=== PATIENT | female | born 1955 | race Caucasian/White ===

== ENCOUNTER 2020-07-03 09:51 | Outpatient (REF) | payer BC, SELFPAY ==
--- NOTE | 2020-07-03 | XR_ITS ---
EXAMINATION: XR BILATERAL HIPS WITH AP PELVIS CLINICAL INFORMATION: Bilateral hip pain and swelling. COMPARISON: None TECHNIQUE: AP view of the pelvis and single views of each hip were obtained. FINDINGS: Minimal bilateral hip degenerative joint changes are seen. There is no acute fracture or dislocation. The bony pelvis is intact. The soft tissues are unremarkable. IMPRESSION: Minimal bilateral hip degenerative joint changes. No acute abnormality.
== END 2020-07-03 09:52 | disposition home or self-care (01) ==
LOC: HO.XRAY 09:51
DX: M25.552 Pain in left hip (principal); M25.551 Pain in right hip; M25.452 Effusion, left hip; M25.451 Effusion, right hip
CPT/HCPCS: 73521

== ENCOUNTER 2020-12-27 08:10 | Outpatient (REF) | payer BC, SELFPAY ==
--- NOTE | ~2020-12-27 | MM_ITS ---
EXAMINATION: BONE DENSITOMETRY CLINICAL INDICATION: Osteopenia. COMPARISON: Baseline BD dated 09/10/2013. TECHNIQUE: Using a [employer] DXA System (software version: 13.1) manufactured by [employer], dual-energy x-ray absorptiometry was performed of the lumbar spine and left hip. The images are of good technical quality. Summary results are attached. FINDINGS: AP SPINE L1-L4: Current: BMD 0.938 g/cm2, Z-score -0.7, T-score -2.0, osteopenia, 2.4% increase from baseline (<5% change is not significant). Baseline: BMD 0.916 g/cm2. LEFT FEMUR, NECK: Current: BMD 0.625 g/cm2, Z-score -1.7, T-score -3.0, osteoporosis. Baseline: BMD 0.718 g/cm2. LEFT FEMUR, TOTAL: Current: BMD 0.810 g/cm2, Z-score -0.6, T-score -1.6, osteopenia, 1.6% decrease from baseline (<5% change is not significant). Baseline: BMD 0.823 g/cm2. IDENTIFIED RISK FACTORS: Early menopause, tobacco use (current smoker). HISTORY OF FRACTURE: None listed. MEDICATIONS: Vitamin D. MM/XR DEXA axial skeleton IMPRESSION: 1. DIAGNOSIS: Osteoporosis based on the lowest T-score value of -3.0 in the femoral neck applying World Health Organization criteria. 2. 10-YEAR FRACTURE RISK PREDICTION, FRAX: According to the guidelines, FRAX calculation should only be performed on patients in the osteopenia bone density category. Therefore, FRAX was not performed on this patient. 3. Treatment Recommendations: NOF guidelines recommend consideration for treatment in postmenopausal women and men age 50 and older presenting with the following: -A hip or vertebral (clinical or morphometric) fracture. -T-score less than or equal to -2.5 at the femoral neck or spine after appropriate evaluation to exclude secondary causes. -Low bone mass at the hip or spine and a 10-year fracture probability by FRAX of greater than or equal to 3% for hip fracture or greater than or equal to 20% for major osteoporotic fracture based on the [place] adapted WHO algorithm. 4. Other Recommendations: All treatment decisions require clinical judgment and consideration of individual patient factors, including patient preferences, comorbidities, previous drug use, risk factors not captured in the FRAX model (e.g. frailty, falls, vitamin D deficiency, increased bone turnover, interval significant decline in bone density) and possible under or overestimation of fracture risk by FRAX. Additional medical evaluation for secondary cause of low bone mineral density may be appropriate. FUTURE SCAN RECOMMENDATION: People with diagnosed cases of osteoporosis or at high risk for fracture should have regular bone mineral density tests. For patients eligible for Medicare, routine testing is allowed once every 2 years. The testing frequency can be increased to one year for patients who have rapidly progressing disease, those who are receiving or discontinuing medical therapy to restore bone mass, or have additional risk factors.
== END 2020-12-27 08:11 | disposition home or self-care (01) ==
LOC: HO.MAMMO 08:10
PROVIDERS: Visit Provider Internal Medicine
DX: Z13.820 Encounter for screening for osteoporosis (principal); Z78.0 Asymptomatic menopausal state; M85.80 Other specified disorders of bone density and structure, unspecified site; F17.200 Nicotine dependence, unspecified, uncomplicated; Z79.899 Other long term (current) drug therapy
CPT/HCPCS: 77080

== ENCOUNTER 2021-03-15 07:40 | Outpatient (REF) | payer BC, SELFPAY ==
--- NOTE | ~2021-03-15 | XR_ITS ---
EXAMINATION: XR LUMBOSACRAL SPINE CLINICAL INFORMATION: Low back pain COMPARISON: None TECHNIQUE: Three views of the lumbosacral spine. FINDINGS: Bone alignment is normal. No fracture or dislocation is seen. Disc spaces are normal. There is lower lumbar spine facet arthritis. There is evidence of atherosclerotic. XR/XR lumbar spine 2-3V IMPRESSION: Facet arthritis. Otherwise unremarkable exam.
[2021-03-15 08:55] LABS: Glucose Urine UA NEG (NEG); Leukocyte Esterase Urine 1+ (NEG); Nitrite Urine NEG (NEG); Specific Gravity - Urine 1.025 (1.005-1.025); UACC Culture Trigger YES; Urine Blood NEG (NEG); Urine Ketones NEG (NEG); Urine Protein NEG (NEG-TRACE)
[2021-03-15 09:06] LABS: Appearance Urine CLEAR; Color Urine YELLOW
[2021-03-15 09:16] LABS: Amorphous Sediment Urine 1+ /LPF; Mucus Urine 1+ /LPF; RBC Urine 0-2 /HPF (0); Squamous Epithelial Cell Urine 1+ /LPF
[2021-03-15 09:21] LABS: MANUAL DIFF FLAG NO
[2021-03-15 09:25] LABS: Basophils Absolute Auto 0.1 X10*3/uL (0.0-0.2); Basophils Percent Auto 0.7 % (0-2); Eosinophils Absolute Auto 0.4 X10*3/uL (0.0-0.4); Eosinophils Percent Auto 4.2 % (0-4); Hematocrit 47.1 % (37-47); Hemoglobin 15.4 g/dl (12.0-16.0); Imm Gran Abs Auto 0.03 X10*3/uL (0.00-0.03); Imm Gran Pct Auto 0.3 % (0.0-0.4); Lymphocytes Absolute Auto 2.8 X10*3/uL (1.2-4.9); Lymphocytes Percent Auto 30.4 % (20-40); Mean Corpuscular HGB Conc 32.7 g/dl (31.0-35.0); Mean Corpuscular Hemoglobin 30.3 pg (27.0-33.0); Mean Corpuscular Volume 92.7 fL (80-98); Mean Platelet Volume 10.2 fL (9.4-12.3); Monocytes Absolute Auto 0.5 X10*3/uL (0.1-1.2); Monocytes Percent Auto 5.9 % (2-11); Neutrophils Absolute Auto 5.4 X10*3/uL (2.0-8.3); Neutrophils Percent Auto 58.5 % (45-73); Platelet Count 359 X10*3/uL (160-400); Red Blood Count 5.08 X10*6/uL (4.20-5.50); Red Cell Distribution Width 12.4 % (11.0-16.0); White Blood Count 9.2 X10*3/uL (4.8-10.8)
[2021-03-15 09:52] LABS: Alanine Aminotransferase 19 U/L (0-31); Albumin Level 4.5 g/dL (3.5-5.0); Alkaline Phosphatase 107 U/L (39-117); Anion Gap 13 (12-20); Aspartate Amino Transferase 18 U/L (5-31); Bilirubin Total 0.4 mg/dL (0.0-1.0); Blood Urea Nitrogen 14 mg/dL (9-16); Calcium 9.8 mg/dL (8.4-10.2); Carbon Dioxide 27 mmol/L (22-29); Chloride 106 mmol/L (96-108); Cholesterol 161 mg/dL; Estimated Glomerular Filt Rate > 60; Glucose Fasting 92 mg/dL (60-99); HDL Cholesterol 50 mg/dL; LDL Cholesterol Calculated 78 mg/dl; Magnesium 2.1 mg/dL (1.6-2.6); Potassium 4.9 mmol/L (3.3-5.1); Sodium 141 mmol/L (135-145); Total Protein 6.6 g/dL (6.5-8.0); Triglycerides 166 mg/dL
[2021-03-15 09:59] LABS: TSH reflex Free T4 2.01 uIU/mL (0.32-4.0); Vitamin D 25-OH Total 51.2 ng/mL (>30)
== END 2021-03-15 07:41 | disposition home or self-care (01) ==
LOC: HO.LAB 07:40
PROVIDERS: PCP Internal Medicine; Visit Provider Internal Medicine
DX: M54.5 Low back pain (principal); M54.10 Radiculopathy, site unspecified; E78.00 Pure hypercholesterolemia, unspecified; I10 Essential (primary) hypertension; E66.9 Obesity, unspecified; E55.9 Vitamin D deficiency, unspecified
CPT/HCPCS: 36415; 72100; 80053; 80061; 81001; 81003; 82306; 83735; 84443; 85025; 87086

== ENCOUNTER 2021-08-21 11:25 | Outpatient (REF) | payer BC, SELFPAY ==
--- NOTE | ~2021-08-21 | XR_ITS ---
EXAMINATION: XR CHEST CLINICAL INFORMATION: Cough COMPARISON: None TECHNIQUE: 2 views of the chest were obtained. FINDINGS: Subtle patchy radiopacity in the left lung base may represent evolving infectious/inflammatory etiology versus atelectasis. Correlation with symptomatology. No pneumothorax. Trachea is midline. Cardiomediastinal silhouette is not enlarged. Aorta demonstrates atherosclerotic calcifications. No large pleural effusion. Degenerative changes of the thoracolumbar spine. Soft tissues are unremarkable XR/XR chest 2V IMPRESSION: Subtle patchy radiopacity in the left lung base may represent evolving infectious/inflammatory etiology versus atelectasis. Correlation with symptomatology.
== END 2021-08-21 11:26 | disposition home or self-care (01) ==
LOC: HO.XRAY 11:25
PROVIDERS: PCP Internal Medicine; Visit Provider Internal Medicine
DX: R05.8 Other specified cough (principal)
CPT/HCPCS: 71046

== ENCOUNTER → 2021-09-26 08:00 | Outpatient (BNVA) | payer BC, SELFPAY | PROVIDERS: PCP Internal Medicine; Visit Provider Internal Medicine ==

== ENCOUNTER 2021-11-15 08:02 | Outpatient (REF) | payer BC, SELFPAY ==
[2021-11-15 09:37] LABS: Alanine Aminotransferase 20 U/L (0-31); Albumin Level 4.3 g/dL (3.5-5.0); Alkaline Phosphatase 91 U/L (39-117); Anion Gap 12 (12-20); Aspartate Amino Transferase 19 U/L (5-31); Bilirubin Total 0.2 mg/dL (0.0-1.0); Blood Urea Nitrogen 17 mg/dL (9-16); Calcium 10.1 mg/dL (8.4-10.2); Carbon Dioxide 28 mmol/L (22-29); Chloride 105 mmol/L (96-108); Estimated Glomerular Filt Rate 55; Glucose Random 66 mg/dL (60-115); Phosphorus 3.1 mg/dL (2.7-4.5); Potassium 4.8 mmol/L (3.3-5.1); Sodium 140 mmol/L (135-145); Total Protein 6.6 g/dL (6.5-8.0)
[2021-11-15 09:51] LABS: Thyroid Stimulating Hormone 2.81 uIU/mL (0.32-4.0); Vitamin D 25-OH Total 30.5 ng/mL (>30)
[2021-11-16 12:47] LABS: PTHI 36 pg/mL (14-64)
[2021-11-19 10:58] LABS: Alkaline Phosphatase Bone 12.1 mcg/L (5.6-29.0)
[2021-11-20 15:16] LABS: N-Telopeptide 12 (see note); NTXCreaRU 38 mg/dL (20-275)
[2021-11-21 06:26] LABS: Prot Elec - Albumin 4.3 g/dL (3.8-4.8); Prot Elec - Alpha1 0.3 g/dL (0.2-0.3); Prot Elec - Alpha2 0.9 g/dL (0.5-0.9); Prot Elec - Beta 1 0.4 g/dL (0.4-0.6); Prot Elec - Beta 2 0.3 g/dL (0.2-0.5); Prot Elec - Gamma 0.6 g/dL (0.8-1.7); Prot Elec - Total Protein 6.8 g/dL (6.1-8.1)
== END 2021-11-15 08:03 | disposition home or self-care (01) ==
LOC: HO.LAB 08:02
PROVIDERS: PCP Internal Medicine; Visit Provider Internal Medicine
DX: M81.0 Age-related osteoporosis without current pathological fracture (principal); E55.9 Vitamin D deficiency, unspecified
CPT/HCPCS: 36415; 80053; 82306; 82330; 82523; 83970; 84075; 84100; 84165; 84439; 84443

== ENCOUNTER 2021-11-16 08:00 | Outpatient (REF) | payer BC, SELFPAY ==
[2021-11-17 12:59] LABS: Creatinine, mg/dL 33.64
[2021-11-17 14:07] LABS: Total Volume 24 Hour Urine 2850 mL
[2021-11-19 16:52] LABS: Calcium, 24 Hr Urine 120 mg/24 h; Calcium/Creatinine Ratio 120 mg/g creat (30-275)
== END 2021-11-16 08:01 | disposition home or self-care (01) ==
LOC: HO.LNP 08:00
PROVIDERS: Visit Provider Internal Medicine
DX: M81.0 Age-related osteoporosis without current pathological fracture (principal)
CPT/HCPCS: 82340; 82570

== ENCOUNTER → 2021-11-21 10:12 | Outpatient (BNVA) | payer BC, SELFPAY | PROVIDERS: PCP Internal Medicine; Visit Provider Internal Medicine ==

== ENCOUNTER 2021-11-30 08:53 | Outpatient (REF) | payer BC, SELFPAY ==
[2021-11-30 10:18] LABS: Alanine Aminotransferase 20 U/L (0-31); Albumin Level 4.3 g/dL (3.5-5.0); Alkaline Phosphatase 96 U/L (39-117); Anion Gap 12 (12-20); Aspartate Amino Transferase 19 U/L (5-31); Bilirubin Total 0.3 mg/dL (0.0-1.0); Blood Urea Nitrogen 20 mg/dL (9-16); Calcium 10.4 mg/dL (8.4-10.2); Carbon Dioxide 28 mmol/L (22-29); Chloride 103 mmol/L (96-108); Estimated Glomerular Filt Rate 56; Glucose Random 87 mg/dL (60-115); Phosphorus 3.6 mg/dL (2.7-4.5); Potassium 5.2 mmol/L (3.3-5.1); Sodium 138 mmol/L (135-145); Total Protein 6.7 g/dL (6.5-8.0)
[2021-11-30 10:41] LABS: TSH reflex Free T4 1.71 uIU/mL (0.32-4.0)
== END 2021-11-30 08:54 | disposition home or self-care (01) ==
LOC: HO.LAB 08:53
PROVIDERS: PCP Internal Medicine; Visit Provider Internal Medicine
DX: M81.0 Age-related osteoporosis without current pathological fracture (principal); E78.00 Pure hypercholesterolemia, unspecified; E66.9 Obesity, unspecified
CPT/HCPCS: 36415; 80053; 84100; 84443

== ENCOUNTER 2021-12-07 08:04 | Outpatient (REF) | payer BC, SELFPAY ==
[2021-12-07 09:06] LABS: Anion Gap 10 (12-20); Blood Urea Nitrogen 14 mg/dL (9-16); Calcium 10.3 mg/dL (8.4-10.2); Carbon Dioxide 29 mmol/L (22-29); Chloride 106 mmol/L (96-108); Estimated Glomerular Filt Rate 55; Glucose Random 88 mg/dL (60-115); Potassium 5.1 mmol/L (3.3-5.1); Sodium 140 mmol/L (135-145)
[2021-12-07 09:30] LABS: Vitamin D 25-OH Total 29.3 ng/mL (>30)
[2021-12-10 16:41] LABS: Calcium (PTHI) 10.4 mg/dL (8.6-10.4); PTHI 21 pg/mL (14-64)
== END 2021-12-07 08:05 | disposition home or self-care (01) ==
LOC: HO.LAB 08:04
PROVIDERS: PCP Internal Medicine; Visit Provider Internal Medicine
DX: M81.0 Age-related osteoporosis without current pathological fracture (principal); E55.9 Vitamin D deficiency, unspecified
CPT/HCPCS: 36415; 80048; 82306; 83970

== ENCOUNTER → 2022-02-27 15:14 | Outpatient (BNVA) | payer BC, SELFPAY | PROVIDERS: PCP Internal Medicine; Visit Provider Internal Medicine | DX: Z13.89 Encounter for screening for other disorder (principal) ==

== ENCOUNTER 2022-03-29 08:38 | Outpatient (REF) | payer BC, SELFPAY ==
[2022-03-29 09:00] LABS: MANUAL DIFF FLAG NO
[2022-03-29 09:46] LABS: Basophils Absolute Auto 0.1 X10*3/uL (0.0-0.2); Basophils Percent Auto 0.5 % (0-2); Eosinophils Absolute Auto 0.4 X10*3/uL (0.0-0.4); Eosinophils Percent Auto 4.1 % (0-4); Hematocrit 44.4 % (37.0-47.0); Imm Gran Abs Auto 0.03 X10*3/uL (0.00-0.03); Imm Gran Pct Auto 0.3 % (0.0-0.4); Lymphocytes Absolute Auto 2.8 X10*3/uL (1.2-4.9); Lymphocytes Percent Auto 30.1 % (20-40); Mean Corpuscular HGB Conc 33.8 g/dl (31.0-35.0); Mean Corpuscular Hemoglobin 30.8 pg (27.0-33.0); Mean Corpuscular Volume 91.2 fL (80.0-98.0); Mean Platelet Volume 10.1 fL (9.4-12.3); Monocytes Absolute Auto 0.6 X10*3/uL (0.1-1.2); Monocytes Percent Auto 6.1 % (2-11); Neutrophils Absolute Auto 5.4 x10*3/uL (2.0-8.3); Neutrophils Percent Auto 58.9 % (45-73); Platelet Count 340 X10*3/uL (160-400); Red Blood Count 4.87 X10*6/uL (4.20-5.50); Red Cell Distribution Width 12.7 % (11.0-16.0); White Blood Count 9.2 X10*3/uL (4.8-10.8)
[2022-03-29 10:28] LABS: Alanine Aminotransferase 16 U/L (0-31); Albumin Level 4.3 g/dL (3.5-5.0); Alkaline Phosphatase 98 U/L (39-117); Anion Gap 15 (12-20); Aspartate Amino Transferase 17 U/L (5-31); Bilirubin Total 0.7 mg/dL (0.0-1.0); Blood Urea Nitrogen 14 mg/dL (9-16); Calcium 9.5 mg/dL (8.4-10.2); Carbon Dioxide 23 mmol/L (22-29); Chloride 106 mmol/L (96-108); Cholesterol 149 mg/dL; Estimated Glomerular Filt Rate 60; Glucose Fasting 94 mg/dL (60-99); HDL Cholesterol 43 mg/dL; LDL Cholesterol Calculated 80 mg/dl; Potassium 4.5 mmol/L (3.3-5.1); Sodium 139 mmol/L (135-145); Total Protein 6.4 g/dL (6.5-8.0); Triglycerides 133 mg/dL
[2022-03-29 10:37] LABS: TSH reflex Free T4 2.18 uIU/mL (0.32-4.0); Vitamin D 25-OH Total 26.7 ng/mL (>30)
[2022-03-29 10:53] LABS: Appearance Urine CLEAR; Color Urine STRAW; Glucose Urine UA NEG (NEG); Leukocyte Esterase Urine NEG (NEG); Nitrite Urine NEG (NEG); Urine Blood NEG (NEG); Urine Ketones NEG (NEG); Urine Protein NEG (NEG-TRACE)
== END 2022-03-29 08:39 | disposition home or self-care (01) ==
LOC: HO.LAB 08:38
PROVIDERS: PCP Internal Medicine; Visit Provider Internal Medicine
DX: E55.9 Vitamin D deficiency, unspecified (principal); I10 Essential (primary) hypertension; E78.00 Pure hypercholesterolemia, unspecified
CPT/HCPCS: 36415; 80053; 80061; 81003; 82306; 84443; 85025

== ENCOUNTER 2022-04-17 07:54 | Outpatient (REF) | payer BC, SELFPAY ==
--- NOTE | ~2022-04-17 | MM_ITS ---
EXAMINATION: MM SCREENING DIGITAL BREAST TOMOSYNTHESIS, BILATERAL CLINICAL INFORMATION: Screening. Asymptomatic. The lifetime risk of breast cancer based on the Tyrer-Cuzick Model is 4.1%. COMPARISON: Mammography: August 30, 2013 TECHNIQUE: Digital breast tomosynthesis is performed in both the craniocaudal and mediolateral oblique views along with computer-aided detection (CAD). Synthesized 2D images are generated from the tomosynthesis. FINDINGS: There are scattered areas of fibroglandular density (ACR BI-RADS breast composition Category b). There are no significant masses, abnormal calcifications, or other abnormalities. MM/MM tomosynthesis screening BI IMPRESSION: There are no significant changes from prior study. ASSESSMENT: BI-RADS 1: Negative RECOMMENDATION: Routine annual mammography screening. This patient's information was entered into a reminder system with a target due date for their next mammogram.
== END 2022-04-17 07:55 | disposition home or self-care (01) ==
LOC: HO.MAMMO 07:54
PROVIDERS: Visit Provider Internal Medicine
DX: Z12.31 Encounter for screening mammogram for malignant neoplasm of breast (principal)
CPT/HCPCS: 77063; 77067

== ENCOUNTER 2022-05-28 13:01 | Outpatient (REF) | payer BC, SELFPAY ==
[2022-05-29 07:25] LABS: CT PCR NOT DETECTED (Not Detect.); NG PCR NOT DETECTED (Not Detect.)
[2022-05-29 08:35] LABS: BV Int Neg Control Negative (Negative); BV Int Pos Control Positive (Positive)
[2022-06-01 00:27] LABS: HPV mRNA E6/E7 rflx Not Detected (Not Detected)
== END 2022-05-28 13:02 | disposition home or self-care (01) ==
LOC: HO.LAB 13:01
PROVIDERS: PCP Internal Medicine; Visit Provider Obstetrics & Gynecology
DX: Z01.411 Encounter for gynecological examination (general) (routine) with abnormal findings (principal); Z11.51 Encounter for screening for human papillomavirus (HPV); N88.8 Other specified noninflammatory disorders of cervix uteri; B96.89 Other specified bacterial agents as the cause of diseases classified elsewhere; N76.0 Acute vaginitis
CPT/HCPCS: 57500; 87480; 87491; 87510; 87591; 87624; 87660; 88142; 88305

== ENCOUNTER 2022-08-19 08:54 | Outpatient (REF) | payer BC, SELFPAY ==
[2022-08-19 09:12] LABS: MANUAL DIFF FLAG NO
[2022-08-19 09:42] LABS: Basophils Absolute Auto 0.1 X10*3/uL (0.0-0.2); Basophils Percent Auto 0.7 % (0-2); Eosinophils Absolute Auto 0.3 X10*3/uL (0.0-0.4); Eosinophils Percent Auto 3.6 % (0-4); Hematocrit 47.6 % (37.0-47.0); Hemoglobin 15.8 g/dl (12.0-16.0); Imm Gran Abs Auto 0.03 X10*3/uL (0.00-0.03); Imm Gran Pct Auto 0.3 % (0.0-0.4); Lymphocytes Absolute Auto 2.7 X10*3/uL (1.2-4.9); Lymphocytes Percent Auto 29.1 % (20-40); Mean Corpuscular HGB Conc 33.2 g/dl (31.0-35.0); Mean Corpuscular Hemoglobin 30.3 pg (27.0-33.0); Mean Corpuscular Volume 91.4 fL (80.0-98.0); Mean Platelet Volume 9.9 fL (9.4-12.3); Monocytes Absolute Auto 0.6 X10*3/uL (0.1-1.2); Monocytes Percent Auto 6.8 % (2-11); Neutrophils Absolute Auto 5.6 x10*3/uL (2.0-8.3); Neutrophils Percent Auto 59.5 % (45-73); Platelet Count 346 X10*3/uL (160-400); Red Blood Count 5.21 X10*6/uL (4.20-5.50); Red Cell Distribution Width 12.4 % (11.0-16.0); White Blood Count 9.4 X10*3/uL (4.8-10.8)
[2022-08-19 10:22] LABS: Appearance Urine Clear; Color Urine Yellow; Glucose Urine UA Negative (Negative); Leukocyte Esterase Urine Negative (Negative); Nitrite Urine Negative (Negative); Specific Gravity - Urine 1.015 (1.005-1.025); Urine Blood Negative (Negative); Urine Ketones Negative (Negative); Urine Protein Negative (Neg-Trace)
[2022-08-19 10:35] LABS: Alanine Aminotransferase 23 U/L (0-31); Albumin Level 4.5 g/dL (3.5-5.0); Alkaline Phosphatase 100 U/L (39-117); Anion Gap 13 (12-20); Aspartate Amino Transferase 19 U/L (5-31); Bilirubin Total 0.4 mg/dL (0.0-1.0); Blood Urea Nitrogen 18 mg/dL (9-16); Calcium 10.3 mg/dL (8.4-10.2); Carbon Dioxide 29 mmol/L (22-29); Chloride 106 mmol/L (96-108); Cholesterol 160 mg/dL; Estimated Glomerular Filt Rate 60; Glucose Fasting 99 mg/dL (60-99); HDL Cholesterol 44 mg/dL; LDL Cholesterol Calculated 94 mg/dl; Potassium 5.6 mmol/L (3.3-5.1); Sodium 142 mmol/L (135-145); TSH reflex Free T4 2.08 uIU/mL (0.32-4.0); Total Protein 6.6 g/dL (6.5-8.0); Triglycerides 114 mg/dL; Vitamin D 25-OH Total 35.9 ng/mL (>30)
== END 2022-08-19 08:55 | disposition home or self-care (01) ==
LOC: HO.LAB 08:54
PROVIDERS: PCP Internal Medicine; Visit Provider Internal Medicine
DX: E78.00 Pure hypercholesterolemia, unspecified (principal); E55.9 Vitamin D deficiency, unspecified; I10 Essential (primary) hypertension
CPT/HCPCS: 36415; 80053; 80061; 81003; 82306; 84443; 85025

== ENCOUNTER 2022-09-05 10:00 | Outpatient (REF) | payer BC, SELFPAY ==
--- NOTE | ~2022-09-05 | XR_ITS ---
EXAMINATION: XR CHEST CLINICAL INFORMATION: Abnormal chest findings COMPARISON: None TECHNIQUE: 2 views of the chest were obtained. FINDINGS: The lungs are fairly well-expanded and clear of acute process. The heart size and pulmonary vascularity is normal. No gross bony abnormality seen. XR/XR chest 2V IMPRESSION: Unremarkable chest examination.
== END 2022-09-05 10:01 | disposition home or self-care (01) ==
LOC: HO.XRAY 10:00
PROVIDERS: PCP Internal Medicine; Visit Provider Hospitalist
DX: Z23 Encounter for immunization (principal); R93.89 Abnormal findings on diagnostic imaging of other specified body structures; J44.9 Chronic obstructive pulmonary disease, unspecified; F17.210 Nicotine dependence, cigarettes, uncomplicated
CPT/HCPCS: 71046; 90471; 90677

== ENCOUNTER 2022-09-11 09:31 | Outpatient (REF) | payer BC, SELFPAY ==
--- NOTE | 2022-09-11 08:36 | PFT_ITS ---
INDICATION: COPD. SPIROMETRY: FEV1 to FVC of 74% with an FEV1 of 2.13 L which is 99% predicted, and FVC of 2.87 L, which is 101% predicted. No significant response to bronchodilators noted. Maximum voluntary ventilation 95% predicted. LUNG VOLUMES: Total lung capacity 110% predicted with residual volume 108% predicted. The expiratory reserve volume is 17% predicted. DIFFUSION CAPACITY: DLCO 86% predicted. COMPARISONS: None. INTERPRETATION: No obstructive nor restrictive ventilatory defects identified. No significant response to bronchodilators noted. Normal maximum voluntary ventilation. Lung volumes are normal except for decrease in the expiratory reserve volume. The patient has a normal diffusion capacity. Clinical correlation warranted. Loy Weaver MD MR/MODL / [id number]
== END 2022-09-11 09:32 | disposition home or self-care (01) ==
LOC: HO.RESP 09:31
PROVIDERS: PCP Internal Medicine; Visit Provider Hospitalist
DX: J44.9 Chronic obstructive pulmonary disease, unspecified (principal)
CPT/HCPCS: 94060; 94727; 94729

== ENCOUNTER 2022-09-12 09:52 | Outpatient (REF) | payer BC, SELFPAY ==
[2022-09-12 13:19] LABS: Alanine Aminotransferase 22 U/L (0-31); Alkaline Phosphatase 90 U/L (39-117); Anion Gap 11 (12-20); Aspartate Amino Transferase 20 U/L (5-31); Bilirubin Total 0.5 mg/dL (0.0-1.0); Blood Urea Nitrogen 14 mg/dL (9-16); Calcium 9.3 mg/dL (8.4-10.2); Carbon Dioxide 26 mmol/L (22-29); Chloride 108 mmol/L (96-108); Estimated Glomerular Filt Rate > 60; Glucose Random 91 mg/dL (60-115); Phosphorus 3.4 mg/dL (2.7-4.5); Potassium 5.1 mmol/L (3.3-5.1); Sodium 140 mmol/L (135-145); Vitamin D 25-OH Total 30.3 ng/mL (>30)
[2022-09-16 11:54] LABS: Calcium (PTHI) 9.3 mg/dL (8.6-10.4); PTHI 70 pg/mL (16-77)
[2022-09-18 00:48] LABS: Alkaline Phosphatase Bone 13.9 mcg/L (5.6-29.0)
[2022-09-18 15:33] LABS: N-Telopeptide 25 (see note); NTXCreaRU 129 mg/dL (20-275)
== END 2022-09-12 09:53 | disposition home or self-care (01) ==
LOC: HO.LAB 09:52
PROVIDERS: PCP Internal Medicine; Visit Provider Internal Medicine
DX: M81.0 Age-related osteoporosis without current pathological fracture (principal); E55.9 Vitamin D deficiency, unspecified
CPT/HCPCS: 36415; 80053; 82306; 82523; 83970; 84075; 84100

== ENCOUNTER 2022-09-13 07:07 | Outpatient (REF) | payer BC, SELFPAY ==
--- NOTE | ~2022-09-13 | CT_ITS ---
EXAMINATION: CT CHEST WITHOUT CONTRAST CLINICAL INFORMATION: Abnormal findings on diagnostic imaging. COMPARISON: Chest x-ray 09/06/2022 and 08/24/2021 TECHNIQUE: Multidetector volumetric CT imaging of the chest was done. Axial MIP volume rendering provided. Sagittal and coronal reformatted images were obtained. This CT examination was performed using dose optimization techniques as appropriate, variously including the following: *Automated exposure control *Adjustment of mA and/or kV according to patient size (this includes techniques or standardized protocols for targeted exams where dose is matched to indication/reason for exam; i.e. extremities or head) *Use of iterative reconstruction technique DLP: 161 mGy-cm FINDINGS: GRIND OPERATOR: Well-expanded lungs. LUNGS: The lungs are well-expanded and clear of acute process. Mild groundglass haziness in anterior and posterior segments of both lower lobes, nonspecific likely atelectasis or inflammatory process. No pulmonary nodule, consolidation or mass seen. MEDIASTINUM: The thyroid lobes are symmetric and normal. The central trachea and bronchi are widely patent. Heart size and the great vessels are normal caliber. No pericardial effusion seen. Central trachea and the bronchi are widely patent. CORONARY ARTERY CALCIFICATION: None visualized on this study. PLEURA: There is no pleural effusion. No pleural mass or thickening. AXILLA: There are bilateral small shotty lymph nodes. The left axillary lymph nodes are slightly more prominent compared to right with the largest left axillary lymph node measures 1.6 x 1.0 cm on axial image 10/3. The chest wall is unremarkable. UPPER ABDOMEN: Visualized liver, spleen, pancreas and bilateral adrenal glands unremarkable. OSSEOUS STRUCTURES: No aggressive lytic or sclerotic process seen. There is mild ventral spondylosis mid dorsal spine. CT/CT chest wo IV con IMPRESSION: 1. Mild groundglass haziness in both lower lobes, nonspecific. This could be secondary to atelectasis or chronic inflammatory changes. No acute consolidation, pleural effusion or abnormal mediastinal lymph nodes. 2. Slightly prominent left axillary lymph nodes. Fleischner guidelines were followed.
== END 2022-09-13 07:08 | disposition home or self-care (01) ==
LOC: HO.CT 07:07
PROVIDERS: Visit Provider Hospitalist
DX: R93.89 Abnormal findings on diagnostic imaging of other specified body structures (principal)
CPT/HCPCS: 71250

== ENCOUNTER 2022-09-14 | Outpatient (REF) | payer BC, SELFPAY ==
[2022-09-14 11:33] LABS: Total Volume 24 Hour Urine 2950 mL
[2022-09-14 12:24] LABS: Creatinine, 24Hr Urine 1.1 G/Day (1.0-2.0); Creatinine, mg/dL 35.64
== END 2022-09-14 00:01 | disposition home or self-care (01) ==
LOC: HO.LNP
PROVIDERS: Visit Provider Internal Medicine
DX: M81.0 Age-related osteoporosis without current pathological fracture (principal)
CPT/HCPCS: 82340; 82570

== ENCOUNTER → 2022-10-03 10:03 | Outpatient (BNVA) | payer BC, SELFPAY | PROVIDERS: PCP Internal Medicine; Visit Provider Hospitalist | DX: Z23 Encounter for immunization (principal); R93.89 Abnormal findings on diagnostic imaging of other specified body structures ==

== ENCOUNTER 2022-10-23 08:53 | Outpatient (REF) | payer BC, SELFPAY ==
--- NOTE | ~2022-10-23 | US_ITS ---
EXAMINATION: US THYROID CLINICAL INFORMATION: Nontoxic goiter, unspecified. COMPARISON: None TECHNIQUE: Linear transducer grayscale and color Doppler examination with attention to the region of the thyroid. FINDINGS: SIZE: Measurements of the thyroid lobes and nodules are given in sagittal, anteroposterior and transverse dimensions respectively. Right Thyroid Lobe: 4.9 x 1.2 x 1.4 cm, volume 4.3 mL. Parenchyma: The gland echotexture is homogeneous. Thyroid vascularity is normal. Left Thyroid Lobe: 3.4 x 1.3 x 1.3 cm, volume 3.0 mL. Parenchyma: The gland echotexture is homogeneous. Thyroid vascularity is normal. Isthmus: 0.3 cm in maximum AP dimension. Estimated total number of nodules greater than or equal to 1 cm: 0. 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 Location: Right mid. Size: 0.2 x 0.1 x 0.2 cm, volume 0.003 mL. Nodule characteristics: Composition: Cystic(0). ACR TI-RADS total points: 0 ACR TI-RADS category: 1 NODES: No lymphadenopathy is seen in the tissue surrounding the thyroid gland. US/US thyroid IMPRESSION: Unremarkable thyroid ultrasound. ACR TI-RADS RECOMMENDATION REFERENCE: Ultrasound-guided fine-needle aspiration, followup ultrasound, no further follow up. * TR1 (0 point) and TR 2 (2 points): No FNA or follow up. * TR3 (3 points): FNA if more than or equal to 2.5 cm in maximum dimension, followup ultrasound in 1, 3 and 5 years if 1.5 to 2.4 cm in maximum dimension. * TR4 (4-6 points): FNA if more than or equal to 1.5 cm in maximum dimension, followup ultrasound in 1, 2, 3 and 5 years if 1 to 1.4 cm in maximum dimension. * TR5 (more than or equal to 7 points): FNA if more than or equal to 1 cm in maximum dimension, followup ultrasound every year for 5 years if 0.5 to 0.9 cm in maximum dimension. * TR3, TR4 or TR5 nodules that are below the size threshold for followup receive no follow up.
== END 2022-10-23 08:54 | disposition home or self-care (01) ==
LOC: HO.US 08:53
PROVIDERS: Visit Provider Internal Medicine
DX: E04.9 Nontoxic goiter, unspecified (principal)
CPT/HCPCS: 76536

== ENCOUNTER → 2022-11-07 12:49 | Outpatient (BNVA) | payer BC, SELFPAY | PROVIDERS: PCP Internal Medicine; Visit Provider Internal Medicine | DX: M81.0 Age-related osteoporosis without current pathological fracture (principal) | CPT/HCPCS: 96372; J3111 ==

== ENCOUNTER 2022-11-14 08:29 | Day surgery (SDC) | payer BC, SELFPAY ==
[2022-11-11 10:47] VITALS: BMI 30.8
[2022-11-14 08:31] VITALS: BP 169/88; PULSE 82; RESP 17; TEMP 36.4; O2SAT 96
--- NOTE | 2022-11-14 08:39 | PC.NURSE ---
no meds taken today
[2022-11-14] MEDS: Lactated Ringers 1,000 ML 50 ML IVCONT (08:47)
--- NOTE | 2022-11-14 09:12 | MHC.SHP ---
Pre-Procedural Eval Section A Date of Service: 11/14/22 Section B Chief Complaint: Personal hx of polyps Details of Present Illness: PMH Anxiety Depression Low back pain Normal colonoscopy (~2010) Obesity (BMI 30-39.9) Osteoporosis Pure hypercholesterolemia Radicular pain of right lower extremity Vitamin D deficiency Surgical History History of removal of eye Hx of section Relevant Social History: None Present Medications: see Short Stay Collaborative assessment Medical History: Significant History (As above) History of Previous Operations: Relevant previous surgery/procedure and date(s) (As above) Allergies: Allergies Allergy/AdvReac Type Severity Reaction Status Date / Time No Known Allergies Allergy Verified 10/03/22 10:10 Review of Systems Review of Systems Comment: 10 point ROS negative Exam Exam Comment: Gen appear: No acute distress HEENT: no icterus Chest: No overt resp distress Abd: soft, nontender, nondistended Psych: Stable affect, answering questions appropriately Neuro: A/Ox3 noted to move all extremities spontaneously Ext: no peripheral edema Plan Diagnosis/Plan: Unchanged I have reviewed the history and physical and performed a pertinent physical examination on my patient. No changes have occurred unless specified. Time Spent With Patient Time: Total time managing care of this patient today ____ minutes.
--- NOTE | 2022-11-14 09:20 | P.OP_ITS ---
Operative Note Operative Note Date of Service: 11/14/22 Narrative: Procedure: Colonoscopy Indication: Personal history of polyps Endoscopist: Dara Mckeon MD Anesthesia Provider: Dr Gale Ho Anesthesia type: MAC Instrument: Olympus [id number] Consent: Indication, risks vs benefits, and alternatives were discussed with the patient who gave written informed consent to proceed. EKG, pulse, pulse oximetry and blood pressure were monitored throughout the procedure. Please see anesthesia flowsheet. Procedure: The patient was brought to the procedure room and placed in the left lateral decubitus position. IV medications were administered by the anesthesia provider in attendance. A digital rectal exam was performed which was normal. The colonoscope was then inserted through the anus and advanced through the colon to the cecum at 70 cm,and terminal ileum. Mucosa was carefully examined under high definition white light as the instrument was slowly withdrawn in a retrograde panoramic fashion. Retroflexion was performed in rectum. The procedure was not difficult. There were no immediate obvious complications. The quality of the prep was BBPS: 3+2+3 = adequate Withdrawal time 19 minutes. Limitations: No limitations. Findings: Mucosa: Normal to cecum and terminal ileum. Protruding lesions: * 1 sessile polyp of size 6 mm in transverse colon. Cold snare polypectomy was performed. The polyp was completely removed and retrieved. * 1 sessile polyp of size 2 mm in descending colon. Cold snare polypectomy was performed. The polyp was completely removed and retrieved. * 1 sessile polyp of size 8 mm in rectum. Cold snare polypectomy was performed. The polyp was completely removed and retrieved. Bleeding after polypectomy was noted which was treated with Resolution 360 endoclip with immediate hemostasis. * Medium internal hemorrhoids without stigmata of recent bleeding. Excavated lesions: * Small and medium mouthed diverticula of left sided colon. Impression: 1. Normal colon and terminal ileum mucosa 2. Total of 3 polyps removed from transverse + descending colon and rectum. 3. Internal hemorrhoids 4. Diverticulosis Recommendations: - Follow path results. - Repeat colonoscopy in 3 years if all polyps are adenomas. - Increase fiber intake. Above was reviewed with the patient and discharge instructions were provided as well.
--- NOTE | 2022-11-14 09:38 | HO.ANESPROP2 ---
HPI - Anesthesia Eval Consult details Narrative: colonoscopy for ho personal polyp PMFSH Active Problems Active Problems: All Active Problems (Updated 10/03/22 @ 19:32 by Loy Weaver MD) Pneumonitis (Acute) Goiter (Acute) Tobacco dependence due to cigarettes (Acute) Abnormal chest x-ray (Acute) COPD (chronic obstructive pulmonary disease) (Acute) Abnormal chest x-ray (Acute) Facet arthritis, degenerative, lumbar spine (Acute) Dyspnea (Acute) Bacterial vaginosis (Acute) Cervical cyst (Acute) Well woman exam (Acute) Cervical cancer screening (Acute) Breast cancer screening (Acute) Recurrent cough (Acute) Osteoporosis (Acute) Obesity (BMI 30-39.9) (Acute) Vitamin D deficiency (Acute) Low back pain (Acute) Radicular pain of right lower extremity (Acute) Depression (Acute) Anxiety (Acute) Pure hypercholesterolemia (Acute) Past Medical History Medical History (Updated 10/03/22 @ 19:32 by Loy Weaver MD) Abnormal chest x-ray Anxiety COPD (chronic obstructive pulmonary disease) Depression Facet arthritis, degenerative, lumbar spine Goiter Low back pain Normal colonoscopy (~2010) Obesity (BMI 30-39.9) Osteoporosis Pneumonitis Pure hypercholesterolemia Radicular pain of right lower extremity Tobacco dependence due to cigarettes Vitamin D deficiency Family History Family History Father Depression Mother Medical history unknown Maternal Grandmother Uterine cancer Other Mental health problem Family history of problems with anesthesia: No Surgical History Surgical History History of removal of eye Hx of section History of Problems with Anesthesia: No Social History Social History Housing: House Alcohol intake: current Alcohol intake frequency: does not drink Patient Tobacco Use Status: Current everyday Tobacco user Cigarettes Per Day: 4 Years Smoked: 15 Are you DNR?: No Advance Directives: No Advance Directives Information Provided: Yes service: No Current occupational status: unemployed Cognitive needs: No Hearing needs: No Vision needs: Yes Meds Allergies Allergy/AdvReac Type Severity Reaction Status Date / Time No Known Allergies Allergy Verified 10/03/22 10:10 Active Medications: Current Medications Lactated Ringer's (Lr) 1,000 mls @ 50 mls/hr IVCONT .Q20H OSCAR Last Admin: 11/14/22 08:47 Dose: 50 mls/hr Exam Exam Date and Time: November 14, 2022 0938 Height,Weight and Vital Signs: Height 5 ft 1 in Weight 73.936 kg Last Vital Signs Temp 97.5 F 11/14/22 08:31 Pulse 82 11/14/22 08:31 Resp 17 11/14/22 08:31 BP 169/88 H 11/14/22 08:31 Pulse Ox 96 11/14/22 08:31 O2 Del Method 11/14/22 08:31 Airway Mallampati Class: II TM Dist: >3cm Neck ROM: Full Heart: rr Lungs: cta Other: lt eye prosthesis Assessment and Plan Assessment Anesthesia Assessment: Anesthesia Plan Discussed, Smoking Cess. Discussed and Chart Reviewed Final Anesthetic Review Family History of Problems with Anesthesia: No History of Problems with Anesthesia: No ASA Class: II Final Preanesthetic Review: No Changes in Pt Med Stat, Meds/Allgs Chart Reviewed, Consent Obtained/Reviewed and Anes Risks/Benef Reviewed Patient Risk: Low Procedure Risk: Low Anesthetic Plan Anesthetic Plan: MAC: Disposition: Standard PACU
[2022-11-14 09:55] VITALS: BP 91/48; PULSE 53; RESP 16; TEMP 36.2; O2SAT 98
[2022-11-14 10:10] VITALS: BP 128/64; PULSE 56; RESP 18; TEMP 36.8; O2SAT 98
[2022-11-14 10:27] VITALS: BP 162/74; PULSE 54; RESP 18; TEMP 36.8; O2SAT 98
== END 2022-11-14 10:59 | disposition home or self-care (01) ==
PROVIDERS: PCP Internal Medicine; Visit Provider Internal Medicine
PROC: 0DJD8ZZ Inspection of Lower Intestinal Tract, Via Natural or Artificial Opening Endoscopic (ICD-10-PCS; CPT 45378; principal; 2022-11-14 12:50)
DX: Z12.11 Encounter for screening for malignant neoplasm of colon (principal); Z86.010 Personal history of colon polyps; D12.3 Benign neoplasm of transverse colon; D12.4 Benign neoplasm of descending colon; K62.1 Rectal polyp; K57.30 Diverticulosis of large intestine without perforation or abscess without bleeding; K64.8 Other hemorrhoids; Z87.19 Personal history of other diseases of the digestive system; E66.9 Obesity, unspecified; Z68.30 Body mass index [BMI] 30.0-30.9, adult; M81.0 Age-related osteoporosis without current pathological fracture; E78.00 Pure hypercholesterolemia, unspecified; E55.9 Vitamin D deficiency, unspecified; Z79.899 Other long term (current) drug therapy; Z90.01 Acquired absence of eye; F17.210 Nicotine dependence, cigarettes, uncomplicated
CPT/HCPCS: 45385; 88305

== ENCOUNTER 2022-11-20 09:27 | Outpatient (REF) | payer BC, SELFPAY ==
[2022-11-20 10:37] LABS: Alanine Aminotransferase 20 U/L (0-31); Albumin Level 4.2 g/dL (3.5-5.0); Alkaline Phosphatase 108 U/L (39-117); Anion Gap 13 (12-20); Aspartate Amino Transferase 18 U/L (5-31); Bilirubin Total 0.6 mg/dL (0.0-1.0); Blood Urea Nitrogen 18 mg/dL (9-16); Calcium 9.8 mg/dL (8.4-10.2); Carbon Dioxide 26 mmol/L (22-29); Chloride 107 mmol/L (96-108); Cholesterol 164 mg/dL; Estimated Glomerular Filt Rate > 60; Glucose Fasting 92 mg/dL (60-99); HDL Cholesterol 46 mg/dL; LDL Cholesterol Calculated 91 mg/dl; Potassium 5.1 mmol/L (3.3-5.1); Sodium 141 mmol/L (135-145); Total Protein 6.3 g/dL (6.5-8.0); Triglycerides 135 mg/dL
[2022-11-20 10:57] LABS: Vitamin D 25-OH Total 28.8 ng/mL (>30)
[2022-11-22 13:19] LABS: Calcium (PTHI) 9.9 mg/dL (8.6-10.4); PTHI 48 pg/mL (16-77)
== END 2022-11-20 09:28 | disposition home or self-care (01) ==
LOC: HO.LAB 09:27
PROVIDERS: Internal Medicine; Absent Provider Internal Medicine; PCP Internal Medicine; Visit Provider Internal Medicine
DX: M81.0 Age-related osteoporosis without current pathological fracture (principal); E55.9 Vitamin D deficiency, unspecified; E78.00 Pure hypercholesterolemia, unspecified
CPT/HCPCS: 36415; 80053; 80061; 82306; 83970

== ENCOUNTER → 2022-12-05 12:42 | Outpatient (BNVA) | payer MEDICARE, BC, SELFPAY | PROVIDERS: PCP Internal Medicine; Visit Provider Internal Medicine | DX: M81.0 Age-related osteoporosis without current pathological fracture (principal) | CPT/HCPCS: 96372; J3111 ==

== ENCOUNTER 2022-12-26 09:10 | Outpatient (REF) | payer MEDICARE, BC, SELFPAY ==
[2022-12-26 10:27] LABS: Alanine Aminotransferase 21 U/L (0-31); Albumin Level 4.1 g/dL (3.5-5.0); Alkaline Phosphatase 118 U/L (39-117); Anion Gap 15 (12-20); Aspartate Amino Transferase 18 U/L (5-31); Bilirubin Total 0.3 mg/dL (0.0-1.0); Blood Urea Nitrogen 22 mg/dL (9-16); Calcium 9.4 mg/dL (8.4-10.2); Carbon Dioxide 25 mmol/L (22-29); Chloride 108 mmol/L (96-108); Estimated Glomerular Filt Rate 57; Glucose Random 90 mg/dL (60-115); Phosphorus 3.6 mg/dL (2.7-4.5); Potassium 5.3 mmol/L (3.3-5.1); Sodium 143 mmol/L (135-145); Total Protein 6.1 g/dL (6.5-8.0)
[2022-12-26 10:45] LABS: Free T4 (Free Thyroxine) 0.82 ng/dL (0.71-1.85); Thyroid Stimulating Hormone 2.73 uIU/mL (0.32-4.0); Vitamin D 25-OH Total 33.3 ng/mL (>30)
[2023-01-01 19:33] LABS: Calcium (PTHI) 9.6 mg/dL (8.6-10.4); PTHI 84 pg/mL (16-77)
[2023-01-02 03:58] LABS: N-Telopeptide 23 (see note); NTXCreaRU 62 mg/dL (20-275)
== END 2022-12-26 09:11 | disposition home or self-care (01) ==
LOC: HO.LAB 09:10
PROVIDERS: PCP Internal Medicine; Visit Provider Internal Medicine
DX: M81.0 Age-related osteoporosis without current pathological fracture (principal); E04.9 Nontoxic goiter, unspecified; E55.9 Vitamin D deficiency, unspecified
CPT/HCPCS: 36415; 80053; 82306; 82523; 83970; 84075; 84100; 84439; 84443

== ENCOUNTER 2023-01-01 08:03 | Outpatient (REF) | payer MEDICARE, BC, SELFPAY ==
--- NOTE | ~2023-01-01 | MM_ITS ---
EXAMINATION: BONE DENSITOMETRY CLINICAL INDICATION: Osteoporosis. COMPARISON: Previous BD dated 3 11/27/2020 and baseline BD dated 09/10/2013. TECHNIQUE: Using a [employer] DXA System (software version: 13.1) manufactured by [employer], dual-energy x-ray absorptiometry was performed of the lumbar spine, left hip, and left forearm radius 33%. The images are of good technical quality. Summary results are attached. FINDINGS: AP SPINE L1-L4: Current: BMD 0.942 g/cm2, Z-score -0.5, T-score -2.0, osteopenia, 0.4% increase from previous, 2.8% increase from baseline (<5% change is not significant). Prior: BMD 0.938 g/cm2. Baseline: BMD 0.916 g/cm2. LEFT FEMUR, NECK: Current: BMD 0.642 g/cm2, Z-score -1.5, T-score -2.8, osteoporosis. Prior: BMD 0.625 g/cm2. Baseline: BMD 0.718 g/cm2. LEFT FEMUR, TOTAL: Current: BMD 0.811 g/cm2, Z-score -0.4, T-score -1.6, osteopenia, 0.1% increase from previous, 1.5% decrease from baseline (<5% change is not significant). Prior: BMD 0.810 g/cm2. Baseline: BMD 0.823 g/cm2. LEFT FOREARM RADIUS 33%: BMD 0.864 g/cm2, Z-score 1.2, T-score -0.1, normal. Prior: Not previously measured. IDENTIFIED RISK FACTORS: Early menopause, osteoporosis, secondary osteoporosis, tobacco use (current smoker). HISTORY OF FRACTURE: None listed. MEDICATIONS: Vitamin D. MM/XR DEXA appendicular skeleton IMPRESSION: 1. DIAGNOSIS: Osteoporosis based on the lowest T-score value of -2.8 in the femoral neck applying World Health Organization criteria. 2. 10-YEAR FRACTURE RISK PREDICTION, FRAX: According to the guidelines, FRAX calculation should only be performed on patients in the osteopenia bone density category. Therefore, FRAX was not performed on this patient. 3. Treatment Recommendations: NOF guidelines recommend consideration for treatment in postmenopausal women and men age 50 and older presenting with the following: -A hip or vertebral (clinical or morphometric) fracture. -T-score less than or equal to -2.5 at the femoral neck or spine after appropriate evaluation to exclude secondary causes. -Low bone mass at the hip or spine and a 10-year fracture probability by FRAX of greater than or equal to 3% for hip fracture or greater than or equal to 20% for major osteoporotic fracture based on the [place] adapted WHO algorithm. 4. Other Recommendations: All treatment decisions require clinical judgment and consideration of individual patient factors, including patient preferences, comorbidities, previous drug use, risk factors not captured in the FRAX model (e.g. frailty, falls, vitamin D deficiency, increased bone turnover, interval significant decline in bone density) and possible under or overestimation of fracture risk by FRAX. Additional medical evaluation for secondary cause of low bone mineral density may be appropriate. FUTURE SCAN RECOMMENDATION: People with diagnosed cases of osteoporosis or at high risk for fracture should have regular bone mineral density tests. For patients eligible for Medicare, routine testing is allowed once every 2 years. The testing frequency can be increased to one year for patients who have rapidly progressing disease, those who are receiving or discontinuing medical therapy to restore bone mass, or have additional risk factors.
== END 2023-01-01 08:04 | disposition home or self-care (01) ==
LOC: HO.MAMMO 08:03
PROVIDERS: PCP Internal Medicine; Visit Provider Internal Medicine
DX: M81.0 Age-related osteoporosis without current pathological fracture (principal)
CPT/HCPCS: 77081

== ENCOUNTER → 2023-01-06 08:55 | Outpatient (BNVA) | payer MEDICARE, BC, SELFPAY | PROVIDERS: PCP Internal Medicine; Visit Provider Internal Medicine | DX: M81.0 Age-related osteoporosis without current pathological fracture (principal) | CPT/HCPCS: 96372; J3111 ==

== ENCOUNTER 2023-02-03 08:42 | Outpatient (REF) | payer MEDICARE, BC, SELFPAY ==
[2023-02-03 09:44] LABS: Estimated Glomerular Filt Rate 53
[2023-02-05 16:19] LABS: Calcium (PTHI) 9.7 mg/dL (8.6-10.4); PTHI 71 pg/mL (16-77)
== END 2023-02-03 08:43 | disposition home or self-care (01) ==
LOC: HO.LAB 08:42
PROVIDERS: PCP Internal Medicine; Visit Provider Internal Medicine
DX: M81.0 Age-related osteoporosis without current pathological fracture (principal)
CPT/HCPCS: 36415; 82565; 83970

== ENCOUNTER → 2023-02-05 08:51 | Outpatient (BNVA) | payer MEDICARE, BC, SELFPAY | PROVIDERS: PCP Internal Medicine; Visit Provider Internal Medicine | DX: M81.0 Age-related osteoporosis without current pathological fracture (principal) | CPT/HCPCS: 96372; J3111 ==

== ENCOUNTER 2023-03-17 08:01 | Outpatient (REF) | payer MEDICARE, BC, SELFPAY ==
[2023-03-17 08:17] LABS: MANUAL DIFF FLAG NO
[2023-03-17 08:52] LABS: Basophils Absolute Auto 0.1 X10*3/uL (0.0-0.2); Basophils Percent Auto 0.7 % (0-2); Eosinophils Absolute Auto 0.5 X10*3/uL (0.0-0.4); Eosinophils Percent Auto 4.4 % (0-4); Hematocrit 45.2 % (37.0-47.0); Hemoglobin 14.9 g/dl (12.0-16.0); Imm Gran Abs Auto 0.04 X10*3/uL (0.00-0.03); Imm Gran Pct Auto 0.4 % (0.0-0.4); Lymphocytes Absolute Auto 2.8 X10*3/uL (1.2-4.9); Mean Corpuscular Hemoglobin 30.2 pg (27.0-33.0); Mean Corpuscular Volume 91.5 fL (80.0-98.0); Monocytes Absolute Auto 0.8 X10*3/uL (0.1-1.2); Monocytes Percent Auto 7.3 % (2-11); Neutrophils Absolute Auto 6.4 x10*3/uL (2.0-8.3); Neutrophils Percent Auto 60.2 % (45-73); Platelet Count 326 X10*3/uL (160-400); Red Blood Count 4.94 X10*6/uL (4.20-5.50); White Blood Count 10.5 X10*3/uL (4.8-10.8)
[2023-03-17 09:04] LABS: Appearance Urine Clear; Color Urine Yellow; Glucose Urine UA Negative (Negative); Leukocyte Esterase Urine Trace (Negative); Nitrite Urine Negative (Negative); UMIC TRIGGER UACC YES; Urine Blood Negative (Negative); Urine Ketones Negative (Negative); Urine Protein Negative (Neg-Trace)
[2023-03-17 09:10] LABS: Bacteria Urine Trace (None Seen); Hyaline Casts Urine 0-2 /LPF (0-2); RBC Urine 0-2 /HPF (0-2); WBC Urine 0-5 /HPF (0-5)
[2023-03-17 09:30] LABS: Alanine Aminotransferase 21 U/L (0-31); Alkaline Phosphatase 109 U/L (39-117); Anion Gap 14 (12-20); Aspartate Amino Transferase 20 U/L (5-31); Bilirubin Total 0.2 mg/dL (0.0-1.0); Blood Urea Nitrogen 23 mg/dL (9-16); Calcium 9.9 mg/dL (8.4-10.2); Carbon Dioxide 23 mmol/L (22-29); Chloride 109 mmol/L (96-108); Cholesterol 162 mg/dL; Estimated Glomerular Filt Rate 55; Glucose Fasting 96 mg/dL (60-99); HDL Cholesterol 44 mg/dL; LDL Cholesterol Calculated 99 mg/dl; Potassium 4.7 mmol/L (3.3-5.1); Sodium 141 mmol/L (135-145); Total Protein 6.6 g/dL (6.5-8.0); Triglycerides 98 mg/dL
[2023-03-17 09:47] LABS: TSH reflex Free T4 2.24 uIU/mL (0.32-4.0); Vitamin D 25-OH Total 36.8 ng/mL (>30)
== END 2023-03-17 08:02 | disposition home or self-care (01) ==
LOC: HO.LAB 08:01
PROVIDERS: PCP Internal Medicine; Visit Provider Internal Medicine
DX: I10 Essential (primary) hypertension (principal); E78.00 Pure hypercholesterolemia, unspecified; E55.9 Vitamin D deficiency, unspecified
CPT/HCPCS: 36415; 80053; 80061; 81001; 81003; 82306; 84443; 85025

== ENCOUNTER → 2023-03-19 08:48 | Outpatient (BNVA) | payer MEDICARE, BC, SELFPAY | PROVIDERS: PCP Internal Medicine; Visit Provider Internal Medicine | DX: M81.0 Age-related osteoporosis without current pathological fracture (principal) | CPT/HCPCS: 96372; J3111 ==

== ENCOUNTER → 2023-03-28 09:26 | Outpatient (BNVA) | payer MEDICARE, BC, SELFPAY | PROVIDERS: PCP Internal Medicine; Visit Provider Hospitalist | DX: J44.9 Chronic obstructive pulmonary disease, unspecified (principal); J18.9 Pneumonia, unspecified organism; F17.210 Nicotine dependence, cigarettes, uncomplicated | CPT/HCPCS: 99212 ==

== ENCOUNTER 2023-04-18 08:30 | Outpatient (REF) | payer MEDICARE, BC, SELFPAY ==
[2023-04-18 09:29] LABS: Appearance Urine Clear; Color Urine Yellow; Glucose Urine UA Negative (Negative); Leukocyte Esterase Urine Trace (Negative); Nitrite Urine Negative (Negative); PH 5.5 (5.0-9.0); UMIC TRIGGER UACC YES; Urine Blood Negative (Negative); Urine Ketones Negative (Negative); Urine Protein Negative (Neg-Trace)
[2023-04-18 09:34] LABS: Bacteria Urine 1+ (None Seen); Hyaline Casts Urine 0-2 /LPF (0-2); RBC Urine 0-2 /HPF (0-2); WBC Urine 0-5 /HPF (0-5)
[2023-04-18 10:03] LABS: Calcium 9.6 mg/dL (8.4-10.2); Estimated Glomerular Filt Rate 60
[2023-04-21 14:58] LABS: Calcium (PTHI) 9.5 mg/dL (8.6-10.4); PTHI 74 pg/mL (16-77)
== END 2023-04-18 08:31 | disposition home or self-care (01) ==
LOC: HO.LAB 08:30
PROVIDERS: Absent Provider Internal Medicine; PCP Internal Medicine; Visit Provider Internal Medicine
DX: M81.0 Age-related osteoporosis without current pathological fracture (principal); R30.0 Dysuria
CPT/HCPCS: 36415; 81001; 82310; 82565; 83970

== ENCOUNTER 2023-04-22 08:45 | Outpatient (AMB) | payer MEDICARE, BC, SELFPAY ==
--- NOTE | 2023-04-22 09:06 | AM.OFFVISNUR ---
Intake Intake Visit Reasons: evenity 6 Allergies No Known Allergies Allergy (Verified 03/28/23 09:33) Office Meds [id number] Performing Provider: Bijal Guevara DO Administered by: Osorio Levin RN on 04/22/23 09:06 Dose Route Admin Location Lot Number Expiration Date [facility] Director 210 mg subcut Right and Left arms [id number] 06/28/25 13100-381-65 [facility] Comments: Consent obtained for Evenity injections Coding Diagnoses Assessment & Plan Assessment & Plan Orders: Orders AMB Romosozumab Injection Patient Supplied Today M81.0 - Age-related osteoporosis without current pathological fracture
== END 2023-04-22 09:09 | disposition home or self-care (01) ==
PROVIDERS: PCP Internal Medicine; Visit Provider Internal Medicine
DX: M81.0 Age-related osteoporosis without current pathological fracture (principal)

== ENCOUNTER → 2023-04-22 08:45 | Outpatient (BNVA) | payer MEDICARE, BC, SELFPAY | PROVIDERS: PCP Internal Medicine; Visit Provider Internal Medicine | DX: M81.0 Age-related osteoporosis without current pathological fracture (principal) | CPT/HCPCS: 96372; J3111 ==

== ENCOUNTER 2023-04-24 09:35 | Outpatient (AMB) | payer MEDICARE, BC, SELFPAY ==
[2023-04-24 09:37] VITALS: BP 140/82; PULSE 59; O2SAT 96; BMI 30.5
--- NOTE | 2023-04-24 09:37 | MHC.PC.OV ---
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 Accompanied by: Self / Same As Patient Allergies No Known Allergies Allergy (Verified 04/24/23 10:21) Medication List - Last Reconciled 04/24/23 by Orlando Johnson MD atorvastatin 40 mg PO DAILY cholecalciferol (vitamin D3) 50 mcg PO DAILY 90 days clonazepam 0.5 mg PO Q12H PRN diclofenac potassium 50 mg PO DAILY PRN 30 days fluticasone propion-salmeterol 250-50 mcg/dose (Wixela Inhub) 1 inh inhalation Q12H 30 days fluticasone propionate 110 mcg/actuation (Flovent HFA) 2 puffs inhalation BID 30 days romosozumab-aqqg (Evenity) 210 mg (2.34 mL) subcut .Q month umeclidinium-vilanterol 62.5-25 mcg/actuation (Anoro Ellipta) 1 inh inhalation DAILY Tobacco use date assessed: 04/24/23 Fall risk assessment: No Falls in past year Last assessed Fall Risk: 04/24/23 Dental Screening Dental Screen Date: 04/24/23 Did you have a dental visit in the last 12 months?: Yes Did you have a dental problem in the last 6 months where you did not have access to dental care?: No Was dental information given to patient?: Patient has dentist HPI hyperlipidemia, COPD, osteoporosis HPI Details Patient comes in today for her follow up visit States that she feels okay Denies any headaches or dizziness Denies any chest pains, no shortness of breath No nausea/ vomiting, no abdominal pain No change in bowel habits noted Has noticed several lesions on her chest wall lately that she feels have increased in size slightly; also has had several lesions/skin tags on her chest and in-between her breasts that she states she's had in a while now and would like to see dermatology to have all of these lesions checked out further Needs her Atorvastatin Rx refilled Had her follow-up labs done last month - to discuss her results [facility] Medical History Abnormal chest x-ray Anxiety COPD (chronic obstructive pulmonary disease) Depression Facet arthritis, degenerative, lumbar spine Goiter Low back pain Normal colonoscopy (~2010) Obesity (BMI 30-39.9) Osteoporosis Pneumonitis Pure hypercholesterolemia Radicular pain of right lower extremity Smoker Tobacco dependence due to cigarettes Vitamin D deficiency Surgical History History of removal of eye Hx of section Family History Father Depression Mother Medical history unknown Maternal Grandmother Uterine cancer Other Mental health problem Social History Housing: House Alcohol intake: current Alcohol intake frequency: does not drink Patient Tobacco Use Status: Current everyday Tobacco user Cigarettes Per Day: 4 Years Smoked: 15 e-Cigarette/Vaping Use: Never Used Second Hand Smoke Exposure: Yes service: No Current occupational status: unemployed Cognitive needs: No Hearing needs: No Vision needs: Yes Female Reproductive History Menstrual Age of Menarche: 15 Questionnaire PHQ-9 Over the last 2 weeks, how often have you been bothered by any of the following problems? 1. Little interest or pleasure in doing things: not at all 2. Feeling down, depressed, or hopeless: not at all 3. Trouble falling or staying asleep, or sleeping too much: not at all 4. Feeling tired or having little energy: not at all 5. Poor appetite or overeating: not at all 6. Feeling bad about yourself - or that you are a failure or have let yourself or your family down: not at all 7. Trouble concentrating on things, such as reading the newspaper or watching television: not at all 8. Moving or speaking so slowly that other people could have noticed. Or the opposite - being so fidgety or restless that you have been moving around a lot more than usual: not at all 9. Thoughts that you would be better off or of hurting yourself in some way: not at all Total score: 0 Depression Screening Interpretation: Negative 42415 - PHQ-9 Billing: Yes Source: Developed by Drs. Hunter L. Bhakti, Ashkan Simpson and colleagues, with an educational marina from [employer]. Thrive Questionnaire Date Thrive assessed: 04/24/23 I am a: Patient What is your living situation today?: I have a steady place to live Within the past 12 months, did the food you bought not last and you didn't have the money to get more?: Never true Within the past 12 months, did you worry whether your food would run out before you got money to buy more?: Never true Do you have trouble paying for medicines?: No Do you have trouble getting transportation to medical appointments?: No Do you have trouble paying your heating and electricity bill?: No Do you have trouble taking care of your child, family member or friend?: No Do you have trouble with day-to-day activities such as bathing, preparing meals, shopping, managing finances, etc.?: No Are you currently unemployed and looking for a job?: No Are you interested in more education?: No Please select the resources that you would like help with: None Currently or been in a relationship where the following occur: no concerns reported AUDIT C Alcohol Use Questionnaire (AUDIT-C) 1. How often do you have a drink containing alcohol?: Never 3. How often do you have six or more drinks on one occasion?: Never Total Score: 0 Score Reviewed/Action Taken: Yes COLLIN-7 AMB Questionnaire COLLIN-7 Date COLLIN - 7 assessed: 04/24/23 Feeling nervous, anxious, or on edge: 0 = Not at all Not being able to stop or control worryin = Not at all Worrying too much about different things: 0 = Not at all Trouble relaxin = Not at all Being so restless that it is hard to sit still: 0 = Not at all Becoming easily annoyed or irritable: 0 = Not at all Feeling afraid as if something awful might happen: 0 = Not at all Total COLLIN-7 score (0-4 normal; 5-9 mild; 10-14 moderate; 15-21 severe): 0 Source: Developed by Drs. Hunter Ya, Ashkan Simpson and colleagues, with an educational marina from [employer]. Review of Systems Const Denies fatigue, Denies fever(s) and Denies headache(s) ENT Denies dysphagia, Denies dizziness, Denies otalgia, Denies headache(s) and Denies sore throat Card Denies chest pain, Denies palpitations and Denies dyspnea Resp Denies chest congestion, Reports cough (occasional, non-productive) and Denies dyspnea GI Denies abdominal pain, Denies constipation, Denies dysphagia, Denies heartburn, Denies diarrhea, Denies nausea and Denies vomiting Denies difficulty voiding, Denies nocturia, Denies dysuria and Denies vaginal discharge Musc Reports back pain and Reports radiating pain into limb (into right leg at times) Skin/Breast Details: (+) multiple skin lesions on anterior chest wall - see HPI for details Neuro Denies dizziness and Denies headache(s) Psych Reports anxiety and Reports depression Endo Denies fatigue and Denies palpitations Physical exam (Primary Care) Vital Signs: Last Vital Signs Pulse 59 04/24/23 09:37 BP 140/82 H 04/24/23 09:37 Pulse Ox 96 04/24/23 09:37 Oxygen Delivery Method Room Air 04/24/23 09:37 BMI result Body Mass Index 30.5 Tobacco/Smoking Status: Tobacco use Status Tobacco use date assessed 04/24/23 04/24/23 09:44 Patient Tobacco Use Status Current everyday Tobacco 04/24/23 09:44 e-Cigarette/Vaping Use Never Used 04/24/23 09:44 PHQ-9: PHQ-9 Score PHQ-9: Total score 0 04/24/23 10:22 Depression Screening Interpretation: Negative Thrive Assessment: Date of Thrive Assessment Date Thrive assessed 04/24/23 04/24/23 09:44 Currently or been in a relationship where the following occur: no concerns reported Const General: no acute distress and alert HENMT Ears: TM's normal bilaterally and EAC's normal Throat: Yes posterior oropharynx normal and Yes tonsils normal (no TP congestion) Neck Neck: Yes no lymphadenopathy and Yes supple Resp Auscultation: clear to auscultation bilaterally, no crackles, no rales and no wheezes Cardio Rate: regular rate Rhythm: regular rhythm Heart sounds: no murmurs GI Palpation (GI): Soft to palpation, nontender and No hepatosplenomegaly present Back/Spine/Pelvis Thoracic/Lumbar Spine: lumbar spinal tenderness Skin Other: (+) multiple scattered hyperpigmented lesions, with some lesions slightly raised, over the anterior chest wall and in-between the breasts Extrem General: Yes no clubbing, cyanosis or edema Results Reviewed Results Reviewed: Laboratory Tests 03/17/23 03/17/23 04/18/23 08:15 08:15 08:45 WBC 10.5 Hgb 14.9 Hct 45.2 Plt Count 326 Sodium 141 Potassium 4.7 Creatinine Estimated GFR Fasting Glucose 96 Calcium AST 20 ALT 21 Triglycerides 98 Cholesterol 162 LDL Cholesterol, Calc 99 HDL Cholesterol 44 25-OH Vitamin D Total 36.8 TSH 2.24 PTH Intact Calcium (PTH Intact) Ur Specific [place] 1.010 Urine Protein Negative Urine Glucose (UA) Negative Urine Blood Negative 04/18/23 04/18/23 08:54 08:54 WBC Hgb Hct Plt Count Sodium Potassium Creatinine 0.94 Estimated GFR 60 Fasting Glucose Calcium 9.6 AST ALT Triglycerides Cholesterol LDL Cholesterol, Calc HDL Cholesterol 25-OH Vitamin D Total TSH PTH Intact 74 Calcium (PTH Intact) 9.5 Ur Specific [place] Urine Protein Urine Glucose (UA) Urine Blood Assessment and Plan Assessment & Plan (1) Pure hypercholesterolemia: Code(s): E78.00 - Pure hypercholesterolemia, unspecified Plan: Results of her labs done last month reviewed and discussed with patient Reinforced low cholesterol diet Continue Atorvastatin 40 mg QD Will recheck fasting lipids and labs in 4 months for follow-up (2) Facet arthritis, degenerative, lumbar spine: Code(s): M47.816 - Spondylosis without myelopathy or radiculopathy, lumbar region Plan: Reinforced activity and weight-lifting restrictions to minimize aggravating her low back pain Lumbar spine x-rays done a couple years ago revealed (+) facet arthritis with no other concerning findings (3) Radicular pain of right lower extremity: Code(s): M54.10 - Radiculopathy, site unspecified Plan: States that her symptoms have stabilized somewhat lately Hip x-rays done several years ago in 2013 showed (+) mild OA changes in both hips; may need to get repeat x-rays for furher evaluation if patient continues to experience increased radicular pains into her lower extremities (4) Osteoporosis: Code(s): M81.0 - Age-related osteoporosis without current pathological fracture Qualifiers: Osteoporosis type: age-related Presence of current pathological fracture: without current pathological fracture Qualified Code(s): M81.0 - Age-related osteoporosis without current pathological fracture Plan: Repeat BMD done back on 01/01/2023 revealed (+) osteoporosis, with no significant change in BMD from her previous scan in November 2020 Continue Vitamin D and Calcium supplements daily and reminded to stay active and exercise regularly; fall precautions reinforced Continue Evenity 210 mg once a month - Rx is being prescribed and administered by endocrinology Follow up with endocrinology as scheduled (5) COPD (chronic obstructive pulmonary disease): Code(s): J44.9 - Chronic obstructive pulmonary disease, unspecified Qualifiers: COPD type: unspecified COPD Qualified Code(s): J44.9 - Chronic obstructive pulmonary disease, unspecified Plan: Symptoms are well-controlled Continue Wixela 250-50 mcg 1 inhalation BID Follow up with pulmonary as scheduled (6) Vitamin D deficiency: Code(s): E55.9 - Vitamin D deficiency, unspecified Plan: Corrected - continue Vitamin D3 2000 units QD (7) Skin lesions, generalized: Code(s): L98.9 - Disorder of the skin and subcutaneous tissue, unspecified Plan: Per request, will refer her to dermatology for further evaluation and management (8) Anxiety: Code(s): F41.9 - Anxiety disorder, unspecified Plan: Continue Clonazepam 0.5 mg BID PRN Is currently still seeing a therapist (via telehealth) weekly on Tuesdays - to continue as scheduled (9) Depression: Code(s): F32.9 - Major depressive disorder, single episode, unspecified Qualifiers: Active/Remission status: currently active Depression Type: major depressive disorder Major depression episode severity: unspecified Major depression recurrence: recurrent Qualified Code(s): F33.9 - Major depressive disorder, recurrent, unspecified Plan: Has been referred to and is now seeing/talking to a therapist weekly, which she states is helping Still does not feel that she needs to be on any Rx for her depression at present (10) Smoker: Code(s): F17.200 - Nicotine dependence, unspecified, uncomplicated Plan: Counseled again on smoking cessation (11) Obesity (BMI 30-39.9): Code(s): E66.9 - Obesity, unspecified Plan: Reinforced diet/exercise as tolerated/lose weight Plan Follow up in 4 months Orders: Orders MM tomosynthesis screening BI 04/24/23 Z12.31 - Encounter for screening mammogram for malignant neoplasm of breast Complete Blood Count Auto Diff 4 Months I10 - Essential (primary) hypertension Comprehensive [place]. Panel Fast 4 Months E78.00 - Pure hypercholesterolemia, unspecified Lipid Panel 4 Months E78.00 - Pure hypercholesterolemia, unspecified TSH reflex Free T4 4 Months E78.00 - Pure hypercholesterolemia, unspecified UA CC w/rflx Micro + Cult 4 Months R30.0 - Dysuria Vitamin D 25-OH Total 4 Months E55.9 - Vitamin D deficiency, unspecified Referrals Dermatology Referral L98.9 - Disorder of the skin and subcutaneous tissue, unspecified, Z12.83 - Encounter for screening for malignant neoplasm of skin Medications: Refilled atorvastatin 40 mg PO DAILY 90 tabs 1RF Coding Level of Care Code Est Pt Level 4 (46067) Diagnoses Pure hypercholesterolemia E78.00 Facet arthritis, degenerative, lumbar spine M47.816 Radicular pain of right lower extremity M54.10 Osteoporosis M81.0 Osteoporosis type: age-related Presence of current pathological fracture: without current pathological fracture COPD (chronic obstructive pulmonary disease) J44.9 COPD type: unspecified COPD Vitamin D deficiency E55.9 Skin lesions, generalized L98.9 Anxiety F41.9 Depression F33.9 Active/Remission status: currently active Depression Type: major depressive disorder Major depression episode severity: unspecified Major depression recurrence: recurrent Smoker F17.200 Obesity (BMI 30-39.9) E66.9
== END 2023-04-24 10:36 | disposition home or self-care (01) ==
PROVIDERS: Visit Provider Internal Medicine
DX: E78.00 Pure hypercholesterolemia, unspecified (principal); E55.9 Vitamin D deficiency, unspecified; F41.9 Anxiety disorder, unspecified; F17.210 Nicotine dependence, cigarettes, uncomplicated; F33.9 Major depressive disorder, recurrent, unspecified; J44.9 Chronic obstructive pulmonary disease, unspecified; M54.10 Radiculopathy, site unspecified; M47.816 Spondylosis without myelopathy or radiculopathy, lumbar region; M81.0 Age-related osteoporosis without current pathological fracture; L98.9 Disorder of the skin and subcutaneous tissue, unspecified; E66.9 Obesity, unspecified
CPT/HCPCS: 99214

== ENCOUNTER 2023-04-29 12:59 | Outpatient (REF) | payer MEDICARE, BC, SELFPAY ==
[2023-04-30 20:04] LABS: Calcium, 24 Hr Urine 82 mg/24 h; Calcium/Creatinine Ratio 79 mg/g creat (30-275); Creatinine 24Hr Urine 1.04 g/24 h (0.50-2.15)
== END 2023-04-29 13:00 | disposition home or self-care (01) ==
LOC: HO.LNP 12:59
PROVIDERS: Visit Provider Internal Medicine
DX: M81.0 Age-related osteoporosis without current pathological fracture (principal)
CPT/HCPCS: 82340

== ENCOUNTER 2023-05-05 08:55 | Outpatient (AMB) | payer MEDICARE, BC, SELFPAY ==
--- NOTE | 2023-05-05 08:55 | A.OFFVIS_ITS ---
Intake Intake Visit Reasons: F/Up Osteoporosis 30 mins per MD Intake Note: Osteoporosis follow up visit. 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 Allergies No Known Allergies Allergy (Verified 05/05/23 09:58) Medication List - Last Reconciled 05/05/23 by Bijal Guevara, DO atorvastatin 40 mg PO DAILY cholecalciferol (vitamin D3) 50 mcg PO DAILY 90 days clonazepam 0.5 mg PO Q12H PRN diclofenac potassium 50 mg PO DAILY PRN 30 days fluticasone propion-salmeterol 250-50 mcg/dose (Wixela Inhub) 1 inh inhalation Q12H 30 days fluticasone propionate 110 mcg/actuation (Flovent HFA) 2 puffs inhalation BID 30 days romosozumab-aqqg (Evenity) 210 mg (2.34 mL) subcut .Q month umeclidinium-vilanterol 62.5-25 mcg/actuation (Anoro Ellipta) 1 inh inhalation DAILY HPI HPI Comments History of Present Illness Details 67 YO Female with PMHx Osteoporosis who is seen in F/U for the same. First diagnosed in 2012 with Osteoporosis of the hip. Was treated with Fosamax from June 2021 through Sep 2021. Now on Evenity with 6th dose given 04/22/2023. Tolerating this well. She had labs completed after 3 weeks off Fosamax. This was largely WNL, but Calcium was high normal. She was started on Vitamin D 2000 IU daily and labs repeated, still with calcium higher than expected for age, and PTH inappropriately normal. She repeated a full biochemical workup including 24 hour urine but labs are pending at this time. No history of pathologic fracture or ONJ. Has 3-4 servings of dietary calcium per day in the form of milk. Does not take a Calcium supplement. Takes Vitamin D 2000 IU daily. Denies ever using PPI, anticoagulant, antiepileptic or glucocorticoid medication. Does weight bearing exercise 3-5 days per week in the form of walking. 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 Menses were always regular. . She did not breastfeed. Menopause was age 44. She did not use HRT. Denies history of Kidney stones: Denies family history of Osteoporosis or hip fracture. UTD on dental cleanings and sees dentist every 6 months. No planned upcoming dental work or extractions. Denies any personal history of CAD or stroke. Denies any family history of CAD. DXA: 01/01/2023 FINDINGS: AP SPINE L1-L4: Current: BMD 0.942 g/cm2, Z-score -0.5, T-score -2.0, osteopenia, 0.4% increase from previous, 2.8% increase from baseline (<5% change is not significant). Prior: BMD 0.938 g/cm2. Baseline: BMD 0.916 g/cm2. LEFT FEMUR, NECK: Current: BMD 0.642 g/cm2, Z-score -1.5, T-score -2.8, osteoporosis. Prior: BMD 0.625 g/cm2. Baseline: BMD 0.718 g/cm2. LEFT FEMUR, TOTAL: Current: BMD 0.811 g/cm2, Z-score -0.4, T-score -1.6, osteopenia, 0.1% increase from previous, 1.5% decrease from baseline (<5% change is not significant). Prior: BMD 0.810 g/cm2. Baseline: BMD 0.823 g/cm2. LEFT FOREARM RADIUS 33%: BMD 0.864 g/cm2, Z-score 1.2, T-score -0.1, normal. Prior:? Not previously measured. Labs: Laboratory Tests 03/17/23 04/18/23 04/18/23 08:15 08:54 08:54 Creatinine 0.94 Estimated GFR 60 Albumin 4.0 25-OH Vitamin D To luigi 36.8 TSH 2.24 PTH Intact 74 Calcium (PTH Intac t) 9.5 PFSH Medical History Abnormal chest x-ray Anxiety COPD (chronic obstructive pulmonary disease) Depression Facet arthritis, degenerative, lumbar spine Goiter Low back pain Normal colonoscopy (~2010) Obesity (BMI 30-39.9) Osteoporosis Pneumonitis Pure hypercholesterolemia Radicular pain of right lower extremity Smoker Tobacco dependence due to cigarettes Vitamin D deficiency Surgical History History of removal of eye Hx of section Family History Father Depression Mother Medical history unknown Maternal Grandmother Uterine cancer Other Mental health problem Social History Housing: House Alcohol intake: current Alcohol intake frequency: does not drink Patient Tobacco Use Status: Current everyday Tobacco user Cigarettes Per Day: 4 Years Smoked: 15 e-Cigarette/Vaping Use: Never Used Second Hand Smoke Exposure: Yes service: No Current occupational status: unemployed Cognitive needs: No Hearing needs: No Vision needs: Yes Female Reproductive History Menstrual Age of Menarche: 15 Assessment & Plan Assessment & Plan (1) Osteoporosis: Code(s): M81.0 - Age-related osteoporosis without current pathological fracture Qualifiers: Osteoporosis type: age-related Presence of current pathological fracture: without current pathological fracture Qualified Code(s): M81.0 - Age- related osteoporosis without current pathological fracture Plan: Patient with Osteoporosis of the hip, and Osteopenia of the spine. We reviewed this diagnosis in detail. Known risk factors are premature ovarian failure, and also longstanding hypovitaminosis D. We reviewed that hypovitaminosis D can lead to osteomalacia, which can appear similar to Osteoporosis on DEXA, but typically resolves with adequate Vitamin D supplementation. She was on a very high dose of Vitamin D, and levels were supratherapeutic since 2019. Her repeat DEXA revealed persistent Osteoporosis of the hip, so this likely does not rep resent osteomalacia. She remains on Evenity at this time, received her 6th dose. Will continue for an additional 6 doses. We reviewed that evenity will be used for 12 months after which time we will transition her to IV reclast. All of her questions were answered and she is in agreement with proceeding with this plan of care. She will F/U in 6 months time for IV reclast. All of her questions were answered. She is in agreement with this plan of care. I spent 20 minutes in reviewing the record, seeing the patient and documenting in the medical record, including 5 minutes on the phone with the Patient. (2) Vitamin D deficiency: Code(s): E55.9 - Vitamin D deficiency, unspecified Plan: Vitamin D at goal. No changes. Telehealth Telehealth Location of provider rendering services: practice address Location of patient: address on file Patient Identification confirmed using: Name, : Yes Telehealth method: voice only Patient verbally consented to treatment: Yes Patient verbally consented to billing insurance company: Yes Patient informed of any privacy concerns related to visit: Yes Coding Level of Care Code Tele Est Pt Level 3 (38780) Diagnoses Osteoporosis M81.0 Osteoporosis type: age-related Presence of current pathological fracture: without current pathological fracture Vitamin D deficiency E55.9
== END 2023-05-05 12:13 | disposition home or self-care (01) ==
LOC: HO.ENCR 08:55
PROVIDERS: PCP Internal Medicine; Visit Provider Internal Medicine
DX: M81.0 Age-related osteoporosis without current pathological fracture (principal); E55.9 Vitamin D deficiency, unspecified
CPT/HCPCS: 99443

== ENCOUNTER → 2023-05-05 08:55 | Outpatient (BNVA) | payer MEDICARE, BC, SELFPAY | PROVIDERS: PCP Internal Medicine; Visit Provider Internal Medicine ==

== ENCOUNTER 2023-05-28 08:31 | Outpatient (AMB) | payer MEDICARE, BC, SELFPAY ==
--- NOTE | 2023-05-28 08:58 | AM.OFFVISNUR ---
Intake Intake Visit Reasons: Evenity #7 Allergies No Known Allergies Allergy (Verified 05/05/23 09:58) Office Meds romosozumab-aqqg Performing Provider: Bijal Guevara DO Administered by: Osorio Levin RN on 05/28/23 08:58 Dose Route Admin Location Lot Number Expiration Date [employer] Lead 210 mg subcut L and R arms [id number] 09/28/25 [facility]GEN Coding Diagnoses Assessment & Plan Assessment & Plan Orders: Orders AMB Romosozumab Injection Patient Supplied Today M81.0 - Age-related osteoporosis without current pathological fracture
== END 2023-05-28 08:59 | disposition home or self-care (01) ==
LOC: HO.ENCR 08:32
PROVIDERS: PCP Internal Medicine; Visit Provider Internal Medicine
DX: M81.0 Age-related osteoporosis without current pathological fracture (principal)

== ENCOUNTER → 2023-05-28 08:31 | Outpatient (BNVA) | payer MEDICARE, BC, SELFPAY | PROVIDERS: PCP Internal Medicine; Visit Provider Internal Medicine | DX: M81.0 Age-related osteoporosis without current pathological fracture (principal) | CPT/HCPCS: 96372; J3111 ==

== ENCOUNTER 2023-06-04 09:56 | Outpatient (AMB) | payer MEDICARE, BC, SELFPAY ==
[2023-06-04 10:04] VITALS: BP 140/70; BMI 30.6
--- NOTE | 2023-06-04 10:04 | MHC.OFFVIS ---
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 No complaints. Last Pap/HPV was negative in 06/20 Last Mammogram was BI-RADS 1 in 04/19 Last Colonoscopy was in 11/21, the recommendation was to repeat in 3 years Last DEXA scan was in 01/19 T-score was-2.8 and since then the patient has been on Evenity [facility] Medical History Abnormal chest x-ray Anxiety COPD (chronic obstructive pulmonary disease) Depression Facet arthritis, degenerative, lumbar spine Goiter Low back pain Normal colonoscopy (~2010) Obesity (BMI 30-39.9) Osteoporosis Pneumonitis Pure hypercholesterolemia Radicular pain of right lower extremity Smoker Tobacco dependence due to cigarettes Vitamin D deficiency Surgical History History of removal of eye Hx of tubal ligation Family History Father Depression Mother Medical history unknown Maternal Grandmother Uterine cancer Other Mental health problem Social History Housing: House Alcohol intake: current Alcohol intake frequency: does not drink Patient Tobacco Use Status: Current everyday Tobacco user Cigarettes Per Day: 4 Years Smoked: 15 e-Cigarette/Vaping Use: Never Used Second Hand Smoke Exposure: Yes service: No Current occupational status: unemployed Cognitive needs: No Hearing needs: No Vision needs: Yes Female Reproductive History Menstrual Age of Menarche: 15 control method: permanent sterilization Total pregnancies: 3 Full term: 3 Number of Living Children: 3 Date of last pap smear: 05/30/22 (negative) History of abnormal pap smear: Yes Date of Mammogram: 04/17/22 Date of last Bone Density Screenin01/01/23 Review of Systems Const All systems reviewed & are unremarkable except as noted in HPI and below Card Reports as per HPI Resp Reports as per HPI GI Reports as per HPI and Reports no additional complaints Reports as per HPI Physical Exam Vital Signs: Last Vital Signs BP 140/70 H 06/04/23 10:04 BMI result Body Mass Index 30.6 Const General: cooperative, healthy appearing and comfortable Chest Chest palpation & inspection: normal inspection of the chest and normal palpation of entire chest wall Breast/axilla inspection: normal inspection of the breasts and normal inspection of the axillae Breast/axilla palpation: normal palpation of the breasts, normal palpation of the axillae and no axillary lymphadenopathy Resp Effort & Inspection: normal respiratory effort Auscultation: clear to auscultation bilaterally Percussion: percussion normal Cardio Palpation: normal PMI Rate: regular rate Rhythm: regular rhythm Heart sounds: no murmurs and no rubs Peripheral pulses: Peripheral pulses 2+ throughout GI Inspection: Yes normal to inspection Palpation (GI): Soft to palpation, nontender, no guarding, not rigid and No hepatosplenomegaly present Percussion: Yes normal to percussion Auscultation: normal bowel sounds Rectal Exam - Female: deferred General: Yes bladder normal to palpation External Female Exam: No lesion Speculum Exam - Vagina: normal appearance of the vagina, normal palpation, normal vaginal discharge and not erythematous Speculum Exam - Cervix: normal appearance of the cervix and normal palpation Bimanual exam- vagina & uterus: normal bimanual exam, normal palpation, uterine size normal, bladder normal to palpation, consistency normal and normal palpation Bimanual Exam- Adnexa, other: normal adnexae, no masses and no tenderness Assessment & Plan Assessment & Plan (1) Well woman exam: Code(s): Z01.419 - Encounter for gynecological examination (general) (routine) without abnormal findings Plan: Co testing not indicated since the patient 's age is above 65 with no history of abnormal Pap smears last 25 years. Counseled the patient about the recommended dietary allowance of 1200 mg of Calcium & 800 IU of vitamin D. Mammogram ordered, the patient is up-to-date with her screening colonoscopy and DEXA scan . The patient was instructed to perform monthly self-breast exams and to schedule an annual exam in a year; all questions answered and the patient verbalized understanding. Orders: Orders MM screening mammo BI Today Z12.31 - Encounter for screening mammogram for malignant neoplasm of breast Coding Level of Care Code Est Pt Prev Care 40-64y(58674) Diagnoses Well woman exam Z01.419
== END 2023-06-04 10:40 | disposition home or self-care (01) ==
PROVIDERS: Visit Provider Obstetrics & Gynecology
DX: Z01.419 Encounter for gynecological examination (general) (routine) without abnormal findings (principal)
CPT/HCPCS: G0101

== ENCOUNTER → 2023-06-04 09:56 | Outpatient (BNVA) | payer MEDICARE, BC, SELFPAY | PROVIDERS: Visit Provider Obstetrics & Gynecology | DX: Z01.419 Encounter for gynecological examination (general) (routine) without abnormal findings (principal) | CPT/HCPCS: G0101 ==

== ENCOUNTER 2023-06-11 08:16 | Outpatient (REF) | payer MEDICARE, BC, SELFPAY ==
--- NOTE | ~2023-06-11 | MM_ITS ---
EXAMINATION: MM SCREENING DIGITAL BREAST TOMOSYNTHESIS, BILATERAL CLINICAL INFORMATION: Screening. Asymptomatic. COMPARISON: Mammography: This study is compared with prior exams dating back to 2013. TECHNIQUE: Digital breast tomosynthesis is performed in both the craniocaudal and mediolateral oblique views along with computer-aided detection (CAD). Synthesized 2D images are generated from the tomosynthesis. FINDINGS: There are scattered areas of fibroglandular density (ACR BI-RADS breast composition Category b). There are no significant masses, abnormal calcifications, or other abnormalities. MM/MM tomosynthesis screening BI IMPRESSION: No mammographic evidence of malignancy. ASSESSMENT: BI-RADS BI-RADS 1 - Negative RECOMMENDATION: Routine annual mammography screening. 1 year F/U This examination should not preclude the clinical evaluation of a suspicious palpable abnormality. This patient's information was entered into a reminder system with a target due date for their next mammogram.
== END 2023-06-11 08:17 | disposition home or self-care (01) ==
LOC: HO.MAMMO 08:16
PROVIDERS: PCP Internal Medicine; Visit Provider Internal Medicine
DX: Z12.31 Encounter for screening mammogram for malignant neoplasm of breast (principal)
CPT/HCPCS: 77063; 77067

== ENCOUNTER → 2023-06-11 08:30 | Outpatient (BNV) | payer MEDICARE, BC, SELFPAY | PROVIDERS: PCP Internal Medicine; Visit Provider Radiology Diagnostic Radiology | DX: Z12.31 Encounter for screening mammogram for malignant neoplasm of breast (principal) | CPT/HCPCS: 77063; 77067 ==

== ENCOUNTER 2023-06-25 08:46 | Outpatient (AMB) | payer MEDICARE, BC, SELFPAY ==
--- NOTE | 2023-06-25 09:09 | AM.OFFVISNUR ---
Intake Intake Visit Reasons: evenity inj Allergies No Known Allergies Allergy (Verified 06/04/23 10:07) Office Meds romosozumab-aqqg 210 mg/2.34 mL(105 mg/1.17 mL x2)subcutaneous syringe Performing Provider: Hunter Arce MD Performing Location[place] [facility] [place] [facility] Administered by: Osorio Levin RN on 06/25/23 09:09 Dose Route Admin Location Dispensed Lot Number Expiration Date [facility] Doughnut Maker 210 mg subcut R and L arm 2.34 mL [id number] 09/28/25 AMGEN Coding Assessment & Plan Assessment & Plan Orders: Orders AMB Romosozumab Injection Patient Supplied Today M81.0 - Age-related osteoporosis without current pathological fracture
== END 2023-06-25 09:10 | disposition home or self-care (01) ==
PROVIDERS: PCP Internal Medicine; Visit Provider Internal Medicine Endocrinology, Diabetes & Metabolism
DX: M81.0 Age-related osteoporosis without current pathological fracture (principal)

== ENCOUNTER → 2023-06-25 08:46 | Outpatient (BNVA) | payer MEDICARE, BC, SELFPAY | PROVIDERS: PCP Internal Medicine; Visit Provider Internal Medicine Endocrinology, Diabetes & Metabolism | DX: M81.0 Age-related osteoporosis without current pathological fracture (principal); E55.9 Vitamin D deficiency, unspecified; Z79.620 Long term (current) use of immunosuppressive biologic | CPT/HCPCS: 96372; J3111 ==

== ENCOUNTER 2023-07-21 09:10 | Outpatient (REF) | payer MEDICARE, BC, SELFPAY ==
[2023-07-21 09:44] LABS: MANUAL DIFF FLAG NO
[2023-07-21 10:49] LABS: Basophils Absolute Auto 0.1 X10*3/uL (0.0-0.2); Basophils Percent Auto 0.8 % (0-2); Eosinophils Absolute Auto 0.4 X10*3/uL (0.0-0.4); Eosinophils Percent Auto 3.1 % (0-4); Hematocrit 46.1 % (37.0-47.0); Hemoglobin 15.2 g/dl (12.0-16.0); Imm Gran Abs Auto 0.05 X10*3/uL (0.00-0.03); Imm Gran Pct Auto 0.4 % (0.0-0.4); Lymphocytes Absolute Auto 2.9 X10*3/uL (1.2-4.9); Lymphocytes Percent Auto 24.6 % (20-40); Mean Corpuscular Hemoglobin 30.3 pg (27.0-33.0); Mean Platelet Volume 10.3 fL (9.4-12.3); Monocytes Absolute Auto 0.8 X10*3/uL (0.1-1.2); Monocytes Percent Auto 6.9 % (2-11); Neutrophils Absolute Auto 7.5 x10*3/uL (2.0-8.3); Neutrophils Percent Auto 64.2 % (45-73); Platelet Count 350 X10*3/uL (160-400); Red Blood Count 5.01 X10*6/uL (4.20-5.50); Red Cell Distribution Width 13.1 % (11.0-16.0); White Blood Count 11.6 X10*3/uL (4.8-10.8)
[2023-07-21 11:01] LABS: Appearance Urine Clear; Color Urine Yellow; Glucose Urine UA Negative (Negative); Leukocyte Esterase Urine Trace (Negative); Nitrite Urine Negative (Negative); PH 6.5 (5.0-9.0); UMIC TRIGGER UACC YES; Urine Blood Negative (Negative); Urine Ketones Negative (Negative); Urine Protein Negative (Neg-Trace)
[2023-07-21 11:09] LABS: Bacteria Urine None Seen (None Seen); Hyaline Casts Urine 0-2 /LPF (0-2); RBC Urine 0-2 /HPF (0-2); WBC Urine 0-5 /HPF (0-5)
[2023-07-21 11:30] LABS: Alanine Aminotransferase 25 U/L (0-31); Albumin Level 4.3 g/dL (3.5-5.0); Alkaline Phosphatase 110 U/L (39-117); Anion Gap 13 (12-20); Aspartate Amino Transferase 20 U/L (5-31); Bilirubin Total 0.4 mg/dL (0.0-1.0); Blood Urea Nitrogen 15 mg/dL (9-16); Calcium 9.6 mg/dL (8.4-10.2); Carbon Dioxide 24 mmol/L (22-29); Chloride 107 mmol/L (96-108); Cholesterol 151 mg/dL (<200); Estimated Glomerular Filt Rate > 60; Glucose Fasting 92 mg/dL (60-99); HDL Cholesterol 49 mg/dL (>40); LDL Cholesterol Calculated 83 mg/dL (<100); Potassium 4.4 mmol/L (3.3-5.1); Sodium 140 mmol/L (135-145); Total Protein 6.8 g/dL (6.5-8.0); Triglycerides 99 mg/dL (<150)
[2023-07-21 11:51] LABS: TSH reflex Free T4 2.88 uIU/mL (0.32-4.0); Vitamin D 25-OH Total 38.4 ng/mL (>30)
[2023-07-22 18:13] LABS: Calcium (PTHI) 7.9 mg/dL (8.6-10.4); PTHI 38 pg/mL (16-77)
== END 2023-07-21 09:11 | disposition home or self-care (01) ==
LOC: HO.LAB 09:10
PROVIDERS: PCP Internal Medicine; Visit Provider Internal Medicine
DX: I10 Essential (primary) hypertension (principal); E78.00 Pure hypercholesterolemia, unspecified; R30.0 Dysuria; E55.9 Vitamin D deficiency, unspecified; M81.0 Age-related osteoporosis without current pathological fracture
CPT/HCPCS: 36415; 80053; 80061; 81001; 81003; 82306; 83970; 84443; 85025

== ENCOUNTER 2023-07-23 08:37 | Outpatient (AMB) | payer MEDICARE, BC, SELFPAY ==
--- NOTE | 2023-07-23 09:00 | AM.OFFVISNUR ---
Intake Intake Visit Reasons: Evenity Injection Allergies No Known Allergies Allergy (Verified 06/04/23 10:07) Nursing Note Patient came to office for her 9th round of Evenity for osteoporosis. She denies any side effects. Office Meds romosozumab-aqqg 210 mg/2.34 mL(105 mg/1.17 mL x2)subcutaneous syringe Performing Provider: Hunter Arce MD Performing Location: [facility] [place] [facility] Administered by: Osorio Levin RN on 07/23/23 09:00 Dose Route Admin Location Dispensed Lot Number Expiration Date [facility] Liquid Hydrogen Plant Operator 210 mg subcut L and R arm 2.34 mL [id number] 11/26/25 AMGEN Comments: 9th Evenity shot Coding Assessment & Plan Assessment & Plan Orders: Orders AMB Romosozumab Injection Patient Supplied Today M81.0 - Age-related osteoporosis without current pathological fracture
== END 2023-07-23 09:03 | disposition home or self-care (01) ==
LOC: HO.ENCR 08:37
PROVIDERS: PCP Internal Medicine; Visit Provider Internal Medicine Endocrinology, Diabetes & Metabolism
DX: M81.0 Age-related osteoporosis without current pathological fracture (principal)

== ENCOUNTER → 2023-07-23 08:37 | Outpatient (BNVA) | payer MEDICARE, BC, SELFPAY | PROVIDERS: PCP Internal Medicine; Visit Provider Internal Medicine Endocrinology, Diabetes & Metabolism | DX: M81.0 Age-related osteoporosis without current pathological fracture (principal) | CPT/HCPCS: 96372; J3111 ==

== ENCOUNTER 2023-08-25 08:35 | Outpatient (REF) | payer MEDICARE, BC, SELFPAY ==
[2023-08-25 10:26] LABS: Albumin Level 4.2 g/dL (3.5-5.0); Estimated Glomerular Filt Rate 52
[2023-08-26 10:22] LABS: Calcium (PTHI) 9.5 mg/dL (8.6-10.4); PTHI 71 pg/mL (16-77)
== END 2023-08-25 08:36 | disposition home or self-care (01) ==
LOC: HO.LAB 08:35
PROVIDERS: Visit Provider Internal Medicine Endocrinology, Diabetes & Metabolism
DX: M81.0 Age-related osteoporosis without current pathological fracture (principal)
CPT/HCPCS: 36415; 82040; 82565; 83970

== ENCOUNTER 2023-08-28 08:43 | Outpatient (AMB) | payer MEDICARE, BC, SELFPAY ==
--- NOTE | 2023-08-28 09:06 | AM.OFFVISNUR ---
Intake Intake Visit Reasons: Evenity Allergies No Known Allergies Allergy (Verified 06/04/23 10:07) Office Meds romosozumab-aqqg 210 mg/2.34 mL(105 mg/1.17 mL x2)subcutaneous syringe Performing Provider: Hunter Arce MD Performing Location: [facility] [place] [facility]ology Administered by: Osorio Levin RN on 08/28/23 09:06 Dose Route Admin Location Dispensed Lot Number Expiration Date [facility] [place] Instrument Designer 210 mg subcut L and R arms 2.34 mL [id number] 10/29/25 AMGEN Comments: Patient gave consent for Evenity injections Coding Assessment & Plan Assessment & Plan Orders: Orders AMB Romosozumab Injection Patient Supplied Today M81.0 - Age-related osteoporosis without current pathological fracture
== END 2023-08-28 09:14 | disposition home or self-care (01) ==
PROVIDERS: PCP Internal Medicine; Visit Provider Internal Medicine Endocrinology, Diabetes & Metabolism
DX: M81.0 Age-related osteoporosis without current pathological fracture (principal)

== ENCOUNTER → 2023-08-28 08:43 | Outpatient (BNVA) | payer MEDICARE, BC, SELFPAY | PROVIDERS: PCP Internal Medicine; Visit Provider Internal Medicine Endocrinology, Diabetes & Metabolism | DX: M81.0 Age-related osteoporosis without current pathological fracture (principal); Z79.620 Long term (current) use of immunosuppressive biologic | CPT/HCPCS: 96372; J3111 ==

== ENCOUNTER 2023-08-28 11:48 | Outpatient (AMB) | payer MEDICARE, BC, SELFPAY ==
[2023-08-28 11:54] VITALS: BP 142/80; PULSE 78; O2SAT 98; BMI 30.8
--- NOTE | 2023-08-28 11:54 | A.OFFPC_ITS ---
Vital Signs 08/28/23 11:54 08/28/23 12:48 Height 5 ft 1 in Weight 163 lb BMI 30.8 BP 142/80 H 190/100 H Blood Pressure Location Lt brachial Lt brachial Position Sitting Left Lateral Pulse 78 Pulse Source Pulse Oximeter Pulse Oximetry (%) 98 Oxygen Delivery Method Room Air Intake Visit Reasons: 4 month f/u Unattended Ground Sensor Specialist Required: No Bill Poster Installer: Not Required per policy Accompanied by: Self / Same As Patient Allergies No Known Allergies Allergy (Verified 08/28/23 12:35) Medication List - Last Reconciled 08/28/23 by Orlando Johnson MD atorvastatin 40 mg PO DAILY cholecalciferol (vitamin D3) 50 mcg PO DAILY 90 days clonazepam 0.5 mg PO Q12H PRN fluticasone propion-salmeterol 250-50 mcg/dose (Wixela Inhub) 1 inh inhalation Q12H 30 days fluticasone propionate 110 mcg/actuation (Flovent HFA) 2 puffs inhalation BID 30 days romosozumab-aqqg (Evenity) 210 mg (2.34 mL) subcut .Q month umeclidinium-vilanterol 62.5-25 mcg/actuation (Anoro Ellipta) 1 inh inhalation DAILY Tobacco use date assessed: 04/24/23 Fall risk assessment: No Falls in past year Last assessed Fall Risk: 08/28/23 Dental Screening Dental Screen Date: 08/28/23 Did you have a dental visit in the last 12 months?: No Did you have a dental problem in the last 6 months where you did not have access to dental care?: No Was dental information given to patient?: Patient has dentist HPI 4 month f/u HPI Details Patient comes in today for her follow up visit States that she feels okay She denies any headaches or dizziness Denies any chest pains, no SOB No nausea/vomiting, no abdominal pain No change in bowel habits noted Had her follow up labs done sometime last month - to discuss her results Admits that she has been drinking a lot of coffee lately and also had a large mug of coffee earlier this morning so that may be why her blood pressure is high right now [facility] Medical History Smoker Pneumonitis Goiter Tobacco dependence due to cigarettes COPD (chronic obstructive pulmonary disease) Abnormal chest x-ray Facet arthritis, degenerative, lumbar spine Osteoporosis Normal colonoscopy (~2010) Obesity (BMI 30-39.9) Vitamin D deficiency Low back pain Radicular pain of right lower extremity Depression Anxiety Pure hypercholesterolemia Surgical History Hx of tubal ligation History of removal of eye Family History Father Depression Mother Medical history unknown Maternal Grandmother Uterine cancer Other Mental health problem Social History Housing: House Alcohol intake: current Alcohol intake frequency: does not drink Patient Tobacco Use Status: Current everyday Tobacco user Tobacco use type: Cigarette Cigarettes Per Day: 4 Years Smoked: 15 e-Cigarette/Vaping Use: Never Used Second Hand Smoke Exposure: Yes service: No Current occupational status: unemployed Cognitive needs: No Hearing needs: No Vision needs: Yes Female Reproductive History Menstrual Age of Menarche: 15 Questionnaire PHQ-9 Over the last 2 weeks, how often have you been bothered by any of the following problems? 1. Little interest or pleasure in doing things: not at all 2. Feeling down, depressed, or hopeless: not at all 3. Trouble falling or staying asleep, or sleeping too much: not at all 4. Feeling tired or having little energy: not at all 5. Poor appetite or overeating: not at all 6. Feeling bad about yourself - or that you are a failure or have let yourself or your family down: not at all 7. Trouble concentrating on things, such as reading the newspaper or watching television: not at all 8. Moving or speaking so slowly that other people could have noticed. Or the opposite - being so fidgety or restless that you have been moving around a lot more than usual: not at all 9. Thoughts that you would be better off or of hurting yourself in some way: not at all Total score: 0 Depression Screening Interpretation: Negative Depression Screening Done: Yes [id number] - PHQ-9 Billing: Yes Source: Developed by Drs. Hunter Ya, Leyla Brown, Ashkan Medeiros and colleagues, with an educational marina from [employer]. Thrive Questionnaire Date Thrive assessed: 04/24/23 Currently or been in a relationship where the following occur: no concerns reported AUDIT C Alcohol Use Questionnaire (AUDIT-C) 1. How often do you have a drink containing alcohol?: Never 3. How often do you have six or more drinks on one occasion?: Never Total Score: 0 Score Reviewed/Action Taken: Yes COLLIN-7 AMB Questionnaire COLLIN-7 Date COLLIN - 7 assessed: 04/24/23 Source: Developed by Drs. Hunter Ya, Leyla Brown, Ashkan Medeiros and colleagues, with an educational marina from [employer]. Review of Systems Const Denies fatigue, Denies fever(s) and Denies headache(s) ENT Denies dysphagia, Denies dizziness, Denies otalgia, Denies headache(s), Denies odynophagia and Denies sore throat Card Denies chest pain, Denies palpitations and Denies dyspnea Resp Denies chest congestion, Denies cough and Denies dyspnea GI Denies abdominal pain, Denies constipation, Denies dysphagia, Denies heartburn, Denies diarrhea, Denies nausea, Denies odynophagia and Denies vomiting Denies difficulty voiding, Denies nocturia, Denies dysuria and Denies vaginal discharge Musc Reports back pain and Reports radiating pain into limb (into right leg at times) Skin/Breast Details: (+) multiple skin lesions on anterior chest wall - see HPI for details Denies rash Neuro Denies dizziness and Denies headache(s) Psych Reports anxiety and Reports depression Endo Denies fatigue and Denies palpitations Physical exam (Primary Care) Vital Signs: Last Vital Signs Pulse 78 08/28/23 11:54 BP 190/100 H 08/28/23 12:48 Pulse Ox 98 08/28/23 11:54 Oxygen Delivery Method Room Air 08/28/23 11:54 BMI result Body Mass Index 30.8 Tobacco/Smoking Status: Tobacco use Status Tobacco use date assessed 04/24/23 08/28/23 11:55 Patient Tobacco Use Status Current everyday Tobacco 08/28/23 11:55 Tobacco use type Cigarette 08/28/23 12:15 e-Cigarette/Vaping Use Never Used 08/28/23 11:55 PHQ-9: PHQ-9 Score PHQ-9: Total score 0 08/28/23 12:39 Depression Screening Interpretation: Negative Thrive Assessment: Date of Thrive Assessment Date Thrive assessed 04/24/23 08/28/23 11:55 Currently or been in a relationship where the following occur: no concerns reported Const General: no acute distress and alert HENMT Ears: TM's normal bilaterally and EAC's normal Throat: Yes posterior oropharynx normal and Yes tonsils normal (no TP con gestion) Neck Neck: Yes no lymphadenopathy and Yes supple Resp Auscultation: clear to auscultation bilaterally, no crackles, no rales and no wheezes Cardio Rate: regular rate Rhythm: regular rhythm Heart sounds: no murmurs GI Palpation (GI): Soft to palpation and nontender Auscultation: normal bowel sounds Back/Spine/Pelvis Thoracic/Lumbar Spine: lumbar spinal tenderness Extrem General: Yes no clubbing, cyanosis or edema Results Reviewed Results Reviewed: Laboratory Tests 07/21/23 07/21/23 07/21/23 09:41 09:41 09:41 WBC 11.6 H Hgb 15.2 Hct 46.1 Plt Count 350 Sodium 140 Potassium 4.4 Creatinine Estimated GFR Fasting Glucose 92 Calcium 9.6 AST 20 ALT 25 Triglycerides 99 Cholesterol 151 LDL Cholesterol, Calc 83 HDL Cholesterol 49 25-OH Vitamin D Total 38.4 TSH 2.88 PTH Intact Calcium (PTH Intact) Ur Specific [place] Urine Protein Urine Glucose (UA) Urine Blood 07/21/23 08/25/23 08/25/23 10:08 08:48 08:48 WBC Hgb Hct Plt Count Sodium Potassium Creatinine 1.06 Estimated GFR 52 Fasting Glucose Calcium AST ALT Triglycerides Cholesterol LDL Cholesterol, Calc HDL Cholesterol 25-OH Vitamin D Total TSH PTH Intact 71 Calcium (PTH Intact) 9.5 Ur Specific [place] 1.010 Urine Protein Negative Urine Glucose (UA) Negative Urine Blood Negative Assessment and Plan Assessment & Plan (1) Pure hypercholesterolemia: Code(s): E78.00 - Pure hypercholesterolemia, unspecified Plan: Results of her labs done last month reviewed and discussed with patient Reinforced low cholesterol diet Continue Atorvastatin 40 mg QD Will recheck her labs and fasting lipids in 4 months for follow-up (2) Facet arthritis, degenerative, lumbar spine: Code(s): M47.816 - Spondylosis without myelopathy or radiculopathy, lumbar region Plan: Reinforced activity and weight-lifting restrictions to minimize aggravating her low back pain Lumbar spine x-rays done a couple years ago revealed (+) facet arthritis with no other concerning findings (3) Radicular pain of right lower extremity: Code(s): M54.10 - Radiculopathy, site unspecified Plan: States that her symptoms have stabilized somewhat lately Hip x-rays done several years ago in 2012 showed (+) mild OA changes in both hips; may need to get repeat x-rays for furher evaluation if patient continues to experience increased radicular pains into her lower extremities (4) Elevated blood pressure reading: Code(s): R03.0 - Elevated blood-pressure reading, without diagnosis of hypertension Plan: Reinforced low sodium diet - goal is systolic BP of 120 mm or less Patient admits that she has been drinking a lot of coffee lately and also had a large mug of coffee earlier this morning so that may be why her blood pressure is high right now Have instructed her to try to switch to decaf coffee; have also instructed her to continue monitoring her BP regularly Will have nurse navigator reach out to patient as well to help monitor and track her BP to see if we need to do any intervention for her high BP soon or not (5) Osteoporosis: Code(s): M81.0 - Age-related osteoporosis without current pathological fracture Qualifiers: Osteoporosis type: age-related Presence of current pathological fracture: without current pathological fracture Qualified Code(s): M81.0 - Age- related osteoporosis without current pathological fracture Plan: Repeat BMD done back on 01/01/2023 revealed (+) osteoporosis, with no significant change in BMD from her previous scan in November 2020 Continue Vitamin D and Calcium supplements daily and reminded to stay active and exercise regularly; fall precautions reinforced Continue Evenity 210 mg once a month - Rx is being prescribed and administered by endocrinology - she will be getting abour 4 more doses of Evenity, after which she will likely be switched over to IV Reclast once a year Follow up with endocrinology as scheduled (6) COPD (chronic obstructive pulmonary disease): Code(s): J44.9 - Chronic obstructive pulmonary disease, unspecified Qualifiers: COPD type: unspecified COPD Qualified Code(s): J44.9 - Chronic obstructive pulmonary disease, unspecified Plan: Symptoms are well-controlled/stable Continue Wixela 250-50 mcg 1 inhalation BID Follow up with pulmonary as scheduled (7) Vitamin D deficiency: Code(s): E55.9 - Vitamin D deficiency, unspecified Plan: Corrected - continue Vitamin D3 2000 units QD (8) Anxiety: Code(s): F41.9 - Anxiety disorder, unspecified Plan: Continue Clonazepam 0.5 mg BID PRN Is currently still seeing a therapist (via telehealth) weekly on Tuesdays - to continue as scheduled (9) Depression: Code(s): F32.9 - Major depressive disorder, single episode, unspecified Qualifiers: Depression Type: major depressive disorder Major depression recurrence: recurrent Active/Remission status: currently active Major depression episode severity: unspecified Qualified Code(s): F33.9 - Major depressive disorder, recurrent, unspecified Plan: Has been referred to and is now seeing/talking to a therapist weekly, which she states is helping Still does not feel that she needs to be on any Rx for her depression at present (10) Smoker: Code(s): F17.200 - Nicotine dependence, unspecified, uncomplicated Plan: Counseled again on smoking cessation (11) Obesity (BMI 30-39.9): Code(s): E66.9 - Obesity, unspecified Plan: Reinforced diet/exercise as tolerated/lose weight Plan Follow up in 4 months Orders: Orders Complete Blood Count Auto Diff 4 Months I10 - Essential (primary) hypertension Comprehensive [place]. Panel Fast 4 Months E78.00 - Pure hypercholesterolemia, unspecified Lipid Panel 4 Months E78.00 - Pure hypercholesterolemia, unspecified TSH reflex Free T4 4 Months E78.00 - Pure hypercholesterolemia, unspecified UA CC w/rflx Micro + Cult 4 Months R30.0 - Dysuria Vitamin D 25-OH Total 4 Months E55.9 - Vitamin D deficiency, unspecified Coding Level of Care Code Est Pt Level 4 (37001) Diagnoses Pure hypercholesterolemia E78.00 Facet arthritis, degenerative, lumbar spine M47.816 Radicular pain of right lower extremity M54.10 Elevated blood pressure reading R03.0 Age-related osteoporosis without current pathological fracture M81.0 Osteoporosis type: age-related Presence of current pathological fracture: without current pathological fracture Chronic obstructive pulmonary disease, unspecified COPD type J44.9 COPD type: unspecified COPD Vitamin D deficiency E55.9 Anxiety F41.9 Episode of recurrent major depressive disorder, unspecified depression episode severity F33.9 Depression Type: major depressive disorder Major depression recurrence: recurrent Active/Remission status: currently active Major depression episode severity: unspecified Smoker F17.200 Obesity (BMI 30-39.9) E66.9
[2023-08-28 12:48] VITALS: BP 190/100
== END 2023-08-28 12:55 | disposition home or self-care (01) ==
PROVIDERS: PCP Internal Medicine; Visit Provider Internal Medicine
DX: J44.9 Chronic obstructive pulmonary disease, unspecified (principal); F33.9 Major depressive disorder, recurrent, unspecified; E78.00 Pure hypercholesterolemia, unspecified; M47.816 Spondylosis without myelopathy or radiculopathy, lumbar region; M54.10 Radiculopathy, site unspecified; R03.0 Elevated blood-pressure reading, without diagnosis of hypertension; M81.0 Age-related osteoporosis without current pathological fracture; E55.9 Vitamin D deficiency, unspecified; F41.9 Anxiety disorder, unspecified; F17.210 Nicotine dependence, cigarettes, uncomplicated; E66.9 Obesity, unspecified; Z68.30 Body mass index [BMI] 30.0-30.9, adult
CPT/HCPCS: 99214

== ENCOUNTER 2023-09-25 08:47 | Outpatient (AMB) | payer MEDICARE, BC, SELFPAY ==
--- NOTE | 2023-09-25 09:02 | AM.OFFVISNUR ---
Intake Intake Visit Reasons: Evenity Allergies No Known Allergies Allergy (Verified 08/28/23 12:35) Office Meds romosozumab-aqqg 210 mg/2.34 mL(105 mg/1.17 mL x2)subcutaneous syringe Performing Provider: Hunter Arce MD Performing Location: [facility] [place] Administered by: Osorio Levin RN on 09/25/23 09:02 Dose Route Admin Location Dispensed Lot Number Expiration Date [facility] Seasoning Mixer 210 mg subcut L and R arm 2.34 mL [id number] 01/26/26 AMGEN Comments: Patient signed consent for Evenity injection. Her last Evenity is due to be administered October 28, 2023. Coding Assessment & Plan Assessment & Plan Orders: Orders AMB Romosozumab Injection Patient Supplied Today M81.0 - Age-related osteoporosis without current pathological fracture
== END 2023-09-25 09:05 | disposition home or self-care (01) ==
PROVIDERS: PCP Internal Medicine; Visit Provider Internal Medicine Endocrinology, Diabetes & Metabolism
DX: M81.0 Age-related osteoporosis without current pathological fracture (principal)

== ENCOUNTER → 2023-09-25 08:47 | Outpatient (BNVA) | payer MEDICARE, BC, SELFPAY | PROVIDERS: PCP Internal Medicine; Visit Provider Internal Medicine Endocrinology, Diabetes & Metabolism | DX: M81.0 Age-related osteoporosis without current pathological fracture (principal) | CPT/HCPCS: 96372; J3111 ==

== ENCOUNTER 2023-10-28 08:41 | Outpatient (AMB) | payer MEDICARE, BC, SELFPAY ==
--- NOTE | 2023-10-28 09:08 | AM.OFFVISNUR ---
Intake Intake Visit Reasons: Evenity Allergies No Known Allergies Allergy (Verified 08/28/23 12:35) Nursing Note Patient received her 12th dose of [address]ity. Dr. Arce would like to see the patient transition to alendronate or Prolia. I spoke with the patient and she said she would think about the options the doctor gave her and let us know. Office Meds romosozumab-aqqg 210 mg/2.34 mL(105 mg/1.17 mL x2)subcutaneous syringe Performing Provider: Hunter Arce MD Performing Location: [facility] [place] Administered by: Osorio Levin RN on 10/28/23 09:08 Dose Route Admin Location Dispensed Lot Number Expiration Date [facility] Tax Revenue Officer 210 mg subcut L and R arm 2.34 mL [id number] 01/26/26 AMGEN Comments: Patient signed consent for injection. Coding Assessment & Plan Assessment & Plan Orders: Orders AMB Romosozumab Injection Patient Supplied Today M81.0 - Age-related osteoporosis without current pathological fracture
== END 2023-10-28 09:12 | disposition home or self-care (01) ==
PROVIDERS: PCP Internal Medicine; Visit Provider Internal Medicine Endocrinology, Diabetes & Metabolism
DX: M81.0 Age-related osteoporosis without current pathological fracture (principal)

== ENCOUNTER → 2023-10-28 08:41 | Outpatient (BNVA) | payer MEDICARE, BC, SELFPAY | PROVIDERS: PCP Internal Medicine; Visit Provider Internal Medicine Endocrinology, Diabetes & Metabolism | DX: M81.0 Age-related osteoporosis without current pathological fracture (principal) | CPT/HCPCS: 96372; J3111 ==

== ENCOUNTER 2023-11-04 07:47 | Outpatient (AMB) | payer MEDICARE, BC, SELFPAY ==
[2023-11-04 07:54] VITALS: BP 174/82; PULSE 57; BMI 31.0
--- NOTE | 2023-11-04 07:54 | MHC.OFFVIS ---
Intake Vital Signs 11/04/23 07:54 Height 5 ft 1 in Weight 164 lb 3.91 oz BMI 31.0 BP 174/82 H Blood Pressure Location Lt brachial Position Sitting Pulse 57 Pulse Source Pulse Oximeter Intake Visit Reasons: Osteoporosis/Ohri-confirmed Intake Note: Patient presents today to follow up on Osteoporosis, last seen by Dr. Villagomez on 05/05/2023. Manager Of Community Relations Required: No Accompanied by: Self / Same As Patient Allergies No Known Allergies Allergy (Verified 11/04/23 07:59) Medication List - Last Reconciled 11/04/23 by Hunter Arce MD atorvastatin 40 mg PO DAILY cholecalciferol (vitamin D3) 50 mcg PO DAILY 90 days clonazepam 0.5 mg PO Q12H PRN fluticasone propion-salmeterol 250-50 mcg/dose (Wixela Inhub) 1 inh inhalation Q12H 30 days fluticasone propionate 110 mcg/actuation (Flovent HFA) 2 puffs inhalation BID 30 days romosozumab-aqqg (Evenity) 210 mg (2.34 mL) subcut .Q month umeclidinium-vilanterol 62.5-25 mcg/actuation (Anoro Ellipta) 1 inh inhalation DAILY HPI HPI Comments History of Present Illness Details 67 YO Female with PMHx Osteoporosis who is seen in F/U for the same. The patient last saw Dr. Villagomez on 05/05/2023 First diagnosed in 2012 with Osteoporosis of the hip. Was treated with Fosamax from June 2021 through Sep 2021. Now on Evenity with 6th dose given 04/22/2023. Tolerating this well. She had labs completed after 3 weeks off Fosamax. This was largely WNL, but Calcium was high normal. She was started on Vitamin D 2000 IU daily and labs repeated, still with calcium higher than expected for age, and PTH inappropriately normal. She repeated a full biochemical workup including 24 hour urine but labs are pending at this time. No history of pathologic fracture or ONJ. Has 3-4 servings of dietary calcium per day in the form of milk. Does not take a Calcium supplement. Takes Vitamin D 2000 IU daily. Denies ever using PPI, anticoagulant, antiepileptic or glucocorticoid medication. Does weight bearing exercise 3-5 days per week in the form of walking. 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 Menses were always regular. . She did not breastfeed. Menopause was age 44. She did not use HRT. Denies history of Kidney stones: Denies family history of Osteoporosis or hip fracture. UTD on dental cleanings and sees dentist every 6 months. No planned upcoming dental work or extractions. Denies any personal history of CAD or stroke. Denies any family history of CAD. DXA: 01/01/2023 FINDINGS: AP SPINE L1-L4: Current: BMD 0.942 g/cm2, Z-score -0.5, T-score -2.0, osteopenia, 0.4% increase from previous, 2.8% increase from baseline (<5% change is not significant). Prior: BMD 0.938 g/cm2. Baseline: BMD 0.916 g/cm2. LEFT FEMUR, NECK: Current: BMD 0.642 g/cm2, Z-score -1.5, T-score -2.8, osteoporosis. Prior: BMD 0.625 g/cm2. Baseline: BMD 0.718 g/cm2. LEFT FEMUR, TOTAL: Current: BMD 0.811 g/cm2, Z-score -0.4, T-score -1.6, osteopenia, 0.1% increase from previous, 1.5% decrease from baseline (<5% change is not significant). Prior: BMD 0.810 g/cm2. Baseline: BMD 0.823 g/cm2. LEFT FOREARM RADIUS 33%: BMD 0.864 g/cm2, Z-score 1.2, T-score -0.1, normal. Prior:? Not previously measured. Labs: Laboratory Tests 03/17/23 04/18/23 04/18/23 08:15 08:54 08:54 Creatinine 0.94 Estimated GFR 60 Albumin 4.0 25-OH Vitamin D To luigi 36.8 TSH 2.24 PTH Intact 74 Calcium (PTH Intac t) 9.5 PFSH Medical History Smoker Pneumonitis Goiter Tobacco dependence due to cigarettes COPD (chronic obstructive pulmonary disease) Abnormal chest x-ray Facet arthritis, degenerative, lumbar spine Osteoporosis Normal colonoscopy (~2010) Obesity (BMI 30-39.9) Vitamin D deficiency Low back pain Radicular pain of right lower extremity Depression Anxiety Pure hypercholesterolemia Surgical History Hx of tubal ligation History of removal of eye Family History Father Depression Mother Medical history unknown Maternal Grandmother Uterine cancer Other Mental health problem Social History Housing: House Alcohol intake: current Alcohol intake frequency: does not drink Patient Tobacco Use Status: Current everyday Tobacco user Tobacco use type: Cigarette Cigarettes Per Day: 4 Years Smoked: 15 e-Cigarette/Vaping Use: Never Used Second Hand Smoke Exposure: Yes service: No Current occupational status: unemployed Cognitive needs: No Hearing needs: No Vision needs: Yes Female Reproductive History Menstrual Age of Menarche: 15 Assessment & Plan Assessment & Plan (1) Osteoporosis: Code(s): M81.0 - Age-related osteoporosis without current pathological fracture Qualifiers: Osteoporosis type: age-related Presence of current pathological fracture: without current pathological fracture Qualified Code(s): M81.0 - Age-related osteoporosis without current pathological fracture Plan: This is a 67-year-old white female with a history of osteoporosis with negative secondary workup and prior treatment with alendronate and more recently completing Evenity treatment. The plan is to talk to the patient about transitioning to anti resorptive therapy like a 2 year course of alendronate versus Prolia. After a careful discussion with patient, we decided to transition to alendronate 70 mg Q weekly. Patient told how to take the alendronate and possible side effects including worsening of GERD, bone pain. We will check urine MTX in 6 months before return appointment Orders: Orders Collagen Crosslinks NTX 6 Months M81.0 - Age-related osteoporosis without current pathological fracture Medications: New alendronate 70 mg PO QWEEK 14 tabs 4RF Discontinued romosozumab-aqqg (Evenity) Discontinued Reason: Doctor's Order 210 mg (2.34 mL) subcut .Q month 2.34 mL 11RF Coding Level of Care Code Est Pt Level 3 (39232) Diagnoses Age-related osteoporosis without current pathological fracture M81.0 Osteoporosis type: age-related Presence of current pathological fracture: without current pathological fracture
== END 2023-11-04 08:30 | disposition home or self-care (01) ==
PROVIDERS: PCP Internal Medicine; Visit Provider Internal Medicine Endocrinology, Diabetes & Metabolism
DX: M81.0 Age-related osteoporosis without current pathological fracture (principal)
CPT/HCPCS: 99213

== ENCOUNTER → 2023-11-04 07:47 | Outpatient (BNVA) | payer MEDICARE, BC, SELFPAY | PROVIDERS: PCP Internal Medicine; Visit Provider Internal Medicine Endocrinology, Diabetes & Metabolism | DX: M81.0 Age-related osteoporosis without current pathological fracture (principal) | CPT/HCPCS: 99212 ==

== ENCOUNTER 2023-12-22 11:18 | Outpatient (REF) | payer MEDICARE, BC, SELFPAY ==
[2023-12-22 11:32] LABS: MANUAL DIFF FLAG NO
[2023-12-22 12:00] LABS: Basophils Absolute Auto 0.1 X10*3/uL (0.0-0.2); Basophils Percent Auto 0.8 % (0-2); Eosinophils Absolute Auto 0.3 X10*3/uL (0.0-0.4); Eosinophils Percent Auto 3.5 % (0-4); Hematocrit 44.9 % (37.0-47.0); Hemoglobin 14.9 g/dl (12.0-16.0); Imm Gran Abs Auto 0.03 X10*3/uL (0.00-0.03); Imm Gran Pct Auto 0.3 % (0.0-0.4); Lymphocytes Absolute Auto 2.7 X10*3/uL (1.2-4.9); Lymphocytes Percent Auto 29.2 % (20-40); Mean Corpuscular HGB Conc 33.2 g/dl (31.0-35.0); Mean Corpuscular Hemoglobin 30.6 pg (27.0-33.0); Mean Corpuscular Volume 92.2 fL (80.0-98.0); Mean Platelet Volume 9.8 fL (9.4-12.3); Monocytes Absolute Auto 0.6 X10*3/uL (0.1-1.2); Monocytes Percent Auto 6.4 % (2-11); Neutrophils Absolute Auto 5.5 x10*3/uL (2.0-8.3); Neutrophils Percent Auto 59.8 % (45-73); Platelet Count 331 X10*3/uL (160-400); Red Blood Count 4.87 X10*6/uL (4.20-5.50); Red Cell Distribution Width 12.7 % (11.0-16.0); White Blood Count 9.1 X10*3/uL (4.8-10.8)
[2023-12-22 12:07] LABS: Appearance Urine Clear; Color Urine Yellow; Glucose Urine UA Negative (Negative); Leukocyte Esterase Urine Negative (Negative); Nitrite Urine Negative (Negative); Urine Blood Negative (Negative); Urine Ketones Negative (Negative); Urine Protein Negative (Neg-Trace)
[2023-12-22 13:04] LABS: Alanine Aminotransferase 20 U/L (0-31); Albumin Level 4.1 g/dL (3.5-5.0); Alkaline Phosphatase 110 U/L (39-117); Anion Gap 12 (12-20); Aspartate Amino Transferase 17 U/L (5-31); Bilirubin Total 0.5 mg/dL (0.0-1.0); Blood Urea Nitrogen 13 mg/dL (9-16); Calcium 9.6 mg/dL (8.4-10.2); Carbon Dioxide 27 mmol/L (22-29); Chloride 105 mmol/L (96-108); Cholesterol 145 mg/dL (<200); Estimated Glomerular Filt Rate 57; Glucose Fasting 90 mg/dL (60-99); HDL Cholesterol 48 mg/dL (>40); LDL Cholesterol Calculated 74 mg/dL (<100); Potassium 4.2 mmol/L (3.3-5.1); Sodium 140 mmol/L (135-145); TSH reflex Free T4 2.15 uIU/mL (0.32-4.0); Total Protein 6.6 g/dL (6.5-8.0); Triglycerides 115 mg/dL (<150); Vitamin D 25-OH Total 38.3 ng/mL (>30)
== END 2023-12-22 11:19 | disposition home or self-care (01) ==
LOC: HO.LAB 11:18
PROVIDERS: PCP Internal Medicine; Visit Provider Internal Medicine
DX: R30.0 Dysuria (principal); I10 Essential (primary) hypertension; E55.9 Vitamin D deficiency, unspecified; E78.00 Pure hypercholesterolemia, unspecified
CPT/HCPCS: 36415; 80053; 80061; 81003; 82306; 84443; 85025

== ENCOUNTER 2023-12-26 09:45 | Outpatient (AMB) | payer MEDICARE, BC, SELFPAY ==
--- NOTE | 2023-12-26 09:51 | MHC.PC.OV ---
Vital Signs 12/26/23 09:55 Height 5 ft 1 in Weight 164 lb 8 oz BMI 31.1 BP 120/76 Blood Pressure Location Lt brachial Position Sitting Pulse 61 Pulse Source Pulse Oximeter Pulse Oximetry (%) 97 Oxygen Delivery Method Room Air Intake Visit Reasons: 4mth f/u Intake Note: Patient is here to follow up on COPD, Hypercholesterolemia, Depression, Anxiety. Incendiary Powder Mixer Required: No Industrial Organizational Psychologist: Not Required per policy Accompanied by: Self / Same As Patient Allergies No Known Allergies Allergy (Verified 12/26/23 10:42) Medication List - Last Reconciled 12/26/23 by Orlando Johnson MD alendronate 70 mg PO QWEEK atorvastatin 40 mg PO DAILY cholecalciferol (vitamin D3) 50 mcg PO DAILY 90 days clonazepam 0.5 mg PO Q12H PRN fluticasone propion-salmeterol 250-50 mcg/dose (Wixela Inhub) 1 inh inhalation Q12H 30 days fluticasone propionate 110 mcg/actuation (Flovent HFA) 2 puffs inhalation BID 30 days umeclidinium-vilanterol 62.5-25 mcg/actuation (Anoro Ellipta) 1 inh inhalation DAILY Tobacco use date assessed: 12/26/23 Fall risk assessment: No Falls in past year Last assessed Fall Risk: 12/26/23 Dental Screening Dental Screen Date: 12/26/23 Did you have a dental visit in the last 12 months?: No Did you have a dental problem in the last 6 months where you did not have access to dental care?: No Was dental information given to patient?: No HPI 4mth f/u HPI Details Patient comes in today for her follow up visit States that she feels okay but lately has been experiencing a recurrent sensation wherein she feels that the food that she is swallowing gets stuck somewhere in her lower chest/epigastric area - thinks that this has been going on for a few weeks now States that she has no epigastric pain and her symptoms are more of a fullness and pressure-like sensation in her epigastric area when this occurs She has no trouble swallowing and she denies any recent chest pains or increased SOB She denies any headaches or dizziness No nausea/vomiting, no abdominal pain and no change in bowel habits noted States that she continues to talk to her therapist regularly every week for her depression and anxiety and does not feel like she needs to be on any antidepressants yet at this time Had her follow up labs done a few days ago - to discuss her results [facility] Medical History Smoker Pneumonitis Goiter Tobacco dependence due to cigarettes COPD (chronic obstructive pulmonary disease) Abnormal chest x-ray Facet arthritis, degenerative, lumbar spine Osteoporosis Normal colonoscopy (~2010) Obesity (BMI 30-39.9) Vitamin D deficiency Low back pain Radicular pain of right lower extremity Depression Anxiety Pure hypercholesterolemia Surgical History Hx of tubal ligation History of removal of eye Family History Father Depression Mother Medical history unknown Maternal Grandmother Uterine cancer Other Mental health problem Social History Housing: House Alcohol intake: current Alcohol intake frequency: does not drink Patient Tobacco Use Status: Current everyday Tobacco user Tobacco use type: Cigarette Cigarettes Per Day: 4 Years Smoked: 15 e-Cigarette/Vaping Use: Never Used Second Hand Smoke Exposure: Yes service: No Current occupational status: unemployed Cognitive needs: No Hearing needs: No Vision needs: Yes (glasses) Female Reproductive History Menstrual Age of Menarche: 15 Questionnaire PHQ-9 Over the last 2 weeks, how often have you been bothered by any of the following problems? 1. Little interest or pleasure in doing things: nearly every day 2. Feeling down, depressed, or hopeless: more than half the days (on medication and is in therapy) 3. Trouble falling or staying asleep, or sleeping too much: more than half the days 4. Feeling tired or having little energy: not at all 5. Poor appetite or overeating: several days 6. Feeling bad about yourself - or that you are a failure or have let yourself or your family down: several days 7. Trouble concentrating on things, such as reading the newspaper or watching television: not at all 8. Moving or speaking so slowly that other people could have noticed. Or the opposite - being so fidgety or restless that you have been moving around a lot more than usual: not at all 9. Thoughts that you would be better off or of hurting yourself in some way: not at all Total score: 9 Depression Screening Interpretation: Positive Depression Screening Follow-up: Existing condition, Community Mental Health Worker F/U (talks to therapist weekly) and Declines treatment Depression Screening Done: Yes 92223 - PHQ-9 Billing: Yes Source: Developed by Drs. Hunter Ya, Leyla Brown, Ashkan Medeiros and colleagues, with an educational marina from [employer]. Thrive Questionnaire Date Thrive assessed: 12/26/23 I am a: Patient What is your living situation today?: I have a steady place to live Within the past 12 months, did the food you bought not last and you didn't have the money to get more?: Never true Within the past 12 months, did you worry whether your food would run out before you got money to buy more?: Never true Do you have trouble paying for medicines?: No Do you have trouble getting transportation to medical appointments?: No Do you have trouble paying your heating and electricity bill?: No Do you have trouble taking care of your child, family member or friend?: No Do you have trouble with day-to-day activities such as bathing, preparing meals, shopping, managing finances, etc.?: No Are you currently unemployed and looking for a job?: No Are you interested in more education?: No Currently or been in a relationship where the following occur: no concerns reported THRIVE Score: 0 AUDIT C Alcohol Use Questionnaire (AUDIT-C) 1. How often do you have a drink containing alcohol?: Never Total Score: 0 Score Reviewed/Action Taken: Yes COLLIN-7 AMB Questionnaire COLLIN-7 Date COLLIN - 7 assessed: 12/26/23 Feeling nervous, anxious, or on edge: 1 = Several days Not being able to stop or control worryin = More than half the days Worrying too much about different things: 2 = More than half the days Trouble relaxin = Not at all Being so restless that it is hard to sit still: 0 = Not at all Becoming easily annoyed or irritable: 2 = More than half the days Feeling afraid as if something awful might happen: 1 = Several days Total COLLIN-7 score (0-4 normal; 5-9 mild; 10-14 moderate; 15-21 severe): 8 Source: Developed by Drs. Hunter Ya, Leyla Brown, Ashkan Medeiros and colleagues, with an educational marina from [employer]. Review of Systems Const Denies fatigue, Denies fever(s) and Denies headache(s) ENT Reports dysphagia (at times - feels like food gets stuck in her lower chest/epig area), Denies dizziness, Denies otalgia, Denies headache(s), Denies odynophagia and Denies sore throat Card Denies chest pain, Denies palpitations and Denies dyspnea Resp Denies chest congestion, Denies cough and Denies dyspnea GI Denies abdominal pain, Denies constipation, Reports dysphagia (at times - feels like food gets stuck in her lower chest/epig area), Denies heartburn, Denies diarrhea, Denies nausea, Denies odynophagia and Denies vomiting Denies difficulty voiding, Denies nocturia, Denies dysuria and Denies urinary urgency Musc Reports back pain and Reports radiating pain into limb (into right leg at times) Skin/Breast Denies rash Neuro Denies dizziness and Denies headache(s) Psych Reports anxiety, Reports depression (talks to therapist weekly) and Denies suicidal ideation Endo Denies fatigue and Denies palpitations Physical exam (Primary Care) Vital Signs: Last Vital Signs Pulse 61 12/26/23 09:55 BP 120/76 12/26/23 09:55 Pulse Ox 97 12/26/23 09:55 Oxygen Delivery Method Room Air 12/26/23 09:55 BMI result Body Mass Index 31.1 Tobacco/Smoking Status: Tobacco use Status Tobacco use date assessed 12/26/23 12/26/23 10:07 Patient Tobacco Use Status Current everyday Tobacco 12/26/23 10:07 Tobacco use type Cigarette 12/26/23 10:07 e-Cigarette/Vaping Use Never Used 12/26/23 10:07 PHQ-9: PHQ-9 Score PHQ-9: Total score 9 12/26/23 10:07 Depression Screening Interpretation: Positive Depression Screening Follow-up: Existing condition, Community Mental Health Worker F/U (talks to therapist weekly) and Declines treatment Thrive Assessment: Date of Thrive Assessment Date Thrive assessed 12/26/23 12/26/23 10:07 Currently or been in a relationship where the following occur: no concerns reported Const General: no acute distress and alert HENMT Ears: TM's normal bilaterally and EAC's normal Throat: Yes posterior oropharynx normal and Yes tonsils normal (no TP congestion) Neck Neck: Yes no lymphadenopathy and Yes supple Thyroid: Thyroid normal Resp Auscultation: clear to auscultation bilaterally, no crackles, no rales and no wheezes Cardio Rate: regular rate Rhythm: regular rhythm Heart sounds: no murmurs GI Palpation (GI): Soft to palpation and nontender Auscultation: normal bowel sounds General: Yes no CVA tenderness Back/Spine/Pelvis Back: no CVA tenderness Thoracic/Lumbar Spine: lumbar spinal tenderness Skin Rashes: no rashes Extrem General: Yes no clubbing, cyanosis or edema Results Reviewed Results Reviewed: Laboratory Tests 12/22/23 12/22/23 11:30 11:31 WBC 9.1 Hgb 14.9 Hct 44.9 Plt Count 331 Sodium 140 Potassium 4.2 Creatinine 0.97 Estimated GFR 57 Fasting Glucose 90 Calcium 9.6 AST 17 ALT 20 Triglycerides 115 Cholesterol 145 LDL Cholesterol, Calc 74 HDL Cholesterol 48 25-OH Vitamin D Total 38.3 TSH 2.15 Ur Specific [place] 1.010 Urine Protein Negative Urine Glucose (UA) Negative Urine Blood Negative Urine Nitrite Negative Ur Leukocyte Esterase Negative Assessment and Plan Assessment & Plan (1) Pure hypercholesterolemia: Code(s): E78.00 - Pure hypercholesterolemia, unspecified Plan: Results of her labs done a few days reviewed and discussed with patient Reinforced low cholesterol diet Continue Atorvastatin 40 mg QD Will recheck her labs and fasting lipids in 4 months for follow-up (2) Facet arthritis, degenerative, lumbar spine: Code(s): M47.816 - Spondylosis without myelopathy or radiculopathy, lumbar region Plan: Reinforced activity and weight-lifting restrictions to minimize aggravating her low back pain Lumbar spine x-rays done a couple years ago revealed (+) facet arthritis with no other concerning findings (3) Radicular pain of right lower extremity: Code(s): M54.10 - Radiculopathy, site unspecified Plan: States that her symptoms have stabilized somewhat lately Hip x-rays done several years ago in 2012 showed (+) mild OA changes in both hips; may need to get repeat x-rays for further evaluation if patient continues to experience increased radicular pains into her lower extremities (4) Elevated blood pressure reading: Code(s): R03.0 - Elevated blood-pressure reading, without diagnosis of hypertension Plan: Reinforced low sodium diet - goal is systolic BP of 120 mm or less Her blood pressure today is much better She was instructed previously to try to switch to decaf coffee if she feels like she needs to drink more than her usual 1 to 2 cups of coffee a day Have also reminded her to continue monitoring her BP regularly (5) Dysphagia: Code(s): R13.10 - Dysphagia, unspecified Qualifiers: Dysphagia type: esophageal phase Qualified Code(s): R13.19 - Other dysphagia Plan: Will send her for upper GI series KAROLINE for further evaluation (6) Osteoporosis: Code(s): M81.0 - Age-related osteoporosis without current pathological fracture Qualifiers: Osteoporosis type: age-related Presence of current pathological fracture: without current pathological fracture Qualified Code(s): M81.0 - Age-related osteoporosis without current pathological fracture Plan: Repeat BMD done back on 01/01/2023 revealed (+) osteoporosis, with no significant change in BMD from her previous scan in November 2020 Continue Vitamin D and Calcium supplements daily and reminded to stay active and exercise regularly; fall precautions reinforced Continue Evenity 210 mg once a month - Rx is being prescribed and administered by endocrinology - she will be getting abour 4 more doses of Evenity, after which she will likely be switched over to IV Reclast once a year Follow up with endocrinology as scheduled (7) COPD (chronic obstructive pulmonary disease): Code(s): J44.9 - Chronic obstructive pulmonary disease, unspecified Qualifiers: COPD type: unspecified COPD Qualified Code(s): J44.9 - Chronic obstructive pulmonary disease, unspecified Plan: Symptoms are well-controlled/stable Continue Wixela 250-50 mcg 1 inhalation BID Follow up with pulmonary as scheduled (8) Vitamin D deficiency: Code(s): E55.9 - Vitamin D deficiency, unspecified Plan: Corrected - continue Vitamin D3 2000 units QD (9) Anxiety: Code(s): F41.9 - Anxiety disorder, unspecified Plan: Continue Clonazepam 0.5 mg BID PRN Is currently still seeing a therapist (via telehealth) weekly on Tuesdays - to continue as scheduled (10) Depression: Code(s): F32.9 - Major depressive disorder, single episode, unspecified Qualifiers: Depression Type: major depressive disorder Major depression recurrence: recurrent Active/Remission status: currently active Major depression episode severity: unspecified Qualified Code(s): F33.9 - Major depressive disorder, recurrent, unspecified Plan: Has been referred to and is now seeing/talking to a therapist weekly, which she states is helping Still does not feel that she needs to be on any Rx for her depression at present (11) Smoker: Code(s): F17.200 - Nicotine dependence, unspecified, uncomplicated Plan: Counseled again on smoking cessation (12) Obesity (BMI 30-39.9): Code(s): E66.9 - Obesity, unspecified Plan: Reinforced diet/exercise as tolerated/lose weight Plan Follow up in 4 months Orders: Orders Comprehensive [place]. Panel Fast 4 Months E78.00 - Pure hypercholesterolemia, unspecified TSH reflex Free T4 4 Months E78.00 - Pure hypercholesterolemia, unspecified [place] upper GI series Today R13.10 - Dysphagia, unspecified Lipid Panel 4 Months E78.00 - Pure hypercholesterolemia, unspecified Complete Blood Count Auto Diff 4 Months D64.9 - Anemia, unspecified Vitamin D 25-OH Total 4 Months E55.9 - Vitamin D deficiency, unspecified UA CC w/rflx Micro + Cult 4 Months R30.0 - Dysuria Coding Level of Care Code Est Pt Level 4 (94254) Diagnoses Pure hypercholesterolemia E78.00 Facet arthritis, degenerative, lumbar spine M47.816 Radicular pain of right lower extremity M54.10 Elevated blood pressure reading R03.0 Esophageal dysphagia R13.19 Dysphagia type: esophageal phase Age-related osteoporosis without current pathological fracture M81.0 Osteoporosis type: age-related Presence of current pathological fracture: without current pathological fracture Chronic obstructive pulmonary disease, unspecified COPD type J44.9 COPD type: unspecified COPD Vitamin D deficiency E55.9 Anxiety F41.9 Episode of recurrent major depressive disorder, unspecified depression episode severity F33.9 Depression Type: major depressive disorder Major depression recurrence: recurrent Active/Remission status: currently active Major depression episode severity: unspecified Smoker F17.200 Obesity (BMI 30-39.9) E66.9
[2023-12-26 09:55] VITALS: BP 120/76; PULSE 61; O2SAT 97; BMI 31.1
== END 2023-12-26 11:00 | disposition home or self-care (01) ==
PROVIDERS: PCP Internal Medicine; Visit Provider Internal Medicine
DX: J44.9 Chronic obstructive pulmonary disease, unspecified (principal); F33.9 Major depressive disorder, recurrent, unspecified; E78.00 Pure hypercholesterolemia, unspecified; M47.816 Spondylosis without myelopathy or radiculopathy, lumbar region; M54.10 Radiculopathy, site unspecified; R03.0 Elevated blood-pressure reading, without diagnosis of hypertension; R13.19 Other dysphagia; M81.0 Age-related osteoporosis without current pathological fracture; E55.9 Vitamin D deficiency, unspecified; F41.9 Anxiety disorder, unspecified; F17.200 Nicotine dependence, unspecified, uncomplicated; E66.9 Obesity, unspecified
CPT/HCPCS: 99214

== ENCOUNTER 2024-02-19 07:27 | Outpatient (REF) | payer MEDICARE, BC, SELFPAY ==
--- NOTE | ~2024-02-19 | FL_ITS ---
EXAMINATION: XR FLUOROSCOPY UPPER GI WITH AIR CLINICAL INFORMATION: Dysphagia COMPARISON: None TECHNIQUE: Fluoroscopic air contrast upper GI examination was performed utilizing standard techniques with thin and thick barium and effervescent granules. Numerous spot images were obtained. FINDINGS: Lateral cine images of the oropharynx and hypopharynx demonstrate normal swallow mechanism with normal epiglottic inversion and soft palate elevation. No tracheal penetration, glottic or subglottic aspiration identified. No nasopharyngeal reflux present. Hypopharyngeal structures appear normal without evidence of mass or diverticulum. There was no significant cricopharyngeal achalasia. Dual and single contrast images of the esophagus demonstrate a normal caliber. There is a granular appearance of the mid and lower esophageal mucosa. There is an area of contrast pooling in the posterior mucosal wall of the mid midesophagus that may represent a small superficial ulcer. No masses or strictures are seen. Esophageal peristalsis was normal. Small type I hiatal hernia is present. Significant gastroesophageal reflux up to the thoracic inlet. Dual contrast and single contrast images of the stomach demonstrate a normal contour. There are multiple small areas of contrast pooling in the fundus and body the stomach that may represent small superficial aphthous ulcers. Contrast freely passed into the gastric antrum and duodenal bulb without delay. Single and air-contrast images of the duodenal bulb demonstrate no abnormality. The duodenal sweep has a normal appearance, course, and mucosal fold appearance. No malrotation. The imaged proximal jejunum has a normal fold pattern and caliber. FLUOROSCOPY TIME: 4 minutes 24 seconds Number of Spot Images: 12 Number of Cine: 17 DOSE AREA PRODUCT: 2787 uGy-m2 (microgray-meter squared) FL/FL upper GI series IMPRESSION: 1. Granular appearance of the mid and lower esophageal mucosa. In addition, there is an area of contrast pooling in the posterior mucosal wall of the midesophagus. These findings are suggestive of erosive esophagitis. 2. Small type I hiatal hernia 3. Severe gastroesophageal reflux 4. Multiple small areas of contrast pooling in the fundus and body of the stomach that may represent small superficial aphthous ulcers. Recommend correlation with EGD. This procedure was performed by Abdifatah Baker PA-C, and supervised by Dr. Palma
== END 2024-02-19 07:28 | disposition home or self-care (01) ==
LOC: HO.XRAY 07:27
PROVIDERS: PCP Internal Medicine; Visit Provider Internal Medicine
DX: R13.10 Dysphagia, unspecified (principal)
CPT/HCPCS: 74240

== ENCOUNTER → 2024-02-19 07:29 | Outpatient (BNV) | payer MEDICARE, BC, SELFPAY | PROVIDERS: PCP Internal Medicine; Visit Provider Physician Assistant Surgical | DX: R13.10 Dysphagia, unspecified (principal) | CPT/HCPCS: 74246 ==

== ENCOUNTER 2024-04-08 15:05 | Outpatient (AMB) | payer MEDICARE, BC, SELFPAY ==
[2024-04-08 15:23] VITALS: PULSE 71; O2SAT 97; BMI 30.8
--- NOTE | 2024-04-08 15:23 | A.OFFVIS_ITS ---
Vital Signs 04/08/24 15:23 Height 5 ft 1 in Weight 163 lb BMI 30.8 Pulse 71 Pulse Source Pulse Oximeter Pulse Oximetry (%) 97 Oxygen Delivery Method Room Air Intake Visit Reasons: COPD Nc Manager Required: No Allergies No Known Allergies Allergy (Verified 04/08/24 15:25) HPI Comments Details: The patient is a 68-year-old woman with a known history of tobacco dependency who apparently has been in usual state health until for the last year which she has been having increasing cough. At times is productive in nature. The mucus tends to be stay cayenne yellow at times. Denies any hemoptysis. She did have a chest x-ray back in July 2021 demonstrating she has some slight changes of the left base but nothing too significant. The patient continued to have her persistent cough however. She has gotten to the point that the cough has been getting worse therefore she did have another evaluation with her primary care provider. She was started on a course of antibiotics with only partial resolution of her symptoms. Subsequently she was referred to Pulmonary. Patient is not using any inhalers at this time. The patient does smoke cigarettes. She has been motivated trying to quit although her also smokes and she knows she will have a hard time. On examination she does have significant rhonchi primarily at the bases. She has significant congestion. Explained to the patient that it is crucial for her to stop smoking because her respiratory status on going to continue getting worse. She will talk to her start cutting down. When she returns will talk about smoking cessation agents. In the meantime the patient has significant wheezing and therefore will start her on any inhaler. We do have a sample of Trelegy that I want her to try for a month in the meantime. The patient also needs to undergo pulmonary function studies. I did review her chest x-ray from 2020. I will request 1 now from 2021. I did review the 1 from 18/11 still demonstrating some very slight opacity in the left base difficult to assess. However, with smoking history malignancy needs to be in differential. Therefore I will request a CT scan of the chest. 10/03/2022 the patient is here for a pulmonary follow-up visit. Overall the patient is feeling a lot better. She is responding well to the Trelegy inhaler. The patient still smoking. That she is trying to cut down. the patient did undergo pulmonary function studies which demonstrated relatively normal lung capacity which is reassuring. Patient also underwent a CT scan of the chest demonstrating some minimal degree of pneumonitis. She also had a mildly enlarged left axillary lymph node which may be due to a vaccine. She typically gets her mammograms as scheduled and have been okay per The patient's report. She would have another CT scan in a year's time. In the meantime if she develops any worsening symptoms we can always readdress that an earlier time. 03/28/2023 the patient is here for a pulmonary follow-up visit. Overall the patient is doing well. She is responding well to Trelegy. She has had a lot of loss in the family recently. Therefore she has been grieving. Because of that she has been smoking off and on. But typically lasting half a pack. The patient knows she needs to quit. She is going to continue to work on cutting down further on to quitting altogether. She would like to hold off on nicotine supplementation therapy. We can also consider Chantix in the future if she is not successful. The patient will have a CT scan of the chest sometime in the fall 2022 as part of the lung cancer screening program. She is responding well to the Trelegy in her respiratory status is stable. Therefore continue her current respiratory therapy will follow-up next year. 04/08/2024 the patient is here for a pulmonary follow-up visit. Overall she is doing okay. She is responded well to the Wixela. She does only use it once a day with since effective for her. She at some point ran out and she did use Flovent HFA. She resulting significant thrush. Therefore she stopped it. The patient also has been working on her smoking. She is able to cut down significantly although is hard because her significant other also smokes. The patient is working on that. We did look at her last CT scan from 2021 which demonstrated some ground-glass opacities at the bases. Will plan to repeat that in the next 6 months. My suspicion is that she likely has a component of aspiration pneumonitis. She did undergo a barium swallow sometime in January which demonstrated severe reflux disease along with abnormal looking mucosa both in the esophagus suggesting erosive esophagitis and also some potential abnormalities in the mucosa of the stomach. She needs to have an EGD. we will refer her to GI this time in order for her to undergo hopefully an urgent EGD make sure. In the meantime she is going to start PPI. Hopefully when she gets a repeat CT scan with improvement of the ground-glass opacities. And we can also consider stopping the inhaled cortical steroids altogether keeping her on a combination bronchodilator therapy Such as Anoro. Therefore, follow-up in 6 months. If any worsening symptoms or any other concerning symptoms she will call for an earlier assessment. [facility] Medical History (Updated 04/08/24 @ 23:18 by Loy Weaver MD) Abnormal barium swallow GERD (gastroesophageal reflux disease) Smoker Pneumonitis Goiter Tobacco dependence due to cigarettes COPD (chronic obstructive pulmonary disease) Abnormal chest x-ray Facet arthritis, degenerative, lumbar spine Osteoporosis Normal colonoscopy (~2010) Obesity (BMI 30-39.9) Vitamin D deficiency Low back pain Radicular pain of right lower extremity Depression Anxiety Pure hypercholesterolemia Surgical History Hx of tubal ligation History of removal of eye Family History Father Depression Mother Medical history unknown Maternal Grandmother Uterine cancer Other Mental health problem Social History Housing: House Alcohol intake: current Alcohol intake frequency: does not drink Patient Tobacco Use Status: Current everyday Tobacco user Tobacco use type: Cigarette Cigarettes Per Day: 4 Years Smoked: 15 e-Cigarette/Vaping Use: Never Used Second Hand Smoke Exposure: Yes service: No Current occupational status: unemployed Cognitive needs: No Hearing needs: No Vision needs: Yes (glasses) Female Reproductive History Menstrual Age of Menarche: 15 Review of Systems Const Denies fatigue and Denies night sweats Eyes Denies exophthalmos ENT Denies nasal discharge and Denies nasal obstruction Card Denies chest pain and Denies dyspnea on exertion Resp Denies change in phlegm color, Denies chest congestion, Reports cough, Denies hemoptysis and Denies dyspnea on exertion GI Reports as per HPI, Reports bloating, Reports dyspepsia and Reports heartburn Musc Reports no additional complaints Skin/Breast Denies rash Neuro Reports no additional complaints Endo Denies fatigue Justo/Lymph Denies easy bleeding and Denies easy bruising Physical Exam Vital Signs: Last Vital Signs Pulse 71 07/11/24 15:23 Pulse Ox 97 04/08/24 15:23 Oxygen Delivery Method Room Air 04/08/24 15:23 BMI result Body Mass Index 30.8 Const General: comfortable HEENT Head: Yes normal to inspection Eyes General: appearance normal, both eyes and all related structures Neck Neck: Yes supple Chest Chest palpation & inspection: normal inspection of the chest Resp Effort & Inspection: normal respiratory effort Auscultation: no rhonchi, no wheezes and diminished lung sounds Cardio Rate: regular rate Rhythm: regular rhythm Heart sounds: S1 normal heart sound present and S2 normal heart sound present GI Auscultation: normal bowel sounds Extrem General: Yes no clubbing, cyanosis or edema Assessment & Plan Assessment & Plan (1) COPD (chronic obstructive pulmonary disease): Code(s): J44.9 - Chronic obstructive pulmonary disease, unspecified Category: Medical Qualifiers: COPD type: unspecified COPD Qualified Code(s): J44.9 - Chronic obstructive pulmonary disease, unspecified (2) Tobacco dependence due to cigarettes: Code(s): F17.210 - Nicotine dependence, cigarettes, uncomplicated Category: Medical (3) Pneumonitis: Comment: Likely due to smoking Code(s): J18.9 - Pneumonia, unspecified organism Category: Medical (4) GERD (gastroesophageal reflux disease): Code(s): K21.9 - Gastro-esophageal reflux disease without esophagitis Category: Medical Qualifiers: Esophagitis presence: with esophagitis Esophagitis bleeding: without hemorrhage Qualified Code(s): K21.00 - Gastro-esophageal reflux disease with esophagitis, without bleeding (5) Abnormal barium swallow: Code(s): R93.3 - Abnormal findings on diagnostic imaging of other parts of digestive tract Category: Medical Plan continue wixela will cut down on the smoking CT chest in 4 months start PPI GI referral F/U 6-8 months Orders: Orders CT chest wo IV con 4 Months J18.9 - Pneumonia, unspecified organism Referrals Gastroenterology Referral K21.9 - Gastro-esophageal reflux disease without esophagitis, R93.3 - Abnormal findings on diagnostic imaging of other parts of digestive tract Medications: New omeprazole 40 mg PO DAILY 30 days 30 caps 11RF Discontinued fluticasone propionate 110 mcg/actuation (Flovent HFA) administer with spacer Discontinued Reason: Doctor's Order 2 puffs inhalation BID 30 days 12 grams 11RF Coding Level of Care Code Est Pt Level 4 (18174) Diagnoses Chronic obstructive pulmonary disease, unspecified COPD type J44.9 COPD type: unspecified COPD Tobacco dependence due to cigarettes F17.210 Pneumonitis J18.9 Gastroesophageal reflux disease with esophagitis without hemorrhage K21.00 Esophagitis presence: with esophagitis Esophagitis bleeding: without hemorrhage Abnormal barium swallow R93.3 Time Spent (min) 17
== END 2024-04-08 16:01 | disposition home or self-care (01) ==
PROVIDERS: PCP Internal Medicine; Visit Provider Hospitalist
DX: J44.9 Chronic obstructive pulmonary disease, unspecified (principal); F17.210 Nicotine dependence, cigarettes, uncomplicated; J18.9 Pneumonia, unspecified organism; K21.00 Gastro-esophageal reflux disease with esophagitis, without bleeding; R93.3 Abnormal findings on diagnostic imaging of other parts of digestive tract
CPT/HCPCS: 99214

== ENCOUNTER → 2024-04-08 15:05 | Outpatient (BNVA) | payer MEDICARE, BC, SELFPAY | PROVIDERS: PCP Internal Medicine; Visit Provider Hospitalist | DX: J44.9 Chronic obstructive pulmonary disease, unspecified (principal); J18.9 Pneumonia, unspecified organism; R93.3 Abnormal findings on diagnostic imaging of other parts of digestive tract; K21.00 Gastro-esophageal reflux disease with esophagitis, without bleeding; F17.210 Nicotine dependence, cigarettes, uncomplicated | CPT/HCPCS: 99212 ==

== ENCOUNTER 2024-04-23 08:46 | Outpatient (REF) | payer MEDICARE, BC, SELFPAY ==
[2024-04-23 09:03] LABS: MANUAL DIFF FLAG NO
[2024-04-23 09:31] LABS: Appearance Urine Turbid; Color Urine Yellow; Glucose Urine UA Negative (Negative); Leukocyte Esterase Urine Small (1+) (Negative); Nitrite Urine Negative (Negative); PH 5.5 (5.0-9.0); Specific Gravity - Urine 1.015 (1.005-1.025); UMIC TRIGGER UACC YES; Urine Blood Negative (Negative); Urine Ketones Negative (Negative); Urine Protein Negative (Neg-Trace)
[2024-04-23 09:31] LABS: Basophils Absolute Auto 0.1 X10*3/uL (0.0-0.2); Basophils Percent Auto 0.9 % (0-2); Eosinophils Absolute Auto 0.4 X10*3/uL (0.0-0.4); Eosinophils Percent Auto 4.5 % (0-4); Hematocrit 45.4 % (37.0-47.0); Hemoglobin 15.3 g/dl (12.0-16.0); Imm Gran Abs Auto 0.03 X10*3/uL (0.00-0.03); Imm Gran Pct Auto 0.3 % (0.0-0.4); Lymphocytes Absolute Auto 2.8 X10*3/uL (1.2-4.9); Lymphocytes Percent Auto 30.2 % (20-40); Mean Corpuscular HGB Conc 33.7 g/dl (31.0-35.0); Mean Corpuscular Volume 91.9 fL (80.0-98.0); Monocytes Absolute Auto 0.7 X10*3/uL (0.1-1.2); Monocytes Percent Auto 7.3 % (2-11); Neutrophils Absolute Auto 5.2 x10*3/uL (2.0-8.3); Neutrophils Percent Auto 56.8 % (45-73); Platelet Count 318 X10*3/uL (160-400); Red Blood Count 4.94 X10*6/uL (4.20-5.50); Red Cell Distribution Width 12.8 % (11.0-16.0); White Blood Count 9.1 X10*3/uL (4.8-10.8)
[2024-04-23 09:35] LABS: Bacteria Urine 4+ (None Seen); Hyaline Casts Urine 0-2 /LPF (0-2); RBC Urine 0-2 /HPF (0-2); Squamous Epithelial Cell Urine >20 /HPF (0-2); UACC Culture Trigger YES; WBC Urine 21-50 /HPF (0-5)
[2024-04-23 10:26] LABS: Alanine Aminotransferase 29 U/L (0-31); Albumin Level 4.4 g/dL (3.5-5.0); Alkaline Phosphatase 103 U/L (39-117); Anion Gap 15 (12-20); Aspartate Amino Transferase 21 U/L (5-31); Bilirubin Total 0.5 mg/dL (0.0-1.0); Blood Urea Nitrogen 14 mg/dL (9-16); Calcium 9.7 mg/dL (8.4-10.2); Carbon Dioxide 25 mmol/L (22-29); Chloride 106 mmol/L (96-108); Cholesterol 165 mg/dL (<200); Estimated Glomerular Filt Rate 59; Glucose Fasting 92 mg/dL (60-99); HDL Cholesterol 44 mg/dL (>40); LDL Cholesterol Calculated 100 mg/dL (<100); Potassium 4.4 mmol/L (3.3-5.1); Sodium 142 mmol/L (135-145); Total Protein 6.8 g/dL (6.5-8.0); Triglycerides 108 mg/dL (<150)
[2024-04-23 10:45] LABS: TSH reflex Free T4 2.36 uIU/mL (0.32-4.0); Vitamin D 25-OH Total 49.4 ng/mL (>30)
== END 2024-04-23 08:47 | disposition home or self-care (01) ==
LOC: HO.LAB 08:46
PROVIDERS: PCP Internal Medicine; Visit Provider Internal Medicine
DX: E78.00 Pure hypercholesterolemia, unspecified (principal); D64.9 Anemia, unspecified; E55.9 Vitamin D deficiency, unspecified; R30.0 Dysuria
CPT/HCPCS: 36415; 80053; 80061; 81001; 82306; 84443; 85025; 87086

== ENCOUNTER 2024-04-28 08:45 | Outpatient (REF) | payer MEDICARE, BC, SELFPAY ==
[2024-05-02 15:39] LABS: N-Telopeptide 36 (see note); NTXCreaRU 150 mg/dL (20-275)
== END 2024-04-28 08:46 | disposition home or self-care (01) ==
LOC: HO.LAB 08:45
PROVIDERS: PCP Internal Medicine; Visit Provider Internal Medicine Endocrinology, Diabetes & Metabolism
DX: M81.0 Age-related osteoporosis without current pathological fracture (principal)
CPT/HCPCS: 82523

== ENCOUNTER 2024-04-28 09:56 | Outpatient (AMB) | payer MEDICARE, BC, SELFPAY ==
[2024-04-28 10:00] VITALS: BP 118/72; PULSE 60; O2SAT 98
--- NOTE | 2024-04-28 10:00 | MHC.PC.OV ---
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 Allergies No Known Allergies Allergy (Verified 04/28/24 10:06) Medication List - Last Reconciled 04/28/24 by Orlando Johnson MD alendronate 70 mg PO QWEEK atorvastatin 40 mg PO DAILY cholecalciferol (vitamin D3) 50 mcg PO DAILY 90 days clonazepam 0.5 mg PO Q12H PRN fluticasone propion-salmeterol 250-50 mcg/dose (Wixela Inhub) 1 inh inhalation Q12H 30 days omeprazole 40 mg PO DAILY 30 days Tobacco use date assessed: 12/26/23 Fall risk assessment: No Falls in past year Last assessed Fall Risk: 04/28/24 Dental Screening Dental Screen Date: 12/26/23 HPI 4 Month F/U HPI Details Patient comes in today for her follow up visit States that she still has recurrent sensations of a pressure-like sensation and of food getting stuck somewhere in her lower chest/epigastric area when she swallows She had an upper GI series done in late January 2024 that revealed (+) findings suggestive of erosive esophagitis and GERD She has been referred to GI for further evaluation and is scheduled to be seen in a few weeks and also for EGD on 08/13/2024 She denies any headaches or dizziness Denies any exertional chest pains or SOB No nausea/vomiting, no abdominal pain No change in bowel habits noted States that she continues to talk to her therapist regularly every week for her depression and anxiety and does not feel like she needs to be on any antidepressants yet at this time She had her follow up labs done a few days ago - to discuss her results [facility] Medical History (Updated 04/28/24 @ 10:29 by Orlando Johnson MD) Erosive esophagitis Abnormal barium swallow GERD (gastroesophageal reflux disease) Smoker Pneumonitis Goiter Tobacco dependence due to cigarettes COPD (chronic obstructive pulmonary disease) Abnormal chest x-ray Facet arthritis, degenerative, lumbar spine Osteoporosis Normal colonoscopy (~2010) Obesity (BMI 30-39.9) Vitamin D deficiency Low back pain Radicular pain of right lower extremity Depression Anxiety Pure hypercholesterolemia Surgical History Hx of tubal ligation History of removal of eye Family History Father Depression Mother Medical history unknown Maternal Grandmother Uterine cancer Other Mental health problem Social History Housing: House Alcohol intake: current Alcohol intake frequency: does not drink Patient Tobacco Use Status: Current everyday Tobacco user Tobacco use type: Cigarette Cigarettes Per Day: 4 Years Smoked: 15 e-Cigarette/Vaping Use: Never Used Second Hand Smoke Exposure: Yes service: No Current occupational status: unemployed Cognitive needs: No Hearing needs: No Vision needs: Yes (glasses) Female Reproductive History Menstrual Age of Menarche: 15 Questionnaire Thrive Questionnaire Date Thrive assessed: 12/26/23 AUDIT C Alcohol Use Questionnaire (AUDIT-C) 1. How often do you have a drink containing alcohol?: Never 3. How often do you have six or more drinks on one occasion?: Never Total Score: 0 Score Reviewed/Action Taken: Yes COLLIN-7 AMB Questionnaire COLLIN-7 Date COLLIN - 7 assessed: 12/26/23 Source: Developed by Drs. Hunter Ya, Leyla Brown, Ashkan Medeiros and colleagues, with an educational marina from [employer]. Review of Systems Const Denies chills, Denies fatigue, Denies fever(s) and Denies headache(s) ENT Reports dysphagia (at times - feels like food gets stuck in her lower chest/epig area), Denies dizziness, Denies otalgia, Denies headache(s), Denies neck pain, Denies odynophagia and Denies sore throat Card Denies chest pain, Denies palpitations and Denies dyspnea Resp Denies chest congestion, Denies cough and Denies dyspnea GI Denies abdominal pain, Denies constipation, Reports dysphagia (at times - feels like food gets stuck in her lower chest/epig area), Denies heartburn, Denies diarrhea, Denies nausea, Denies odynophagia and Denies vomiting Denies difficulty voiding, Denies nocturia, Denies dysuria and Denies urinary urgency Musc Reports back pain, Denies neck pain and Reports radiating pain into limb (into right leg at times) Skin/Breast Denies rash Neuro Denies dizziness and Denies headache(s) Psych Reports anxiety, Reports depression (talks to therapist weekly) and Denies suicidal ideation Endo Denies fatigue and Denies palpitations Physical exam (Primary Care) Vital Signs: Last Vital Signs Pulse 60 04/28/24 10:00 BP 118/72 04/28/24 10:00 Pulse Ox 98 04/28/24 10:00 Oxygen Delivery Method Room Air 04/28/24 10:00 BMI result Body Mass Index 30.0 Tobacco/Smoking Status: Tobacco use Status Tobacco use date assessed 12/26/23 04/28/24 10:04 Patient Tobacco Use Status Current everyday Tobacco 04/28/24 10:04 Tobacco use type Cigarette 04/28/24 10:04 e-Cigarette/Vaping Use Never Used 04/28/24 10:04 Thrive Assessment: Date of Thrive Assessment Date Thrive assessed 12/26/23 04/28/24 10:04 Const General: no acute distress and alert HENMT Ears: TM's normal bilaterally and EAC's normal Throat: Yes posterior oropharynx normal and Yes tonsils normal (no TP congestion) Neck Neck: Yes no lymphadenopathy and Yes supple Thyroid: Thyroid normal Resp Auscultation: clear to auscultation bilaterally, no crackles, no rales and no wheezes Cardio Rate: regular rate Rhythm: regular rhythm Heart sounds: no murmurs GI Palpation (GI): Soft to palpation and nontender Auscultation: normal bowel sounds General: Yes no CVA tenderness Back/Spine/Pelvis Back: no CVA tenderness Thoracic/Lumbar Spine: lumbar spinal tenderness Skin Rashes: no rashes Extrem General: Yes no clubbing, cyanosis or edema Results Reviewed Results Reviewed: Laboratory Tests 04/23/24 04/23/24 08:55 08:59 WBC 9.1 Hgb 15.3 Hct 45.4 Plt Count 318 Sodium 142 Potassium 4.4 Creatinine 0.95 Estimated GFR 59 Fasting Glucose 92 Calcium 9.7 AST 21 ALT 29 Triglycerides 108 Cholesterol 165 LDL Cholesterol, Calc 100 H HDL Cholesterol 44 25-OH Vitamin D Total 49.4 TSH 2.36 Ur Specific [place] 1.015 Urine Protein Negative Urine Glucose (UA) Negative Urine Blood Negative Urine Nitrite Negative Ur Leukocyte Esterase Small (1+) H Assessment and Plan Assessment & Plan (1) Pure hypercholesterolemia: Code(s): E78.00 - Pure hypercholesterolemia, unspecified Plan: Results of her labs done a few days reviewed and discussed with patient - she is advised that her total and LDL cholesterol have increased from previous Reinforced low cholesterol diet - states that she just recently went on vacation Continue Atorvastatin 40 mg QD Will recheck her labs and fasting lipids in 4 months for follow-up (2) Facet arthritis, degenerative, lumbar spine: Code(s): M47.816 - Spondylosis without myelopathy or radiculopathy, lumbar region Plan: Reinforced activity and weight-lifting restrictions to minimize aggravating her low back pain Lumbar spine x-rays done a couple years ago revealed (+) facet arthritis with no other concerning findings (3) Radicular pain of right lower extremity: Code(s): M54.10 - Radiculopathy, site unspecified Plan: States that her symptoms have stabilized somewhat lately Hip x-rays done several years ago in 2012 showed (+) mild OA changes in both hips; may need to get repeat x-rays for further evaluation if patient continues to experience increased radicular pains into her lower extremities (4) Elevated blood pressure reading: Code(s): R03.0 - Elevated blood-pressure reading, without diagnosis of hypertension Plan: Reinforced low sodium diet - goal is systolic BP of 120 mm or less Her blood pressure today is again normal today - her BP has been doing well since she switched to decaf coffee She is again reminded to continue monitoring her BP regularly (5) Erosive esophagitis: Code(s): K22.10 - Ulcer of esophagus without bleeding Plan: Her upper GI series done back in January 2024 revealed (+) findings suggestive of erosive esophagitis and severe GERD She has been referred to GI for further evaluation and is now scheduled to be seen by GI in May 2024 and scheduled for EGD on 08/13/2024 Continue Omeprazole 40 mg QD (6) GERD (gastroesophageal reflux disease): Code(s): K21.9 - Gastro-esophageal reflux disease without esophagitis Qualifiers: Esophagitis presence: with esophagitis Esophagitis bleeding: without hemorrhage Qualified Code(s): K21.00 - Gastro-esophageal reflux disease with esophagitis, without bleeding Plan: Her upper GI also revealed (+) severe GERD Reinforced dietary restrictions Continue Omeprazole 40 mg QD (7) Osteoporosis: Code(s): M81.0 - Age-related osteoporosis without current pathological fracture Qualifiers: Osteoporosis type: age-related Presence of current pathological fracture: without current pathological fracture Qualified Code(s): M81.0 - Age-related osteoporosis without current pathological fracture Plan: Repeat BMD done back on 01/01/2023 revealed (+) osteoporosis, with no significant change in BMD from her previous scan in November 2020 Continue Vitamin D and Calcium supplements daily and reminded to stay active and exercise regularly; fall precautions reinforced Continue Evenity 210 mg once a month - Rx is being prescribed and administered by endocrinology - she will be getting abour 4 more doses of Evenity, after which she will likely be switched over to IV Reclast once a year Follow up with endocrinology as scheduled (8) COPD (chronic obstructive pulmonary disease): Code(s): J44.9 - Chronic obstructive pulmonary disease, unspecified Qualifiers: COPD type: unspecified COPD Qualified Code(s): J44.9 - Chronic obstructive pulmonary disease, unspecified Plan: Symptoms are well-controlled/stable Continue Wixela 250-50 mcg 1 inhalation BID Follow up with pulmonary as scheduled (9) Vitamin D deficiency: Code(s): E55.9 - Vitamin D deficiency, unspecified Plan: Corrected - continue Vitamin D3 2000 units QD (10) Anxiety: Code(s): F41.9 - Anxiety disorder, unspecified Plan: Continue Clonazepam 0.5 mg BID PRN Is currently still seeing a therapist (via telehealth) weekly on Tuesdays - to continue as scheduled (11) Depression: Code(s): F32.9 - Major depressive disorder, single episode, unspecified Qualifiers: Depression Type: major depressive disorder Major depression recurrence: recurrent Active/Remission status: currently active Major depression episode severity: unspecified Qualified Code(s): F33.9 - Major depressive disorder, recurrent, unspecified Plan: Has been referred to and is now seeing/talking to a therapist weekly, which she states is helping Still does not feel that she needs to be on any Rx for her depression at present (12) Smoker: Code(s): F17.200 - Nicotine dependence, unspecified, uncomplicated Plan: Counseled again on smoking cessation, especially in light now of her erosive esophagitis (13) Obesity (BMI 30-39.9): Code(s): E66.9 - Obesity, unspecified Plan: Reinforced diet/exercise as tolerated/lose weight Plan Follow up in 4 months Orders: Orders Comprehensive [place]. Panel Fast 4 Months E78.00 - Pure hypercholesterolemia, unspecified UA CC w/rflx Micro + Cult 4 Months R30.0 - Dysuria Vitamin D 25-OH Total 4 Months E55.9 - Vitamin D deficiency, unspecified Complete Blood Count Auto Diff 4 Months D64.9 - Anemia, unspecified Lipid Panel 4 Months E78.00 - Pure hypercholesterolemia, unspecified Vitamin B12 and Folate 4 Months E53.8 - Deficiency of other specified B group vitamins Coding Level of Care Code Est Pt Level 4 (41653) Complex EM visit Add On G2211 Diagnoses Pure hypercholesterolemia E78.00 Facet arthritis, degenerative, lumbar spine M47.816 Radicular pain of right lower extremity M54.10 Elevated blood pressure reading R03.0 Erosive esophagitis K22.10 Gastroesophageal reflux disease with esophagitis without hemorrhage K21.00 Esophagitis presence: with esophagitis Esophagitis bleeding: without hemorrhage Age-related osteoporosis without current pathological fracture M81.0 Osteoporosis type: age-related Presence of current pathological fracture: without current pathological fracture Chronic obstructive pulmonary disease, unspecified COPD type J44.9 COPD type: unspecified COPD Vitamin D deficiency E55.9 Anxiety F41.9 Episode of recurrent major depressive disorder, unspecified depression episode severity F33.9 Depression Type: major depressive disorder Major depression recurrence: recurrent Active/Remission status: currently active Major depression episode severity: unspecified Smoker F17.200 Obesity (BMI 30-39.9) E66.9
== END 2024-04-28 10:45 | disposition home or self-care (01) ==
PROVIDERS: PCP Internal Medicine; Visit Provider Internal Medicine
DX: E78.00 Pure hypercholesterolemia, unspecified (principal); M47.816 Spondylosis without myelopathy or radiculopathy, lumbar region; M54.10 Radiculopathy, site unspecified; R03.0 Elevated blood-pressure reading, without diagnosis of hypertension; K22.10 Ulcer of esophagus without bleeding; K21.00 Gastro-esophageal reflux disease with esophagitis, without bleeding; M81.0 Age-related osteoporosis without current pathological fracture; E55.9 Vitamin D deficiency, unspecified; F41.9 Anxiety disorder, unspecified
CPT/HCPCS: 99214; G2211

== ENCOUNTER 2024-05-05 07:58 | Outpatient (AMB) | payer MEDICARE, BC, SELFPAY ==
[2024-05-05 08:00] VITALS: BP 156/86; PULSE 59; BMI 30.7
--- NOTE | 2024-05-05 08:00 | MHC.OFFVIS ---
Vital Signs 05/05/24 08:00 Height 5 ft 1 in Weight 162 lb 11.218 oz BMI 30.7 BP 156/86 H Blood Pressure Location Lt brachial Position Sitting Pulse 59 Pulse Source Pulse Oximeter Intake Visit Reasons: Osteoporosis Intake Note: Patient present today for Osteoporosis follow up visit. Director Of Payroll Required: No Accompanied by: Self / Same As Patient Allergies No Known Allergies Allergy (Verified 05/05/24 08:05) Medication List - Last Reconciled 05/05/24 by Hunter Arce MD alendronate 70 mg PO QWEEK atorvastatin 40 mg PO DAILY cholecalciferol (vitamin D3) 50 mcg PO DAILY 90 days clonazepam 0.5 mg PO Q12H PRN fluticasone propion-salmeterol 250-50 mcg/dose (Wixela Inhub) 1 inh inhalation Q12H 30 days omeprazole 40 mg PO DAILY 30 days HPI Comments Details: 68 YO Female with PMHx Osteoporosis who is seen in F/U for the same. First diagnosed in 2012 with Osteoporosis of the hip. Was treated with Fosamax from June 2021 through Sep 2021. Now on Evenity with 6th dose given 04/22/2023. Tolerating this well. She had labs completed after 3 weeks off Fosamax. This was largely WNL, but Calcium was high normal. She was started on Vitamin D 2000 IU daily and labs repeated, still with calcium higher than expected for age, and PTH inappropriately normal. She repeated a full biochemical workup including 24 hour urine but labs are pending at this time. No history of pathologic fracture or ONJ. Has 3-4 servings of dietary calcium per day in the form of milk. Does not take a Calcium supplement. Takes Vitamin D 2000 IU daily. Denies ever using PPI, anticoagulant, antiepileptic or glucocorticoid medication. Does weight bearing exercise 3-5 days per week in the form of walking. 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 Menses were always regular. . She did not breastfeed. Menopause was age 44. She did not use HRT. Denies history of Kidney stones: Denies family history of Osteoporosis or hip fracture. UTD on dental cleanings and sees dentist every 6 months. No planned upcoming dental work or extractions. Denies any personal history of CAD or stroke. Denies any family history of CAD. DXA: 01/01/2023 FINDINGS: AP SPINE L1-L4: Current: BMD 0.942 g/cm2, Z-score -0.5, T-score -2.0, osteopenia, 0.4% increase from previous, 2.8% increase from baseline (<5% change is not significant). Prior: BMD 0.938 g/cm2. Baseline: BMD 0.916 g/cm2. LEFT FEMUR, NECK: Current: BMD 0.642 g/cm2, Z-score -1.5, T-score -2.8, osteoporosis. Prior: BMD 0.625 g/cm2. Baseline: BMD 0.718 g/cm2. LEFT FEMUR, TOTAL: Current: BMD 0.811 g/cm2, Z-score -0.4, T-score -1.6, osteopenia, 0.1% increase from previous, 1.5% decrease from baseline (<5% change is not significant). Prior: BMD 0.810 g/cm2. Baseline: BMD 0.823 g/cm2. LEFT FOREARM RADIUS 33%: BMD 0.864 g/cm2, Z-score 1.2, T-score -0.1, normal. Prior:? Not previously measured. Labs: Laboratory Tests 03/17/23 04/18/23 04/18/23 08:15 08:54 08:54 Creatinine 0.94 Estimated GFR 60 Albumin 4.0 25-OH Vitamin D Total 36.8 TSH 2.24 PTH Intact 74 Calcium (PTH Intact) 9.5 Was diagnosed with significant GERD and is going for endoscopy in 07/2024.. At present states she still wants to continue the alendronate [facility] Medical History (Updated 04/28/24 @ 10:29 by Orlando Johnson MD) Erosive esophagitis Abnormal barium swallow GERD (gastroesophageal reflux disease) Smoker Pneumonitis Goiter Tobacco dependence due to cigarettes COPD (chronic obstructive pulmonary disease) Abnormal chest x-ray Facet arthritis, degenerative, lumbar spine Osteoporosis Normal colonoscopy (~2010) Obesity (BMI 30-39.9) Vitamin D deficiency Low back pain Radicular pain of right lower extremity Depression Anxiety Pure hypercholesterolemia Surgical History Hx of tubal ligation History of removal of eye Family History Father Depression Mother Medical history unknown Maternal Grandmother Uterine cancer Other Mental health problem Social History Housing: House Alcohol intake: current Alcohol intake frequency: does not drink Patient Tobacco Use Status: Current everyday Tobacco user Tobacco use type: Cigarette Cigarettes Per Day: 4 Years Smoked: 15 e-Cigarette/Vaping Use: Never Used Second Hand Smoke Exposure: Yes service: No Current occupational status: unemployed Cognitive needs: No Hearing needs: No Vision needs: Yes (glasses) Female Reproductive History Menstrual Age of Menarche: 15 Assessment & Plan Assessment & Plan (1) Osteoporosis: Code(s): M81.0 - Age-related osteoporosis without current pathological fracture Category: Medical Qualifiers: Osteoporosis type: age-related Presence of current pathological fracture: without current pathological fracture Qualified Code(s): M81.0 - Age-related osteoporosis without current pathological fracture Plan: This is a 67-year-old white female with a history of osteoporosis with negative secondary workup and prior treatment with alendronate and more recently completing Evenity treatment. Currently on alendronate. Bone turnover markers suppressed The plan is to repeat a DEXA about 8-9 months' time and consider a drug holiday should to be bone density in the low bone mass or osteopenia range on repeat. I did tell her if her symptoms worsen, she may have to stop the alendronate. 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
== END 2024-05-05 08:24 | disposition home or self-care (01) ==
PROVIDERS: PCP Internal Medicine; Visit Provider Internal Medicine Endocrinology, Diabetes & Metabolism
DX: M81.0 Age-related osteoporosis without current pathological fracture (principal)
CPT/HCPCS: 99213

== ENCOUNTER → 2024-05-05 07:58 | Outpatient (BNVA) | payer MEDICARE, BC, SELFPAY | PROVIDERS: PCP Internal Medicine; Visit Provider Internal Medicine Endocrinology, Diabetes & Metabolism | DX: M81.0 Age-related osteoporosis without current pathological fracture (principal); Z79.899 Other long term (current) drug therapy | CPT/HCPCS: 99212 ==

== ENCOUNTER 2024-06-16 08:12 | Outpatient (REF) | payer MEDICARE, BC, SELFPAY ==
--- NOTE | ~2024-06-16 | MM_ITS ---
EXAMINATION: MM SCREENING DIGITAL BREAST TOMOSYNTHESIS, BILATERAL CLINICAL INFORMATION: Screening. Asymptomatic. COMPARISON: Mammography: Comparison is made with available priors TECHNIQUE: Digital breast mammography with tomosynthesis is performed in both the craniocaudal and mediolateral oblique views along with computer-aided detection (CAD). FINDINGS: There are scattered areas of fibroglandular density (ACR BI-RADS breast composition Category b). There are no significant masses, abnormal calcifications, or other abnormalities. MM/MM tomosynthesis screening BI IMPRESSION: No mammographic evidence of malignancy. ASSESSMENT: BI-RADS BI-RADS 1 - Negative RECOMMENDATION: Routine annual mammography screening. 1 year F/U This examination should not preclude the clinical evaluation of a suspicious palpable abnormality. This patient's information was entered into a reminder system with a target due date for their next mammogram. Electronically signed by: Cyndy Joshi DO 06/29/2024 04:21 PM EDT
== END 2024-06-16 08:13 | disposition home or self-care (01) ==
LOC: HO.MAMMO 08:12
PROVIDERS: PCP Internal Medicine; Visit Provider Internal Medicine
DX: Z12.31 Encounter for screening mammogram for malignant neoplasm of breast (principal)
CPT/HCPCS: 77063; 77067

== ENCOUNTER → 2024-06-16 08:30 | Outpatient (BNV) | payer MEDICARE, BC, SELFPAY | PROVIDERS: PCP Internal Medicine; Visit Provider Internal Medicine | DX: Z12.31 Encounter for screening mammogram for malignant neoplasm of breast (principal) | CPT/HCPCS: 77063; 77067 ==

== ENCOUNTER 2024-08-09 09:07 | Outpatient (REF) | payer MEDICARE, BC, SELFPAY | END 2024-08-09 09:08 | disposition home or self-care (01) | LOC: HO.CT 09:07 | PROVIDERS: PCP Internal Medicine; Visit Provider Hospitalist | DX: J18.9 Pneumonia, unspecified organism (principal) | CPT/HCPCS: 71250 ==

== ENCOUNTER 2024-08-13 09:10 | Day surgery (SDC) | payer MEDICARE, BC, SELFPAY ==
[2024-08-11 14:14] VITALS: BMI 30.6
--- NOTE | 2024-08-11 14:30 | HO.ANESPROP2 ---
HPI - Anesthesia Eval Consult details Narrative: 68yo F for Upper Endoscopy [facility] Active Problems Active Problems: All Active Problems Dysphagia (Acute) Elevated blood pressure reading (Acute) Skin lesions, generalized (Acute) Abnormal chest x-ray (Acute) Dyspnea (Acute) Bacterial vaginosis (Acute) Cervical cyst (Acute) Well woman exam (Acute) Cervical cancer screening (Acute) Breast cancer screening (Acute) Recurrent cough (Acute) Erosive esophagitis (Acute) Abnormal barium swallow (Acute) GERD (gastroesophageal reflux disease) (Acute) Smoker (Acute) Pneumonitis (Acute) Goiter (Acute) Tobacco dependence due to cigarettes (Acute) COPD (chronic obstructive pulmonary disease) (Acute) Abnormal chest x-ray (Acute) Facet arthritis, degenerative, lumbar spine (Acute) Osteoporosis (Acute) Obesity (BMI 30-39.9) (Acute) Vitamin D deficiency (Acute) Low back pain (Acute) Radicular pain of right lower extremity (Acute) Depression (Acute) Anxiety (Acute) Pure hypercholesterolemia (Acute) Past Medical History Medical History Erosive esophagitis Abnormal barium swallow GERD (gastroesophageal reflux disease) Smoker Pneumonitis Goiter Tobacco dependence due to cigarettes COPD (chronic obstructive pulmonary disease) Abnormal chest x-ray Facet arthritis, degenerative, lumbar spine Osteoporosis Obesity (BMI 30-39.9) Vitamin D deficiency Low back pain Radicular pain of right lower extremity Depression Anxiety Pure hypercholesterolemia Family History Family History Father Depression Mother Medical history unknown Maternal Grandmother Uterine cancer Other Mental health problem Family history of problems with anesthesia: No Surgical History Surgical History Hx of colonoscopy History of esophagogastroduodenoscopy (EGD) Hx of tubal ligation History of removal of eye History of Problems with Anesthesia: No Social History Social History Housing: House Are you a primary health care attorney to a significant other at home: No Do you presently have visiting nurse or other home services: No Alcohol intake: current Alcohol intake frequency: does not drink Patient Tobacco Use Status: Current everyday Tobacco user Tobacco use type: Cigarette Cigarettes Per Day: 4 Years Smoked: 15 e-Cigarette/Vaping Use: Never Used Second Hand Smoke Exposure: Yes service: No Current occupational status: unemployed Cognitive needs: No Hearing needs: No Vision needs: Yes (glasses) Meds Allergies Allergy/AdvReac Type Severity Reaction Status Date / Time No Known Allergies Allergy Verified 06/16/24 09:39 Exam Height,Weight and Vital Signs: Height 5 ft 1 in Weight 73.482 kg Assessment and Plan Assessment Anesthesia Assessment: Chart Reviewed Final Anesthetic Review Family History of Problems with Anesthesia: No History of Problems with Anesthesia: No
[2024-08-13 10:45] VITALS: BP 171/83; PULSE 69; RESP 18; TEMP 36.5; O2SAT 95
[2024-08-13 11:46] VITALS: BP 110/63; PULSE 71; RESP 16; TEMP 36.5; O2SAT 97
--- NOTE | 2024-08-13 11:48 | P.BOP_ITS ---
Brief Operative Note Date of Service: 08/13/24 Pre-op diagnosis: GERD Post-op diagnosis: other (Hiatal hernia, GERD) Procedure: EGD with biopsies Surgeon: Hunter Pendleton MD Anesthesia: MAC Was an Manager Installation used for this Procedure?: No Estimated blood loss (mL): 2.0 Pathology: other (A. EG Junction at 34cm) Condition: stable Disposition: PACU
[2024-08-13 12:01] VITALS: BP 136/68; PULSE 69; RESP 16; TEMP 36.3; O2SAT 96
--- NOTE | 2024-08-13 13:24 | OP_ITS ---
DATE OF SERVICE: 08/13/2024 SURGEON: Hunter Pendleton MD INDICATIONS: The patient presents for evaluation of gastroesophageal reflux and abnormal upper GI series. Full consent has been obtained from her for this, including risks of bleeding and perforation. PREOPERATIVE DIAGNOSIS: POSTOPERATIVE DIAGNOSIS: PROCEDURE PERFORMED: Esophagogastroduodenoscopy with biopsies. ESTIMATED BLOOD LOSS: COMPLICATIONS: ANESTHESIA: Monitored anesthesia care. ASSISTANTS: SPECIMENS: PREOPERATIVE DIAGNOSES: Gastroesophageal reflux and abnormal upper GI series. POSTOPERATIVE DIAGNOSES: Gastroesophageal reflux and abnormal upper GI series, small hiatal hernia, rule out Sandoval's esophagus. DESCRIPTION OF PROCEDURE: The patient was placed in the left lateral decubitus position. The Olympus video gastroscope was passed in the posterior oropharynx and upper esophagus under direct vision. The scope was passed slowly into the distal esophagus. The gastroesophageal junction appeared at 34 cm. There were small areas of irregularity consistent with reflux and possibly small areas of Sandoval's mucosa. There was no evidence of any esophagitis nor any lesions. The scope entered the stomach. There was a moderate-sized hiatal hernia. The scope was advanced to the pylorus, and the duodenum was cannulated to the descending portion. The duodenum including the bulb appeared normal without mass or ulceration. The scope was withdrawn back in the stomach. The gastric antrum and body appeared normal with good peristalsis. The scope was retroflexed visualizing the proximal stomach carefully, which appeared normal, without any sign of mass or ulceration. The scope was straightened and withdrawn back to the esophagus. Biopsies were obtained at the EG junction at 34 cm. Proximal to this, the esophageal mucosa appeared normal. The scope was withdrawn from the patient. She tolerated the procedure well and was returned to the recovery area in stable condition. IMPRESSION: 1. Hiatal hernia. 2. Gastroesophageal reflux, rule out Sandoval's esophagus. PLAN: The results of the biopsies will be checked. If there happens to be 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 I would recommend a repeat upper endoscopy in 3 years for surveillance. She has been using omeprazole since she was started on it by her emergency medical services coordinator, Dr. Weaver, and has noticed a definite improvement in both her reflux symptoms and in regard to her coughing. As such, I did advise her to continue that. She would see me otherwise on a p.r.n. basis. MD DEANA Fraser/JUNE / [id number] MTDD
== END 2024-08-13 12:40 | disposition home or self-care (01) ==
PROVIDERS: PCP Internal Medicine; Visit Provider Internal Medicine
PROC: 0DJ08ZZ Inspection of Upper Intestinal Tract, Via Natural or Artificial Opening Endoscopic (ICD-10-PCS; CPT 43235; principal; 2024-08-13 11:00)
DX: K21.9 Gastro-esophageal reflux disease without esophagitis (principal); K20.80 Other esophagitis without bleeding; K22.70 Barrett's esophagus without dysplasia; K44.9 Diaphragmatic hernia without obstruction or gangrene; J44.9 Chronic obstructive pulmonary disease, unspecified; E78.5 Hyperlipidemia, unspecified; M81.0 Age-related osteoporosis without current pathological fracture; Z79.51 Long term (current) use of inhaled steroids; Z79.1 Long term (current) use of non-steroidal anti-inflammatories (NSAID); Z79.899 Other long term (current) drug therapy; F17.210 Nicotine dependence, cigarettes, uncomplicated
CPT/HCPCS: 43239; 88305; 88313; J1100; J1596; J2003; J2704

== ENCOUNTER 2024-09-01 10:14 | Outpatient (REF) | payer MEDICARE, BC, SELFPAY ==
[2024-09-01 10:37] LABS: MANUAL DIFF FLAG NO
[2024-09-01 10:47] LABS: Basophils Absolute Auto 0.1 X10*3/uL (0.0-0.2); Basophils Percent Auto 0.9 % (0-2); Eosinophils Absolute Auto 0.4 X10*3/uL (0.0-0.4); Eosinophils Percent Auto 5.2 % (0-4); Hematocrit 43.7 % (37.0-47.0); Imm Gran Abs Auto 0.02 X10*3/uL (0.00-0.03); Imm Gran Pct Auto 0.3 % (0.0-0.4); Lymphocytes Absolute Auto 2.2 X10*3/uL (1.2-4.9); Mean Corpuscular HGB Conc 34.3 g/dl (31.0-35.0); Mean Corpuscular Hemoglobin 30.9 pg (27.0-33.0); Mean Corpuscular Volume 89.9 fL (80.0-98.0); Mean Platelet Volume 9.6 fL (9.4-12.3); Monocytes Absolute Auto 0.5 X10*3/uL (0.1-1.2); Monocytes Percent Auto 6.8 % (2-11); Neutrophils Absolute Auto 4.3 x10*3/uL (2.0-8.3); Neutrophils Percent Auto 57.8 % (45-73); Platelet Count 307 X10*3/uL (160-400); Red Blood Count 4.86 X10*6/uL (4.20-5.50); Red Cell Distribution Width 12.7 % (11.0-16.0); White Blood Count 7.5 X10*3/uL (4.8-10.8)
[2024-09-01 11:12] LABS: Appearance Urine Clear; Color Urine Yellow; Glucose Urine UA Negative (Negative); Leukocyte Esterase Urine Trace (Negative); Nitrite Urine Negative (Negative); PH 5.5 (5.0-9.0); Specific Gravity - Urine 1.015 (1.005-1.025); UMIC TRIGGER UACC YES; Urine Blood Negative (Negative); Urine Ketones Negative (Negative); Urine Protein Negative (Neg-Trace)
[2024-09-01 11:15] LABS: Bacteria Urine Trace (None Seen); Hyaline Casts Urine 0-2 /LPF (0-2); RBC Urine 0-2 /HPF (0-2); WBC Urine 0-5 /HPF (0-5)
[2024-09-01 11:30] LABS: Alanine Aminotransferase 29 U/L (0-31); Albumin Level 4.1 g/dL (3.5-5.0); Alkaline Phosphatase 99 U/L (39-117); Anion Gap 12 (12-20); Aspartate Amino Transferase 27 U/L (5-31); Bilirubin Total 0.5 mg/dL (0.0-1.0); Blood Urea Nitrogen 13 mg/dL (9-16); Calcium 9.9 mg/dL (8.4-10.2); Carbon Dioxide 25 mmol/L (22-29); Chloride 109 mmol/L (96-108); Cholesterol 161 mg/dL (<200); Estimated Glomerular Filt Rate 56; Glucose Fasting 103 mg/dL (60-99); HDL Cholesterol 42 mg/dL (>40); LDL Cholesterol Calculated 96 mg/dL (<100); Potassium 4.2 mmol/L (3.3-5.1); Sodium 142 mmol/L (135-145); Total Protein 6.5 g/dL (6.5-8.0); Triglycerides 116 mg/dL (<150)
[2024-09-01 11:34] LABS: Vitamin D 25-OH Total 46.3 ng/mL (>30)
[2024-09-01 11:45] LABS: Folate 10.4 ng/mL (> or = 4.0); Vitamin B12 415 pg/mL (200-900)
--- OUTSIDE RECORDS SUMMARY | 2024-09-07 17:36 | XMS_ITS | Patient Health Record ---
Author Organization [facility] Address [address] [place] [address] Care Team Providers Care Sr. Payroll Manager Name Role Phone Blayne Johnson MDneth Primary Care Provider Hunter Pereira Unavailable [phone] ROSALINA WEAVER Unavailable Unavailable ALLERGIES No Known Allergies RESULTS Component Value Reference Range Notes Pathology (Not yet reviewed by provider) Interpretation: Performing Lab:[facility], [address] [place] [phone] Notes/Report: REASON FOR REFERRAL No Information MEDICATIONS Medication SIG (Take, Route, Frequency, Duration) Notes Start Date End Date Status clonazePAM 0.5 MG Oral for 15 Active Aleve as neded Active Vitamin D3 Active Fluticasone-Salmeterol 250-50 MCG/ACT Inhalation for 30 Active Alendronate Sodium 70 MG TAKE 1 TABLET B Y MOUTH ONCE A WEEK Oral for 84 Active Atorvastatin Calcium 40 MG Oral for 30 Active Omeprazole 40 MG TAKE 1 CAPSULE BY MO UTH ONCE DAILY Oral for 30 Active SOCIAL HISTORY Tobacco Use: Social History Observation Description Date Details (start date - stop date) Current Smoker NA - NA Sex Assigned At : Social History Observation Description Sex Assigned At Unknown Tobacco Use/Smoking Question Answer Notes Patient is a current smoker How often do you smoke cigarettes? every day How many cigarettes a day do you smoke? 5 or les s Alcohol Screen Question Answer Notes Did you have a drink containing alcohol in the p ast year? No Points 0 Interpretation Negative PROBLEMS Problem Type ICD Code Onset Dates Problem Status W/U Status Risk SNOMED Code Notes Problem Chronic GERD (K21.9) Active confirmed Gastroesophagea l reflux disease (disorder) (032323474) Problem Abnormal barium swallow (R93.3) Active confirmed Barium swall ow abnormal (764482096) Problem Gastro-esophage al reflux disease without esophagitis (K21.9) Active confirmed Gastro-esophage al reflux disease without esophagitis (068352773) VITAL SIGNS Blood pressure diastolic 00 mm Hg 04/20/2024 Height 5 ft 1 in in 04/20/2024 Blood pressure systolic 00 mm Hg 04/20/2024 Weight 162 lbs 04/20/2024 BMI 30.61 kg/m2 04/20/2024 Encounters Encounter Location Date Provider Diagnosis [facility] Outpatient [address] [place] [id number] 08/13/2024 Hunter Pendleton Gastro-esophageal reflux disease without esophagitis K21.9 ; Hiatal hernia K44.[address] scan, esophagus R93.3 [facility] [address] [place] [phone] 04/20/2024 Hunter Pendleton Chronic GERD K21.9 and Abnormal barium swallow R93.3 [facility] [address] [place] [phone] 04/19/2024 Hunter Pendleton ASSESSMENTS Encounter Date Diagnosis Assessment Notes Treatment Notes Treatment Clinical Notes 08/13/2024 Gastro-esophageal reflux disease without esophagitis (ICD-10 - K21.9) 08/13/2024 Hiatal hernia (ICD-10 - K44.9) 04/20/2024 Abnormal barium swallow (ICD-10 - R93.3) 04/20/2024 Chronic GERD (ICD-10 - K21.9) Continue daily omeprazole until we do the upper endoscopy 08/13/[address] scan, esophagus (ICD-10 - R93.3) PLAN OF TREATMENT Pending Test Test Name Order Date Pathology 08/13/2024 Future Test Test Name Order Date UPPER GI ENDOSCOPY 04/20/2024 Insurance Providers Payer Name Payer Address Payer Phone Subscriber Number Group Number Insured Name Patient Relationship to Insured Coverage Start Date Coverage End Date MEDICARE OF [place] [address] [place] [address] [phone] [id number] ANDREWS ARIAS Self - patient is the insured [facility] [address] [place] [address] [id number] ANDREWS ARIAS Self - patient is the insured MEDICAL (GENERAL) HISTORY Medical History History ICD Code COPD-Dr. Weaver Anxiety Hiatal hernia/GERD seen on upper GI seri es in January of 2024 Denies IA,DM,CVA,renal disease Hyperlipidemia Osteoporosis Screening colonoscopy with Paige Mckeon in 2022 with removal of 2 small tubular adenomas and a small hyperplastic polyp Surgical History Surgery Date(Month/Year) Left eye removed 2013 Tubal ligation
--- OUTSIDE RECORDS SUMMARY | 2024-09-07 17:36 | XMS_ITS ---
Author Organization [facility] Address [address] [place] [address] Care Team Providers Care Barley Steeper Name Role Phone Alex SEALS, [place] Primary Care Provider UnaHunter Mayers Unavailable [phone] ROSALINA ELIZABETH Unavailable Unavailable REASON FOR VISIT ? new insurance Encounters Encounter Location Date Provider Diagnosis [facility] [address] [place] [address] 04/19/2024 Hunter Pendleton PLAN OF TREATMENT No Information
--- OUTSIDE RECORDS SUMMARY | 2024-09-07 17:36 | XMS_ITS ---
Author Organization [facility] Address [address] [place] [address] Care Team Providers Care Construction Field Engineer Name Role Phone Alex SEALS, [place] Primary Care Provider Hunter Pereira Unavailable [phone] ROSALINA ELIZABETH Unavailable Unavailable REASON FOR VISIT gerd,abn barium swallow PROBLEMS Problem Type ICD Code Onset Dates Problem Status W/U Status Risk SNOMED Code Notes Problem Gastro-esophagea l reflux disease without esophagitis (K21.9) Active confirmed Gastro-esophage al reflux disease without esophagitis (607359179) Encounters Encounter Location Date Provider Diagnosis [facility] Outpatient [address] [place] [address] [place] [phone] 08/13/2024 Hunter Pendleton Gastro-esophageal reflux disease without esophagitis K21.9 ; Hiatal hernia K44.[address] scan, esophagus R93.3 ASSESSMENTS Encounter Date Diagnosis Assessment Notes Treatment Notes Treatment Clinical Notes 08/13/2024 Gastro-esophageal reflux disease without esophagitis (ICD-10 - K21.9) 08/13/2024 Hiatal hernia (ICD-10 - K44.9) 08/13/[address] scan, esophagus (ICD-10 - R93.3) PLAN OF TREATMENT No Information
--- OUTSIDE RECORDS SUMMARY | 2024-09-07 17:36 | XMS_ITS ---
Author Organization [facility] Address [address] [place] [address] Care Team Providers Care Preschool Lead Teacher Name Role Phone Alex SEALS, [place] Primary Care Provider Hunter Pereira Unavailable [phone] ROSALINA ELIZABETH Unavailable Unavailable ALLERGIES No Known Allergies REASON FOR VISIT abnormal ugi series, erosive esophagitis, discuss egd MEDICATIONS Medication SIG (Take, Route, Frequency, Duration) Notes Start Date End Date Status clonazePAM 0.5 MG Oral for 15 Active Aleve as neded Active Alendronate Sodium 70 MG TAKE 1 TABLET B Y MOUTH ONCE A WEEK Oral for 84 Active Atorvastatin Calcium 40 MG Oral for 30 Active Omeprazole 40 MG TAKE 1 CAPSULE BY MO UTH ONCE DAILY Oral for 30 Active Vitamin D3 Active Fluticasone-Salmeterol 250-50 MCG/ACT Inhalation for 30 Active SOCIAL HISTORY Tobacco Use: [...] Active confirmed Gastroesophagea l reflux disease (disorder) (809533339) Problem Abnormal barium swallow (R93.3) Active confirmed Barium swallow abnormal (784475904) VITAL SIGNS BMI 30.61 kg/m2 04/20/2024 Blood pressure systolic 00 mm Hg 04/20/20 24 Blood pressure diastolic 00 mm Hg 024 Height 5 ft 1 in in 04/20/2024 Weight 162 lbs 04/20/2024 Encounters Encounter Location Date Provider Diagnosis [facility] [address] [place] [address] 04/20/2024 Hunter Pendleton Chronic GERD K21.9 and Abnormal barium swallow R93.3 ASSESSMENTS Encounter Date Diagnosis Assessment Notes Treatment Notes Treatment Clinical Notes 04/20/2024 Chronic GERD (ICD-10 - K21.9) Continue daily omeprazole until we do the upper endoscopy 04/20/2024 Abnormal barium swallow (ICD-10 - R93.3) PLAN OF TREATMENT Treatment Notes Assessment Notes Chronic GERD Continue daily omepr azole until we do the upper endoscopy Future Test Test Name Order Date UPPER GI ENDOSCOPY 04/20/2024 Next Appt Details Follow Up: prn, Reason: Progress Notes * Examination Category Sub-Category Detail Notes General Examination GENERAL APPEARANCE: pleasant , well nourished, well developed, in no acute distress HEAD: EYES: sclera non-icteric EARS: NOSE: THROAT: NECK/THYROID: no cervical lymphade nopathy, neck supple HEART: S1, S2 normal CHEST: LUNGS: Scattered wheezing b ilaterally ABDOMEN: normal bowel sounds, no guarding or rigidity, no guarding or rigidity, no masses palpable, soft, nontender, nondistended NEUROLOGIC: alert and oriented SKIN: nonjaundiced, no spi mariel angiomata EXTREMITIES: no edema PERIPHERAL PULSES: BACK: BREASTS: MUSCULOSKELETAL: MALE GENITOURINARY: LYMPH NODES: RECTAL EXAM: FEMALE GENITOURINARY: ORAL CAVITY: mucosa moist
== END 2024-09-01 10:15 | disposition home or self-care (01) ==
LOC: HO.LAB 10:14
PROVIDERS: PCP Internal Medicine; Visit Provider Internal Medicine
DX: D64.9 Anemia, unspecified (principal); E55.9 Vitamin D deficiency, unspecified; E78.00 Pure hypercholesterolemia, unspecified; E53.8 Deficiency of other specified B group vitamins
CPT/HCPCS: 36415; 80053; 80061; 81001; 81003; 82306; 82607; 82746; 85025

== ENCOUNTER 2024-09-07 10:25 | Outpatient (AMB) | payer MEDICARE, BC, SELFPAY ==
[2024-09-07 10:33] VITALS: BP 170/96; PULSE 57; O2SAT 98; BMI 30.3
--- NOTE | 2024-09-07 10:33 | A.OFFPC_ITS ---
Vital Signs 09/07/24 10:33 09/07/24 11:15 Height 5 ft 1 in Weight 160 lb 4 oz BMI 30.3 BP 170/96 H 144/78 H Blood Pressure Location Lt brachial Lt brachial Position Sitting Sitting Pulse 57 Pulse Source Pulse Oximeter Pulse Oximetry (%) 98 Oxygen Delivery Method Room Air Intake Visit Reasons: 4 Month F/U Computational Mathematician Required: No Accompanied by: Self / Same As Patient Allergies No Known Allergies Allergy (Verified 09/07/24 11:15) Medication List - Last Reconciled 09/07/24 by Orlando Johnson MD atorvastatin 40 mg PO DAILY cholecalciferol (vitamin D3) 50 mcg PO DAILY 90 days clonazepam 0.5 mg PO Q12H PRN fluticasone propion-salmeterol 250-50 mcg/dose (Wixela Inhub) 1 inh inhalation Q12H 30 days omeprazole 40 mg PO DAILY 30 days romosozumab-aqqg (Evenity) 210 mg subcut .Q month Tobacco use date assessed: 09/07/24 Fall risk assessment: No Falls in past year Last assessed Fall Risk: 09/07/24 Dental Screening Dental Screen Date: 09/07/24 Did you have a dental visit in the last 12 months?: Yes Did you have a dental problem in the last 6 months where you did not have access to dental care?: No Was dental information given to patient?: Patient has dentist HPI 4 Month F/U HPI Details The patient is here for follow visit reports that she was having a hard time swallowing her food she was having heartburns as well reports these have been improving reports decreasing her caffeine intake denies drinking alcohol reports eating chocolate but not regularly denies fried or spicy foods reports that her EGD went well reports that she was told everything look normal however, biopsies were done The denies any sob, chest pain, heart palpitation/dizziness denies any stomach pain or issues denies any urinary issues denies any joint pain rechecked bp 144/78 Still relates (+) anxiety issues and needs her Clonazepam Rx refilled She had her follow up labs done last week - to discuss her results Would also like to get her flu shot today PFSH Medical History Sandoval's esophagus Erosive esophagitis Abnormal barium swallow GERD (gastroesophageal reflux disease) Smoker Pneumonitis Goiter Tobacco dependence due to cigarettes COPD (chronic obstructive pulmonary disease) Abnormal chest x-ray Facet arthritis, degenerative, lumbar spine Osteoporosis Obesity (BMI 30-39.9) Vitamin D deficiency Low back pain Radicular pain of right lower extremity Depression Anxiety Pure hypercholesterolemia Surgical History Hx of colonoscopy History of esophagogastroduodenoscopy (EGD) Hx of tubal ligation History of removal of eye Family History Father Depression Mother Medical history unknown Maternal Grandmother Uterine cancer Other Mental health problem Social History Housing: House Are you a primary reservoir caretaker to a significant other at home: No Do you presently have visiting nurse or other home services: No Alcohol intake: current Alcohol intake frequency: does not drink Patient Tobacco Use Status: Current everyday Tobacco user Tobacco use type: Cigarette Cigarettes Per Day: 4 Years Smoked: 15 e-Cigarette/Vaping Use: Never Used Second Hand Smoke Exposure: Yes service: No Current occupational status: unemployed Cognitive needs: No Hearing needs: No Vision needs: Yes (glasses) Female Reproductive History Menstrual Age of Menarche: 15 Questionnaire PHQ-9 Over the last 2 weeks, how often have you been bothered by any of the following problems? 1. Little interest or pleasure in doing things: nearly every day 2. Feeling down, depressed, or hopeless: more than half the days (on medication and is in therapy) 3. Trouble falling or staying asleep, or sleeping too much: more than half the days 4. Feeling tired or having little energy: not at all 5. Poor appetite or overeating: several days 6. Feeling bad about yourself - or that you are a failure or have let yourself or your family down: several days 7. Trouble concentrating on things, such as reading the newspaper or watching television: not at all 8. Moving or speaking so slowly that other people could have noticed. Or the opposite - being so fidgety or restless that you have been moving around a lot more than usual: not at all 9. Thoughts that you would be better off or of hurting yourself in some way: not at all Total score: 9 Depression Screening Interpretation: Positive Depression Screening Follow-up: Existing condition, Community Mental Health Worker F/U (talks to therapist weekly) and Declines treatment Depression Screening Done: Yes 88424 - PHQ-9 Billing: Yes Source: Developed by Drs. Hunter Ya, Leyla Brown, Ashkan Medeiros and colleagues, with an educational marina from [employer]. Thrive Questionnaire Date Thrive assessed: 09/07/24 I am a: Patient What is your living situation today?: I have a steady place to live Within the past 12 months, did the food you bought not last and you didn't have the money to get more?: Never true Within the past 12 months, did you worry whether your food would run out before you got money to buy more?: Never true Do you have trouble paying for medicines?: No Do you have trouble getting transportation to medical appointments?: No Do you have trouble paying your heating and electricity bill?: No Do you have trouble taking care of your child, family member or friend?: No Do you have trouble with day-to-day activities such as bathing, preparing meals, shopping, managing finances, etc.?: No Are you currently unemployed and looking for a job?: No Are you interested in more education?: No Please select the resources that you would like help with: None Currently or been in a relationship where the following occur: No concerns reported THRIVE Score: 0 AUDIT C Alcohol Use Questionnaire (AUDIT-C) 1. How often do you have a drink containing alcohol?: Never 3. How often do you have six or more drinks on one occasion?: Never Total Score: 0 Score Reviewed/Action Taken: Yes COLLIN-7 AMB Questionnaire COLLIN-7 Date COLLIN - 7 assessed: 09/07/24 Feeling nervous, anxious, or on edge: 0 = Not at all Not being able to stop or control worryin = Not at all Worrying too much about different things: 0 = Not at all Trouble relaxin = Not at all Being so restless that it is hard to sit still: 0 = Not at all Becoming easily annoyed or irritable: 0 = Not at all Feeling afraid as if something awful might happen: 0 = Not at all Total COLLIN-7 score (0-4 normal; 5-9 mild; 10-14 moderate; 15-21 severe): 0 Source: Developed by Drs. Hunter Ya, Leyla Brown, Ashkan Medeiros and colleagues, with an educational marina from [employer]. Review of Systems Const Denies chills, Denies fatigue, Denies fever(s) and Denies headache(s) ENT Denies dysphagia (improved with Rx), Denies dizziness, Denies otalgia, Denies headache(s), Denies neck pain, Denies odynophagia and Denies sore throat Card Denies chest pain, Denies palpitations and Denies dyspnea Resp Denies chest congestion, Denies cough and Denies dyspnea GI Denies abdominal pain, Denies constipation, Denies dysphagia (improved with Rx), Denies heartburn, Denies diarrhea, Denies nausea, Denies odynophagia and Denies vomiting Denies difficulty voiding, Denies nocturia, Denies dysuria and Denies urinary urgency Musc Reports back pain, Denies neck pain and Reports radiating pain into limb (into right leg at times) Skin/Breast Denies rash Neuro Denies dizziness and Denies headache(s) Psych Reports anxiety, Reports depression (talks to therapist weekly) and Denies suicidal ideation Endo Denies fatigue and Denies palpitations Physical exam (Primary Care) Vital Signs: Last Vital Signs Pulse 57 09/07/24 10:33 BP 144/78 H 09/07/24 11:15 Pulse Ox 98 09/07/24 10:33 Oxygen Delivery Method Room Air 09/07/24 10:33 BMI result Body Mass Index 30.3 Tobacco/Smoking Status: Tobacco use Status Tobacco use date assessed 09/07/24 09/07/24 10:36 Patient Tobacco Use Status Current everyday Tobacco 09/07/24 10:36 Tobacco use type Cigarette 09/07/24 10:36 e-Cigarette/Vaping Use Never Used 09/07/24 10:36 PHQ-9: PHQ-9 Score PHQ-9: Total score 9 09/07/24 11:27 Depression Screening Interpretation: Positive Depression Screening Follow-up: Existing condition, Community Mental Health Worker F/U (talks to therapist weekly) and Declines treatment Thrive Assessment: Date of Thrive Assessment Date Thrive assessed 09/07/24 09/07/24 10:36 Currently or been in a relationship where the following occur: No concerns reported Const General: no acute distress and alert HENMT Ears: TM's normal bilaterally and EAC's normal Throat: Yes posterior oropharynx normal and Yes tonsils normal (no TP congestion) Neck Neck: Yes no lymphadenopathy and Yes supple Thyroid: Thyroid normal Resp Auscultation: clear to auscultation bilaterally, no crackles, no rales and no wheezes Cardio Rate: regular rate Rhythm: regular rhythm Heart sounds: no murmurs GI Palpation (GI): Soft to palpation and nontender Auscultation: normal bowel sounds General: Yes no CVA tenderness Back/Spine/Pelvis Back: no CVA tenderness Thoracic/Lumbar Spine: lumbar spinal tenderness Skin Rashes: no rashes Extrem General: Yes no clubbing, cyanosis or edema Office Procedures Flu Questionnaire Does the patient have a severe egg allergy?: No Does the patient have severe life threatening allergies?: No Does the patient have a fever or illness today?: No Has the patient ever had Guillain-Elroy Syndrome?: No Has the patient ever had any past reaction to a flu shot?: No Immunizations Fluarix Triv 3915-2911 (PF) 45 mcg (15 mcg x 3)/0.5 mL IM syringe Performing Provider: Orlando Johnson MD [facility] Administered by: KAVITHA Park on 09/07/24 11:40 Dose Route Admin Location Dispensed Lot Number Expiration Date [facility] Intellectual Property Legal Assistant 0.5 mL IM Left Deltoid 0.5 mL [id number] 03/28/25 [id number] [employer] VIS Given Date VIS Provided VIS Publication Date 09/07/24 Single Vaccine 21 Eligibility Eligibility Date Funding Source Not [facility] Eligible 09/07/24 Private Results Reviewed Results Reviewed: Laboratory Tests 09/01/24 09/01/24 10:34 10:36 WBC 7.5 Hgb 15.0 Hct 43.7 Plt Count 307 Sodium 142 Potassium 4.2 Creatinine 0.99 Estimated GFR 56 Fasting Glucose 103 H Calcium 9.9 AST 27 ALT 29 Triglycerides 116 Cholesterol 161 LDL Cholesterol, Calc 96 HDL Cholesterol 42 Vitamin B12 415 25-OH Vitamin D Total 46.3 Ur Specific Dix 1.015 Urine Protein Negative Urine Glucose (UA) Negative Urine Blood Negative Urine Nitrite Negative Ur Leukocyte Esterase Trace H Coding Level of Care Code Est Pt Level 4 (54868) Diagnoses 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 K22.70 Sandoval's esophagus type: without dysplasia Pure hypercholesterolemia E78.00 Facet arthritis, degenerative, lumbar spine M47.816 Radicular pain of right lower extremity M54.10 Elevated blood pressure reading R03.0 Age-related osteoporosis without current pathological fracture M81.0 Osteoporosis type: age-related Presence of current pathological fracture: without current pathological fracture Chronic obstructive pulmonary disease, unspecified COPD type J44.9 COPD type: unspecified COPD Vitamin D deficiency E55.9 Anxiety F41.9 Episode of recurrent major depressive disorder, unspecified depression episode severity F33.9 Depression Type: major depressive disorder Major depression recurrence: recurrent Active/Remission status: currently active Major depression episode severity: unspecified Smoker F17.200 Obesity (BMI 30-39.9) E66.9 Additional Codes PHQ-9 - 68988 - PHQ-9 Billing: Yes ([id number]) Assessment & Plan Assessment & Plan (1) Sandoval's esophagus: Comment: EGD with Bx done on 08/13/2024 Code(s): K22.70 - 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 Category: Medical Qualifiers: Sandoval's esophagus type: without dysplasia Qualified Code(s): K22.70 - 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 Plan: Her upper GI series done back in January 2024 revealed (+) findings suggestive of erosive esophagitis and severe GERD She was referred to GI for further evaluation and subsequently had EGD done a few weeks ago on 08/13/2024 EGD revealed (+) small areas of irregularity consistent with reflux and possibly small areas of Sandoval's mucosa, which were biopsied. There was no evidence of any esophagitis nor any lesions. There was a moderate-sized hiatal hernia noted in exam of the stomach Pathology on her Bx came back as Sandoval's esophagitis with NO dysplasia Continue Omeprazole 40 mg QD and have reminded patient that she needs to take this everyday regardless of whether she has symptoms or not She will need repeat EGD in 3 years - follow up with GI as scheduled (2) Pure hypercholesterolemia: Code(s): E78.00 - Pure hypercholesterolemia, unspecified Category: Medical Plan: Results of her labs done last week reviewed and discussed with patient Reinforced low cholesterol diet Continue Atorvastatin 40 mg QD Will recheck her labs and fasting lipids in 4 months for follow-up (3) Facet arthritis, degenerative, lumbar spine: Code(s): M47.816 - Spondylosis without myelopathy or radiculopathy, lumbar region Category: Medical Plan: Reinforced activity and weight-lifting restrictions to minimize aggravating her low back pain Lumbar spine x-rays done a couple years ago revealed (+) facet arthritis with no other concerning findings (4) Radicular pain of right lower extremity: Code(s): M54.10 - Radiculopathy, site unspecified Category: Medical Plan: Patient states that her symptoms have stabilized lately Her hip x-rays done several years ago in 2012 showed (+) mild OA changes in both hips - she may need to get repeat x-rays of her hips for further evaluation if patient continues to experience increased radicular pains into her lower extremities (5) Elevated blood pressure reading: Code(s): R03.0 - Elevated blood-pressure reading, without diagnosis of hypertension Category: Medical Plan: Reinforced low sodium diet - goal is systolic BP of 120 mm or less Her BP was doing better since she switched to decaf coffee a few months ago but states that it is high again lately due to increased anxiety on her part Her repeat blood pressure today did come down slightly from 170/96 to 144/78 She is again reminded to continue monitoring her BP regularly (6) Osteoporosis: Code(s): M81.0 - Age-related osteoporosis without current pathological fracture Category: Medical Qualifiers: Osteoporosis type: age-related Presence of current pathological fracture: without current pathological fracture Qualified Code(s): M81.0 - Age- related osteoporosis without current pathological fracture Plan: Repeat BMD done back on 01/01/2023 revealed (+) osteoporosis, with no significant change in BMD from her previous scan in November 2020 Continue Vitamin D and Calcium supplements daily and reminded to stay active and exercise regularly; fall precautions reinforced She was treated with Alendronate from June 2021 through Sep 2021 but was switched over to Evenity and has been tolerating Rx well over the past couple of years Continue Evenity 210 mg once a month - Rx is being prescribed and administered by endocrinology - she will be getting a couple of more doses of Evenity, after which she will likely be switched over to IV Reclast once a year Follow up with endocrinology as scheduled (7) COPD (chronic obstructive pulmonary disease): Code(s): J44.9 - Chronic obstructive pulmonary disease, unspecified Category: Medical Qualifiers: COPD type: unspecified COPD Qualified Code(s): J44.9 - Chronic obstructive pulmonary disease, unspecified Plan: Her respiratory symptoms are well-controlled/stable Continue Wixela 250-50 mcg 1 inhalation BID Follow up with pulmonary as scheduled (8) Vitamin D deficiency: Code(s): E55.9 - Vitamin D deficiency, unspecified Category: Medical Plan: Corrected - continue Vitamin D3 2000 units QD (9) Anxiety: Code(s): F41.9 - Anxiety disorder, unspecified Category: Medical Plan: Continue Clonazepam 0.5 mg BID PRN - Rx refilled She is currently still seeing a therapist (via telehealth) weekly on Tuesdays - to continue as scheduled (10) Depression: Code(s): F32.9 - Major depressive disorder, single episode, unspecified Category: Medical Qualifiers: Depression Type: major depressive disorder Major depression recurrence: recurrent Active/Remission status: currently active Major depression episode severity: unspecified Qualified Code(s): F33.9 - Major depressive disorder, recurrent, unspecified Plan: She has been referred to and is now seeing/talking to a therapist weekly, which she states is helping She still does not feel that she needs to be on any Rx for her depression at present (11) Smoker: Code(s): F17.200 - Nicotine dependence, unspecified, uncomplicated Category: Social Hx Plan: Patient is counseled again on smoking cessation, especially in light of her recent diagnosis of Sandoval's esophagitis (12) Obesity (BMI 30-39.9): Code(s): E66.9 - Obesity, unspecified Category: Medical Plan: Reinforced diet/exercise as tolerated/lose weight Plan As requested, flu vaccine given to patient today Follow up in 4 months Orders: Orders Complete Blood Count Auto Diff 4 Months D64.9 - Anemia, unspecified Lipid Panel 4 Months E78.00 - Pure hypercholesterolemia, unspecified TSH reflex Free T4 4 Months E78.00 - Pure hypercholesterolemia, unspecified Influenza [id number] Immunization Today Z23 - Encounter for immunization Comprehensive Windfall. Panel Fast 4 Months E78.00 - Pure hypercholesterolemia, unspecified Vitamin D 25-OH Total 4 Months E55.9 - Vitamin D deficiency, unspecified UA CC w/rflx Micro + Cult 4 Months R30.0 - Dysuria Medications: Refilled clonazepam 0.5 mg PO Q12H PRN 30 tabs 0RF anxiety
[2024-09-07 11:15] VITALS: BP 144/78
--- OUTSIDE RECORDS SUMMARY | 2024-09-08 19:50 | XMS_ITS ---
Author Organization [facility] Address [address] [place] [address] Care Team Providers Care Detonator Assembler Name Role Phone Alex SEALS, [place] Primary Care Provider Hunter Pereira Unavailable [phone] ROSALINA ELIZABETH Unavailable Unavailable REASON FOR VISIT gerd,abn barium swallow PROBLEMS Problem Type ICD Code Onset Dates Problem Status W/U Status Risk SNOMED Code Notes Problem Gastro-esophagea l reflux disease without esophagitis (K21.9) Active confirmed Gastro-esophage al reflux disease without esophagitis (420705690) Encounters Encounter Location Date Provider Diagnosis [facility] [address] [place] [address] [place] [id number] 08/13/2024 Hunter Pendleton Gastro-esophageal reflux disease without [...]
--- OUTSIDE RECORDS SUMMARY | 2024-09-08 19:50 | XMS_ITS | Patient Health Record ---
Author Organization [facility] Address [address] [place] [address] Care Team Providers Care Set Rider Name Role Phone Blayne Johnson MDneth Primary Care Provider Hunter Pereira Unavailable [phone] ROSALINA WEAVER Unavailable Unavailable ALLERGIES No Known Allergies RESULTS Component Value Reference Range Notes Pathology (Not yet reviewed by provider) Interpretation: Performing Lab:[facility], [address] [place] [phone] Notes/Report: REASON FOR REFERRAL No Information MEDICATIONS [...] Active confirmed Gastroesophagea l reflux disease (disorder) (068783505) Problem Abnormal barium swallow (R93.3) Active confirmed Barium swall ow abnormal (773146705) Problem Gastro-esophage al reflux disease without esophagitis (K21.9) Active confirmed Gastro-esophage al reflux disease without esophagitis (118164197) VITAL SIGNS Blood pressure diastolic 00 mm Hg 04/20/2024 Height 5 ft 1 in in 04/20/2024 Blood pressure systolic 00 mm Hg 04/20/2024 Weight 162 lbs 04/20/2024 BMI 30.61 kg/m2 04/20/2024 Encounters Encounter Location Date Provider Diagnosis [facility] [address] [place] [id number] 08/13/2024 Hunter Pendleton Gastro-esophageal reflux disease without esophagitis K21.9 ; Hiatal hernia K44.[address] scan, esophagus R93.3 [facility] [address] [place] [phone] 04/20/2024 Hunter Pendleton Chronic GERD K21.9 and Abnormal barium swallow R93.3 [facility] [address] [place] [phone] 04/19/2024 Hunter Pendleton ASSESSMENTS Encounter Date Diagnosis [...] OF [place] [address] [place] [address] [phone] [id number] ANDREWS ARIAS Self - patient is the insured [facility] [address] [place] [address] [id number] ANDREWS ARIAS Self - patient is the insured MEDICAL (GENERAL) HISTORY Medical History History ICD Code COPD-Dr. Weaver Anxiety Hiatal hernia/GERD seen on upper GI seri es in January of 2024 Denies AK,DM,CVA,renal disease Hyperlipidemia Osteoporosis Screening colonoscopy with Paige Mckeon in 2022 with removal of 2 small tubular adenomas and a small hyperplastic polyp Surgical History Surgery Date(Month/Year) Left eye removed 2013 Tubal ligation
--- OUTSIDE RECORDS SUMMARY | 2024-09-08 19:50 | XMS_ITS ---
Author Organization [facility] Address [address] [place] [address] Care Team Providers Care Airport Security Screener Name Role Phone Alex SEALS, [place] Primary Care Provider UnaHunter Mayers Unavailable [phone] ROSALINA ELIZABETH Unavailable Unavailable REASON FOR VISIT ? new insurance Encounters Encounter Location Date Provider Diagnosis [facility] [address] [place] [address] 04/19/2024 Hunter Pendleton PLAN OF TREATMENT No Information
--- OUTSIDE RECORDS SUMMARY | 2024-09-08 19:50 | XMS_ITS ---
Author Organization [facility] Address [address] [place] [address] Care Team Providers Care Forensic Accountant Name Role Phone Alex SEALS, [place] Primary Care Provider Hunter Pereira Unavailable [phone] ROSALINA ELIZABETH Unavailable Unavailable ALLERGIES No Known [...] Active confirmed Gastroesophagea l reflux disease (disorder) (653812569) Problem Abnormal barium swallow (R93.3) Active confirmed Barium swallow abnormal (782707533) VITAL SIGNS BMI 30.61 kg/m2 04/20/2024 Blood pressure systolic 00 mm Hg 04/20/20 24 Blood pressure diastolic 00 mm Hg 024 Height 5 ft 1 in in 04/20/2024 Weight 162 lbs 04/20/2024 Encounters Encounter Location Date Provider Diagnosis [facility] [address] [place] [address] 04/20/2024 Hunter Pendleton Chronic GERD K21.9 and [...]
== END 2024-09-07 11:50 | disposition home or self-care (01) ==
PROVIDERS: PCP Internal Medicine; Visit Provider Internal Medicine
DX: Z23 Encounter for immunization (principal)

== ENCOUNTER → 2024-09-07 10:25 | Outpatient (BNVA) | payer MEDICARE, BC, SELFPAY | PROVIDERS: PCP Internal Medicine; Visit Provider Internal Medicine | DX: Z23 Encounter for immunization (principal); K22.70 Barrett's esophagus without dysplasia; E78.00 Pure hypercholesterolemia, unspecified; M47.816 Spondylosis without myelopathy or radiculopathy, lumbar region; M54.10 Radiculopathy, site unspecified; M81.0 Age-related osteoporosis without current pathological fracture; J44.9 Chronic obstructive pulmonary disease, unspecified; E55.9 Vitamin D deficiency, unspecified; F41.9 Anxiety disorder, unspecified; F33.9 Major depressive disorder, recurrent, unspecified; E66.9 Obesity, unspecified; Z68.30 Body mass index [BMI] 30.0-30.9, adult; F17.200 Nicotine dependence, unspecified, uncomplicated; Z71.6 Tobacco abuse counseling; Z71.3 Dietary counseling and surveillance | CPT/HCPCS: 90471; 90656; 96127; 99212 ==

== ENCOUNTER 2024-10-12 09:09 | Outpatient (AMB) | payer MEDICARE, BC, SELFPAY ==
--- NOTE | 2024-10-12 09:17 | MHC.OFFVIS ---
Vital Signs 10/12/24 09:18 Height 5 ft 1 in Weight 158 lb 11.725 oz BMI 30.0 BP 110/68 Blood Pressure Location Rt brachial Position Sitting Pulse 62 Pulse Source Pulse Oximeter Pulse Oximetry (%) 98 Oxygen Delivery Method Room Air Intake Visit Reasons: COPD Allergies No Known Allergies Allergy (Verified 10/12/24 09:20) HPI Comments Details: The patient is a 68-year-old woman with a known history of tobacco dependency who apparently has been in usual state health until for the last year which she has been having increasing cough. At times is productive in nature. The mucus tends to be stay cayenne yellow at times. Denies any hemoptysis. She did have a chest x-ray back in July 2021 demonstrating she has some slight changes of the left base but nothing too significant. The patient continued to have her persistent cough however. She has gotten to the point that the cough has been getting worse therefore she did have another evaluation with her primary care provider. She was started on a course of antibiotics with only partial resolution of her symptoms. Subsequently she was referred to Pulmonary. Patient is not using any inhalers at this time. The patient does smoke cigarettes. She has been motivated trying to quit although her also smokes and she knows she will have a hard time. On examination she does have significant rhonchi primarily at the bases. She has significant congestion. Explained to the patient that it is crucial for her to stop smoking because her respiratory status on going to continue getting worse. She will talk to her start cutting down. When she returns will talk about smoking cessation agents. In the meantime the patient has significant wheezing and therefore will start her on any inhaler. We do have a sample of Trelegy that I want her to try for a month in the meantime. The patient also needs to undergo pulmonary function studies. I did review her chest x-ray from 2020. I will request 1 now from 2021. I did review the 1 from 18/11 still demonstrating some very slight opacity in the left base difficult to assess. However, with smoking history malignancy needs to be in differential. Therefore I will request a CT scan of the chest. 10/03/2022 the patient is here for a pulmonary follow-up visit. Overall the patient is feeling a lot better. She is responding well to the Trelegy inhaler. The patient still smoking. That she is trying to cut down. the patient did undergo pulmonary function studies which demonstrated relatively normal lung capacity which is reassuring. Patient also underwent a CT scan of the chest demonstrating some minimal degree of pneumonitis. She also had a mildly enlarged left axillary lymph node which may be due to a vaccine. She typically gets her mammograms as scheduled and have been okay per The patient's report. She would have another CT scan in a year's time. In the meantime if she develops any worsening symptoms we can always readdress that an earlier time. 03/28/2023 the patient is here for a pulmonary follow-up visit. Overall the patient is doing well. She is responding well to Trelegy. She has had a lot of loss in the family recently. Therefore she has been grieving. Because of that she has been smoking off and on. But typically lasting half a pack. The patient knows she needs to quit. She is going to continue to work on cutting down further on to quitting altogether. She would like to hold off on nicotine supplementation therapy. We can also consider Chantix in the future if she is not successful. The patient will have a CT scan of the chest sometime in the fall 2022 as part of the lung cancer screening program. She is responding well to the Trelegy in her respiratory status is stable. Therefore continue her current respiratory therapy will follow-up next year. 04/08/2024 the patient is here for a pulmonary follow-up visit. Overall she is doing okay. She is responded well to the Wixela. She does only use it once a day with since effective for her. She at some point ran out and she did use Flovent HFA. She resulting significant thrush. Therefore she stopped it. The patient also has been working on her smoking. She is able to cut down significantly although is hard because her significant other also smokes. The patient is working on that. We did look at her last CT scan from 2021 which demonstrated some ground-glass opacities at the bases. Will plan to repeat that in the next 6 months. My suspicion is that she likely has a component of aspiration pneumonitis. She did undergo a barium swallow sometime in January which demonstrated severe reflux disease along with abnormal looking mucosa both in the esophagus suggesting erosive esophagitis and also some potential abnormalities in the mucosa of the stomach. She needs to have an EGD. we will refer her to GI this time in order for her to undergo hopefully an urgent EGD make sure. In the meantime she is going to start PPI. Hopefully when she gets a repeat CT scan with improvement of the ground-glass opacities. And we can also consider stopping the inhaled cortical steroids altogether keeping her on a combination bronchodilator therapy Such as Anoro. Therefore, follow-up in 6 months. If any worsening symptoms or any other concerning symptoms she will call for an earlier assessment. 10/12/2024 the patient is here for a pulmonary follow-up visit. Overall the patient has been doing okay. She is responding well to the Trelegy. She also continues taking her PPI. 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 She needs to follow-up with GI closely. She is concerned about developing cancer. In the meantime the patient still smoking. We did talk about smoking cessation. She is motivated and she wants to quit. Will send the patch. In the meantime the patient did have a CT scan of the chest lung cancer screening program sometime in July. Has not been officially read yet. I did review it. She has a small pulmonary nodules. Minimal emphysema. And some hazy atelectasis at the bases. Will have to wait for the final read out. Will plan to follow-up in 6 months. If any issues arise she will call for earlier assessment. [facility] Medical History Sandoval's esophagus Erosive esophagitis Abnormal barium swallow GERD (gastroesophageal reflux disease) Smoker Pneumonitis Goiter Tobacco dependence due to cigarettes COPD (chronic obstructive pulmonary disease) Abnormal chest x-ray Facet arthritis, degenerative, lumbar spine Osteoporosis Obesity (BMI 30-39.9) Vitamin D deficiency Low back pain Radicular pain of right lower extremity Depression Anxiety Pure hypercholesterolemia Surgical History Hx of colonoscopy History of esophagogastroduodenoscopy (EGD) Hx of tubal ligation History of removal of eye Family History Father Depression Mother Medical history unknown Maternal Grandmother Uterine cancer Other Mental health problem Social History (Reviewed 10/12/24 @ 09:20 by RICHARD Walton Housing: House Are you a primary care management assistant to a significant other at home: No Do you presently have visiting nurse or other home services: No Alcohol intake: current Alcohol intake frequency: does not drink Patient Tobacco Use Status: Current everyday Tobacco user Tobacco use type: Cigarette Cigarettes Per Day: 4 Years Smoked: 15 e-Cigarette/Vaping Use: Never Used Second Hand Smoke Exposure: Yes service: No Current occupational status: unemployed Cognitive needs: No Hearing needs: No Vision needs: Yes (glasses) Female Reproductive History Menstrual Age of Menarche: 15 Review of Systems Const Denies fatigue and Denies night sweats Eyes Denies exophthalmos ENT Denies nasal discharge and Denies nasal obstruction Card Denies chest pain and Denies dyspnea on exertion Resp Denies change in phlegm color, Denies chest congestion, Reports cough, Denies hemoptysis and Denies dyspnea on exertion GI Reports as per HPI, Reports bloating, Reports dyspepsia and Reports heartburn Musc Reports no additional complaints Skin/Breast Denies rash Neuro Reports no additional complaints Endo Denies fatigue Justo/Lymph Denies easy bleeding and Denies easy bruising Physical Exam Vital Signs: Last Vital Signs Pulse 62 10/12/24 09:18 BP 110/68 10/12/24 09:18 Pulse Ox 98 10/12/24 09:18 Oxygen Delivery Method Room Air 10/12/24 09:18 BMI result Body Mass Index 30.0 Const General: comfortable HEENT Head: Yes normal to inspection Eyes General: appearance normal, both eyes and all related structures Neck Neck: Yes supple Chest Chest palpation & inspection: normal inspection of the chest Resp Effort & Inspection: normal respiratory effort Auscultation: no rhonchi, no wheezes and diminished lung sounds Cardio Rate: regular rate Rhythm: regular rhythm Heart sounds: S1 normal heart sound present and S2 normal heart sound present GI Auscultation: normal bowel sounds Extrem General: Yes no clubbing, cyanosis or edema Assessment & Plan Assessment & Plan (1) COPD (chronic obstructive pulmonary disease): Code(s): J44.9 - Chronic obstructive pulmonary disease, unspecified Category: Medical Qualifiers: COPD type: unspecified COPD Qualified Code(s): J44.9 - Chronic obstructive pulmonary disease, unspecified (2) Tobacco dependence due to cigarettes: Code(s): F17.210 - Nicotine dependence, cigarettes, uncomplicated Category: Medical (3) Pneumonitis: Comment: Likely due to smoking Code(s): J18.9 - Pneumonia, unspecified organism Category: Medical (4) GERD (gastroesophageal reflux disease): Code(s): K21.9 - Gastro-esophageal reflux disease without esophagitis Category: Medical Qualifiers: Esophagitis bleeding: without hemorrhage Esophagitis presence: with esophagitis Qualified Code(s): K21.00 - Gastro-esophageal reflux disease with esophagitis, without bleeding (5) Sandoval's esophagus: Comment: EGD with Bx done on 08/13/2024 Code(s): K22.70 - 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 Category: Medical Qualifiers: Sandoval's esophagus type: without dysplasia Qualified Code(s): K22.70 - 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 Plan continue wixela will quit smoking, rx nicotine patch CT chest LDCT continue PPI reflux diet GI referral F/U 6-8 months Medications: New nicotine (Nicoderm CQ) 1 patch transdermal DAILY 14 ea 6RF 14 days Coding Level of Care Code Est Pt Level 4 (03221) Diagnoses Chronic obstructive pulmonary disease, unspecified COPD type J44.9 COPD type: unspecified COPD Tobacco dependence due to cigarettes F17.210 Pneumonitis J18.9 Gastroesophageal reflux disease with esophagitis without hemorrhage K21.00 Esophagitis bleeding: without hemorrhage Esophagitis presence: with esophagitis 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 K22.70 Sandoval's esophagus type: without dysplasia Time Spent (min) 17
[2024-10-12 09:18] VITALS: BP 110/68; PULSE 62; O2SAT 98
== END 2024-10-12 09:49 | disposition home or self-care (01) ==
PROVIDERS: PCP Internal Medicine; Visit Provider Hospitalist
DX: J44.9 Chronic obstructive pulmonary disease, unspecified (principal); F17.210 Nicotine dependence, cigarettes, uncomplicated; J18.9 Pneumonia, unspecified organism; K21.00 Gastro-esophageal reflux disease with esophagitis, without bleeding; K22.70 Barrett's esophagus without dysplasia
CPT/HCPCS: 99214

== ENCOUNTER → 2024-10-12 09:09 | Outpatient (BNVA) | payer MEDICARE, BC, SELFPAY | PROVIDERS: PCP Internal Medicine; Visit Provider Hospitalist | DX: J44.9 Chronic obstructive pulmonary disease, unspecified (principal); J18.9 Pneumonia, unspecified organism; K21.00 Gastro-esophageal reflux disease with esophagitis, without bleeding; K22.70 Barrett's esophagus without dysplasia; F17.210 Nicotine dependence, cigarettes, uncomplicated | CPT/HCPCS: 99212 ==

== ENCOUNTER 2024-11-08 10:04 | Outpatient (AMB) | payer MEDICARE, BC, SELFPAY ==
--- NOTE | 2024-11-08 10:05 | A.OFFVIS_ITS ---
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 No complaints. Last Pap/HPV was negative in 06/20 Last Mammogram was BI-RADS 1 in 06/22 Last Colonoscopy was done in 11/21, the recommendation was to repeat in 3 years Last DEXA scan was in 01/19 [facility] Medical History Sandoval's esophagus Erosive esophagitis Abnormal barium swallow GERD (gastroesophageal reflux disease) Smoker Pneumonitis Goiter Tobacco dependence due to cigarettes COPD (chronic obstructive pulmonary disease) Abnormal chest x-ray Facet arthritis, degenerative, lumbar spine Osteoporosis Obesity (BMI 30-39.9) Vitamin D deficiency Low back pain Radicular pain of right lower extremity Depression Anxiety Pure hypercholesterolemia Surgical History Hx of colonoscopy History of esophagogastroduodenoscopy (EGD) Hx of tubal ligation History of removal of eye Family History Father Depression Mother Medical history unknown Maternal Grandmother Uterine cancer Other Mental health problem Social History Housing: House Are you a primary attending ambulatory care to a significant other at home: No Do you presently have visiting nurse or other home services: No Alcohol intake: current Alcohol intake frequency: does not drink Patient Tobacco Use Status: Current everyday Tobacco user Tobacco use type: Cigarette Cigarettes Per Day: 4 Years Smoked: 15 e-Cigarette/Vaping Use: Never Used Second Hand Smoke Exposure: Yes service: No Current occupational status: unemployed Cognitive needs: No Hearing needs: No Vision needs: Yes (glasses) Female Reproductive History Menstrual Age of Menarche: 15 control method: permanent sterilization Date of last pap smear: 06/19/22 Date of Mammogram: 06/16/24 Review of Systems Const All systems reviewed & are unremarkable except as noted in HPI and below Card Reports as per HPI Resp Reports as per HPI GI Reports as per HPI and Reports no additional complaints Reports as per HPI Physical Exam Vital Signs: Last Vital Signs BP 128/74 11/08/24 10:06 BMI result Body Mass Index 29.9 Const General: cooperative, healthy appearing and comfortable Chest Chest palpation & inspection: normal inspection of the chest and normal palpation of entire chest wall Breast/axilla inspection: normal inspection of the breasts and normal inspection of the axillae Breast/axilla palpation: normal palpation of the breasts, normal palpation of the axillae and no axillary lymphadenopathy Resp Effort & Inspection: normal respiratory effort Auscultation: clear to auscultation bilaterally Percussion: percussion normal Cardio Palpation: normal PMI Rate: regular rate Rhythm: regular rhythm Heart sounds: no murmurs and no rubs Peripheral pulses: Peripheral pulses 2+ throughout GI Inspection: Yes normal to inspection Palpation (GI): Soft to palpation, nontender, no guarding, not rigid and No hepatosplenomegaly present Percussion: Yes normal to percussion Auscultation: normal bowel sounds Rectal Exam - Female: deferred General: Yes bladder normal to palpation External Female Exam: No lesion Speculum Exam - Vagina: normal appearance of the vagina, normal palpation, normal vaginal discharge and not erythematous Speculum Exam - Cervix: normal appearance of the cervix and normal palpation Bimanual exam- vagina & uterus: normal bimanual exam, normal palpation, uterine size normal, bladder normal to palpation, consistency normal and normal palpation Bimanual Exam- Adnexa, other: normal adnexae, no masses and no tenderness Assessment & Plan Assessment & Plan (1) Well woman exam: Code(s): Z01.419 - Encounter for gynecological examination (general) (routine) without abnormal findings Category: Medical Plan: Co testing not indicated since the patient 's age is above 65 with no history of abnormal Pap smears last 25 years. Counseled the patient about the recommended dietary allowance of 1200 mg of Calcium & 800 IU of vitamin D. Instructions given to patient to schedule next screening Mammogram in 06/23. Next DEXA scan is scheduled in 01/21 The patient was instructed to perform monthly self-breast exams and to schedule an annual exam in a year; All questions answered and the patient verbalized understanding. Coding Level of Care Code Est Pt Prev Care >65y(10467) Diagnoses Well woman exam Z01.419
[2024-11-08 10:06] VITALS: BP 128/74; BMI 29.9
--- OUTSIDE RECORDS SUMMARY | 2024-11-08 10:56 | XMS_ITS | Patient Health Record ---
Author Organization [facility] Address [address] [place] [address] Care Team Providers Care Machine Shorthand Teacher Name Role Phone Blayne Johnson MDneth Primary Care Provider Hunter Pereira Unavailable [phone] ROSALINA WEAVER Unavailable Unavailable ALLERGIES No Known Allergies RESULTS Component Value Reference Range Notes Pathology (Not yet reviewed by provider) Interpretation: Performing Lab:[facility], [address] [place] [id number] Notes/Report: REASON FOR REFERRAL No Information MEDICATIONS [...] Active confirmed Gastroesophagea l reflux disease (disorder) (836386452) Problem Abnormal barium swallow (R93.3) Active confirmed Barium swall ow abnormal (815150694) Problem Gastro-esophage al reflux disease without esophagitis (K21.9) Active confirmed Gastro-esophage al reflux disease without esophagitis (031137406) VITAL SIGNS Blood pressure diastolic 00 mm Hg 04/20/2024 Height 5 ft 1 in in 04/20/2024 Blood pressure systolic 00 mm Hg 04/20/2024 Weight 162 lbs 04/20/2024 BMI 30.61 kg/m2 04/20/2024 Encounters Encounter Location Date Provider Diagnosis [facility] Out[place] [address] [place] [phone] 08/13/2024 Hunter Pendleton Gastro-esophageal reflux disease without esophagitis K21.9 ; Hiatal hernia K44.[address] scan, esophagus R93.3 [facility] [address] [place] [phone] 04/20/2024 Hunter Pendleton Chronic GERD K21.9 and Abnormal barium swallow R93.3 [facility] [address] [place] [phone] 04/19/2024 Hunter Pendleton ASSESSMENTS Encounter Date Diagnosis [...] OF [place] [address] [place] [address] [id number] ANDREWS ARIAS Self - patient is the insured [facility] [address] [place] [address] [phone] [id number] ANDREWS ARIAS Self - patient is the insured MEDICAL (GENERAL) HISTORY Medical History History ICD Code COPD-Dr. Weaver Anxiety Hiatal hernia/GERD seen on upper GI seri es in January of 2024 Denies [place],DM,CVA,renal disease Hyperlipidemia Osteoporosis Screening colonoscopy with Paige Mckeon in 2022 with removal of 2 small tubular adenomas and a small hyperplastic polyp Surgical History Surgery Date(Month/Year) Left eye removed 2013 Tubal ligation
--- OUTSIDE RECORDS SUMMARY | 2024-11-08 10:56 | XMS_ITS ---
Author Organization [facility] Address [address] [place] [address] Care Team Providers Care Automation Technologist Name Role Phone Alex SEALS, [place] Primary Care Provider Hunter Pereira Unavailable [phone] ROSALINA ELIZABETH Unavailable Unavailable ALLERGIES No Known [...] Active confirmed Gastroesophagea l reflux disease (disorder) (887027368) Problem Abnormal barium swallow (R93.3) Active confirmed Barium swallow abnormal (992774464) VITAL SIGNS BMI 30.61 kg/m2 04/20/2024 Blood pressure systolic 00 mm Hg 04/20/20 24 Blood pressure diastolic 00 mm Hg 024 Height 5 ft 1 in in 04/20/2024 Weight 162 lbs 04/20/2024 Encounters Encounter Location Date Provider Diagnosis [facility] [address] [place] [address] 04/20/2024 Hunter Pendleton Chronic GERD K21.9 and [...]
--- OUTSIDE RECORDS SUMMARY | 2024-11-08 10:56 | XMS_ITS ---
Author Organization [facility] Address [address] [place] [address] Care Team Providers Care Hospice Rn Name Role Phone Alex SEALS, [place] Primary Care Provider UnaHunter Mayers Unavailable [phone] ROSALINA ELIZABETH Unavailable Unavailable REASON FOR VISIT ? new insurance Encounters Encounter Location Date Provider Diagnosis [facility] [address] [place] [address] 04/19/2024 Hunter Pendleton PLAN OF TREATMENT No Information
--- OUTSIDE RECORDS SUMMARY | 2024-11-08 10:57 | XMS_ITS ---
Author Organization [facility] Address [address] [place] [address] Care Team Providers Care Litigation Partner Name Role Phone Alex SEALS, [place] Primary Care Provider Hunter Pereira Unavailable [phone] ROSALINA ELIZABETH Unavailable Unavailable REASON FOR VISIT gerd,abn barium swallow PROBLEMS Problem Type ICD Code Onset Dates Problem Status W/U Status Risk SNOMED Code Notes Problem Gastro-esophagea l reflux disease without esophagitis (K21.9) Active confirmed Gastro-esophage al reflux disease without esophagitis (638191298) Encounters Encounter Location Date Provider Diagnosis [facility] [place] [address] [place] [address] [place] [phone] 08/13/2024 Hunter Pendleton Gastro-esophageal reflux disease without [...]
== END 2024-11-08 10:31 | disposition home or self-care (01) ==
LOC: HO.HWS 10:04
PROVIDERS: PCP Internal Medicine; Visit Provider Obstetrics & Gynecology
DX: Z01.419 Encounter for gynecological examination (general) (routine) without abnormal findings (principal)
CPT/HCPCS: 99397; 99459

== ENCOUNTER → 2024-11-08 10:04 | Outpatient (BNVA) | payer MEDICARE, BC, SELFPAY | PROVIDERS: PCP Internal Medicine; Visit Provider Obstetrics & Gynecology | DX: Z01.419 Encounter for gynecological examination (general) (routine) without abnormal findings (principal) | CPT/HCPCS: 99397; 99459 ==

== ENCOUNTER 2025-01-04 08:03 | Outpatient (REF) | payer MEDICARE, BC, SELFPAY ==
--- NOTE | ~2025-01-04 | MM_ITS ---
EXAMINATION: DXA BONE DENSITY AXIAL HISTORY: Estrogen deficiency TECHNIQUE: Ofelia Feliz Dual energy absorptiometry (DEXA) of the lumbar spine, total left hip, and femoral neck was performed. COMPARISON: Comparison is made with the prior examination dated 01/01/2023. FINDINGS: The bone mineral density of the lumbar spine is 0.898 with a T-score of -2.3, and a Z-score of -0.9. This is indicative of osteopenia. This represents a BMD change of 1.5% compared to the prior exam. This is not statistically significant. The bone mineral density of the left total hip is 0.798 with a T-score of -1.7, and a Z-score of -0.6. This is indicative of osteopenia. This represents a BMD change of -1.6% compared to the prior exam. This is not statistically significant. The bone mineral density of the left femoral neck is 0.657 with a T-score of -2.7, and a Z-score of -1.4. This is indicative of osteoporosis. This represents a BMD change of 2.3% compared to the prior exam. FRACTURE RISK: The FRAX index suggests a ten year probability of major osteoporotic fracture of 15.0%, and of hip fracture 3.8%. MM/XR DEXA axial skeleton IMPRESSION: Based on bone mineral density, and according to World Health Organization (WHO) criteria, the diagnosis is consistent with osteoporosis. All bone density values are in grams per centimeter squared (g/cm2). Statistically, 68% of repeat scans fall within 1 SD (+/- 0.010 g/cm2 for AP spine L1-L4) and 1 SD (+/- 0.012 g/cm2 for femur total) FRAX is a trademark of the [employer]'s [place] [facility] [employer], a World Health Organization (WHO) Collaborating Center. Electronically signed by: Hunter Mackey MD 01/04/2025 08:46 AM EDT
--- OUTSIDE RECORDS SUMMARY | 2025-01-04 08:12 | XMS_ITS ---
Author Organization [facility] Address [address] [place] [address] Care Team Providers Care Pipe Puller Name Role Phone Alex SEALS, [place] Primary Care Provider Hunter Pereira Unavailable [phone] ROSALINA ELIZABETH Unavailable Unavailable REASON FOR VISIT ? new insurance Encounters Encounter Location Date Provider Diagnosis [facility] [address] [place] [address] 04/19/2024 Hunter Pendleton Plan Of Treatment No Information Progress Notes * ANDREWS ARIASDOB:1955 ([age] yo F)Acc No.[id number]:04/19/2024 Patient:?ANDREWS ARIAS :1955???Age:68 Y???Sex:Female Address:[address] [place] [address], [place], [address] * true * Date:? Generated for Traci smalls/Shaista/eTransmitting on:?01/04/2025 08:12 AM EDT
--- OUTSIDE RECORDS SUMMARY | 2025-01-04 08:12 | XMS_ITS | Patient Health Record ---
Author Organization [facility] Address [address] [place] [address] Care Team Providers Care Manager Operational Name Role Phone Alex SEALS, [place] Primary Care Provider Hunter Pereira Unavailable [phone] ROSALINA WEAVER Unavailable Unavailable Allergies No Known Allergies Results Component Value Reference Range Notes Pathology (Not yet reviewed by provider) Interpretation: Performing Lab:[facility], [address] [place] [phone] Notes/Report: Name: Andrews Airas ge/Sex: 68/F : 1955 Unit#: [id number] Attend Dr: Hunter Pendleton MD Re08/13/24 Status : [facility] Location: [facility] Disch: SPEC : [id number] RECD : 08/13/24-1234 STATUS: VIN CASTILLO NUM: [id number] LIZZIE: 08/13/24-[address]: Hunter Pendleton MD ENTERED: 08/13/24-12 37 SP TYPE: Surgical OTHR DR: Orlando Johnson MD ORDERED: HE Stain/3, Gross Micro L4, Special st. 2, AB/PAS Diagnosis EG junction, 34 cm, biopsy: - Sandoval esophagus with moderate chronic, focally active, inflammation; negative for dysplasia. - Active esophagitis (maximum eosinophil count 2 per high powered field). Clinical History Pre-Op Dx: GERD Post-Op Dx: Hiatal h ernia, reflux Microscopic Description Microscopic sections examined. Focal intestinal metaplasia is present, supported by AB/PAS stains. Material Received EG junction at 34 cm bx Gross Description Received in formalin labeled ?EG junction at 34 cm bx are 3 paez irregular tissue fragments ranging from 0.1-0.2 5 cm, submitted in toto in a cassette labeled A. CEDS Special studies orde red and performed: AB/PAS stains Copies To: Orlando Johnson MD [facility] Primary Care,[place] [address] [place] [address] Hunter Pendleton MD [facility] [address] [place] [address] CONTINUED ON NEXT PAGE Name: Andrews Arias ge/Sex: 68/F : 1955 Unit#: [id number] Attend Dr: Hunter Pendleton MD Re08/13/24 Status : [facility] Location: [facility] Disch: SPEC : [id number] RECD : 08/13/24 STATUS: VIN CASTILLO NUM: [id number] LIZZIE: 08/13/24-[address] [facility] [address]: Hunter Pendleton MD ENTERED: 08/13/24- 37 SP TYPE: Surgical OTHR DR: Orlando Johnson MD ORDERED: HOWIE Stain/3, Gross Micro L4, Special st. 2, AB/PAS Signed (si gnature on file) Jerry Reddy MD 08/17/24 0915 END OF REPORT Reason For Referral No Information Medications Medication SIG (Take, Route, Frequency, Duration) Notes [...] UTH ONCE DAILY Oral for 30 Active Social History Tobacco Use: Social History Observation Description Date Details (start date - stop date) Current Smoker NA - NA Tobacco Use/Smoking Question Answer Notes Patient is a current smoker How often do you smoke cigarettes? every day How many cigarettes a day do you smoke? 5 or les s Alcohol Screen Question Answer Notes Did you have a drink containing alcohol in the p ast year? No Points 0 Interpretation Negative Problems Problem Type SNOMED Code ICD Code Onset Dates Problem Status W/U Status Risk Notes Problem Gastro-esophageal reflux disease without esophagitis (460214794) Gastro-esophag eal reflux disease without esophagitis (K21.9) Active confirmed Problem Barium swallow abnormal (023876591) Abnormal barium swallow (R93.3) Active confirmed Problem Gastroesophageal reflux disease (disorder) (880556037) Chronic GERD (K21.9) Active confirmed Vital Signs Blood pressure diastolic 00 mm Hg 04/20/2024 Height 5 ft 1 in in 04/20/2024 Blood pressure systolic 00 mm Hg 04/20/2024 Weight 162 lbs 04/20/2024 BMI 30.61 kg/m2 04/20/2024 Encounters Encounter Location Date Provider Diagnosis [facility] Outpatient [address] [place] [phone] 08/13/2024 Hunter Pendleton Gastro-esophageal reflux disease without esophagitis K21.9 ; Hiatal hernia K44.[address] scan, esophagus R93.3 [facility] [address] [place] [phone] 04/20/2024 Hunter Pendleton Chronic GERD K21.9 and Abnormal barium swallow R93.3 [facility] [address] [address] 04/19/2024 Hunter Pendleton Assessments Encounter Date Diagnosis (ICD Code) Assessment Notes Treatment Notes Treatment Clinical Notes Section Notes 08/13/2024 Gastro-esophage al reflux disease without esophagitis (ICD-10 - K21.9) 08/13/2024 Hiatal hernia (ICD-10 - K44.9) 04/20/2024 Abnormal barium swallow (ICD-10 - R93.3) Overall, Andrews appears well and does not appear to be having any worrisome GI complaints. We did review the findings on her upper GI series. She is not having any particular symptoms of reflux nor any other worrisome upper GI complaints. However, I did recommend that she continue on her omeprazole given the upper GI series report and to see if suppressing any acid reflux would help with her coughing and pulmonary issues. As we reviewed today her smoking is obviously the main culprit in regard to her pulmonary issues. She is fully aware of that and the need to quit. Given the upper GI series report and her long-standing smoking history, I did recommend an upper endoscopy to definitively rule out any significant esophagitis and/or Sandoval's esophagus. Full consent is obtained for this, including risks of bleeding and perforation. The procedure will be done with monitored anesthesia care. We did review the importance of following the instructions carefully of how to take the alendronate medication given its potential for worsening reflux. I did advise her that if indeed she is found to have erosive esophagitis, particularly while on her PPI, then she may need to stop the alendronate. I advised her that if the endoscopy is nonrevealing and the omeprazole has not helped with her coughing, then I may advise her to stop the PPI at that time. We did review her colonoscopy with the finding of 2 small tubular adenomas and the need for a followup colonoscopy within 5 years from that date. I advised her that I could do that at that time or she can simply follow up with Dr. Mckeon. Andrews and her daughter were comfortable with this plan. Thank you again for allowing me to participate in Andrews's care. I shall continue to keep you advised of her progress. 04/20/2024 Chronic GERD (ICD-10 - K21.9) Continue daily omeprazole until we do the upper endoscopy Overall, Andrews appears well and does not appear to be having any worrisome GI complaints. We did review the findings on her upper GI series. She is not having any particular symptoms of reflux nor any other worrisome upper GI complaints. However, I did recommend that she continue on her omeprazole given the upper GI series report and to see if suppressing any acid reflux would help with her coughing and pulmonary issues. As we reviewed today her smoking is obviously the main culprit in regard to her pulmonary issues. She is fully aware of that and the need to quit. Given the upper GI series report and her long-standing smoking history, I did recommend an upper endoscopy to definitively rule out any significant esophagitis and/or Sandoval's esophagus. Full consent is obtained for this, including risks of bleeding and perforation. The procedure will be done with monitored anesthesia care. We did review the importance of following the instructions carefully of how to take the alendronate medication given its potential for worsening reflux. I did advise her that if indeed she is found to have erosive esophagitis, particularly while on her PPI, then she may need to stop the alendronate. I advised her that if the endoscopy is nonrevealing and the omeprazole has not helped with her coughing, then I may advise her to stop the PPI at that time. We did review her colonoscopy with the finding of 2 small tubular adenomas and the need for a followup colonoscopy within 5 years from that date. I advised her that I could do that at that time or she can simply follow up with Dr. Mckeon. Andrews and her daughter were comfortable with this plan. Thank you again for allowing me to participate in Andrews's care. I shall continue to keep you advised of her progress. 08/13/[address] scan, esophagus (ICD-10 - R93.3) Plan Of Treatment Pending Test Test Name Order Date Pathology 08/13/2024 Future Test Test Name Order Date UPPER GI ENDOSCOPY 04/20/2024 Insurance Providers Payer Name Payer Address Payer Phone Subscriber Number Group Number Insured Name Patient Relationship to Insured Coverage Start Date Coverage End Date MEDICARE OF [place] [address] [place] [address] [id number] ANDREWS ARIAS Self - patient is the insured [facility] [address] [place] [address] [id number] ANDREWS ARIAS Self - patient is the insured Medical (General) History Medical History History ICD Code COPD-Dr. Weaver Anxiety Hiatal hernia/GERD seen on upper GI seri es in January of 2024 Denies [place],DM,CVA,renal disease Hyperlipidemia Osteoporosis Screening colonoscopy with Paige Mckeon in 2022 with removal of 2 small tubular adenomas and a small hyperplastic polyp Surgical History Surgery Date(Month/Year) Left eye removed 2013 Tubal ligation
--- OUTSIDE RECORDS SUMMARY | 2025-01-04 08:12 | XMS_ITS ---
Author Organization [facility] Address [address] [place] [address] Care Team Providers Care Non Licensed Nuclear Equipment Operator Name Role Phone Alex SEALS, [place] Primary Care Provider Hunter Pereira Unavailable [phone] ROSALINA WEAVER Unavailable Unavailable Allergies No Known Allergies REASON FOR VISIT abnormal ugi series, erosive esophagitis, discuss egd Medications Medication SIG (Take, Route, Frequency, Duration) [...] Fluticasone-Salmeterol 250-50 MCG/ACT Inhalation for 30 Active Social History Tobacco Use: [...] Problem Status W/U Status Risk Notes Problem Gastroesophageal reflux disease (disorder) (246266259) Chronic GERD (K21.9) Active confirmed Problem Barium swallow abnormal (707272351) Abnormal barium swallow (R93.3) Active confirmed Vital Signs Blood pressure systolic 00 mm Hg 04/20/20 24 Blood pressure diastolic 00 mm Hg 024 Height 5 ft 1 in in 04/20/2024 Weight 162 lbs 04/20/2024 BMI 30.61 kg/m2 04/20/2024 Encounters Encounter Location Date Provider Diagnosis [facility] [address] [place] [address] 04/20/2024 Hunter Pendleton Chronic GERD K21.9 and Abnormal barium swallow R93.3 Assessments Encounter Date Diagnosis (ICD Code) Assessment Notes Treatment Notes Treatment Clinical Notes Section Notes 04/20/2024 Chronic GERD (ICD-10 - K21.9) Continue daily omeprazole until we do the upper endoscopy Overall, Susan appears well and does not appear to [...] can simply follow up with Dr. Mckeon. Susan and her daughter were comfortable with this plan. Thank you again for allowing me to participate in Susan's care. I shall continue to keep you advised of her progress. 04/20/2024 Abnormal barium swallow (ICD-10 - R93.3) Overall, Susan appears well and does not appear to [...] can simply follow up with Dr. Mckeon. Susan and her daughter were comfortable with this plan. Thank you again for allowing me to participate in Susan's care. I shall continue to keep you advised of her progress. Plan Of Treatment Treatment Notes Assessment Notes Chronic GERD Continue daily omepr azole until we do the upper endoscopy Future Test Test Name Order Date UPPER GI ENDOSCOPY 04/20/2024 Next Appt Details Follow Up: prn, Reason: Progress Notes * SUSAN ARIASDOB:1955 ([age] yo F)Acc No.[id number]:04/20/2024 Progress Notes Patient:?SUSAN ARIAS Provider:?Hunter Pendleton MD :1955???Age:68 Y???Sex:Female D ate:04/20/2024 Address:[address] [place] [address], [place], [id number] Pcp:Orlando Johnson MD Subjective: * Chief Complaints: * ???Abnormal ugi series, eros leonard esophagitis, discuss egd * HPI: ???incontinence:? I saw Susan in consultation today in regard to further evaluation of gastroesophageal reflux and abnormal barium swallow, as well as her chronic cough. She was accompanied by her daughter, Viola. ?As you know, Susan is a 68-year-old female who generally feels well. She does have underlying COPD and does smoke at least several cigarettes daily. She also lives with her significant other who is a smoker as well. In general she denies any chronic heartburn, anorexia, nausea, vomiting, nor early satiety. Her bowel movements have been regular and without any signs of bleeding. She denies abdominal pain, jaundice, nor weight loss. ?She does not use any significant amount of alcohol. She does take alendronate weekly and does describe taking it on an almost empty stomach, other than with a little applesauce and sitting upright. ?She underwent an upper GI series in January that described a small hiatal hernia, significant reflux, possible esophagitis, and possible gastritis. She was started on omeprazole about a week or so ago by her computerized mill mill recorder, Dr. Weaver, in hopes of treating any reflux associated coughing and pulmonary disease. * ROS:?General/Constitutional:?Change in appetite?denies.?Chills?denies.?Fatigue?denies.?Ophthalmologic:?Comments?all negative.?ENT:?Comments?all negative.?Respiratory:?hemoptysis?denies.?Cough?admits.?Cardiovascular:?Chest pain?denies.?Orthopnea?denies.?Gastrointestinal:?Comments?See HPI for details.?Genitourinary:?Hematuria?denies.?Dysuria?denies.?Musculoskeletal:?Painful joints?denies.?Weakness?denies.?Skin:?Itching?denies.?Rash?denies.?Neurologic:?Headache?denies.?Seizures?denies.?Psychiatric:?Comments?all negative.? * Medical History:? * Surgical History:?Left eye r emoved 2014Tubal ligation * Hospitalization/Major Diagno stic Procedure:?No Hospitalization History. * Family History:?Father: dece ased.?Mother: alive, diagnosed with Colon polyps.? No known hx of colon cancer. * Social History:?Tobacco Use:?Tobacco Use/Smoking?Patient is a?current smoker,?How often do you smoke cigarettes??every day,?How many cigarettes a day do you smoke??5 or less.?Drugs/Alcohol:?Alcohol Screen?Did you have a drink containing alcohol in the past year??No,?Points?0,?Interpretation?Negative.?Miscellaneous:?Marital status: . Occupation: retired. * Medications:?TakingVitamin D 3 Aleve , Notes: as nededclonazePAM 0.5 MG Tablet Oral Omeprazole 40 MG Capsule Delayed Release TAKE 1 CAPSULE BY MOUTH ONCE DAILY Oral Atorvastatin Calcium 40 MG Tablet Oral Alendronate Sodium 70 MG Tablet TAKE 1 TABLET BY MOUTH ONCE A WEEK Oral Fluticasone-Salmeterol 250-50 MCG/ACT Aerosol Powder Breath Activated Inhalation Medication List reviewed and reconciled with the patientTaking Vitamin D3 Taking Aleve , Notes: as nededTaking clonazePAM 0.5 MG Tablet Oral Taking Omeprazole 40 MG Capsule Delayed Release TAKE 1 CAPSULE BY MOUTH ONCE DAILY Oral Taking Atorvastatin Calcium 40 MG Tablet Oral Taking Alendronate Sodium 70 MG Tablet TAKE 1 TABLET BY MOUTH ONCE A WEEK Oral Taking Fluticasone-Salmeterol 250-50 MCG/ACT Aerosol Powder Breath Activated Inhalation Medication List reviewed and reconciled with the patient * Allergies:?N.K.D.A.yes[Seble garcia Verified] Objective: * Vitals:?Wt: 162 lbs, Ht: 5 f t 1 in, BMI:30.61 Index, BP: 00/00 mm Hg. * Examination: ???General Examination: ?GENERAL APPEARANCE:?pleasant, well nourished, well developed, in no acute distress.?EYES:?sclera non-icteric.?ORAL CAVITY:?mucosa moist.?NECK/THYROID:?no cervical lymphadenopathy, neck supple.?SKIN:?nonjaundiced, no spider angiomata.?HEART:?S1, S2 normal.?LUNGS:?Scattered wheezing bilaterally.?ABDOMEN:?normal bowel sounds, no guarding or rigidity, no guarding or rigidity, no masses palpable, soft, nontender, nondistended.?EXTREMITIES:?no edema.?NEUROLOGIC:?alert and oriented.? Assessment: * Assessment: 1.?Chronic GERD - K21.9 (Nasrin resendiz)?2.?Abnormal barium swallow - R93.3? Overall, Susan appears well and does not appear to [...] can simply follow up with Dr. Mckeon. Susan and her daughter were comfortable with this plan. Thank you again for allowing me to participate in Susan's care. I shall continue to keep you advised of her progress. Plan: * Treatment: Notes: Continue daily omeprazole until we do the upper endoscopy??2.?Abnormal barium swallow?Procedure: UPPER GI ENDOSCOPY (Ordered for 04/20/2024)* with MACsched for 08/13/24 a t 12:10 pm * Procedure Codes:?3017F COLOR ECTAL CA SCREEN DOC [id number] Pt scrn tbco and id as [id number] BP SCR NOT PRFRM REC REASON NOS * Preventive Medicine:? ??Urinary Incontinence:?Urinary Incontinence?Assessment:?Present,?Plan of care documented:?Yes,?Type of plan of care:?Lifestyle interventions.? ??Screenings:?Fall Risk Screening?Fall Risk Assessment:?No falls in the past year.? * Follow Up:?prn * * Sign off status: Completed true * Provider:?Hunter Pendleton MD Date:? 024 Generated for Traci smalls/Shaista/Zacharyitting on:?01/04/2025 08:11 AM EDT History and Physical Notes * HPI (History of Present Illness) Category Sub-Category Detail Notes Category Not es incontinence I saw Susan in consultation today in regard to further evaluation of gastroesophageal reflux and abnormal barium swallow, as well as her chronic cough. She was accompanied by her daughter, Viola. As you know, Susan is a 68-year-old female who generally feels well. She does have underlying COPD and does smoke at least several cigarettes daily. She also lives with her significant other who is a smoker as well. In general she denies any chronic heartburn, anorexia, nausea, vomiting, nor early satiety. Her bowel movements have been regular and without any signs of bleeding. She denies abdominal pain, jaundice, nor weight loss. She does not use any significant amount of alcohol. She does take alendronate weekly and does describe taking it on an almost empty stomach, other than with a little applesauce and sitting upright. She underwent an upper GI series in January that described a small hiatal hernia, significant reflux, possible esophagitis, and possible gastritis. She was started on omeprazole about a week or so ago by her computerized mill mill recorder, Dr. Weaver, in hopes of treating any reflux associated coughing and pulmonary disease. Examination Category Sub-Category Detail Notes Category Not es General Examination GENERAL APPEARANCE: pleasant , well [...]
--- OUTSIDE RECORDS SUMMARY | 2025-01-04 08:12 | XMS_ITS ---
Author Organization [facility] Address [address] [place] [address] Care Team Providers Care Joint Cleaning Machine Operator Name Role Phone Alex SEALS, [place] Primary Care Provider Hunter Pereira Unavailable [phone] ROSALINA ELIZABETH Unavailable Unavailable REASON FOR VISIT gerd,abn barium swallow Problems Problem Type SNOMED Code ICD Code Onset Dates Problem Status W/U Status Risk Notes Problem Gastro-esophagea l reflux disease without esophagitis (326868189) Gastro-esophage al reflux disease without esophagitis (K21.9) Active confirmed Encounters Encounter Location Date Provider [place] [facility] [place] [address] [place] [phone] 08/13/2024 Hunter Pendleton Gastro-esophageal reflux disease without [...] * ANDREWS ARIASDOB:1955 (6 9 yo F)Acc No.[id number]:08/13/2024 EGD/MAC Patient:?HUGO ANDREWS Provider:?Hunter Pendleton MD :1955???Age:68 Y???Sex:Female D ate:08/13/2024 Address:[address] [place] [address], [place], [id number] Pcp:Orlando Johnson MD Subjective: * Chief Complaints: * ???1. Gerd,abn barium swallo w. * Medical History:? Objective: * Vitals:? Assessment: * Assessment: 1.?Gastro-esophageal reflux disease without esophagitis - K21.9 (Primary)???2.?Hiatal hernia - K44.9???3.?Abnormal CT scan, esophagus - R93.3??? Plan: * Treatment: * Procedure Codes:?17901 UPPER GI ENDOSCOPY, BIOPSY * * The named appointment provid er may or may not be the originator of this progress note, and it is not deemed complete until electronically signed by the appointment provider. Sign off status: Pending * Provider:?Hunter Pendleton MD Date:? 024 Generated for Traci smalls/Shaista/Skipsmitting on:?01/04/2025 08:12 AM EDT
[2025-01-04 08:45] LABS: MANUAL DIFF FLAG NO
[2025-01-04 09:04] LABS: Basophils Absolute Auto 0.1 X10*3/uL (0.0-0.2); Eosinophils Absolute Auto 0.3 X10*3/uL (0.0-0.4); Eosinophils Percent Auto 4.1 % (0-4); Hematocrit 42.1 % (37.0-47.0); Hemoglobin 14.4 g/dl (12.0-16.0); Imm Gran Abs Auto 0.02 X10*3/uL (0.00-0.03); Imm Gran Pct Auto 0.2 % (0.0-0.4); Lymphocytes Absolute Auto 2.7 X10*3/uL (1.2-4.9); Mean Corpuscular HGB Conc 34.2 g/dl (31.0-35.0); Mean Corpuscular Hemoglobin 30.4 pg (27.0-33.0); Mean Corpuscular Volume 88.8 fL (80.0-98.0); Mean Platelet Volume 9.7 fL (9.4-12.3); Monocytes Absolute Auto 0.6 X10*3/uL (0.1-1.2); Neutrophils Absolute Auto 4.6 x10*3/uL (2.0-8.3); Neutrophils Percent Auto 54.7 % (45-73); Platelet Count 305 X10*3/uL (160-400); Red Blood Count 4.74 X10*6/uL (4.20-5.50); Red Cell Distribution Width 13.1 % (11.0-16.0); White Blood Count 8.3 X10*3/uL (4.8-10.8)
[2025-01-04 09:23] LABS: Appearance Urine Clear; Color Urine Yellow; Glucose Urine UA Negative (Negative); Leukocyte Esterase Urine Trace (Negative); Nitrite Urine Negative (Negative); PH 5.5 (5.0-9.0); Specific Gravity - Urine 1.015 (1.005-1.025); UMIC TRIGGER UACC YES; Urine Blood Negative (Negative); Urine Ketones Negative (Negative); Urine Protein Negative (Neg-Trace)
[2025-01-04 09:29] LABS: Bacteria Urine Trace (None Seen); RBC Urine 0-2 /HPF (0-2); UACC Culture Trigger YES
[2025-01-04 10:05] LABS: Alanine Aminotransferase 25 U/L (0-31); Albumin Level 4.2 g/dL (3.5-5.0); Alkaline Phosphatase 98 U/L (39-117); Anion Gap 13 (12-20); Aspartate Amino Transferase 25 U/L (5-31); Bilirubin Total 0.6 mg/dL (0.0-1.0); Blood Urea Nitrogen 16 mg/dL (9-16); Calcium 9.5 mg/dL (8.4-10.2); Carbon Dioxide 24 mmol/L (22-29); Chloride 108 mmol/L (96-108); Cholesterol 146 mg/dL (<200); Estimated Glomerular Filt Rate 51; Glucose Fasting 94 mg/dL (60-99); HDL Cholesterol 47 mg/dL (>40); LDL Cholesterol Calculated 81 mg/dL (<100); Potassium 4.2 mmol/L (3.3-5.1); Sodium 141 mmol/L (135-145); Total Protein 6.3 g/dL (6.5-8.0); Triglycerides 93 mg/dL (<150)
[2025-01-04 10:12] LABS: TSH reflex Free T4 3.29 uIU/mL (0.32-4.0)
== END 2025-01-04 08:04 | disposition home or self-care (01) ==
LOC: HO.MAMMO 08:03
PROVIDERS: Absent Provider Internal Medicine; PCP Internal Medicine; Visit Provider Internal Medicine Endocrinology, Diabetes & Metabolism
DX: M81.0 Age-related osteoporosis without current pathological fracture (principal); E78.00 Pure hypercholesterolemia, unspecified; D64.9 Anemia, unspecified; E55.9 Vitamin D deficiency, unspecified; R30.0 Dysuria
CPT/HCPCS: 36415; 77080; 80053; 80061; 81001; 82306; 84443; 85025; 87086

== ENCOUNTER → 2025-01-04 08:15 | Outpatient (BNV) | payer MEDICARE, BC, SELFPAY | PROVIDERS: Absent Provider Internal Medicine; PCP Internal Medicine; Visit Provider Radiology Diagnostic Radiology | DX: E28.39 Other primary ovarian failure (principal) | CPT/HCPCS: 77080 ==

== ENCOUNTER 2025-01-06 10:45 | Outpatient (AMB) | payer MEDICARE, BC, SELFPAY ==
[2025-01-06 10:48] VITALS: BP 126/82; PULSE 65; O2SAT 99; BMI 30.6
--- NOTE | 2025-01-06 10:48 | MHC.PC.OV ---
Vital Signs 01/06/25 10:48 Height 5 ft 1 in Weight 162 lb 2 oz BMI 30.6 BP 126/82 Blood Pressure Location Lt brachial Position Sitting Pulse 65 Pulse Source Pulse Oximeter Pulse Oximetry (%) 99 Oxygen Delivery Method Room Air Intake Visit Reasons: hyperlipidemia, osteoporosis, Hosiery Bagger Required: No Accompanied by: Self / Same As Patient Allergies No Known Allergies Allergy (Verified 01/06/25 11:15) Medication List - Last Reconciled 01/06/25 by Orlando Johnson MD atorvastatin 40 mg PO DAILY cholecalciferol (vitamin D3) 50 mcg PO DAILY 90 days clonazepam 0.5 mg PO Q12H PRN fluticasone propion-salmeterol 250-50 mcg/dose (Wixela Inhub) 1 inh inhalation Q12H 30 days nicotine (Nicoderm CQ) 1 patch transdermal DAILY 14 days omeprazole 40 mg PO DAILY 30 days Tobacco use date assessed: 01/06/25 Fall risk assessment: 1 Fall in past year Last assessed Fall Risk: 01/06/25 Dental Screening Dental Screen Date: 01/06/25 Did you have a dental visit in the last 12 months?: Yes Did you have a dental problem in the last 6 months where you did not have access to dental care?: No Was dental information given to patient?: Patient has dentist HPI hyperlipidemia, osteoporosis, HPI Details Patient comes in today for her follow up visit States that she feels okay Reports that she slipped on ice and fell on her right side a couple of months ago in October 2024 - she had a large bruise on her right thigh and leg after her fall but did not think she broke anything States that she was able to slowly get up and walk and other than the soreness she had on her right lower extremity, she had no significant issues since She denies any headaches or dizziness Denies any chest pains, no increased SOB No nausea/vomiting, no abdominal pain No change in bowel habits noted Adds that she woke up a couple of days ago and noticed (+) blood in her right eye - states that she has no eye pain or blurring of vision lately but recalls that she used to see Dr. Salguero for her eye exams in the past and that she was advised previously that one of her eye is starting to develop a slight increase in pressure and that she should have her eye exams done to monitor this regularly Needs her Atorvastatin Rx refilled She had her follow up labs done a couple of days ago - to discuss her results [facility] Medical History Sandoval's esophagus Erosive esophagitis Abnormal barium swallow GERD (gastroesophageal reflux disease) Smoker Pneumonitis Goiter Tobacco dependence due to cigarettes COPD (chronic obstructive pulmonary disease) Abnormal chest x-ray Facet arthritis, degenerative, lumbar spine Osteoporosis Obesity (BMI 30-39.9) Vitamin D deficiency Low back pain Radicular pain of right lower extremity Depression Anxiety Pure hypercholesterolemia Surgical History Hx of colonoscopy History of esophagogastroduodenoscopy (EGD) Hx of tubal ligation History of removal of eye Family History Father Depression Mother Medical history unknown Maternal Grandmother Uterine cancer Other Mental health problem Social History Housing: House Are you a primary critical care unit nurse to a significant other at home: No Do you presently have visiting nurse or other home services: No Alcohol intake: current Alcohol intake frequency: does not drink Patient Tobacco Use Status: Current everyday Tobacco user Tobacco use type: Cigarette Cigarettes Per Day: 4 Years Smoked: 15 e-Cigarette/Vaping Use: Never Used Second Hand Smoke Exposure: Yes service: No Current occupational status: unemployed Cognitive needs: No Hearing needs: No Vision needs: Yes (glasses) Female Reproductive History Menstrual Age of Menarche: 15 Questionnaire PHQ-9 Over the last 2 weeks, how often have you been bothered by any of the following problems? 1. Little interest or pleasure in doing things: nearly every day 2. Feeling down, depressed, or hopeless: more than half the days (on medication and is in therapy) 3. Trouble falling or staying asleep, or sleeping too much: more than half the days 4. Feeling tired or having little energy: not at all 5. Poor appetite or overeating: several days 6. Feeling bad about yourself - or that you are a failure or have let yourself or your family down: several days 7. Trouble concentrating on things, such as reading the newspaper or watching television: not at all 8. Moving or speaking so slowly that other people could have noticed. Or the opposite - being so fidgety or restless that you have been moving around a lot more than usual: not at all 9. Thoughts that you would be better off or of hurting yourself in some way: not at all Total score: 9 Depression Screening Interpretation: Positive Depression Screening Follow-up: Existing condition, Community Mental Health Worker F/U (talks to therapist weekly) and Declines treatment Depression Screening Done: Yes 76780 - PHQ-9 Billing: Yes Source: Developed by Drs. Hunter Ya, Leyla Brown, Ashkan Medeiros and colleagues, with an educational marina from [employer]. Thrive Questionnaire Date Thrive assessed: 01/06/25 I am a: Patient What is your living situation today?: I have a steady place to live Within the past 12 months, did the food you bought not last and you didn't have the money to get more?: Never true Within the past 12 months, did you worry whether your food would run out before you got money to buy more?: Never true Do you have trouble paying for medicines?: No Do you have trouble getting transportation to medical appointments?: No Do you have trouble paying your heating and electricity bill?: No Do you have trouble taking care of your child, family member or friend?: No Do you have trouble with day-to-day activities such as bathing, preparing meals, shopping, managing finances, etc.?: No Are you currently unemployed and looking for a job?: No Are you interested in more education?: No Please select the resources that you would like help with: None Currently or been in a relationship where the following occur: No concerns reported THRIVE Score: 0 AUDIT C Alcohol Use Questionnaire (AUDIT-C) 1. How often do you have a drink containing alcohol?: Never 3. How often do you have six or more drinks on one occasion?: Never Total Score: 0 Score Reviewed/Action Taken: Yes COLLIN-7 AMB Questionnaire COLLIN-7 Date COLLIN - 7 assessed: 01/06/25 Feeling nervous, anxious, or on edge: 0 = Not at all Not being able to stop or control worryin = Not at all Worrying too much about different things: 0 = Not at all Trouble relaxin = Not at all Being so restless that it is hard to sit still: 0 = Not at all Becoming easily annoyed or irritable: 0 = Not at all Feeling afraid as if something awful might happen: 0 = Not at all Total COLLIN-7 score (0-4 normal; 5-9 mild; 10-14 moderate; 15-21 severe): 0 Source: Developed by Drs. Hunter Ya, Leyla Brown, Ashkan Medeiros and colleagues, with an educational marina from [employer]. Review of Systems Const Denies chills, Denies fatigue, Denies fever(s) and Denies headache(s) ENT Denies dysphagia (improved with Rx), Denies dizziness, Denies otalgia, Denies headache(s), Denies neck pain, Denies odynophagia and Denies sore throat Card Denies chest pain, Denies palpitations and Denies dyspnea Resp Denies chest congestion, Denies cough, Denies dyspnea and Denies wheezing GI Denies abdominal pain, Denies constipation, Denies dysphagia (improved with Rx), Denies heartburn (improved with Rx), Denies diarrhea, Denies nausea, Denies odynophagia and Denies vomiting Denies difficulty voiding, Denies nocturia, Denies dysuria and Denies urinary urgency Musc Reports back pain, Denies neck pain and Reports radiating pain into limb (into right leg at times) Skin/Breast Denies rash Neuro Denies dizziness and Denies headache(s) Psych Reports anxiety, Reports depression (talks to therapist weekly) and Denies suicidal ideation Endo Denies fatigue and Denies palpitations Aller/Immun Denies wheezing Physical exam (Primary Care) Vital Signs: Last Vital Signs Pulse 65 01/06/25 10:48 BP 126/82 01/06/25 10:48 Pulse Ox 99 01/06/25 10:48 Oxygen Delivery Method Room Air 01/06/25 10:48 BMI result Body Mass Index 30.6 Tobacco/Smoking Status: Tobacco use Status Tobacco use date assessed 01/06/25 01/06/25 10:54 Patient Tobacco Use Status Current everyday Tobacco 01/06/25 10:54 Tobacco use type Cigarette 01/06/25 10:54 e-Cigarette/Vaping Use Never Used 01/06/25 10:54 PHQ-9: PHQ-9 Score PHQ-9: Total score 9 01/06/25 11:34 Depression Screening Interpretation: Positive Depression Screening Follow-up: Existing condition, Community Mental Health Worker F/U (talks to therapist weekly) and Declines treatment Thrive Assessment: Date of Thrive Assessment Date Thrive assessed 01/06/25 01/06/25 10:54 Currently or been in a relationship where the following occur: No concerns reported Const General: no acute distress and alert HENMT Ears: TM's normal bilaterally and EAC's normal Throat: Yes posterior oropharynx normal and Yes tonsils normal (no TP congestion) Neck Neck: Yes no lymphadenopathy and Yes supple Thyroid: Thyroid normal Resp Auscultation: clear to auscultation bilaterally, no crackles, no rales and no wheezes Cardio Rate: regular rate Rhythm: regular rhythm Heart sounds: no murmurs GI Palpation (GI): Soft to palpation and nontender Auscultation: normal bowel sounds General: Yes no CVA tenderness Back/Spine/Pelvis Back: no CVA tenderness Thoracic/Lumbar Spine: lumbar spinal tenderness Skin Rashes: no rashes Extrem General: Yes no clubbing, cyanosis or edema Results Reviewed Results Reviewed: Laboratory Tests 01/04/25 01/04/25 08:38 08:44 WBC 8.3 Hgb 14.4 Hct 42.1 Plt Count 305 Sodium 141 Potassium 4.2 Creatinine 1.08 Estimated GFR 51 Fasting Glucose 94 Calcium 9.5 AST 25 ALT 25 Triglycerides 93 Cholesterol 146 LDL Cholesterol, Calc 81 HDL Cholesterol 47 25-OH Vitamin D Total 48.0 TSH 3.29 Ur Specific [place] 1.015 Urine Protein Negative Urine Glucose (UA) Negative Urine Blood Negative Urine Nitrite Negative Ur Leukocyte Esterase Trace H Coding Level of Care Code Est Pt Level 4 (27310) Complex EM visit Add On G2211 Diagnoses 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 K22.70 Sandoval's esophagus type: without dysplasia Pure hypercholesterolemia E78.00 Facet arthritis, degenerative, lumbar spine M47.816 Radicular pain of right lower extremity M54.10 Elevated blood pressure reading R03.0 Age-related osteoporosis without current pathological fracture M81.0 Osteoporosis type: age-related Presence of current pathological fracture: without current pathological fracture Chronic obstructive pulmonary disease, unspecified COPD type J44.9 COPD type: unspecified COPD Vitamin D deficiency E55.9 Glaucoma, unspecified glaucoma type, unspecified laterality H40.9 Glaucoma type: unspecified Laterality: unspecified laterality Anxiety F41.9 Episode of recurrent major depressive disorder, unspecified depression episode severity F33.9 Depression Type: major depressive disorder Major depression recurrence: recurrent Active/Remission status: currently active Major depression episode severity: unspecified Smoker F17.200 Obesity (BMI 30-39.9) E66.9 Additional Codes PHQ-9 - 99106 - PHQ-9 Billing: Yes ([id number]) Assessment & Plan Assessment & Plan (1) Sandoval's esophagus: Comment: EGD with Bx done on 08/13/2024 Code(s): K22.70 - 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 There was a moderate-sized hiatal hernia noted in exam of the stomach Pathology on her Bx came back as Sandoval's esophagitis with NO dysplasia Continue Omeprazole 40 mg QD - have again reminded patient that she needs to take this everyday regardless of whether she has symptoms or not She will need repeat EGD in 3 years (2026) - to follow up with GI as scheduled (2) Pure hypercholesterolemia: Code(s): E78.00 - Pure hypercholesterolemia, unspecified Category: Medical Plan: Results of her labs done a couple of days ago reviewed and discussed with patient Reinforced low cholesterol diet Continue Atorvastatin 40 mg QD Will recheck her labs and fasting lipids in 4 months for follow-up (3) Facet arthritis, degenerative, lumbar spine: Code(s): M47.816 - Spondylosis without myelopathy or radiculopathy, lumbar region Category: Medical Plan: Reinforced activity and weight-lifting restrictions to minimize aggravating her low back pain Lumbar spine x-rays done a couple years ago revealed (+) facet arthritis with no other concerning findings (4) Radicular pain of right lower extremity: Code(s): M54.10 - Radiculopathy, site unspecified Category: Medical Plan: Patient states that her symptoms have stabilized lately Her hip x-rays done back in 2012 showed (+) mild OA changes in both hips - she may need to get repeat x-rays of her hips for further evaluation if patient continues to experience increased radicular pains into her lower extremities (5) Elevated blood pressure reading: Code(s): R03.0 - Elevated blood-pressure reading, without diagnosis of hypertension Category: Medical Plan: Reinforced low sodium diet - goal is systolic BP of 120 mm or less Her BP has been better since she switched to decaf coffee a few months ago but states that it is high again lately due to increased anxiety on her part Her repeat blood pressure today did come down slightly from 170/96 to 144/78 She is again reminded to continue monitoring her BP regularly (6) Osteoporosis: Code(s): M81.0 - Age-related osteoporosis without current pathological fracture Category: Medical Qualifiers: Osteoporosis type: age-related Presence of current pathological fracture: without current pathological fracture Qualified Code(s): M81.0 - Age-related osteoporosis without current pathological fracture Plan: Repeat BMD done back on 01/01/2023 revealed (+) osteoporosis, with no significant change in BMD from her previous scan in November 2020 Continue Vitamin D and Calcium supplements daily and reminded to stay active and exercise regularly; fall precautions reinforced She was treated with Alendronate from June 2021 through Sep 2021 but was switched over to Evenity and has been tolerating Rx well over the past couple of years Continue Evenity 210 mg once a month - Rx is being prescribed and administered by endocrinology - she will be getting a couple of more doses of Evenity, after which she will likely be switched over to IV Reclast once a year Follow up with endocrinology as scheduled (7) COPD (chronic obstructive pulmonary disease): Code(s): J44.9 - Chronic obstructive pulmonary disease, unspecified Category: Medical Qualifiers: COPD type: unspecified COPD Qualified Code(s): J44.9 - Chronic obstructive pulmonary disease, unspecified Plan: Her respiratory symptoms are well-controlled/stable Continue Wixela 250-50 mcg 1 inhalation BID Follow up with pulmonary as scheduled (8) Vitamin D deficiency: Code(s): E55.9 - Vitamin D deficiency, unspecified Category: Medical Plan: Corrected - continue Vitamin D3 2000 units QD (9) Glaucoma: Code(s): H40.9 - Unspecified glaucoma Category: Medical Qualifiers: Glaucoma type: unspecified Laterality: unspecified laterality Qualified Code(s): H40.9 - Unspecified glaucoma Plan: Will try referring her back to Dr. Salguero for continuing monitoring and management of her increased intraocular pressure Have advised patient that in case Dr. Salguero is no longer practicing general ophthalmology, then she may need to see an eye doctor at [facility] instead (10) Anxiety: Code(s): F41.9 - Anxiety disorder, unspecified Category: Medical Plan: Continue Clonazepam 0.5 mg BID PRN - Rx refilled She is currently still seeing a therapist (via telehealth) weekly on Tuesdays - to continue as scheduled (11) Depression: Code(s): F32.9 - Major depressive disorder, single episode, unspecified Category: Medical Qualifiers: Depression Type: major depressive disorder Major depression recurrence: recurrent Active/Remission status: currently active Major depression episode severity: unspecified Qualified Code(s): F33.9 - Major depressive disorder, recurrent, unspecified Plan: She has been referred to and is now seeing/talking to a therapist weekly, which she states is helping She still does not feel that she needs to be on any Rx for her depression at present (12) Smoker: Code(s): F17.200 - Nicotine dependence, unspecified, uncomplicated Category: Social Hx Plan: Patient is counseled again on complete smoking cessation, especially in light of her recent diagnosis of Sandoval's esophagitis (13) Obesity (BMI 30-39.9): Code(s): E66.9 - Obesity, unspecified Category: Medical Plan: Reinforced diet/exercise as tolerated/lose weight Plan Follow up in 4 months Orders: Orders Complete Blood Count Auto Diff 4 Months D64.9 - Anemia, unspecified Comprehensive Kim. Panel Fast 4 Months E78.00 - Pure hypercholesterolemia, unspecified Lipid Panel 4 Months E78.00 - Pure hypercholesterolemia, unspecified Referrals Ophthalmology Referral H40.9 - Unspecified glaucoma Medications: Changed From atorvastatin 40 mg PO DAILY 90 tabs 0RF To atorvastatin 40 mg PO DAILY 30 days 30 tabs 3RF
--- OUTSIDE RECORDS SUMMARY | 2025-01-06 12:49 | XMS_ITS ---
Author Organization [facility] Address [address] [place] [address] Care Team Providers Care Weaving Teacher Name Role Phone Alex SEALS, [place] Primary Care Provider Hunter Pereira Unavailable [phone] ROSALINA ELIZABETH Unavailable Unavailable REASON FOR VISIT gerd,abn barium swallow Problems Problem Type SNOMED Code ICD Code Onset Dates Problem Status W/U Status Risk Notes Problem Gastro-esophagea l reflux disease without esophagitis (353174782) Gastro-esophage al reflux disease without esophagitis (K21.9) Active confirmed Encounters Encounter Location Date Provider Diagnosis [facility] [place] [facility] [address] [place] [phone] 08/13/2024 Hunter Pendleton Gastro-esophageal reflux disease without [...] * ANDREWS ARIASDOB:1955 ([age] yo F)Acc No.[id number]:08/13/2024 EGD/MAC Patient:?HUGO ANDREWS Provider:?Hunter Pendleton MD :1955???Age:68 Y???Sex:Female D ate:08/13/2024 Address:[address] [place] [address], [place], [id number] Pcp:Orlando Johnson MD Subjective: * Chief Complaints: * ???1. Gerd,abn barium swallo w. * Medical History:? Objective: * Vitals:? Assessment: * Assessment: 1.?Gastro-esophageal reflux disease without esophagitis - K21.9 (Primary)???2.?Hiatal hernia - K44.9???3.?Abnormal CT scan, esophagus - R93.3??? Plan: * Treatment: * Procedure Codes:?16343 UPPER GI ENDOSCOPY, BIOPSY * * The named appointment provid er may or may not be the originator of this progress note, and it is not deemed complete until electronically signed by the appointment provider. Sign off status: Pending * Provider:?Hunter Pendleton MD Date:? 024 Generated for Traci smalls/Shaista/eTmunirsmitting on:?01/06/2025 12:49 PM EDT
--- OUTSIDE RECORDS SUMMARY | 2025-01-06 12:49 | XMS_ITS ---
Author Organization [facility] Address [address] [place] [address] Care Team Providers Care Supervisor Car Installations Name Role Phone Alex SEALS, [place] Primary Care Provider Hunter Pereira Unavailable [phone] ROSALINA WEAVER Unavailable Unavailable Allergies No Known [...] Risk Notes Problem Gastroesophageal reflux disease (disorder) (894540681) Chronic GERD (K21.9) Active confirmed Problem Barium swallow abnormal (505296185) Abnormal barium swallow (R93.3) Active confirmed Vital Signs Blood pressure systolic 00 mm Hg 04/20/20 24 Blood pressure diastolic 00 mm Hg 024 Height 5 ft 1 in in 04/20/2024 Weight 162 lbs 04/20/2024 BMI 30.61 kg/m2 04/20/2024 Encounters Encounter Location Date Provider Diagnosis [facility] [address] [place] [address] 04/20/2024 Hunter Pendleton Chronic GERD K21.9 and [...] * SUSAN ARIASDOB:1955 ([age] yo F)Acc No.[id number]:04/20/2024 Progress Notes Patient:?SUSAN ARIAS Provider:?Hunter Pendleton MD :1955???Age:68 Y???Sex:Female D ate:04/20/2024 Address:[address] [place] [address], [place], [id number] Pcp:Orlando Johnson MD Subjective: * Chief Complaints: [...] a week or so ago by her transformer mechanic, Dr. Weaver, in hopes of treating any [...] Procedure Codes:?3017F COLOR ECTAL CA SCREEN DOC [id number] Pt scrn tbco and id as [id number] BP SCR NOT PRFRM REC REASON NOS * Preventive Medicine:? ??Urinary Incontinence:?Urinary Incontinence?Assessment:?Present,?Plan of care documented:?Yes,?Type of plan of care:?Lifestyle interventions.? ??Screenings:?Fall Risk Screening?Fall Risk Assessment:?No falls in the past year.? * Follow Up:?prn * * Sign off status: Completed true * Provider:?Hunter Pendleton MD Date:? 024 Generated for Traci smalls/Shaista/Zacahryitting on:?01/06/2025 12:49 PM EDT History and Physical Notes * HPI [...] a week or so ago by her transformer mechanic, Dr. Weaver, in hopes of treating any [...]
--- OUTSIDE RECORDS SUMMARY | 2025-01-06 12:49 | XMS_ITS ---
Author Organization [facility] Address [address] [place] [address] Care Team Providers Care Lute Packer Or Applier Name Role Phone Alex SEALS, [place] Primary Care Provider Hunter Pereira Unavailable [phone] ROSALINA ELIZABETH Unavailable Unavailable REASON FOR VISIT ? new insurance Encounters Encounter Location Date Provider Diagnosis [facility] [address] [place] [address] 04/19/2024 Hunter Pendleton Plan Of Treatment No Information Progress Notes * ANDREWS ARIASDOB:1955 ([age] yo F)Acc No.[id number]:04/19/2024 Patient:?ANDREWS ARIAS :1955???Age:68 Y???Sex:Female Address:[address] [place] [address], [place], [address] * true * Date:? Generated for Traci smalls/Shaista/eTransmitting on:?01/06/2025 12:49 PM EDT
--- OUTSIDE RECORDS SUMMARY | 2025-01-06 12:49 | XMS_ITS | Patient Health Record ---
Author Organization [facility] Address [address] [place] [address] Care Team Providers Care Intelligence Support Officer Name Role Phone Alex SEALS, [place] Primary Care Provider Hunter Pereira Unavailable [phone] ROSALINA WEAVER Unavailable Unavailable Allergies No Known Allergies Results Component Value Reference Range Notes Pathology (Not yet reviewed by provider) Interpretation: Performing Lab:[facility], [address] [place] [id number] Notes/Report: Name: Andrews Arias ge/Sex: 68/F : 1955 Unit#: [id number] Attend Dr: Hunter Pendleton MD Re08/13/24 Status : [facility] Location: [facility] Disch: SPEC : [id number] RECD : 08/13/24-1234 STATUS: VIN CASTILLO NUM: [id number] LIZZIE: 08/13/24-[address]: Hunter Pendleton MD [...] AB/PAS stains Copies To: Orlando Johnson MD [facility] Primary Care,[place] [address] [place] [address] Hunter Pendleton MD [facility] [address] [place] [address] CONTINUED ON NEXT PAGE Name: Andrews Arias ge/Sex: 68/F : 1955 Unit#: [id number] Attend Dr: Hunter Pendleton MD Re08/13/24 Status : [facility] Location: [facility] Disch: SPEC : [id number] RECD : 08/13/24 STATUS: VIN CASTILLO NUM: [id number] LIZZIE: 08/13/24-1136 [facility] DR: Hunter Pendleton MD ENTERED: 08/13/24- [...] Notes Problem Gastro-esophageal reflux disease without esophagitis (317221806) Gastro-esophag eal reflux disease without esophagitis (K21.9) Active confirmed Problem Barium swallow abnormal (982903494) Abnormal barium swallow (R93.3) Active confirmed Problem Gastroesophageal reflux disease (disorder) (679697092) Chronic GERD (K21.9) Active confirmed Vital Signs Blood pressure diastolic 00 mm Hg 04/20/2024 Height 5 ft 1 in in 04/20/2024 Blood pressure systolic 00 mm Hg 04/20/2024 Weight 162 lbs 04/20/2024 BMI 30.61 kg/m2 04/20/2024 Encounters Encounter Location Date Provider Diagnosis [facility] [place] [address] [place] [id number] 08/13/2024 Hunter Pendleton Gastro-esophageal reflux disease without esophagitis K21.9 ; Hiatal hernia K44.[address] scan, esophagus R93.3 [facility] [address] [place] [phone] 04/20/2024 Hunter Pendleton Chronic GERD K21.9 and Abnormal barium swallow R93.3 [facility] [address] [address] 04/19/2024 Hunter Pendleton Assessments Encounter Date Diagnosis [...] Date MEDICARE OF [place] [address] [place] [address] [id number] ANDREWS ARIAS Self - patient is the insured [facility] [address] [place] [address] [id number] ANDREWS ARIAS Self - patient is the insured Medical (General) History Medical History History ICD Code COPD-Dr. Weaver Anxiety Hiatal hernia/GERD seen on upper GI seri es in January of 2024 Denies SD,DM,CVA,renal disease Hyperlipidemia Osteoporosis Screening colonoscopy with Paige Mckeon in 2022 with removal of 2 small tubular adenomas and a small hyperplastic polyp Surgical History Surgery Date(Month/Year) Left eye removed 2013 Tubal ligation
== END 2025-01-06 11:41 | disposition home or self-care (01) ==
LOC: HO.HMCH 10:45
PROVIDERS: PCP Internal Medicine; Visit Provider Internal Medicine
DX: K22.70 Barrett's esophagus without dysplasia (principal); E78.00 Pure hypercholesterolemia, unspecified; J44.9 Chronic obstructive pulmonary disease, unspecified; F33.9 Major depressive disorder, recurrent, unspecified; M47.816 Spondylosis without myelopathy or radiculopathy, lumbar region; M54.10 Radiculopathy, site unspecified; R03.0 Elevated blood-pressure reading, without diagnosis of hypertension; M81.0 Age-related osteoporosis without current pathological fracture; E55.9 Vitamin D deficiency, unspecified; H40.9 Unspecified glaucoma; F41.9 Anxiety disorder, unspecified; F17.200 Nicotine dependence, unspecified, uncomplicated

== ENCOUNTER → 2025-01-06 10:45 | Outpatient (BNVA) | payer MEDICARE, BC, SELFPAY | PROVIDERS: PCP Internal Medicine; Visit Provider Internal Medicine | DX: E78.5 Hyperlipidemia, unspecified (principal); M81.0 Age-related osteoporosis without current pathological fracture; K22.70 Barrett's esophagus without dysplasia; E78.00 Pure hypercholesterolemia, unspecified; M47.816 Spondylosis without myelopathy or radiculopathy, lumbar region; R03.0 Elevated blood-pressure reading, without diagnosis of hypertension; J44.9 Chronic obstructive pulmonary disease, unspecified; E55.9 Vitamin D deficiency, unspecified; H40.9 Unspecified glaucoma; F41.9 Anxiety disorder, unspecified; F33.9 Major depressive disorder, recurrent, unspecified; F17.210 Nicotine dependence, cigarettes, uncomplicated; E66.9 Obesity, unspecified; D64.9 Anemia, unspecified; Z68.30 Body mass index [BMI] 30.0-30.9, adult; Z91.81 History of falling | CPT/HCPCS: 96127; 99212 ==

== ENCOUNTER 2025-02-02 07:47 | Outpatient (AMB) | payer MEDICARE, BC, SELFPAY ==
--- OUTSIDE RECORDS SUMMARY | 2025-02-02 07:50 | XMS_ITS ---
Author Organization [facility] Address [address] [place] [address] Care Team Providers Care Accounting Technician Name Role Phone Alex SEALS, [place] Primary Care Provider Hunter Pereira Unavailable [phone] ROSALINA ELIZABETH Unavailable Unavailable REASON FOR VISIT ? new insurance Encounters Encounter Location Date Provider Diagnosis [facility] [address] [place] [address] 04/19/2024 Hunter Pendleton Plan Of Treatment No Information Progress Notes * ANDREWS ARIASDOB:1955 ([age] yo F)Acc No.[id number]:04/19/2024 Patient:?ANDREWS ARIAS :1955???Age:68 Y???Sex:Female Address:[address] [place] [address], [place], [address] * true * Date:? Generated for Traci smalls/Shaista/eTransmitting on:?02/02/2025 07:50 AM EDT
--- OUTSIDE RECORDS SUMMARY | 2025-02-02 07:50 | XMS_ITS | Patient Health Record ---
Author Organization [facility] Address [address] [place] [address] Care Team Providers Care Field Director Name Role Phone Alex SEALS, [place] Primary Care Provider Hunter Pereira Unavailable [phone] ROSALINA WEAVER Unavailable Unavailable Allergies No Known Allergies Results Component Value Reference Range Notes Pathology (Not yet reviewed by provider) Interpretation: Performing Lab:[facility], [address] [place] [phone] Notes/Report: Name: Andrews Arias ge/Sex: 68/F : 1955 Unit#: [id number] Attend Dr: Hunter Pendleton MD Re08/13/24 Status : [facility] Location: [facility] Disch: SPEC : [id number] RECD : 08/13/24-1234 STATUS: VIN CASTILLO NUM: [id number] LIZZIE: 08/13/24-[address]: Hunter Pendleton MD [...] AB/PAS stains Copies To: Orlando Johnson MD [facility] Primary Care,[place] [address] [place] [address] Hunter Pendleton MD [facility] [address] [place] [address] CONTINUED ON NEXT PAGE Name: Andrews Arias ge/Sex: 68/F : 1955 Unit#: [id number] Attend Dr: Hunter Pendleton MD Re08/13/24 Status : [facility] Location: [facility] Disch: SPEC : [id number] RECD : 08/13/24 STATUS: VIN CASTILLO NUM: [id number] LIZZIE: 08/13/24-[address] [facility] [address]: Hunter Pendleton MD ENTERED: 08/13/24- [...] (K21.9) Active confirmed Problem Barium swallow abnormal (742508819) Abnormal barium swallow (R93.3) Active confirmed Problem Chronic GERD (K21.9) Active confirmed Vital Signs Blood pressure diastolic 00 mm Hg 04/20/2024 Height 5 ft 1 in in 04/20/2024 Blood pressure systolic 00 mm Hg 04/20/2024 Weight 162 lbs 04/20/2024 BMI 30.61 kg/m2 04/20/2024 Encounters Encounter Location Date Provider Diagnosis [facility] [address] [place] [id number] 08/13/2024 Hunter Pendleton Gastro-esophageal reflux disease without esophagitis K21.9 ; Hiatal hernia K44.[address] scan, esophagus R93.3 [facility] [address] [place] [phone] 04/20/2024 Hunter Pendleton Chronic GERD K21.9 and Abnormal barium swallow R93.3 [facility] [address] [place] [phone] 04/19/2024 Hunter Pendleton Assessments Encounter Date Diagnosis [...] she can simply follow up with Dr. Mckeno. Andrews and her daughter were comfortable with [...] Date MEDICARE OF [place] [address] [place] [address] [id number] BALJINDER ARIASICE Self - patient is the insured [facility] [address] [place] [address] [phone] [id number] ANDREWS ARIAS Self - patient is the insured Medical (General) History Medical History History ICD Code COPD-Dr. Weaver Anxiety Hiatal hernia/GERD seen on upper GI seri es in January of 2024 Denies MO,DM,CVA,renal disease Hyperlipidemia Osteoporosis Screening colonoscopy with Paige Mckeon in 2022 with removal of 2 small tubular adenomas and a small hyperplastic polyp Surgical History Surgery Date(Month/Year) Left eye removed 2013 Tubal ligation
--- OUTSIDE RECORDS SUMMARY | 2025-02-02 07:50 | XMS_ITS ---
Author Organization [facility] Address [address] [place] [address] Care Team Providers Care Photo Finisher Name Role Phone Alex SEALS, [place] Primary Care Provider Hunter Pereira Unavailable [phone] ROSALINA ELIZABETH Unavailable Unavailable REASON FOR VISIT gerd,abn barium swallow Problems Problem Type SNOMED Code ICD Code Onset Dates Problem Status W/U Status Risk Notes Problem Gastro-esophagea l reflux disease without esophagitis (925972181) Gastro-esophage al reflux disease without esophagitis (K21.9) Active confirmed Encounters Encounter Location Date Provider Diagnosis [facility] [place] [address] [place] [id number] 08/13/2024 Hunter Pendleton Gastro-esophageal reflux disease without [...] * ANDREWS ARIASDOB:1955 ([age] yo F)Acc No.[id number]:08/13/2024 EGD/MAC Patient:?HUGO ANDREWS Provider:?Hunter Pendleton MD :1955???Age:68 Y???Sex:Female D ate:08/13/2024 Address:[address] [place] [address], [place], [id number] Pcp:Orlando Johnson MD Subjective: * Chief Complaints: * ???1. Gerd,abn barium swallo w. * Medical History:? Objective: * Vitals:? Assessment: * Assessment: 1.?Gastro-esophageal reflux disease without esophagitis - K21.9 (Primary)???2.?Hiatal hernia - K44.9???3.?Abnormal CT scan, esophagus - R93.3??? Plan: * Treatment: * Procedure Codes:?08539 UPPER GI ENDOSCOPY, BIOPSY * * The named appointment provid er may or may not be the originator of this progress note, and it is not deemed complete until electronically signed by the appointment provider. Sign off status: Pending * Provider:?Hunter Pendleton MD Date:? 024 Generated for Traci smalls/Shaista/Skipsmitting on:?02/02/2025 07:50 AM EDT
--- OUTSIDE RECORDS SUMMARY | 2025-02-02 07:50 | XMS_ITS ---
Author Organization [facility] Address [address] [place] [address] Care Team Providers Care Paramedic Supervisor Name Role Phone Alex SEALS, [place] Primary Care Provider Hunter Pereira Unavailable [phone] ROSALINA WEAVER Unavailable Unavailable Allergies No Known [...] Problem Status W/U Status Risk Notes Problem Chronic GERD (K21.9) Active confirmed Problem Barium swallow abnormal (690262295) Abnormal barium swallow (R93.3) Active confirmed Vital Signs Blood pressure systolic 00 mm Hg 04/20/20 24 Blood pressure diastolic 00 mm Hg 024 Height 5 ft 1 in in 04/20/2024 Weight 162 lbs 04/20/2024 BMI 30.61 kg/m2 04/20/2024 Encounters Encounter Location Date Provider Diagnosis [facility] [address] [place] [address] 04/20/2024 Hunter Pendleton Chronic GERD K21.9 and [...] Follow Up: prn, Reason: Progress Notes * ANDREWS ARIASDOB:1955 ([age] yo F)Acc No.[id number]:04/20/2024 Progress Notes Patient:?ANDREWS ARIAS Provider:?Hunter Pendleton MD :1955???Age:68 Y???Sex:Female D ate:04/20/2024 Address:[address] [place] [address], [place], [id number] Pcp:Orlando Johnson MD Subjective: * Chief Complaints: * ???Abnormal ugi series, eros leonard esophagitis, discuss egd * HPI: ???incontinence:? I saw Andrews in consultation today in regard to further evaluation of gastroesophageal reflux and abnormal barium swallow, as well as her chronic cough. She was accompanied by her daughter, Viola. ?As you know, Andrews is a 68-year-old female who generally feels [...] a week or so ago by her framing mill operator helper, Dr. Weaver, in hopes of treating any [...] reviewed and reconciled with the patient * Allergies:?N.K.D.A.yes[Aller gies Verified] Objective: * Vitals:?Wt: 162 lbs, Ht: [...] (Nasrin resendiz)?2.?Abnormal barium swallow - R93.3? Overall, Andrews appears well and does not [...] Procedure Codes:?3017F COLOR ECTAL CA SCREEN DOC [id number] Pt scrn tbco and id as [id number] BP SCR NOT PRFRM REC REASON NOS * Preventive Medicine:? ??Urinary Incontinence:?Urinary Incontinence?Assessment:?Present,?Plan of care documented:?Yes,?Type of plan of care:?Lifestyle interventions.? ??Screenings:?Fall Risk Screening?Fall Risk Assessment:?No falls in the past year.? * Follow Up:?prn * * Sign off status: Completed true * Provider:?Hunter Pendleton MD Date:? 024 Generated for Traci smalls/Shaista/Valente on:?02/02/2025 07:49 AM EDT History and Physical Notes * HPI (History of Present Illness) Category Sub-Category Detail Notes Category Not es incontinence I saw Andrews in consultation today in regard to further evaluation of gastroesophageal reflux and abnormal barium swallow, as well as her chronic cough. She was accompanied by her daughter, Viola. As you know, Andrews is a 68-year-old female who generally feels [...] a week or so ago by her framing mill operator helper, Dr. Weaver, in hopes of treating any [...]
--- NOTE | 2025-02-02 07:57 | A.OFFVIS_ITS ---
Vital Signs 02/02/25 07:58 Height 5 ft 1 in Weight 165 lb 5.547 oz BMI 31.2 BP 116/76 Blood Pressure Location Rt brachial Position Sitting Pulse 52 Pulse Source Pulse Oximeter Pulse Oximetry (%) 96 Oxygen Delivery Method Room Air Intake Visit Reasons: Osteoporosis Intake Note: Patient present today for Osteoporosis follow up visit. Apparel Rental Clerk Required: No Accompanied by: Self / Same As Patient Allergies No Known Allergies Allergy (Verified 02/02/25 07:58) Medication List - Last Reconciled 02/02/25 by Hunter Arce MD atorvastatin 40 mg PO DAILY 30 days cholecalciferol (vitamin D3) 50 mcg PO DAILY 90 days clonazepam 0.5 mg PO Q12H PRN fluticasone propion-salmeterol 250-50 mcg/dose (Wixela Inhub) 1 inh inhalation Q12H 30 days nicotine (Nicoderm CQ) 1 patch transdermal DAILY 14 days omeprazole 40 mg PO DAILY 30 days HPI Comments Details: 69 YO Female with PMHx Osteoporosis who is seen in F/U for the same. First diagnosed in 2012 with Osteoporosis of the hip. Was treated with Fosamax from June 2021 through Sep 2021. Now on Evenity with 6th dose given 04/22/2023. Tolerating this well. She had labs completed after 3 weeks off Fosamax. This was largely WNL, but Calcium was high normal. She was started on Vitamin D 2000 IU daily and labs repeated, still with calcium higher than expected for age, and PTH inappropriately normal. She repeated a full biochemical workup including 24 hour urine but labs are pending at this time. No history of pathologic fracture or ONJ. Has 3-4 servings of dietary calcium per day in the form of milk. Does not take a Calcium supplement. Takes Vitamin D 2000 IU daily. Denies ever using PPI, anticoagulant, antiepileptic or glucocorticoid medication. Does weight bearing exercise 3-5 days per week in the form of walking. Fracture history: Denies Height loss: Denies MACHINE GRINDER history: Menarche was age 14. Menses were always regular. . She did not breastfeed. Menopause was age 44. She did not use HRT. Denies history of Kidney stones: Denies family history of Osteoporosis or hip fracture. UTD on dental cleanings and sees dentist every 6 months. No planned upcoming dental work or extractions. Denies any personal history of CAD or stroke. Denies any family history of CAD. DXA: 01/01/2023 FINDINGS: AP SPINE L1-L4: Current: BMD 0.942 g/cm2, Z-score -0.5, T-score -2.0, osteopenia, 0.4% increase from previous, 2.8% increase from baseline (<5% change is not significant). Prior: BMD 0.938 g/cm2. Baseline: BMD 0.916 g/cm2. LEFT FEMUR, NECK: Current: BMD 0.642 g/cm2, Z-score -1.5, T-score -2.8, osteoporosis. Prior: BMD 0.625 g/cm2. Baseline: BMD 0.718 g/cm2. LEFT FEMUR, TOTAL: Current: BMD 0.811 g/cm2, Z-score -0.4, T-score -1.6, osteopenia, 0.1% increase from previous, 1.5% decrease from baseline (<5% change is not significant). Prior: BMD 0.810 g/cm2. Baseline: BMD 0.823 g/cm2. LEFT FOREARM RADIUS 33%: BMD 0.864 g/cm2, Z-score 1.2, T-score -0.1, normal. Prior:? Not previously measured. Labs: Laboratory Tests 03/17/23 04/18/23 04/18/23 08:15 08:54 08:54 Creatinine 0.94 Estimated GFR 60 Albumin 4.0 25-OH Vitamin D Total 36.8 TSH 2.24 PTH Intact 74 Calcium (PTH Intact) 9.5 Was diagnosed with significant GERD . Took a course of Evenity but no alendronate . No fracture since last visit The patient is a 69-year-old female presenting with concerns about osteoporosis management post Evenity treatment. Her history includes completing a year-long course of Evenity, with no subsequent osteoporosis-specific medication for the past year. She has experienced gastrointestinal issues that led her to avoid alendronate use. A bone density test was performed in December, indicating stable bone density, with borderline osteoporosis noted at the hip (T-score of -2.7). Despite a recent fall, she has not sustained any fractures. The possible use of Reclast has been discussed due to the gap after Evenity use, but this decision remains tentative due to possible side effects and stable osteoporosis status. The patient reports regular vitamin D and calcium intake. - Bone Density Test: December, stable results, with borderline osteoporosis in the hip noted (T-score of -2.7) [facility] Medical History Sandoval's esophagus Erosive esophagitis Abnormal barium swallow GERD (gastroesophageal reflux disease) Smoker Pneumonitis Goiter Tobacco dependence due to cigarettes COPD (chronic obstructive pulmonary disease) Abnormal chest x-ray Facet arthritis, degenerative, lumbar spine Osteoporosis Obesity (BMI 30-39.9) Vitamin D deficiency Low back pain Radicular pain of right lower extremity Depression Anxiety Pure hypercholesterolemia Surgical History Hx of colonoscopy History of esophagogastroduodenoscopy (EGD) Hx of tubal ligation History of removal of eye Family History Father Depression Mother Medical history unknown Maternal Grandmother Uterine cancer Other Mental health problem Social History Housing: House Are you a primary care mgr to a significant other at home: No Do you presently have visiting nurse or other home services: No Alcohol intake: current Alcohol intake frequency: does not drink Patient Tobacco Use Status: Current everyday Tobacco user Tobacco use type: Cigarette Cigarettes Per Day: 4 Years Smoked: 15 e-Cigarette/Vaping Use: Never Used Second Hand Smoke Exposure: Yes service: No Current occupational status: unemployed Cognitive needs: No Hearing needs: No Vision needs: Yes (glasses) Female Reproductive History Menstrual Age of Menarche: 15 Physical Exam Vital Signs: BMI result Body Mass Index 31.2 Assessment & Plan Assessment & Plan (1) Osteoporosis: Code(s): M81.0 - Age-related osteoporosis without current pathological fracture Category: Medical Qualifiers: Osteoporosis type: age-related Presence of current pathological fracture: without current pathological fracture Qualified Code(s): M81.0 - Age- related osteoporosis without current pathological fracture Plan: This is a 67-year-old white female with a history of osteoporosis with negative secondary workup and prior treatment with Evenity . Bone turnover markers suppressed were suppressed and recent DEXA bone density was stable although showed continued osteoporosis in the hip The plan is to repeat urine NTX. If urine NTX remains suppressed will continue drug holiday. If urine NTX increases, we will give a dose of IV Reclast as p.o. bisphosphonate contraindicated in light of the Sandoval's esophagitis. 1. Osteoporosis The patient has a history of osteoporosis treated with Evenity, which has maintained stable bone density. The consideration of Reclast infusion is discussed due to the time elapsed since the last osteoporosis treatment. However, given the stable bone density and absence of fractures, the Reclast decision is deferred. A bone turnover marker test is advised to determine future treatment needs. Continuation of vitamin D and calcium supplementation is recommended. Follow-up will depend on bone turnover marker test results. I discussed the management of osteoporosis following the completion of Evenity treatment over a year ago. I explained the stable bone density findings and the option of using Reclast infusion due to the hiatus in osteoporosis-specific therapy. However, given the patient's history of gastrointestinal issues with pill forms of treatment and the stable density results, I decided against immediate Reclast administration. I presented the possibility of measuring bone turnover markers to guide potential treatment decisions. The patient was informed of Reclast's potential side effects and the choice to defer its use un til more data is available. The patient agreed with this approach and will continue taking vitamin D and calcium supplements. I arranged for a bone turnover marker test and advised a follow-up in six months to reevaluate her condition based on test results. - Continue taking vitamin D and calcium supplements as prescribed. - Schedule a bone turnover marker test, preferably fasting, using second morning urine. - Follow safety precautions to prevent falls. - Monitor for any signs of fractures and report any new falls or injuries immediately. - Return for follow-up in approximately six months or sooner if instructed. The patient had an opportunity to ask questions regarding treatment plan. The patient expressed understanding and agreement with the above treatment plan. Patient was informed and verbally consented to the use of an ambient scribe for clinic note documentation during this visit. Orders: Orders Collagen Crosslinks NTX Today M81.0 - Age-related osteoporosis without current pathological fracture Coding Level of Care Code Est Pt Level 3 (50223) Diagnoses Age-related osteoporosis without current pathological fracture M81.0 Osteoporosis type: age-related Presence of current pathological fracture: without current pathological fracture
[2025-02-02 07:58] VITALS: BP 116/76; PULSE 52; O2SAT 96; BMI 31.2
== END 2025-02-02 08:15 | disposition home or self-care (01) ==
LOC: HO.ENCR 07:48
PROVIDERS: PCP Internal Medicine; Visit Provider Internal Medicine Endocrinology, Diabetes & Metabolism
DX: M81.0 Age-related osteoporosis without current pathological fracture (principal)
CPT/HCPCS: 99213

== ENCOUNTER → 2025-02-02 07:47 | Outpatient (BNVA) | payer MEDICARE, BC, SELFPAY | PROVIDERS: PCP Internal Medicine; Visit Provider Internal Medicine Endocrinology, Diabetes & Metabolism | DX: M81.0 Age-related osteoporosis without current pathological fracture (principal) | CPT/HCPCS: 99212 ==

== ENCOUNTER → 2025-02-23 13:22 | Outpatient (BNVA) | payer MEDICARE, BC, SELFPAY | PROVIDERS: PCP Internal Medicine; Visit Provider Internal Medicine | DX: Z13.89 Encounter for screening for other disorder (principal) ==

== ENCOUNTER 2025-04-13 09:29 | Outpatient (AMB) | payer MEDICARE, BC, SELFPAY ==
[2025-04-13 09:32] VITALS: BP 156/68; PULSE 70; O2SAT 96; BMI 30.6
--- NOTE | 2025-04-13 09:32 | A.OFFVIS_ITS ---
Vital Signs 04/13/25 09:32 Height 5 ft 1 in Weight 162 lb 0.636 oz BMI 30.6 BP 156/68 H Blood Pressure Location Lt brachial Position Sitting Pulse 70 Pulse Source Pulse Oximeter Pulse Oximetry (%) 96 Oxygen Delivery Method Room Air Intake Visit Reasons: COPD Display Card Writer Required: No Accompanied by: Self / Same As Patient Allergies No Known Allergies Allergy (Verified 04/13/25 09:36) HPI Comments Details: The patient is a 69-year-old woman with a known history of tobacco dependency who apparently has been in usual state health until for the last year which she has been having increasing cough. At times is productive in nature. The mucus tends to be stay cayenne yellow at times. Denies any hemoptysis. She did have a chest x-ray back in July 2021 demonstrating she has some slight changes of the left base but nothing too significant. The patient continued to have her persistent cough however. She has gotten to the point that the cough has been getting worse therefore she did have another evaluation with her primary care provider. She was started on a course of antibiotics with only partial resolution of her symptoms. Subsequently she was referred to Pulmonary. Patient is not using any inhalers at this time. The patient does smoke cigarettes. She has been motivated trying to quit although her also smokes and she knows she will have a hard time. On examination she does have significant rhonchi primarily at the bases. She has significant congestion. Explained to the patient that it is crucial for her to stop smoking because her respiratory status on going to continue getting worse. She will talk to her start cutting down. When she returns will talk about smoking cessation agents. In the meantime the patient has significant wheezing and therefore will start her on any inhaler. We do have a sample of Trelegy that I want her to try for a month in the meantime. The patient also needs to undergo pulmonary function studies. I did review her chest x-ray from 2020. I will request 1 now from 2021. I did review the 1 from 18/11 still demonstrating some very slight opacity in the left base difficult to assess. However, with smoking history malignancy needs to be in differential. Therefore I will request a CT scan of the chest. 10/03/2022 the patient is here for a pulmonary follow-up visit. Overall the patient is feeling a lot better. She is responding well to the Trelegy inhaler. The patient still smoking. That she is trying to cut down. the patient did undergo pulmonary function studies which demonstrated relatively normal lung capacity which is reassuring. Patient also underwent a CT scan of the chest demonstrating some minimal degree of pneumonitis. She also had a mildly enlarged left axillary lymph node which may be due to a vaccine. She typically gets her mammograms as scheduled and have been okay per The patient's report. She would have another CT scan in a year's time. In the meantime if she develops any worsening symptoms we can always readdress that an earlier time. 03/28/2023 the patient is here for a pulmonary follow-up visit. Overall the patient is doing well. She is responding well to Trelegy. She has had a lot of loss in the family recently. Therefore she has been grieving. Because of that she has been smoking off and on. But typically lasting half a pack. The patient knows she needs to quit. She is going to continue to work on cutting down further on to quitting altogether. She would like to hold off on nicotine supplementation therapy. We can also consider Chantix in the future if she is not successful. The patient will have a CT scan of the chest sometime in the fall 2022 as part of the lung cancer screening program. She is responding well to the Trelegy in her respiratory status is stable. Therefore continue her current respiratory therapy will follow-up next year. 04/08/2024 the patient is here for a pulmonary follow-up visit. Overall she is doing okay. She is responded well to the Wixela. She does only use it once a d ay with since effective for her. She at some point ran out and she did use Flovent HFA. She resulting significant thrush. Therefore she stopped it. The patient also has been working on her smoking. She is able to cut down significantly although is hard because her significant other also smokes. The patient is working on that. We did look at her last CT scan from 2021 which demonstrated some ground-glass opacities at the bases. Will plan to repeat that in the next 6 months. My suspicion is that she likely has a component of aspiration pneumonitis. She did undergo a barium swallow sometime in January which demonstrated severe reflux disease along with abnormal looking mucosa both in the esophagus suggesting erosive esophagitis and also some potential abnormalities in the mucosa of the stomach. She needs to have an EGD. we will refer her to GI this time in order for her to undergo hopefully an urgent EGD make sure. In the meantime she is going to start PPI. Hopefully when she gets a repeat CT scan with improvement of the ground-glass opacities. And we can also consider stopping the inhaled cortical steroids altogether keeping her on a combination bronchodilator therapy Such as Anoro. Therefore, follow-up in 6 months. If any worsening symptoms or any other concerning symptoms she will call for an earlier assessment. 10/12/2024 the patient is here for a pulmonary follow-up visit. Overall the patient has been doing okay. She is responding well to the Trelegy. She also continues taking her PPI. 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 She needs to follow-up with GI closely. She is concerned about developing cancer. In the meantime the patient still smoking. We did talk about smoking cessation. She is motivated and she wants to quit. Will send the patch. In the meantime the patient did have a CT scan of the chest lung cancer screening program sometime in July. Has not been officially read yet. I did review it. She has a small pulmonary nodules. Minimal emphysema. And some hazy atelectasis at the bases. Will have to wait for the final read out. Will plan to follow-up in 6 months. If any issues arise she will call for earlier assessment. 04/13/2025 the patient is here for pulmonary follow-up visit. Overall she is doing okay. Seems to be doing better from the GI symptoms. She is following closely with GI. She continues use her respiratory therapy as prescribed. Breathing is overall better. We did talk about the importance of increasing exercise capacity. She does have hip issues making it difficult for her to ambu late. Will go ahead and request repeat PFTs and then get her to pulmonary rehabilitation for her to continue to build up her respiratory capacity in her endurance. As far as smoking she is doing a lot better although she is smoking once in awhile. We did talk about the importance of quitting altogether. She does have a patch available she is going to start that and she can also use the gum intermittently for withdrawal symptoms. She will follow-up in 6 months if she has any issues prior to that she will call for an earlier assessment. [facility] Medical History Sandoval's esophagus Erosive esophagitis Abnormal barium swallow GERD (gastroesophageal reflux disease) Smoker Pneumonitis Goiter Tobacco dependence due to cigarettes COPD (chronic obstructive pulmonary disease) Abnormal chest x-ray Facet arthritis, degenerative, lumbar spine Osteoporosis Obesity (BMI 30-39.9) Vitamin D deficiency Low back pain Radicular pain of right lower extremity Depression Anxiety Pure hypercholesterolemia Surgical History Hx of colonoscopy History of esophagogastroduodenoscopy (EGD) Hx of tubal ligation History of removal of eye Family History Father Depression Mother Medical history unknown Maternal Grandmother Uterine cancer Other Mental health problem Social History Housing: House Are you a primary medicare insurance specialist to a significant other at home: No Do you presently have visiting nurse or other home services: No Alcohol intake: current Alcohol intake frequency: does not drink Patient Tobacco Use Status: Current everyday Tobacco user Tobacco use type: Cigarette Cigarettes Per Day: 4 Years Smoked: 15 e-Cigarette/Vaping Use: Never Used Second Hand Smoke Exposure: Yes service: No Current occupational status: unemployed Cognitive needs: No Hearing needs: No Vision needs: Yes (glasses) Female Reproductive History Menstrual Age of Menarche: 15 Review of Systems Const Denies fatigue, Denies night sweats and Reports weight gain Eyes Denies exophthalmos ENT Denies nasal discharge and Denies nasal obstruction Card Denies chest pain and Denies dyspnea on exertion Resp Denies change in phlegm color, Denies chest congestion, Reports cough, Denies hemoptysis and Denies dyspnea on exertion GI Reports as per HPI, Reports bloating, Reports dyspepsia and Reports heartburn Musc Reports no additional complaints Skin/Breast Denies rash Neuro Reports no additional complaints Endo Denies fatigue Justo/Lymph Denies easy bleeding and Denies easy bruising Physical Exam Vital Signs: Last Vital Signs Pulse 70 04/13/25 09:32 BP 156/68 H 04/13/25 09:32 Pulse Ox 96 04/13/25 09:32 Oxygen Delivery Method Room Air 04/13/25 09:32 BMI result Body Mass Index 30.6 Const General: comfortable HEENT Head: Yes normal to inspection Eyes General: appearance normal, both eyes and all related structures Neck Neck: Yes supple Chest Chest palpation & inspection: normal inspection of the chest Resp Effort & Inspection: normal respiratory effort Auscultation: no rhonchi, no wheezes and diminished lung sounds Cardio Rate: regular rate Rhythm: regular rhythm Heart sounds: S1 normal heart sound present and S2 normal heart sound present GI Auscultation: normal bowel sounds Extrem General: Yes no clubbing, cyanosis or edema Assessment & Plan Assessment & Plan (1) COPD (chronic obstructive pulmonary disease): Code(s): J44.9 - Chronic obstructive pulmonary disease, unspecified Category: Medical Qualifiers: COPD type: unspecified COPD Qualified Code(s): J44.9 - Chronic obstructive pulmonary disease, unspecified (2) Tobacco dependence due to cigarettes: Code(s): F17.210 - Nicotine dependence, cigarettes, uncomplicated Category: Medical (3) Pneumonitis: Comment: Likely due to smoking Code(s): J18.9 - Pneumonia, unspecified organism Category: Medical (4) GERD (gastroesophageal reflux disease): Code(s): K21.9 - Gastro-esophageal reflux disease without esophagitis Category: Medical Qualifiers: Esophagitis bleeding: without hemorrhage Esophagitis presence: with esophagitis Qualified Code(s): K21.00 - Gastro-esophageal reflux disease with esophagitis, without bleeding (5) Sandoval's esophagus: Comment: EGD with Bx done on 08/13/2024 Code(s): K22.70 - 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 Category: Medical Qualifiers: Sandoval's esophagus type: without dysplasia Qualified Code(s): K22.70 - 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 Plan continue wixela will quit smoking, rx nicotine patch CT chest LDCT 07/2025 continue PPI reflux diet GI following PFTs Pulmonary rehab F/U 6-8 months Orders: Orders PFT pulmonary function test Today J44.9 - Chronic obstructive pulmonary disease, unspecified Pulmonary Rehab Today J44.9 - Chronic obstructive pulmonary disease, un specified Medications: New nicotine (polacrilex) (Nicorette) 2 mg buccal Q2H PRN 50 ea 5RF nicotine cr avings 30 days Refilled nicotine (Nicoderm CQ) 1 patch transdermal DAILY 14 ea 6RF 14 days Coding Level of Care Code Est Pt Level 4 (88594) Complex EM visit Add On G2211 Diagnoses Chronic obstructive pulmonary disease, unspecified COPD type J44.9 COPD type: unspecified COPD Tobacco dependence due to cigarettes F17.210 Pneumonitis J18.9 Gastroesophageal reflux disease with esophagitis without hemorrhage K21.00 Esophagitis bleeding: without hemorrhage Esophagitis presence: with esophagitis 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 K22.70 Sandoval's esophagus type: without dysplasia Time Spent (min) 16
--- OUTSIDE RECORDS SUMMARY | 2025-04-13 09:53 | XMS_ITS | Patient Health Record ---
Author Organization [facility] Address [address] [place] [address] Care Team Providers Care Classroom Instructor Name Role Phone Blayne Johnson MDneth Primary Care Provider Hunter Pereira Unavailable [phone] ROSALINA WEAVER Unavailable Unavailable Allergies No Known Allergies Results Component Value Reference Range Notes Pathology (Not yet reviewed by provider) Interpretation: Performing Lab:[facility], [address] [place] [phone] Notes/Report: Reason For Referral No Information Medications Medication [...] Notes Problem Gastro-esophageal reflux disease without esophagitis (223980090) Gastro-esophag eal reflux disease without esophagitis (K21.9) Active confirmed Problem Barium swallow abnormal (260873464) Abnormal barium swallow (R93.3) Active confirmed Problem Gastroesophageal reflux disease (disorder) (680307269) Chronic GERD (K21.9) Active confirmed Vital Signs Blood pressure diastolic 00 mm Hg 04/20/2024 Height 5 ft 1 in in 04/20/2024 Blood pressure systolic 00 mm Hg 04/20/2024 Weight 162 lbs 04/20/2024 BMI 30.61 kg/m2 04/20/2024 Encounters Encounter Location Date Provider Diagnosis [facility] [place] [address] [place] [id number] 08/13/2024 Hunter Pendleton Gastro-esophageal reflux disease without esophagitis K21.9 ; Hiatal hernia K44.[address] scan, esophagus R93.3 [facility] [address] [place] [id number] 04/20/2024 Hunter Pendleton Chronic GERD K21.9 and Abnormal barium swallow R93.3 [facility] [address] [place] [id number] 04/19/2024 Hunter Pendleton Assessments Encounter Date Diagnosis [...] Date MEDICARE OF [place] [address] [place] [address] [phone] [id number] HUGO ANDREWS Self - patient is the insured [facility] [address] [place] [address] [id number] HUGO ANDREWS Self - patient is the insured Medical [...]
== END 2025-04-13 10:04 | disposition home or self-care (01) ==
LOC: HO.HPS 09:29
PROVIDERS: PCP Internal Medicine; Visit Provider Hospitalist
DX: J44.9 Chronic obstructive pulmonary disease, unspecified (principal); F17.210 Nicotine dependence, cigarettes, uncomplicated; J18.9 Pneumonia, unspecified organism; K21.00 Gastro-esophageal reflux disease with esophagitis, without bleeding; K22.70 Barrett's esophagus without dysplasia
CPT/HCPCS: 99214; G2211

== ENCOUNTER → 2025-04-13 09:29 | Outpatient (BNVA) | payer MEDICARE, BC, SELFPAY | PROVIDERS: PCP Internal Medicine; Visit Provider Hospitalist | DX: J44.9 Chronic obstructive pulmonary disease, unspecified (principal); J18.9 Pneumonia, unspecified organism; K21.00 Gastro-esophageal reflux disease with esophagitis, without bleeding; K22.70 Barrett's esophagus without dysplasia; F17.210 Nicotine dependence, cigarettes, uncomplicated | CPT/HCPCS: 99212 ==

== ENCOUNTER 2025-05-19 09:12 | Outpatient (REF) | payer MEDICARE, BC, SELFPAY ==
[2025-05-19 09:36] LABS: MANUAL DIFF FLAG NO
[2025-05-19 10:12] LABS: Hematocrit 44.6 % (37.0-47.0); Hemoglobin 14.9 g/dl (12.0-16.0); Imm Gran Abs Auto 0.03 X10*3/uL (0.00-0.03); Imm Gran Pct Auto 0.3 % (0.0-0.4); Lymphocytes Absolute Auto 2.6 X10*3/uL (1.2-4.9); Mean Corpuscular HGB Conc 33.4 g/dl (31.0-35.0); Mean Corpuscular Hemoglobin 30.0 pg (27.0-33.0); Mean Corpuscular Volume 89.7 fL (80.0-98.0); NRBC Abs Auto 0.000 X10*3/uL (0.0-0.012); NRBC Pct Auto 0.0 /100WBC (0.0-0.2); Platelet Count 295 X10*3/uL (160-400); Red Blood Count 4.97 X10*6/uL (4.20-5.50); White Blood Count 8.6 X10*3/uL (4.8-10.8)
--- OUTSIDE RECORDS SUMMARY | 2025-05-19 10:18 | XMS_ITS | Patient Health Record ---
Author Organization [facility] Address [address] [place] [address] Care Team Providers Care Shading Painter Name Role Phone Blayne Johnson MDneth Primary Care Provider Hunter Pereira Unavailable [phone] ROSALINA WEAVER Unavailable Unavailable Allergies No Known Allergies Results Component Value Reference Range Notes Pathology (Not yet reviewed by provider) Interpretation: Performing Lab:[facility], [address] [place] [phone] Notes/Report: Reason For Referral No Information Medications [...] Problem Gastro-esophagea l reflux disease without esophagitis (176902438) Gastro-esophage al reflux disease without esophagitis (K21.9) Active confirmed Problem Abnormal barium swallow (R93.3) Active confirmed Problem Chronic GERD (K21.9) Active confirmed Encounters Encounter Location Date Provider [place] [facility] [place] [address] [phone] 08/13/2024 Hunter Pendleton Gastro-esophageal reflux disease without [...] Date MEDICARE OF [place] [address] [place] [address] [id number] ANDREWS ARIAS Self - patient is the insured [facility] [address] [place] [address] [id number] ANDREWS ARIAS Self - patient is the insured Medical (General) History Medical History History ICD Code COPD-Dr. Weaver Anxiety Hiatal hernia/GERD seen on upper GI seri es in January of 2024 Denies FL,DM,CVA,renal disease Hyperlipidemia Osteoporosis Screening colonoscopy with Paige Mckeon in 2022 with removal of 2 small tubular adenomas and a small hyperplastic polyp Surgical History Surgery Date(Month/Year) Left eye removed 2013 Tubal ligation
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
[2025-05-19 10:47] LABS: Alanine Aminotransferase 25 U/L (0-31); Albumin Level 4.3 g/dL (3.5-5.0); Alkaline Phosphatase 95 U/L (39-117); Anion Gap 12 (12-20); Aspartate Amino Transferase 23 U/L (5-31); Blood Urea Nitrogen 12 mg/dL (9-16); Calcium 9.4 mg/dL (8.4-10.2); Carbon Dioxide 25 mmol/L (22-29); Chloride 107 mmol/L (96-108); Cholesterol 150 mg/dL (<200); Estimated Glomerular Filt Rate 58; HDL Cholesterol 43 mg/dL (>40); Potassium 4.2 mmol/L (3.3-5.1); Sodium 140 mmol/L (135-145); Total Protein 6.3 g/dL (6.5-8.0); Triglycerides 145 mg/dL (<150)
== END 2025-05-19 09:13 | disposition home or self-care (01) ==
LOC: HO.LAB 09:12
PROVIDERS: PCP Internal Medicine; Visit Provider Internal Medicine
DX: E78.00 Pure hypercholesterolemia, unspecified (principal); D64.9 Anemia, unspecified
CPT/HCPCS: 36415; 80053; 80061; 85025

== ENCOUNTER 2025-05-24 09:43 | Outpatient (AMB) | payer MEDICARE, BC, SELFPAY ==
--- OUTSIDE RECORDS SUMMARY | 2024-08-13 07:00 | XMS_ITS ---
Author Organization [facility] Address [address] [place] [address] Care Team Providers Care Frame And Scrap Crusher Name Role Phone Alex SEALS, [place] Primary Care Provider Hunter Pereira Unavailable [phone] ROSALINA ELIZABETH Unavailable Unavailable REASON FOR VISIT gerd,abn barium swallow Problems Problem Type SNOMED Code ICD Code Onset Dates Problem Status W/U Status Risk Notes Problem Gastro-esophagea l reflux disease without esophagitis (449885480) Gastro-esophage al reflux disease without esophagitis (K21.9) Active confirmed Encounters Encounter Location Date Provider Diagnosis [facility] Out[place] [address] [place] [id number] 08/13/2024 Hunter Pendleton Gastro-esophageal reflux disease without [...] * ANDREWS ARIASDOB:1955 ([age] yo F)Acc No.[id number]:08/13/2024 EGD/MAC Patient: Dori HandleyMaurice ANDREWS Provider: Fede Pendleton MD :1955 A ge:68 Y S ex:Female Date:08/13/2024 Address:[address] [place] [address] [address], [address], [id number] Pcp:Orlando Johnson MD Subjective: * Chief Complaints: [...] 10/13/2023 Generated for Traci smalls/Shaista/Skipsmitting on: 0 05/24/2025 10:25 AM EDT
[2025-05-24 09:47] VITALS: BP 118/80; PULSE 61; TEMP 36.2; O2SAT 97; BMI 30.6
--- NOTE | 2025-05-24 09:47 | MHC.PC.OV ---
Vital Signs 05/24/25 09:47 Height 5 ft 1 in Weight 162 lb BMI 30.6 BP 118/80 Blood Pressure Location Lt brachial Position Sitting Pulse 61 Pulse Source Pulse Oximeter Temp 97.1 F Temp Source Temporal Artery Scan Pulse Oximetry (%) 97 Oxygen Delivery Method Room Air Intake Visit Reasons: 4 month f/u Accompanied by: Daughter Allergies No Known Allergies Allergy (Verified 05/24/25 10:50) Medication List - Last Reconciled 05/24/25 by Orlando Johnson MD atorvastatin 40 mg PO DAILY cholecalciferol (vitamin D3) 50 mcg PO DAILY 90 days clonazepam 0.5 mg PO Q12H PRN fluticasone propion-salmeterol 250-50 mcg/dose (Wixela Inhub) 1 inh inhalation Q12H 30 days nicotine (Nicoderm CQ) 1 patch transdermal DAILY 14 days nicotine (polacrilex) (Nicorette) 2 mg buccal Q2H PRN 30 days omeprazole 40 mg PO DAILY Tobacco use date assessed: 05/24/25 Fall risk assessment: No Falls in past year Last assessed Fall Risk: 05/24/25 Dental Screening Dental Screen Date: 05/24/25 Did you have a dental visit in the last 12 months?: No Did you have a dental problem in the last 6 months where you did not have access to dental care?: No Was dental information given to patient?: Patient has dentist HPI 4 month f/u HPI Details Patient comes in today for her follow up visit States that she feels okay She denies any headaches or dizziness Denies any chest pains, no increased SOB No nausea/vomiting, no abdominal pain No change in bowel habits noted She had her follow up labs done a few days ago - to discuss her results [facility] Medical History Sandoval's esophagus Erosive esophagitis Abnormal barium swallow GERD (gastroesophageal reflux disease) Smoker Pneumonitis Goiter Tobacco dependence due to cigarettes COPD (chronic obstructive pulmonary disease) Abnormal chest x-ray Facet arthritis, degenerative, lumbar spine Osteoporosis Obesity (BMI 30-39.9) Vitamin D deficiency Low back pain Radicular pain of right lower extremity Depression Anxiety Pure hypercholesterolemia Surgical History Hx of colonoscopy History of esophagogastroduodenoscopy (EGD) Hx of tubal ligation History of removal of eye Family History Father Depression Mother Medical history unknown Maternal Grandmother Uterine cancer Other Mental health problem Social History Housing: House Are you a primary director of primary care to a significant other at home: No Do you presently have visiting nurse or other home services: No Alcohol intake: current Alcohol intake frequency: does not drink Patient Tobacco Use Status: Current everyday Tobacco user Tobacco use type: Cigarette Cigarettes Per Day: 1 Years Smoked: 15 e-Cigarette/Vaping Use: Never Used Second Hand Smoke Exposure: Yes service: No Current occupational status: unemployed Cognitive needs: No Hearing needs: No Vision needs: Yes (glasses) Female Reproductive History Menstrual Age of Menarche: 15 Questionnaire PHQ-9 Over the last 2 weeks, how often have you been bothered by any of the following problems? 1. Little interest or pleasure in doing things: not at all 2. Feeling down, depressed, or hopeless: not at all 3. Trouble falling or staying asleep, or sleeping too much: not at all 4. Feeling tired or having little energy: not at all 5. Poor appetite or overeating: not at all 6. Feeling bad about yourself - or that you are a failure or have let yourself or your family down: not at all 7. Trouble concentrating on things, such as reading the newspaper or watching television: not at all 8. Moving or speaking so slowly that other people could have noticed. Or the opposite - being so fidgety or restless that you have been moving around a lot more than usual: not at all 9. Thoughts that you would be better off or of hurting yourself in some way: not at all Total score: 0 Depression Screening Interpretation: Negative Depression Screening Done: Yes 96046 - PHQ-9 Billing: Yes Source: Developed by Drs. Hunter Ya, Leyla Brown, Ashkan Medeiros and colleagues, with an educational marina from [employer]. Thrive Questionnaire Date Thrive assessed: 05/24/25 I am a: Patient What is your living situation today?: I have a steady place to live Within the past 12 months, did the food you bought not last and you didn't have the money to get more?: I choose not to answer this question Within the past 12 months, did you worry whether your food would run out before you got money to buy more?: I choose not to answer this question Do you have trouble paying for medicines?: I choose not to answer this question Do you have trouble getting transportation to medical appointments?: I choose not to answer this question Do you have trouble paying your heating and electricity bill?: I choose not to answer this question Do you have trouble taking care of your child, family member or friend?: I choose not to answer this question Do you have trouble with day-to-day activities such as bathing, preparing meals, shopping, managing finances, etc.?: I choose not to answer this question Are you currently unemployed and looking for a job?: I choose not to answer this question Are you interested in more education?: I choose not to answer this question Please select the resources that you would like help with: None Currently or been in a relationship where the following occur: I choose not to answer THRIVE Score: 0 AUDIT C Alcohol Use Questionnaire (AUDIT-C) 1. How often do you have a drink containing alcohol?: Never 3. How often do you have six or more drinks on one occasion?: Never Total Score: 0 Score Reviewed/Action Taken: Yes COLLIN-7 AMB Questionnaire COLLIN-7 Date COLLIN - 7 assessed: 01/06/25 Feeling nervous, anxious, or on edge: 0 = Not at all Not being able to stop or control worryin = Not at all Worrying too much about different things: 0 = Not at all Trouble relaxin = Not at all Being so restless that it is hard to sit still: 0 = Not at all Becoming easily annoyed or irritable: 0 = Not at all Feeling afraid as if something awful might happen: 0 = Not at all Total COLLIN-7 score (0-4 normal; 5-9 mild; 10-14 moderate; 15-21 severe): 0 Source: Developed by Drs. Hunter Ya, Leyla Brown, Ashkan Medeiros and colleagues, with an educational marina from [employer]. Review of Systems Const Denies chills, Denies fatigue, Denies fever(s) and Denies headache(s) ENT Denies dysphagia (improved with Rx), Denies dizziness, Denies otalgia, Denies headache(s), Denies neck pain, Denies odynophagia and Denies sore throat Card Denies chest pain, Denies palpitations and Denies dyspnea Resp Denies chest congestion, Denies cough, Denies dyspnea and Denies wheezing GI Denies abdominal pain, Denies constipation, Denies dysphagia (improved with Rx), Denies heartburn (improved with Rx), Denies diarrhea, Denies nausea, Denies odynophagia and Denies vomiting Denies difficulty voiding, Denies nocturia, Denies dysuria and Denies urinary urgency Musc Reports back pain, Denies neck pain and Reports radiating pain into limb (into right leg at times) Skin/Breast Denies rash Neuro Denies dizziness and Denies headache(s) Psych Reports anxiety, Reports depression (talks to therapist weekly) and Denies suicidal ideation Endo Denies fatigue and Denies palpitations Aller/Immun Denies wheezing Physical exam (Primary Care) Vital Signs: Last Vital Signs Temp 97.1 F 05/24/25 09:47 Pulse 61 05/24/25 09:47 BP 118/80 05/24/25 09:47 Pulse Ox 97 05/24/25 09:47 Oxygen Delivery Method Room Air 05/24/25 09:47 BMI result Body Mass Index 30.6 Tobacco/Smoking Status: Tobacco use Status Tobacco use date assessed 05/24/25 05/24/25 09:51 Patient Tobacco Use Status Current everyday Tobacco 05/24/25 09:51 Tobacco use type Cigarette 05/24/25 09:51 e-Cigarette/Vaping Use Never Used 05/24/25 09:51 PHQ-9: PHQ-9 Score PHQ-9: Total score 0 05/24/25 10:55 Depression Screening Interpretation: Negative Thrive Assessment: Date of Thrive Assessment Date Thrive assessed 01/06/25 05/24/25 09:51 Currently or been in a relationship where the following occur: I choose not to answer Const General: no acute distress and alert HENMT Ears: TM's normal bilaterally and EAC's normal Throat: Yes posterior oropharynx normal and Yes tonsils normal (no TP congestion) Neck Neck: Yes no lymphadenopathy and Yes supple Thyroid: Thyroid normal Resp Auscultation: clear to auscultation bilaterally, no crackles, no rales and no wheezes Cardio Rate: regular rate Rhythm: regular rhythm Heart sounds: no murmurs GI Palpation (GI): Soft to palpation and nontender Auscultation: normal bowel sounds General: Yes no CVA tenderness Back/Spine/Pelvis Back: no CVA tenderness Thoracic/Lumbar Spine: lumbar spinal tenderness Skin Rashes: no rashes Extrem General: Yes no clubbing, cyanosis or edema Results Reviewed Results Reviewed: Laboratory Tests 05/19/25 09:35 WBC 8.6 Hgb 14.9 Hct 44.6 Plt Count 295 Sodium 140 Potassium 4.2 Creatinine 0.96 Estimated GFR 58 Fasting Glucose 95 Calcium 9.4 AST 23 ALT 25 Triglycerides 145 Cholesterol 150 LDL Cholesterol, Calc 78 HDL Cholesterol 43 Coding Level of Care Code Est Pt Level 4 (47367) Diagnoses Pure hypercholesterolemia E78.00 Elevated blood pressure reading R03.0 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 K22.70 Sandoval's esophagus type: without dysplasia Facet arthritis, degenerative, lumbar spine M47.816 Radicular pain of right lower extremity M54.10 Age-related osteoporosis without current pathological fracture M81.0 Osteoporosis type: age-related Presence of current pathological fracture: without current pathological fracture Chronic obstructive pulmonary disease, unspecified COPD type J44.9 COPD type: unspecified COPD Vitamin D deficiency E55.9 Glaucoma, unspecified glaucoma type, unspecified laterality H40.9 Glaucoma type: unspecified Laterality: unspecified laterality Anxiety F41.9 Episode of recurrent major depressive disorder, unspecified depression episode severity F33.9 Depression Type: major depressive disorder Major depression recurrence: recurrent Active/Remission status: currently active Major depression episode severity: unspecified Smoker F17.200 Obesity (BMI 30-39.9) E66.9 Additional Codes PHQ-9 - 65636 - PHQ-9 Billing: Yes ([id number]) Assessment & Plan Assessment & Plan (1) Pure hypercholesterolemia: Code(s): E78.00 - Pure hypercholesterolemia, unspecified Category: Medical Plan: Results of her labs done a few days ago reviewed and discussed with patient Reinforced low cholesterol diet Continue Atorvastatin 40 mg QD Will recheck her labs and fasting lipids in 4 months for follow-up (2) Elevated blood pressure reading: Code(s): R03.0 - Elevated blood-pressure reading, without diagnosis of hypertension Category: Medical Plan: Reinforced low sodium diet - goal is systolic BP of 120 mm or less Her BP has been better since she switched to decaf coffee a few months ago and is much lower today compared to her last visit She is again reminded to continue monitoring her BP regularly (3) Sandoval's esophagus: Comment: EGD with Bx done on 08/13/2024 Code(s): K22.70 - 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 There was a moderate-sized hiatal hernia noted in exam of the stomach Pathology on her Bx came back as Sandoval's esophagitis with NO dysplasia Continue Omeprazole 40 mg QD - have again reminded patient that she needs to take this everyday regardless of whether she has symptoms or not She will need repeat EGD in 3 years (2026) Follow up with GI as scheduled (4) Facet arthritis, degenerative, lumbar spine: Code(s): M47.816 - Spondylosis without myelopathy or radiculopathy, lumbar region Category: Medical Plan: Reinforced activity and weight-lifting restrictions to minimize aggravating her low back pain Lumbar spine x-rays done a couple years ago revealed (+) facet arthritis with no other concerning findings (5) Radicular pain of right lower extremity: Code(s): M54.10 - Radiculopathy, site unspecified Category: Medical Plan: Patient states that her symptoms have mostly calmed down and have not been bothering her as much lately Her hip x-rays done back in 2012 showed (+) mild OA changes in both hips - she may need to get repeat x-rays of her hips for further evaluation if patient continues to experience increased radicular pains into her lower extremities (6) Osteoporosis: Code(s): M81.0 - Age-related osteoporosis without current pathological fracture Category: Medical Qualifiers: Osteoporosis type: age-related Presence of current pathological fracture: without current pathological fracture Qualified Code(s): M81.0 - Age-related osteoporosis without current pathological fracture Plan: Repeat BMD done back on 01/01/2023 revealed (+) osteoporosis, with no significant change in BMD from her previous scan in November 2020 Continue Vitamin D and Calcium supplements daily and reminded to stay active and exercise regularly; fall precautions reinforced She was treated with Alendronate from June 2021 through Sep 2021 but was switched over to Evenity and has been tolerating Rx well over the past couple of years Continue Evenity 210 mg once a month - Rx is being prescribed and administered by endocrinology She will likely be switched over to IV Reclast once a year sometime later this year Follow up with endocrinology as scheduled (7) COPD (chronic obstructive pulmonary disease): Code(s): J44.9 - Chronic obstructive pulmonary disease, unspecified Category: Medical Qualifiers: COPD type: unspecified COPD Qualified Code(s): J44.9 - Chronic obstructive pulmonary disease, unspecified Plan: Her respiratory symptoms remain well-controlled/stable Continue Wixela 250-50 mcg 1 inhalation BID Follow up with pulmonary as scheduled (8) Vitamin D deficiency: Code(s): E55.9 - Vitamin D deficiency, unspecified Category: Medical Plan: Continue Vitamin D3 2000 units QD (9) Glaucoma: Code(s): H40.9 - Unspecified glaucoma Category: Medical Qualifiers: Glaucoma type: unspecified Laterality: unspecified laterality Qualified Code(s): H40.9 - Unspecified glaucoma Plan: Follow up with ophthalmology as scheduled for continuing monitoring and management of her increased intraocular pressure (10) Anxiety: Code(s): F41.9 - Anxiety disorder, unspecified Category: Medical Plan: Continue Clonazepam 0.5 mg BID PRN She is currently still seeing a therapist (via telehealth) weekly on Tuesdays - to continue as scheduled (11) Depression: Code(s): F32.9 - Major depressive disorder, single episode, unspecified Category: Medical Qualifiers: Depression Type: major depressive disorder Major depression recurrence: recurrent Active/Remission status: currently active Major depression episode severity: unspecified Qualified Code(s): F33.9 - Major depressive disorder, recurrent, unspecified Plan: She has been referred to and is now seeing/talking to a therapist weekly, which she states is helping She still does not feel that she needs to be on any Rx for her depression at present (12) Smoker: Code(s): F17.200 - Nicotine dependence, unspecified, uncomplicated Category: Social Hx Plan: Patient is counseled again on complete smoking cessation, especially in light of her recent diagnosis of Sandoval's esophagitis (13) Obesity (BMI 30-39.9): Code(s): E66.9 - Obesity, unspecified Category: Medical Plan: Reinforced diet/exercise as tolerated/lose weight Plan Follow up in 4 months Orders: Orders Lipid Panel 4 Months E78.00 - Pure hypercholesterolemia, unspecified Vitamin D 25-OH Total 4 Months E55.9 - Vitamin D deficiency, unspecified Complete Blood Count Auto Diff 4 Months D64.9 - Anemia, unspecified Comprehensive [place]. Panel Fast 4 Months E78.00 - Pure hypercholesterolemia, unspecified
--- OUTSIDE RECORDS SUMMARY | 2025-05-24 10:25 | XMS_ITS | Patient Health Record ---
Author Organization [facility] Address [address] [place] [address] Care Team Providers Care Postal Clerk Name Role Phone Blayne Johnson MDneth Primary Care Provider Hunter Pereira Unavailable [phone] ROSALINA WEAVER Unavailable Unavailable Allergies No Known Allergies Results Component Value Reference Range Notes Pathology (Not yet reviewed by provider) Interpretation: Performing Lab:[facility], [address] [place] [id number] Notes/Report: Reason For Referral No Information Medications [...] Notes Problem Gastro-esophageal reflux disease without esophagitis (746420598) Gastro-esophag eal reflux disease without esophagitis (K21.9) Active confirmed Problem Barium swallow abnormal (165773581) Abnormal barium swallow (R93.3) Active confirmed Problem Gastroesophageal reflux disease (disorder) (989176563) Chronic GERD (K21.9) Active confirmed Encounters Encounter Location Date Provider Diagnosis [facility] [place] [address] [place] [id number] 08/13/2024 Hunter Pendleton Gastro-esophageal reflux disease without [...] Date MEDICARE OF [place] [address] [place] [address] [phone] [id number] BALJINDER ARIASICE Self - patient is the insured [facility] [address] [place] [address] [phone] [id number] HUGO, ANDREWS Self - patient is the insured Medical (General) History Medical History History ICD Code COPD-Dr. Weaver Anxiety Hiatal hernia/GERD seen on upper GI seri es in January of 2024 Denies PR,DM,CVA,renal disease Hyperlipidemia Osteoporosis Screening colonoscopy with Paige Mckeon in 2022 with removal of 2 small tubular adenomas and a small hyperplastic polyp Surgical History Surgery Date(Month/Year) Left eye removed 2013 Tubal ligation
--- OUTSIDE RECORDS SUMMARY | 2025-05-24 10:25 | XMS_ITS | Clinical Summary ---
Author Organization [facility] Address [address] [place] [phone] Phone Care Team Providers Care Pipeline Superintendent Name Role Phone Henna Velarde MD Primary [...] topic Medical Devices Not on file Insurance [facility] [place] [address] [place] [address] [address] [place] [address] PPO EPO [facility] PPO EPO [place] [address] [place] [address] [place] [address] [place] [address] [place] [address] [place] [address] [place] [place] [address] PPO EPO Care Teams Pipeline Superintendent Relationship Specialty Start Date End Date Henna Velarde MD [address] [place] [address] [address] [place] [address] PCP - General Family Medicine 04/22/16 Additional Source Comments The information contained in this document represents components of the legal health record. It is not the complete legal health record.[facility]
== END 2025-05-24 11:01 | disposition home or self-care (01) ==
LOC: HO.HMCH 09:44
PROVIDERS: PCP Internal Medicine; Visit Provider Internal Medicine
DX: E78.00 Pure hypercholesterolemia, unspecified (principal); R03.0 Elevated blood-pressure reading, without diagnosis of hypertension; J44.9 Chronic obstructive pulmonary disease, unspecified; K22.70 Barrett's esophagus without dysplasia; M47.816 Spondylosis without myelopathy or radiculopathy, lumbar region; M54.10 Radiculopathy, site unspecified; M81.0 Age-related osteoporosis without current pathological fracture; E55.9 Vitamin D deficiency, unspecified; H40.9 Unspecified glaucoma; F41.9 Anxiety disorder, unspecified; F33.9 Major depressive disorder, recurrent, unspecified; F17.200 Nicotine dependence, unspecified, uncomplicated

== ENCOUNTER → 2025-05-24 09:43 | Outpatient (BNVA) | payer MEDICARE, BC, SELFPAY | PROVIDERS: PCP Internal Medicine; Visit Provider Internal Medicine | DX: E78.00 Pure hypercholesterolemia, unspecified (principal); R03.0 Elevated blood-pressure reading, without diagnosis of hypertension; K22.70 Barrett's esophagus without dysplasia; M54.10 Radiculopathy, site unspecified; M47.816 Spondylosis without myelopathy or radiculopathy, lumbar region; M81.0 Age-related osteoporosis without current pathological fracture; J44.9 Chronic obstructive pulmonary disease, unspecified; E55.9 Vitamin D deficiency, unspecified; F41.9 Anxiety disorder, unspecified; H40.9 Unspecified glaucoma; F33.9 Major depressive disorder, recurrent, unspecified; E66.9 Obesity, unspecified; Z68.30 Body mass index [BMI] 30.0-30.9, adult; F17.200 Nicotine dependence, unspecified, uncomplicated; Z71.6 Tobacco abuse counseling; Z71.3 Dietary counseling and surveillance | CPT/HCPCS: 96127; 99212 ==

== ENCOUNTER 2025-06-22 07:40 | Outpatient (REF) | payer MEDICARE, BC, SELFPAY ==
--- OUTSIDE RECORDS SUMMARY | 2024-08-13 07:00 | XMS_ITS ---
Author Organization [facility] Address [address] [place] [address] Care Team Providers Care Rib Cutter Name Role Phone Alex SEALS, [place] Primary Care Provider Hunter Pereira Unavailable [phone] ROSALINA ELIZABETH Unavailable Unavailable REASON FOR VISIT gerd,abn barium swallow Problems Problem Type SNOMED Code ICD Code Onset Dates Problem Status W/U Status Risk Notes Problem Gastro-esophagea l reflux disease without esophagitis (806569853) Gastro-esophage al reflux disease without esophagitis (K21.9) Active confirmed Encounters Encounter Location Date Provider Diagnosis [facility] [place] [address] [place] [address] [phone] 08/13/2024 Hunter Pendleton Gastro-esophageal reflux disease without [...] * ANDREWS ARIASDOB:1955 ([age] yo F)Acc No.[id number]:08/13/2024 EGD/MAC Patient: Dori HandleyMaurice ANDREWS Provider: Fede Pendleton MD :1955 A ge:68 Y S ex:Female Date:08/13/2024 Address:[address] [place] [address] [address], [address], [id number] Pcp:Orlando Johnson MD Subjective: * Chief Complaints: [...] Date: 10/13/2023 Generated for Traci smalls/Shaista/Skipsmitting on: 0 06/22/2025 07:45 AM EDT
--- NOTE | ~2025-06-22 | MM_ITS ---
EXAMINATION: MM SCREENING DIGITAL BREAST TOMOSYNTHESIS, BILATERAL CLINICAL INFORMATION: Screening. Asymptomatic. COMPARISON: Comparison made to multiple prior, most recent June 16, 2024, and most remote August 30, 2013. TECHNIQUE: Digital breast tomosynthesis is performed in mediolateral oblique and craniocaudal views along with computer-aided detection (CAD). Synthesized 2D images are generated from the tomosynthesis. FINDINGS: BREAST COMPOSITION: There are scattered areas of fibroglandular density. BILATERAL BREASTS: No significant masses, suspicious calcifications or other abnormalities are seen in either breast. MM/MM tomosynthesis screening BI IMPRESSION: BILATERAL BREASTS: Negative, no mammographic evidence of malignancy. Normal interval follow-up is recommended in 12 months. ASSESSMENT: BI-RADS: Category 1: Negative RECOMMENDATION: Routine annual mammography screening. FOLLOW-UP: 1 year F/U This examination should not preclude the clinical evaluation of a suspicious palpable abnormality. This patient's information was entered into a reminder system with a target due date for their next mammogram. Electronically signed by: Jeramie Garcia MD 06/24/2025 02:23 PM EDT
--- OUTSIDE RECORDS SUMMARY | 2025-06-22 07:45 | XMS_ITS | Patient Health Record ---
Author Organization [facility] Address [address] [place] [address] Care Team Providers Care Gas Plant Repairer Name Role Phone Blayne Johnson MDneth Primary Care Provider Hunter Pereira Unavailable [phone] ROSALINA WEAVER Unavailable Unavailable Allergies No Known Allergies Results Component Value Reference Range Notes Pathology (Not yet reviewed by provider) Interpretation: Performing Lab:[facility], [address] [place] [phone] Notes/Report: Reason For Referral No Information Medications [...] Notes Problem Gastro-esophageal reflux disease without esophagitis (149259352) Gastro-esophag eal reflux disease without esophagitis (K21.9) Active confirmed Problem Barium swallow abnormal (900362443) Abnormal barium swallow (R93.3) Active confirmed Problem Gastroesophageal reflux disease (disorder) (708144590) Chronic GERD (K21.9) Active confirmed Encounters Encounter Location Date Provider Diagnosis [facility] [place] Out[place] [address] [place] [id number] 08/13/2024 Hunter Pendleton Gastro-esophageal reflux disease without [...] Date [place] [address] [place] [address] [id number] BALJINDER ARIASICE Self - patient is the insured [facility] [address] [place] [address] [phone] [id number] HUGO, ANDREWS Self - patient is the insured Medical (General) History Medical History History ICD Code COPD-Dr. Weaver Anxiety Hiatal hernia/GERD seen on upper GI seri es in January of 2024 Denies [place],DM,CVA,renal disease Hyperlipidemia Osteoporosis Screening colonoscopy with Paige Mckeon in 2022 with removal of 2 small tubular adenomas and a small hyperplastic polyp Surgical History Surgery Date(Month/Year) Left eye removed 2013 Tubal ligation
--- OUTSIDE RECORDS SUMMARY | 2025-06-22 07:45 | XMS_ITS | Clinical Summary ---
Author Organization [facility] Address [address] [place] [phone] Phone Care Team Providers Care Groover And Striper Operator Name Role Phone Henna Velarde MD Primary [...] 12/06/2007 OSTEOPOROSIS SCREENING INITI AL (ONE-TIME) 2022 INFLUENZA VACCINE (#1) 2025 COVID-19 VACCINE (2 - 2024-2 6 season) 2025 12/14/2020 RSV VACCINE (1 - 1-dose 75+ [...] topic Medical Devices [place] [id number] [facility] [place] [address] [address] [place] [address] [place] [place] [address] PPO EPO [facility] [place] [address] [place] [address] [address] [place] [address] [address] [place] [address] [place] [address] [place] [address] [place] [address] [place] [address] PPO EPO Care Teams Groover And Striper Operator Relationship Specialty Start Date End Date Henna Velarde MD [facility] [place] [address] [place] [address] PCP - General Family Medicine 04/22/16 Additional Source Comments The information contained in this document represents components of the legal health record. It is not the complete legal health record.[facility]
== END 2025-06-22 07:41 | disposition home or self-care (01) ==
LOC: HO.MAMMO 07:40
PROVIDERS: PCP Internal Medicine; Visit Provider Internal Medicine
DX: Z12.31 Encounter for screening mammogram for malignant neoplasm of breast (principal)
CPT/HCPCS: 77063; 77067

== ENCOUNTER → 2025-06-22 08:00 | Outpatient (BNV) | payer MEDICARE, BC, SELFPAY | PROVIDERS: PCP Internal Medicine; Visit Provider Radiology Body Imaging | DX: Z12.31 Encounter for screening mammogram for malignant neoplasm of breast (principal) | CPT/HCPCS: 77063; 77067 ==

== ENCOUNTER 2025-07-15 08:41 | Outpatient (REF) | payer MEDICARE, BC, SELFPAY ==
--- OUTSIDE RECORDS SUMMARY | 2024-08-13 07:00 | XMS_ITS ---
Author Organization [facility] Address [address] [place] [address] Care Team Providers Care Drafting Clerk Name Role Phone Alex SEALS, [place] Primary Care Provider Hunter Pereira Unavailable [phone] ROSALINA ELIZABETH Unavailable Unavailable REASON FOR VISIT gerd,abn barium swallow Problems Problem Type SNOMED Code ICD Code Onset Dates Problem Status W/U Status Risk Notes Problem Gastro-esophagea l reflux disease without esophagitis (824867577) Gastro-esophage al reflux disease without esophagitis (K21.9) Active confirmed Encounters Encounter Location Date Provider Diagnosis [facility] [place] [address] [place] [address] [phone] 08/13/2024 Hunter Pendleton Gastro-esophageal reflux disease without [...] * ANDREWS ARIASDOB:1955 ([age] yo F)Acc No.[id number]:08/13/2024 EGD/MAC Patient: Dori HandleyMaurice ANDREWS Provider: Fede Pendleton MD :1955 A ge:68 Y S ex:Female Date:08/13/2024 Address:[address] [place] [address] [address], [address], [id number] Pcp:Orlando Johnson MD Subjective: * Chief Complaints: [...] Date: 10/13/2023 Generated for Traci smalls/Shaista/Jethroransmitting on: 09:05 AM EDT
--- NOTE | 2025-07-15 08:44 | PFT_ITS ---
Flows: FEV1: 96 % of predicted at 1.98 L FVC: 117 % of predicted at 3.08 L FEV1/FVC: 64 % Bronchodilator response: Absent Volumes: Total lung capacity: 105 % of predicted at 4.75 L Residual volume: 99 % of predicted at 1.69 L Slow vital capacity: 109 % of predicted at 3.06 L Expiratory reserve volume: 47 % of predicted at 0.31 L Diffusion capacity: Normal Impression: Mild obstructive ventilatory defect with bronchodilator response. Decreased expiratory reserve volume suggests extrathoracic restriction likely secondary to abdominal obesity. MTDD
--- OUTSIDE RECORDS SUMMARY | 2025-07-15 09:05 | XMS_ITS | Clinical Summary ---
Author Organization [facility] Address [address] [place] [address] Phone Care Team Providers Care Tube Cutter Name Role Phone Henna Velarde MD Primary [...] Medical Devices [place] [id number] [facility] [place] [address] [place] [address] [place] [address] [place] [address] PPO [place]PO [facility] [place] [address] [place] [address] [place] [address] [place] [address] [place] [address] [address] [place] [address] [place] [address] [place] [address] [place] [address] [place] [address] PPO EPO Care Teams Tube Cutter Relationship Specialty Start Date End Date Henna Velarde MD [facility] [address] [place] [address] PCP - General Family Medicine 04/22/16 Additional Source Comments The information contained in this document represents components of the legal health record. It is not the complete legal health record.[facility]
--- OUTSIDE RECORDS SUMMARY | 2025-07-15 09:05 | XMS_ITS | Patient Health Record ---
Author Organization [facility] Address [address] [place] [address] Care Team Providers Care Health Club Attendant Name Role Phone Blayne Johnson MDneth Primary Care Provider Hunter Pereira Unavailable [phone] ROSALINA WEAVER Unavailable Unavailable Allergies No Known Allergies Results Component Value Reference Range Notes Pathology (Not yet reviewed by provider) Interpretation: Performing Lab:[facility], [address] [place] [id number] Notes/Report: Reason For Referral No Information Medications Medication SIG (Take, Route, Frequency, Duration) Notes Start Date End Date Status clonazePAM 0.5 MG Oral; Duration: 15 Active Aleve as neded Active Vitamin D3 Active Fluticasone-Salmeterol 250-50 MCG/ACT Inhalation; Duration: 30 Active Alendronate Sodium 70 MG TAKE 1 TABLET B Y MOUTH ONCE A WEEK Oral; Duration: 84 Active Atorvastatin Calcium 40 MG Oral; Duration: 30 Active Omeprazole 40 MG TAKE 1 CAPSULE BY [facility] ONCE DAILY Oral; Duration: 30 Active Social History Tobacco Use: Social [...] Notes Problem Gastro-esophageal reflux disease without esophagitis (702258148) Gastro-esophag eal reflux disease without esophagitis (K21.9) Active confirmed Problem Barium swallow abnormal (745631515) Abnormal barium swallow (R93.3) Active confirmed Problem Gastroesophageal reflux disease (disorder) (110977840) Chronic GERD (K21.9) Active confirmed Encounters Encounter Location Date Provider Diagnosis [facility] Outpatient [address] [place] [id number] 08/13/2024 Hunter Pendleton Gastro-esophageal reflux disease without [...] Date MEDICARE OF [place] [address] [place] [address] [id number] ANDREWS ARIAS Self - patient is the insured [facility] [address] [place] [address] [id number] ANDREWS ARIAS Self - patient is the insured Medical (General) History Medical History History ICD Code COPD-Dr. Weaver Anxiety Hiatal hernia/GERD seen on upper GI seri es in January of 2024 Denies [place],DM,CVA,renal disease Hyperlipidemia Osteoporosis Screening colonoscopy with Paige Mckeon in 2022 with removal of 2 small tubular adenomas and a small hyperplastic polyp Surgical History Surgery Date(Month/Year) Left eye removed 2013 Tubal ligation
[2025-07-15 09:34] VITALS: PULSE 58; O2SAT 98
== END 2025-07-15 08:42 | disposition home or self-care (01) ==
LOC: HO.RESP 08:41
PROVIDERS: PCP Internal Medicine; Visit Provider Hospitalist
DX: J44.9 Chronic obstructive pulmonary disease, unspecified (principal); F17.210 Nicotine dependence, cigarettes, uncomplicated
CPT/HCPCS: 94060; 94640; 94727; 94729

== ENCOUNTER → 2025-07-15 08:44 | Outpatient (BNV) | payer MEDICARE, BC, SELFPAY | PROVIDERS: PCP Internal Medicine; Visit Provider Internal Medicine Pulmonary Disease | DX: J98.4 Other disorders of lung (principal) | CPT/HCPCS: 94060; 94727; 94729 ==

== ENCOUNTER 2025-08-04 09:07 | Outpatient (REF) | payer MEDICARE, BC, SELFPAY ==
--- OUTSIDE RECORDS SUMMARY | 2024-08-13 06:00 | XMS_ITS ---
Author Organization [facility] Address [address] [place] [address] Care Team Providers Care Purse Seiner Name Role Phone Alex SEALS, [place] Primary Care Provider Hunter Pereira Unavailable [phone] ROSALINA ELIZABETH Unavailable Unavailable REASON FOR VISIT gerd,abn barium swallow Problems Problem Type SNOMED Code ICD Code Onset Dates Problem Status W/U Status Risk Notes Problem Gastro-esophagea l reflux disease without esophagitis (659252325) Gastro-esophage al reflux disease without esophagitis (K21.9) Active confirmed Encounters Encounter Location Date Provider Diagnosis [facility] [place] [address] [place] [address] [id number] 08/13/2024 Hunter Pendleton Gastro-esophageal reflux disease without [...] * ANDREWS ARIASDOB:1955 ([age] yo F)Acc No.[id number]:08/13/2024 EGD/MAC Patient: Dori HandleyMaurice ANDREWS Provider: Fede Pendleton MD :1955 A ge:68 Y S ex:Female Date:08/13/2024 Address:[address] [place] [address] [address], [address] [place], [id number] Pcp:Orlando Johnson MD Subjective: * Chief Complaints: * 1 . Gerd,abn barium swallow. * Medical History: Objective: * Vitals: Assessment: * Assessment: 1. G skye-esophageal reflux disease without esophagitis - K21.9 (Primary) 2 .?Hiatal hernia - K44.[address] scan, esophagus - R93.3 ? Plan: * Treatment: * Procedure Codes: 4 3239 UPPER GI ENDOSCOPY, BIOPSY * * The named appointment provid er may or may not be the originator of this progress note, and it is not deemed complete until electronically signed by the appointment provider. Sign off status: Pending * Provider: Fede Pendleton MD Date: 10/13/2023 Generated for Traci smalls/Shaista/Skipsmitting on: 10/04/2024 10:02 AM EST
--- OUTSIDE RECORDS SUMMARY | 2025-08-04 10:01 | XMS_ITS | Patient Health Record ---
Author Organization [facility] Address [address] [place] [address] Care Team Providers Care Parts Back Counter Man Name Role Phone Blayne Johnson MDneth Primary Care Provider Hunter Pereira Unavailable [phone] ROSALINA WEAVER Unavailable Unavailable Allergies No Known Allergies Results Component Value Reference Range Notes Pathology (Not yet reviewed by provider) Interpretation: Performing Lab:[facility], [address] [place] [phone] Notes/Report: Reason For Referral No Information Medications [...] 40 MG TAKE 1 CAPSULE BY [facility] ONCE DAILY Oral; Duration: 30 Active Social [...] Notes Problem Gastro-esophageal reflux disease without esophagitis (545971766) Gastro-esophag eal reflux disease without esophagitis (K21.9) Active confirmed Problem Barium swallow abnormal (875200232) Abnormal barium swallow (R93.3) Active confirmed Problem Gastroesophageal reflux disease (disorder) (627190490) Chronic GERD (K21.9) Active confirmed Encounters Encounter Location Date Provider Diagnosis [facility] Outpatient [address] [place] [id number] 08/13/2024 Hunter Pendleton Gastro-esophageal reflux disease without [...] Date MEDICARE OF [place] [address] [place] [address] [id number] ANDREWS ARIAS Self - patient is the insured [facility] [address] [place] [address] [id number] ANDREWS ARIAS Self - patient is the insured Medical (General) History Medical History History ICD Code COPD-Dr. Weaver Anxiety Hiatal hernia/GERD seen on upper GI seri es in January of 2024 Denies [place],DM,CVA,renal disease Hyperlipidemia Osteoporosis Screening colonoscopy with Paige Mckeon in 2022 with removal of 2 small tubular adenomas and a small hyperplastic polyp Surgical History Surgery Date(Month/Year) Left eye removed 2013 Tubal ligation
--- OUTSIDE RECORDS SUMMARY | 2025-08-04 10:03 | XMS_ITS | Clinical Summary ---
Author Organization [facility] Address [address] [place] [address] Phone Care Team Providers Care Rn Referral Name Role Phone Henna Velarde MD Primary [...] Medical Devices [place] [id number] [facility] [place] [address] [place] [address] [place] [address] [place] [address] PPO EPO [facility] [place] [address] [place] [address] [place] [address] [place] [address] [place] [address] [place] [address] [place] [address] [place] [address] [place] [place] [address] PPO EPO Care Teams Rn Referral Relationship Specialty Start Date End Date Henna Velarde MD [facility] [address] [place] [address] PCP - General Family Medicine 04/22/16 Additional Source Comments The information contained in this document represents components of the legal health record. It is not the complete legal health record.[facility]
[2025-08-10 18:22] LABS: NTXCreaRU 68 mg/dL (20-275)
== END 2025-08-04 09:08 | disposition home or self-care (01) ==
LOC: HO.LAB 09:07
PROVIDERS: PCP Internal Medicine; Visit Provider Internal Medicine Endocrinology, Diabetes & Metabolism
DX: M81.0 Age-related osteoporosis without current pathological fracture (principal)
CPT/HCPCS: 82523

== ENCOUNTER 2025-08-30 09:10 | Outpatient (AMB) | payer MEDICARE, BC, SELFPAY ==
[2025-08-30 09:13] VITALS: BP 124/78; PULSE 53; O2SAT 95; BMI 30.8
--- NOTE | 2025-08-30 09:13 | A.OFFVIS_ITS ---
Vital Signs 08/30/25 09:13 Height 5 ft 1 in Weight 163 lb 2.273 oz BMI 30.8 BP 124/78 Blood Pressure Location Rt brachial Position Sitting Pulse 53 Pulse Source Pulse Oximeter Pulse Oximetry (%) 95 Oxygen Delivery Method Room Air Intake Visit Reasons: Osteoporosis f/u Intake Note: Patient present today for Osteoporosis follow up visit. Early Childhood Lead Teacher Required: No Accompanied by: Self / Same As Patient Allergies No Known Allergies Allergy (Verified 08/30/25 09:15) Medication List - Last Reconciled 08/30/25 by Hunter Arce MD atorvastatin 40 mg PO DAILY cholecalciferol (vitamin D3) 50 mcg PO DAILY 90 days clonazepam 0.5 mg PO Q12H PRN fluticasone propion-salmeterol 250-50 mcg/dose (Wixela Inhub) 1 inh inhalation Q12H 30 days nicotine (Nicoderm CQ) 1 patch transdermal DAILY 14 days nicotine (polacrilex) (Nicorette) 2 mg buccal Q2H PRN 30 days omeprazole 40 mg PO DAILY HPI Comments Details: 69 YO Female with PMHx Osteoporosis who is seen in F/U for the same. First diagnosed in 2012 with Osteoporosis of the hip. Was treated with Fosamax from June 2021 through Sep 2021. Now on Evenity with 6th dose given 04/22/2023. Tolerating this well. She had labs completed after 3 weeks off Fosamax. This was largely WNL, but Calcium was high normal. She was started on Vitamin D 2000 IU daily and labs repeated, still with calcium higher than expected for age, and PTH inappr opriately normal. She repeated a full biochemical workup including 24 hour urine but labs are pending at this time. No history of pathologic fracture or ONJ. Has 3-4 servings of dietary calcium per day in the form of milk. Does not take a Calcium supplement. Takes Vitamin D 2000 IU daily. Denies ever using PPI, anticoagulant, antiepileptic or glucocorticoid medication. Does weight bearing exercise 3-5 days per week in the form of walking. Fracture history: Denies Height loss: Denies AGRICULTURAL PRODUCE WASHER history: Menarche was age 14. Menses were always regular. . She did not breastfeed . Menopause was age 44. She did not use HRT. Denies history of Kidney stones: Denies family history of Osteoporosis or hip fracture. UTD on dental cleanings and sees dentist every 6 months. No planned upcoming dental work or extractions. Denies any personal history of CAD or stroke. Denies any family history of CAD. DXA: 01/01/2023 FINDINGS: AP SPINE L1-L4: Current: BMD 0.942 g/cm2, Z-score -0.5, T-score -2.0, osteopenia, 0.4% increase from previous, 2.8% increase from baseline (<5% change is not significant). Prior: BMD 0.938 g/cm2. Baseline: BMD 0.916 g/cm2. LEFT FEMUR, NECK: Current: BMD 0.642 g/cm2, Z-score -1.5, T-score -2.8, osteoporosis. Prior: BMD 0.625 g/cm2. Baseline: BMD 0.718 g/cm2. LEFT FEMUR, TOTAL: Current: BMD 0.811 g/cm2, Z-score -0.4, T-score -1.6, osteopenia, 0.1% increase from previous, 1.5% decrease from baseline (<5% change is not significant). Prior: BMD 0.810 g/cm2. Baseline: BMD 0.823 g/cm2. LEFT FOREARM RADIUS 33%: BMD 0.864 g/cm2, Z-score 1.2, T-score -0.1, normal. Prior:? Not previously measured. Labs: Laboratory Tests 03/17/23 04/18/23 04/18/23 08:15 08:54 08:54 Creatinine 0.94 Estimated GFR 60 Albumin 4.0 25-OH Vitamin D Total 36.8 TSH 2.24 PTH Intact 74 Calcium (PTH Intact) 9.5 - Bone Density Test: December, stable results, with borderline osteoporosis in the hip noted (T-score of -2.7). Urine NTX is suppressed The patient is a 69 year old individual presenting for a follow-up on bone health management. The patient's bone density is borderline and has remained st able since the last check. The patient has no history of fractures, although there was a fall last year that did not result in a fracture. Past treatment includes one year of Evenity, with no subsequent therapy, and a short course of Fosamax from June to September in the past. A recent urine bone turnover marker was suppressed. The patient reports taking calcium and vitamin D supplements, gets outside, and is mobile but does not jog. [facility] Medical History Sandoval's esophagus Erosive esophagitis Abnormal barium swallow GERD (gastroesophageal reflux disease) Smoker Pneumonitis Goiter Tobacco dependence due to cigarettes COPD (chronic obstructive pulmonary disease) Abnormal chest x-ray Facet arthritis, degenerative, lumbar spine Osteoporosis Obesity (BMI 30-39.9) Vitamin D deficiency Low back pain Radicular pain of right lower extremity Depression Anxiety Pure hypercholesterolemia Surgical History Hx of colonoscopy History of esophagogastroduodenoscopy (EGD) Hx of tubal ligation History of removal of eye Family History Father Depression Mother Medical history unknown Maternal Grandmother Uterine cancer Other Mental health problem Social History Housing: House Are you a primary day care provider to a significant other at home: No Do you presently have visiting nurse or other home services: No Alcohol intake: current Alcohol intake frequency: does not drink Patient Tobacco Use Status: Current everyday Tobacco user Tobacco use type: Cigarette Cigarettes Per Day: 1 Years Smoked: 15 e-Cigarette/Vaping Use: Never Used Second Hand Smoke Exposure: Yes service: No Current occupational status: unemployed Cognitive needs: No Hearing needs: No Vision needs: Yes (glasses) Female Reproductive History Menstrual Age of Menarche: 15 Physical Exam Vital Signs: Last Vital Signs Pulse 53 08/30/25 09:13 BP 124/78 08/30/25 09:13 Pulse Ox 95 08/30/25 09:13 Oxygen Delivery Method Room Air 08/30/25 09:13 BMI result Body Mass Index 30.8 Assessment & Plan Assessment & Plan (1) Osteoporosis: Code(s): M81.0 - Age-related osteoporosis without current pathological fracture Category: Medical Qualifiers: Osteoporosis type: age-related Presence of current pathological fracture: without current pathological fracture Qualified Code(s): M81.0 - Age- related osteoporosis without current pathological fracture Plan: This is a 67-year-old white female with a history of osteoporosis with negative secondary workup and prior treatment with Evenity . Bone turnover markers s uppressed were suppressed and recent DEXA bone density was stable although showed continued osteoporosis in the hip. Recent NTX was suppressed The plan is to continue drug holiday. We will recheck urine NTX in 8 mos If urine NTX increases, we will give a dose of IV Reclast as p.o. bisphosphonate contraindicated in light of the Sandoval's esophagitis. Next DEXA is due in 12/2026 1. Osteoporosis The patient is a 69-year-old individual with stable, borderline bone density and a history of completing a one-year course of Evenity. A recent urine bone turnover marker is suppressed, indicating low bone resorption. The patient has no fracture history, and the current assessment is that the risk of fracture is low. Therefore, the risks of initiating further pharmacologic therapy, such as IV Reclast or oral Fosamax, outweigh the benefits at this time. The plan is to continue conservative management. Continue calcium and vitamin D supplementation. Repeat the urine bone turnover marker test in approximately seven months. If the marker shows an increase, treatment with IV Reclast will be reconsidered. A follow-up appointment is scheduled for eight to nine months. Advised that another bone density scan cannot be performed for another year and a half. Recommended lifestyle modifications for fall prevention, including light weight exercises and considering a Bones and Balance class. The patient had an opportunity to ask questions regarding treatment plan. The patient expressed understanding and agreement with the above treatment plan. Patient was informed and verbally consented to the use of an ambient scribe for clinic note documentation during this visit. Coding Level of Care Code Est Pt Level 3 (43742) Diagnoses Age-related osteoporosis without current pathological fracture M81.0 Osteoporosis type: age-related Presence of current pathological fracture: without current pathological fracture
--- OUTSIDE RECORDS SUMMARY | 2025-08-30 09:41 | XMS_ITS | Clinical Summary ---
Author Organization [facility] Address [address] [place] [address] Phone Care Team Providers Care Communications Coordinator Name Role Phone Henna Velarde MD Primary [...] Medical Devices [place] [id number] [facility] [place] [address] [place] [address] [place] [address] [place] [address] PPO EPO [facility] [place] [address] [place] [address] [place] [address] [address] [place] [address] [place] [address] [place] [address] [place] [place] [address] PPO EPO Care Teams Communications Coordinator Relationship Specialty Start Date End Date Henna Velarde MD [facility] [address] [place] [address] PCP - General Family Medicine 04/22/16 Additional Source Comments The information contained in this document represents components of the legal health record. It is not the complete legal health record.[facility]
== END 2025-08-30 09:45 | disposition home or self-care (01) ==
LOC: HO.ENCR 09:11
PROVIDERS: PCP Internal Medicine; Visit Provider Internal Medicine Endocrinology, Diabetes & Metabolism
DX: M81.0 Age-related osteoporosis without current pathological fracture (principal)
CPT/HCPCS: 99213

== ENCOUNTER → 2025-08-30 09:10 | Outpatient (BNVA) | payer MEDICARE, BC, SELFPAY | PROVIDERS: PCP Internal Medicine; Visit Provider Internal Medicine Endocrinology, Diabetes & Metabolism | DX: M81.0 Age-related osteoporosis without current pathological fracture (principal); F17.210 Nicotine dependence, cigarettes, uncomplicated | CPT/HCPCS: 99212 ==

== ENCOUNTER 2025-09-19 09:21 | Outpatient (REF) | payer MEDICARE, BC, SELFPAY ==
--- OUTSIDE RECORDS SUMMARY | 2024-08-13 06:00 | XMS_ITS ---
Author Organization [facility] Address [address] [place] [address] Care Team Providers Care Casting Chipper Name Role Phone Alex SEALS, [place] Primary Care Provider Hunter Pereira Unavailable [phone] ROSALINA ELIZABETH Unavailable Unavailable REASON FOR VISIT gerd,abn barium swallow Problems Problem Type SNOMED Code ICD Code Onset Dates Problem Status W/U Status Risk Notes Problem Gastro-esophagea l reflux disease without esophagitis (206076246) Gastro-esophage al reflux disease without esophagitis (K21.9) Active confirmed Encounters Encounter Location Date Provider Diagnosis [facility] [place] [address] [place] [address] [id number] 08/13/2024 Hunter Pendleton Gastro-esophageal reflux disease without esophagitis K21.9 ; Hiatal hernia K44.[address] scan, esophagus R93.3 Assessments Encounter Date Diagnosis (ICD Code) Assessment Notes Treatment Notes Treatment Clinical Notes Section Notes 08/13/2024 Gastro-esophagea l reflux disease without esophagitis (ICD-10 - K21.9) 08/13/2024 Hiatal hernia (ICD-10 - K44.9) 08/13/[address] scan, esophagus (ICD-10 - R93.3) Plan Of Treatment No Information Progress Notes * ANDREWS ARIASDOB:1955 ([age] yo F)Acc No.[id number]:08/13/2024 EGD/MAC Patient: Dori HandleyMauriceBALJINDERANDREWS Provider: Fede Pendleton MD :1955 A ge:68 Y S ex:Female Date:08/13/2024 Address:[address] [place] [address] [address], [address], [id number] Pcp:Orlando Johnson MD Subjective: * Chief Complaints: * G erd,abn barium swallow Assessment: * Assessment: 1. G skye-esophageal reflux disease without esophagitis - K21.9 (Primary) 2 .?Hiatal hernia - K44.[address] scan, esophagus - R93.3 ? Plan: * Procedure Codes: 4 3239 UPPER GI ENDOSCOPY, BIOPSY Billing Information: * Procedure Codes: 16157 UPPER GI ENDOSCOPY, BIOPSY. * The named appointment provid er may or may not be the originator of this progress note, and it is not deemed complete until electronically signed by the appointment provider. Sign off status: Pending * Provider: Fede Pendleton MD Date: 10/13/2023 Generated for Traci smalls/Shaista/Jethroransmitting on: 1 11/20/2024 10:34 AM EST
[2025-09-19 09:35] LABS: MANUAL DIFF FLAG NO
[2025-09-19 09:44] LABS: Hematocrit 42.1 % (37.0-47.0); Hemoglobin 14.3 g/dl (12.0-16.0); Imm Gran Abs Auto 0.03 X10*3/uL (0.00-0.03); Imm Gran Pct Auto 0.3 % (0.0-0.4); Lymphocytes Absolute Auto 2.9 X10*3/uL (1.2-4.9); Mean Corpuscular HGB Conc 34.0 g/dl (31.0-35.0); Mean Corpuscular Hemoglobin 30.3 pg (27.0-33.0); Mean Corpuscular Volume 89.2 fL (80.0-98.0); NRBC Abs Auto 0.000 X10*3/uL (0.0-0.012); NRBC Pct Auto 0.0 /100WBC (0.0-0.2); Platelet Count 278 X10*3/uL (160-400); Red Blood Count 4.72 X10*6/uL (4.20-5.50); White Blood Count 8.9 X10*3/uL (4.8-10.8)
--- OUTSIDE RECORDS SUMMARY | 2025-09-19 10:35 | XMS_ITS | Patient Health Record ---
Author Organization [facility] Address [address] [place] [address] Care Team Providers Care Medical Technologist Prn Name Role Phone Blayne Johnson MDneth Primary Care Provider Hunter Pereira Unavailable [phone] ROSALINA WEAVER Unavailable Unavailable Allergies No Known Allergies Reason For Referral No Information Medications Medication SIG (Take, Route, Frequency, Duration) Notes Start Date End Date Status clonazePAM 0.5 MG Tablet Oral; Duration: 15 Active Aleve as neded Active Vitamin D3 Active Fluticasone-Salmeterol 250-50 MCG/ACT Aerosol Powder Breath Activated Inhalation; Duration: 30 Active Alendronate Sodium 70 MG Tablet TAKE 1 TABLET BY MOUTH ONCE A WEEK Oral; Duration: 84 Active Atorvastatin Calcium 40 MG Tablet Oral; Duration: 30 Active Omeprazole 40 MG Capsule Delayed Release TAKE 1 CAPSULE BY MOUTH ONCE DAILY Oral; Duration: 30 Active Social History Tobacco Use: Social History Observation Description Date Details (start date - stop date) Current Smoker NA - NA Social History Drugs/Alcohol: Social Info Question Answer Notes Alcohol Screen Did you have a drink containing alcohol in the past year? No Points 0 Interpretation Negative Tobacco Use: Social Info Question Answer Notes Tobacco Use/Smoking Patient is a current smoker How often do you smoke cigarettes? every day How many cigarettes a day do you smoke? 5 or less Additional Details Category Social Info Options Details Miscellaneous: Marital status: Occupation: retired Problems Problem Type SNOMED Code ICD Code Onset Dates Problem Status W/U Status Risk Notes Problem Gastro-esophageal reflux disease without esophagitis (210215952) Gastro-esophag eal reflux disease without esophagitis (K21.9) Active confirmed Problem Barium swallow abnormal (043686590) Abnormal barium swallow (R93.3) Active confirmed Problem Gastroesophageal reflux disease (disorder) (268733928) Chronic GERD (K21.9) Active confirmed Plan Of Treatment Pending Test Test Name Order Date Pathology 08/13/2024 Future Test Test Name Order Date UPPER GI ENDOSCOPY 04/20/2024 Insurance Providers Payer Name Payer Address Payer Phone Subscriber Number Group Number Insured Name Patient Relationship to Insured Coverage Start Date Coverage End Date MEDICARE OF [place] [address] [facility] [address] [id number] ANDREWS ARIAS Self - patient is the insured [facility] [address] [place] [address] [id number] ANDREWS ARIAS Self - patient is the insured Medical (General) History Medical History History ICD Code COPD-Dr. Weaver Anxiety Hiatal hernia/GERD seen on upper GI seri es in January of 2024 Denies [place],DM,CVA,renal disease Hyperlipidemia Osteoporosis Screening colonoscopy with Paige Mckeon in 2022 with removal of 2 small tubular adenomas and a small hyperplastic polyp Surgical History Surgery Date(Month/Year) Left eye removed 2013 Tubal ligation
--- OUTSIDE RECORDS SUMMARY | 2025-09-19 10:35 | XMS_ITS | Clinical Summary ---
Author Organization [facility] Address [address] [place] [address] Phone Care Team Providers Care Mold Shifter Name Role Phone Henna Velarde MD Primary [...] Medical Devices [place] [id number] [facility] [place] [address] [place] [address] [place] [address] [place] [address] PPO EPO [facility] [place] [address] [place] [address] [place] [address] [place] [address] [place] [address] [place] [address] [place] [address] [place] [address] [place] [address] [place] [address] PPO EPO Care Teams Mold Shifter Relationship Specialty Start Date End Date Henna Velarde MD [facility] [address] [place] [address] PCP - General Family Medicine 04/22/16 Additional Source Comments The information contained in this document represents components of the legal health record. It is not the complete legal health record.[facility]
[2025-09-19 10:59] LABS: Alanine Aminotransferase 22 U/L (0-31); Albumin Level 4.2 g/dL (3.5-5.0); Alkaline Phosphatase 97 U/L (39-117); Anion Gap 13 (12-20); Aspartate Amino Transferase 21 U/L (5-31); Blood Urea Nitrogen 14 mg/dL (9-16); Calcium 9.5 mg/dL (8.4-10.2); Carbon Dioxide 23 mmol/L (22-29); Chloride 110 mmol/L (96-108); Cholesterol 138 mg/dL (<200); Estimated Glomerular Filt Rate 58; HDL Cholesterol 42 mg/dL (>40); Potassium 4.1 mmol/L (3.3-5.1); Sodium 142 mmol/L (135-145); Total Protein 6.1 g/dL (6.5-8.0); Triglycerides 136 mg/dL (<150)
== END 2025-09-19 09:22 | disposition home or self-care (01) ==
LOC: HO.LAB 09:21
PROVIDERS: PCP Internal Medicine; Visit Provider Internal Medicine
DX: E78.00 Pure hypercholesterolemia, unspecified (principal); E55.9 Vitamin D deficiency, unspecified; D64.9 Anemia, unspecified
CPT/HCPCS: 36415; 80053; 80061; 82306; 85025

== ENCOUNTER 2025-09-28 10:02 | Outpatient (AMB) | payer MEDICARE, BC, SELFPAY ==
--- OUTSIDE RECORDS SUMMARY | 2024-08-13 06:00 | XMS_ITS ---
Author Organization [facility] Address [address] [place] [address] Care Team Providers Care Field Service Supervisor Name Role Phone Alex SEALS, [place] Primary Care Provider Hunter Pereira Unavailable [phone] ROSALINA ELIZABETH Unavailable Unavailable REASON FOR VISIT gerd,abn barium swallow Problems Problem Type SNOMED Code ICD Code Onset Dates Problem Status W/U Status Risk Notes Problem Gastro-esophagea l reflux disease without esophagitis (902459483) Gastro-esophage al reflux disease without esophagitis (K21.9) Active confirmed Encounters Encounter Location Date Provider Diagnosis [facility] [place] Out[place] [address] [place] [address] [phone] 08/13/2024 Hunter Pendleton Gastro-esophageal reflux disease without [...] * ANDREWS ARIASDOB:1955 ([age] yo F)Acc No.[id number]:08/13/2024 EGD/MAC Patient: BALJINDER LAGUNASICE Provider: Fede Pendleton MD :1955 A ge:68 Y S ex:Female Date:08/13/2024 Address:[address] [place] [address] [address], [address], [id number] Pcp:Orlando Johnson MD Subjective: * Chief Complaints: * G erd,abn barium swallow Assessment: * Assessment: 1. G skye-esophageal reflux disease without esophagitis - K21.9 (Primary) 2 .?Hiatal hernia - K44.[address] scan, esophagus - R93.3 ? Plan: * Procedure Codes: 4 3239 UPPER GI ENDOSCOPY, BIOPSY Billing Information: * Procedure Codes: 40001 UPPER GI ENDOSCOPY, BIOPSY. * The named appointment provid er may or may not be the originator of this progress note, and it is not deemed complete until electronically signed by the appointment provider. Sign off status: Pending * Provider: Fede Pendleton MD Date: 10/13/2023 Generated for Traci smalls/Shaista/Skipsmitting on: 11:02 AM EST
--- NOTE | 2025-09-28 10:07 | A.OFFPC_ITS ---
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 Required: No Accompanied by: Self / Same As Patient Allergies No Known Allergies Allergy (Verified 09/28/25 11:04) Medication List - Last Reconciled 09/28/25 by Orlando Johnson MD atorvastatin 40 mg PO DAILY cholecalciferol (vitamin D3) 50 mcg PO DAILY 90 days clonazepam 0.5 mg PO Q12H PRN fluticasone propion-salmeterol 250-50 mcg/dose (Wixela Inhub) 1 inh inhalation Q12H 30 days nicotine (Nicoderm CQ) 1 patch transdermal DAILY 14 days nicotine (polacrilex) (Nicorette) 2 mg buccal Q2H PRN 30 days omeprazole 40 mg PO DAILY Tobacco use date assessed: 09/28/25 Fall risk assessment: 1 Fall in past year Last assessed Fall Risk: 09/28/25 Dental Screening Dental Screen Date: 09/28/25 Did you have a dental visit in the last 12 months?: No Did you have a dental problem in the last 6 months where you did not have access to dental care?: No Was dental information given to patient?: No HPI 4 months HPI Details - The patient is a 69 year old female pr esenting for her follow-up visit - States that she had an upper endoscopy performed in July [address] 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 The patient has been compliant with daily omeprazole for acid reflux. The specialist recommended a follow-up endoscopy in three years. - She reports ongoing issues with bloati ng, a sensation of slow digestion, and constipation. Symptoms of constipation include straining during bowel movements and a feeling of incomplete evacuation. Her dietary management includes eating vegetables, but she does not use any laxatives. - Regarding her musculoskeletal pain, sarkis sosa had an incident years ago where something popped, and about a month ago her left leg gave out while getting out of bed. She currently experiences intermittent pressure-like pain that originates in her back and travels down the posterior left leg to her foot, which is exacerbated by walking too much. She also reports a catch sensation in her back and numbness in her toes with overexertion. A back x-ray in 2020 showed lumbar spine arthritis, and hip x-rays from approximately five years ago showed bilateral hip arthritis. - Her osteoporosis is being followed by Dr. Arce, and her blood counts have remained stable. - She has a history of anxiety and previ ously attended weekly therapy, which she discontinued due to cost, but reports feeling to be in a good place mentally now. - She denies any headaches or dizziness - Denies any chest pains, no SOB - No nausea/vomiting, no abdominal pain - No change in bowel habits noted - She had her follow up labs done last w - to discuss her results [facility] Medical History Sandoval's esophagus Erosive esophagitis Abnormal barium swallow GERD (gastroesophageal reflux disease) Smoker Pneumonitis Goiter Tobacco dependence due to cigarettes COPD (chronic obstructive pulmonary disease) Abnormal chest x-ray Facet arthritis, degenerative, lumbar spine Osteoporosis Obesity (BMI 30-39.9) Vitamin D deficiency Low back pain Radicular pain of right lower extremity Depression Anxiety Pure hypercholesterolemia Surgical History Hx of colonoscopy History of esophagogastroduodenoscopy (EGD) Hx of tubal ligation History of removal of eye Family History Father Depression Mother Medical history unknown Maternal Grandmother Uterine cancer Other Mental health problem Social History Housing: House Are you a primary manager critical care to a significant other at home: No Do you presently have visiting nurse or other home services: No Alcohol intake: current Alcohol intake frequency: does not drink Patient Tobacco Use Status: Current everyday Tobacco user Tobacco use type: Cigarette Cigarettes Per Day: 1 Years Smoked: 15 e-Cigarette/Vaping Use: Never Used Second Hand Smoke Exposure: Yes service: No Current occupational status: unemployed Cognitive needs: No Hearing needs: No Vision needs: Yes (glasses) Female Reproductive History Menstrual Age of Menarche: 15 Questionnaire PHQ-9 Over the last 2 weeks, how often have you been bothered by any of the following problems? 1. Little interest or pleasure in doing things: not at all 2. Feeling down, depressed, or hopeless: not at all 3. Trouble falling or staying asleep, or sleeping too much: not at all 4. Feeling tired or having little energy: not at all 5. Poor appetite or overeating: not at all 6. Feeling bad about yourself - or that you are a failure or have let yourself or your family down: not at all 7. Trouble concentrating on things, such as reading the newspaper or watching television: not at all 8. Moving or speaking so slowly that other people could have noticed. Or the opposite - being so fidgety or restless that you have been moving around a lot more than usual: not at all 9. Thoughts that you would be better off or of hurting yourself in some way: not at all Total score: 0 Depression Screening Interpretation: Negative Depression Screening Done: Yes 48583 - PHQ-9 Billing: Yes Source: Developed by Drs. Hunter Ya, Leyla Brown, Ashkan Medeiros and colleagues, with an educational marina from [employer]. Thrive Questionnaire Date Thrive assessed: 09/28/25 I am a: Patient What is your living situation today?: I have a steady place to live Within the past 12 months, did the food you bought not last and you didn't have the money to get more?: I choose not to answer this question Within the past 12 months, did you worry whether your food would run out before you got money to buy more?: I choose not to answer this question Do you have trouble paying for medicines?: I choose not to answer this question Do you have trouble getting transportation to medical appointments?: I choose not to answer this question Do you have trouble paying your heating and electricity bill?: I choose not to answer this question Do you have trouble taking care of your child, family member or friend?: I choose not to answer this question Do you have trouble with day-to-day activities such as bathing, preparing meals, shopping, managing finances, etc.?: I choose not to answer this question Are you currently unemployed and looking for a job?: I choose not to answer this question Are you interested in more education?: I choose not to answer this question Please select the resources that you would like help with: None Currently or been in a relationship where the following occur: I choose not to answer THRIVE Score: 0 AUDIT C Alcohol Use Questionnaire (AUDIT-C) 1. How often do you have a drink containing alcohol?: Never 3. How often do you have six or more drinks on one occasion?: Never Total Score: 0 Score Reviewed/Action Taken: Yes COLLIN-7 AMB Questionnaire COLLIN-7 Date COLLIN - 7 assessed: 09/28/25 Feeling nervous, anxious, or on edge: 0 = Not at all Not being able to stop or control worryin = Not at all Worrying too much about different things: 0 = Not at all Trouble relaxin = Not at all Being so restless that it is hard to sit still: 0 = Not at all Becoming easily annoyed or irritable: 0 = Not at all Feeling afraid as if something awful might happen: 0 = Not at all Total COLLIN-7 score (0-4 normal; 5-9 mild; 10-14 moderate; 15-21 severe): 0 Source: Developed by Drs. Hunter Ya, Leyla Brown, Ashkan Medeiros and colleagues, with an educational marina from [employer]. Review of Systems Const Denies chills, Denies fatigue, Denies fever(s) and Denies headache(s) ENT Denies dysphagia (improved with Rx), Denies dizziness, Denies otalgia, Denies headache(s), Denies neck pain, Denies odynophagia and Denies sore throat Card Denies chest pain, Denies palpitations and Denies dyspnea Resp Denies chest congestion, Denies cough, Denies dyspnea and Denies wheezing GI Denies abdominal pain, Denies constipation, Denies dysphagia (improved with Rx), Denies heartburn (improved with Rx), Denies diarrhea, Denies nausea, Denies odynophagia and Denies vomiting Denies difficulty voiding, Denies nocturia, Denies dysuria and Denies urinary urgency Musc Reports as per HPI, Reports back pain (on and off over the lower back), Reports arthralgias (in the left hip), Denies neck pain and Reports radiating pain into limb (into the back of the left leg at times) Skin/Breast Denies rash Neuro Denies dizziness, Denies headache(s) and Reports radicular pain (over the back of the left lower extremity) Psych Reports anxiety and Reports depression Endo Denies fatigue and Denies palpitations Aller/Immun Denies wheezing Physical exam (Primary Care) Vital Signs: Last Vital Signs Pulse 71 09/28/25 10:09 BP 132/80 09/28/25 10:09 Pulse Ox 98 09/28/25 10:09 Oxygen Delivery Method Room Air 09/28/25 10:09 BMI result Body Mass Index 30.5 Tobacco/Smoking Status: Tobacco use Status Tobacco use date assessed 09/28/25 09/28/25 10:12 Patient Tobacco Use Status Current everyday Tobacco 09/28/25 10:12 Tobacco use type Cigarette 09/28/25 10:12 e-Cigarette/Vaping Use Never Used 09/28/25 10:12 PHQ-9: PHQ-9 Score PHQ-9: Total score 0 09/28/25 11:10 Depression Screening Interpretation: Negative Thrive Assessment: Date of Thrive Assessment Date Thrive assessed 09/28/25 09/28/25 10:12 Currently or been in a relationship where the following occur: I choose not to answer Const General: no acute distress and alert HENMT Ears: TM's normal bilaterally and EAC's normal Throat: Yes posterior oropharynx normal and Yes tonsils normal (no TP congestion) Neck Neck: Yes supple and No lymphadenopathy Thyroid: Thyroid normal Resp Auscultation: clear to auscultation bilaterally, no crackles, no rales and no wheezes Cardio Rate: regular rate Rhythm: regular rhythm Heart sounds: no murmurs GI Palpation (GI): Soft to palpation and nontender Auscultation: normal bowel sounds General: Yes no CVA tenderness Back/Spine/Pelvis Back: no CVA tenderness Thoracic/Lumbar Spine: straight leg raise negative bilaterally and lumbar spinal tenderness Skin Rashes: no rashes Extrem General: Yes no clubbing, cyanosis or edema Results Reviewed Results Reviewed: Laboratory Tests 09/19/25 09:33 WBC 8.9 Hgb 14.3 Hct 42.1 Plt Count 278 Sodium 142 Potassium 4.1 Creatinine 0.96 Estimated GFR 58 Fasting Glucose 95 Calcium 9.5 AST 21 ALT 22 Triglycerides 136 Cholesterol 138 LDL Cholesterol, Calc 69 HDL Cholesterol 42 25-OH Vitamin D Total 45.7 Coding Level of Care Code Est Pt Level 4 (53916) Diagnoses Pure hypercholesterolemia E78.00 Elevated blood pressure reading R03.0 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 K22.70 Sandoval's esophagus type: without dysplasia Facet arthritis, degenerative, lumbar spine M47.816 Left hip pain M25.552 Age-related osteoporosis without current pathological fracture M81.0 Osteoporosis type: age-related Presence of current pathological fracture: without current pathological fracture Chronic obstructive pulmonary disease, unspecified COPD type J44.9 COPD type: unspecified COPD Vitamin D deficiency E55.9 Glaucoma, unspecified glaucoma type, unspecified laterality H40.9 Glaucoma type: unspecified Laterality: unspecified laterality Anxiety F41.9 Episode of recurrent major depressive disorder, unspecified depression episode severity F33.9 Active/Remission status: currently active Depression Type: major depressive disorder Major depression episode severity: unspecified Major depression recurrence: recurrent Smoker F17.200 Obesity (BMI 30-39.9) E66.9 Additional Codes PHQ-9 - 67615 - PHQ-9 Billing: Yes ([id number]) Assessment & Plan Assessment & Plan (1) Pure hypercholesterolemia: Code(s): E78.00 - Pure hypercholesterolemia, unspecified Category: Medical Plan: Results of her labs done early last week reviewed and discussed with patient Reinforced low cholesterol diet Continue Atorvastatin 40 mg QD Will recheck her labs and fasting lipids in 4 months for follow-up (2) Elevated blood pressure reading: Code(s): R03.0 - Elevated blood-pressure reading, without diagnosis of hypertension Category: Medical Plan: Reinforced low sodium diet - goal is systolic BP of 120 mm or less Her BP has been much better since she switched to decaf coffee a few months ago She is again reminded to continue monitoring her BP regularly (3) Sandoval's esophagus: Comment: EGD with Bx done on 08/13/2024 Code(s): K22.70 - 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 Category: Medical Qualifiers: Sandvoal's esophagus type: without dysplasia Qualified Code(s): K22.70 - 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 Plan: Her upper GI series done back in January 2024 revealed (+) findings suggestive of erosive esophagitis and severe GERD She was referred to GI for further evaluation and subsequently had EGD done on 08/13/2024 EGD revealed (+) small areas of irregularity consistent with reflux and possibly small areas of Sandoval's mucosa, which were biopsied There was no evidence of any esophagitis nor any lesions. There was a moderate-sized hiatal hernia noted in exam of the stomach Pathology on her Bx came back as Sandoval's esophagitis with NO dysplasia Continue Omeprazole 40 mg QD - have again reminded patient that she needs to take this everyday regardless of whether she has symptoms or not She will need repeat EGD in 3 years (2026) Follow up with GI as scheduled (4) Facet arthritis, degenerative, lumbar spine: Code(s): M47.816 - Spondylosis without myelopathy or radiculopathy, lumbar region Category: Medical Plan: Reinforced activity and weight-lifting restrictions to minimize aggravating her low back pain Lumbar spine x-rays done back in 2020 revealed (+) facet arthritis with no other concerning findings As she has been experiencing more frequent low back pain lately, with occasional radiation of the pain down the back of her left lower extremity, will send her for repeat lumbar spine and left hip x-rays KAROLINE for further evaluation (5) Left hip pain: Code(s): M25.552 - Pain in left hip Category: Medical Plan: Will send patient for x-rays of the left hip for further evaluation (6) Osteoporosis: Code(s): M81.0 - Age-related osteoporosis without current pathological fracture Category: Medical Qualifiers: Osteoporosis type: age-related Presence of current pathological fracture: without current pathological fracture Qualified Code(s): M81.0 - Age- related osteoporosis without current pathological fracture Plan: Repeat BMD done back on 01/01/2023 revealed (+) osteoporosis, with no significant change in BMD from her previous scan in November 2020 Continue Vitamin D and Calcium supplements daily and reminded to stay active and exercise regularly; fall precautions reinforced She was treated with Alendronate from June 2021 through Sep 2021 but was switched over to Evenity and has been tolerating Rx well over the past couple of years Continue Evenity 210 mg once a month - Rx is being prescribed and administered by endocrinology She will likely be switched over to IV Reclast once a year sometime later this year Follow up with endocrinology as scheduled (7) COPD (chronic obstructive pulmonary disease): Code(s): J44.9 - Chronic obstructive pulmonary disease, unspecified Category: Medical Qualifiers: COPD type: unspecified COPD Qualified Code(s): J44.9 - Chronic obstructive pulmonary disease, unspecified Plan: Her respiratory symptoms remain well-controlled/stable Continue Wixela 250-50 mcg 1 inhalation BID Follow up with pulmonary as scheduled (8) Vitamin D deficiency: Code(s): E55.9 - Vitamin D deficiency, unspecified Category: Medical Plan: Continue Vitamin D3 2000 units QD (9) Glaucoma: Code(s): H40.9 - Unspecified glaucoma Category: Medical Qualifiers: Glaucoma type: unspecified Laterality: unspecified laterality Qualified Code(s): H40.9 - Unspecified glaucoma Plan: Follow up with ophthalmology as scheduled for continuing monitoring and management of her increased intraocular pressure (10) Anxiety: Code(s): F41.9 - Anxiety disorder, unspecified Category: Medical Plan: Continue Clonazepam 0.5 mg BID PRN She is no longer seeing a therapist (via telehealth) weekly on Tuesdays - states that she stopped a while ago as she was apparently being charged by her insurance for each visit and she could not afford the expense States that she is currently doing okay / much better with regards to her anxiety and depression (11) Depression: Code(s): F32.9 - Major depressive disorder, single episode, unspecified Category: Medical Qualifiers: Active/Remission status: currently active Depression Type: major depre ssive disorder Major depression episode severity: unspecified Major depression recurrence: recurrent Qualified Code(s): F33.9 - Major depressive disorder, recurrent, unspecified Plan: She still does not feel that she needs to be on any Rx for her depression at present She is also no longer seeing a therapist (via telehealth) weekly on Tuesdays - states that she stopped a while ago as she was apparently being charged by her insurance for each visit and she could not afford the expense States that she is currently doing okay / much better with regards to her anxiety and depression (12) Smoker: Code(s): F17.200 - Nicotine dependence, unspecified, uncomplicated Category: Social Hx Plan: Patient is counseled again on complete smoking cessation, especially in light of her recent diagnosis of Sandoval's esophagitis (13) Obesity (BMI 30-39.9): Code(s): E66.9 - Obesity, unspecified Category: Medical Plan: Reinforced diet/exercise as tolerated/lose weight Plan Follow up in 4 months Orders: Orders XR lumbar spine 2-3V 09/28/25 M54.50 - Low back pain, unspecified Complete Blood Count Auto Diff 4 Months D64.9 - Anemia, unspecified XR hip LT min 2V 09/28/25 M25.552 - Pain in left hip Comprehensive [place]. Panel Fast 4 Months E78.00 - Pure hypercholesterolemia, unspecified Lipid Panel 4 Months E78.00 - Pure hypercholesterolemia, unspecified TSH reflex Free T4 4 Months E78.00 - Pure hypercholesterolemia, unspecified UA CC w/rflx Micro + Cult 4 Months R30.0 - Dysuria
[2025-09-28 10:09] VITALS: BP 132/80; PULSE 71; O2SAT 98; BMI 30.5
--- OUTSIDE RECORDS SUMMARY | 2025-09-28 11:03 | XMS_ITS | Clinical Summary ---
Author Organization [facility] Address [address] [place] [id number] Phone Care Team Providers Care Squirt Machine Operator Name Role Phone Henna Velarde MD [...] Devices Not [place] [id number] [facility] PPO [place] [address] [address] [address] [place] [address] [facility] [address]PO [place] [address] [place] [address] [address] [place] [address] [address] [place] [address] [place] [address] [address] [place] [address] [place] [address] [address] [place] [address] PPO EPO Care Teams Squirt Machine Operator Relationship Specialty Start Date End Date Henna Velarde MD [facility] [address] [place] [address] PCP - General Family Medicine 04/22/16 Additional Source Comments The information contained in this document represents components of the legal health record. It is not the complete legal health record.[facility]
--- OUTSIDE RECORDS SUMMARY | 2025-09-28 11:03 | XMS_ITS | Patient Health Record ---
Author Organization [facility] Address [address] [place] [address] Care Team Providers Care Manager Speech Name Role Phone Blayne Johnson MDneth Primary Care Provider Hunter Pereira Unavailable [phone] ROSALINA WEAVER Unavailable Unavailable Allergies No Known [...] Notes Problem Gastro-esophageal reflux disease without esophagitis ([id number]) Gastro-esophag eal reflux disease without esophagitis (K21.9) Active confirmed Problem Barium swallow abnormal ([id number]) Abnormal barium swallow (R93.3) Active confirmed Problem Gastroesophageal reflux disease (disorder) (793252964) Chronic GERD (K21.9) Active confirmed Plan Of Treatment Pending Test Test Name Order Date Pathology 08/13/2024 Future Test Test Name Order Date UPPER GI ENDOSCOPY 04/20/2024 Insurance Providers Payer Name Payer Address Payer Phone Subscriber Number Group Number Insured Name Patient Relationship to Insured Coverage Start Date Coverage End Date MEDICARE OF [place] [address] [place] [address] [id number] ANDREWS ARIAS Self - patient is the insured [facility] [address] [place] [address] [id number] ANDREWS ARIAS Self - patient is the [...]
== END 2025-09-28 11:30 | disposition home or self-care (01) ==
LOC: HO.HMCH 10:03
PROVIDERS: PCP Internal Medicine; Visit Provider Internal Medicine
DX: K22.70 Barrett's esophagus without dysplasia (principal); J44.9 Chronic obstructive pulmonary disease, unspecified; E78.00 Pure hypercholesterolemia, unspecified; R03.0 Elevated blood-pressure reading, without diagnosis of hypertension; F41.9 Anxiety disorder, unspecified; M47.816 Spondylosis without myelopathy or radiculopathy, lumbar region; M25.552 Pain in left hip; M81.0 Age-related osteoporosis without current pathological fracture; E55.9 Vitamin D deficiency, unspecified; H40.9 Unspecified glaucoma; F33.9 Major depressive disorder, recurrent, unspecified; F17.200 Nicotine dependence, unspecified, uncomplicated; E66.9 Obesity, unspecified

== ENCOUNTER → 2025-09-28 10:02 | Outpatient (BNVA) | payer MEDICARE, BC, SELFPAY | PROVIDERS: PCP Internal Medicine; Visit Provider Internal Medicine | DX: K22.70 Barrett's esophagus without dysplasia (principal); R03.0 Elevated blood-pressure reading, without diagnosis of hypertension; E78.00 Pure hypercholesterolemia, unspecified; M47.816 Spondylosis without myelopathy or radiculopathy, lumbar region; M25.522 Pain in left elbow; M81.0 Age-related osteoporosis without current pathological fracture; J43.9 Emphysema, unspecified; H40.9 Unspecified glaucoma; F41.9 Anxiety disorder, unspecified; F33.9 Major depressive disorder, recurrent, unspecified; F17.210 Nicotine dependence, cigarettes, uncomplicated; E66.9 Obesity, unspecified; Z13.31 Encounter for screening for depression | CPT/HCPCS: 96127; 99212 ==